=== PATIENT | male | born 1950 | race Caucasian/White ===

== ENCOUNTER → 2016-04-26 | Outpatient (CLI) | payer MEDICARE ==
--- NOTE | 2016-04-26 16:44 | US ---
EXAMINATION TYPE: US kidneys/renal and bladder DATE OF EXAM: 04/26/2016 4:22 PM COMPARISON: CT in pacs June 05, 2011 CLINICAL HISTORY: Microscopic hematuria. EXAM MEASUREMENTS: Right Kidney: 12.6 x 5.7 x 6.6cm Left Kidney: 9.2 x 3.3 x 4.3cm TECHNOLOGIST IMPRESSION: Right Kidney: 1. Technologist marked 1 cm anechoic lesion lower pole level right kidney too small to further characterize favor simple cyst. Left Kidney: Cortical thinning in left kidney is noted. There is mild left renal prominence without c alyceal dilatation, favor extrarenal pelvis. Bladder: wnl Bilateral Jets seen: yes No suspicious solid or cystic masses are identified. The urinary bladder is anechoic. Bilateral ur eteral jets are seen. IMPRESSION: No significant findings seen to account for patient's symptoms. Asymmetric atrophy of left kidney is redemonstrated.
== END | disposition home or self-care (01) ==
LOC: RADUSWWP 16:02
PROVIDERS: ATTEND Family Medicine
DX: N26.1 Atrophy of kidney (terminal) (principal); R31.21 Asymptomatic microscopic hematuria
CPT/HCPCS: 76770

== ENCOUNTER → 2016-05-14 | Outpatient (CLI) | payer MEDICARE ==
[2016-05-14 13:19] LABS: Blood Urea Nitrogen 15 mg/dL (9-20); Non-African American GFR(MDRD) 51 (>60 ml/min/1.73 sqM)
== END | disposition home or self-care (01) ==
LOC: LABWHC1 08:32
PROVIDERS: ATTEND Urology
DX: R31.0 Gross hematuria (principal)
CPT/HCPCS: 82565; 84520

== ENCOUNTER → 2016-05-22 | Outpatient (CLI) | payer MEDICARE ==
--- NOTE | 2016-05-22 13:45 | CT ---
EXAMINATION TYPE: CT urogram wo/w con DATE OF EXAM: 05/22/2016 1:24 PM COMPARISON: CT abdomen pelvis June 05, 2011 HISTORY: Patient complains of episode of gross hematuria. CT DLP: 3512 mGycm, Automated Exposure Control for Dose Reduction was Utilized. CONTRAST: CT scan of the abdomen and pelvis is performed without oral and without and with IV Contrast, patient injected with 80 mL of Visipaque 320. Urogram protocol with Three-D reconstructed images created on a independent workstation and reviewed. FINDINGS: KUB: Noncontrast images show no renal calculi bilaterally. Note is made of new moderate to severe cor tical thinning or atrophy of majority of left kidney excluding lower pole where the cortex is fairly well-maintained. Note is made of retroaortic left renal vein. 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 There is probable thrombus or significant narrowing of left re nal artery near origin. There is symmetric cortical medullary uptake and excretion from both kidneys without evidence of hydr onephrosis bilaterally. There are few subcentimeter low dense lesions scattered throughout right kidn ey particularly in lower pole that are too small to further characterize but presumed benign. Visualized portion of both ureters shows no suspicious filling defect or hydroureter. Urinary bladder is satisfactorily distended midline of pelvis without abnormal intraluminal mass or wall thickening. LUNG BASES: No significant abnormality is appreciated. LIVER/GB: No significant abnormality is appreciated. PANCREAS: No significant abnormality is seen. SPLEEN: There is stable splenomegaly measuring 14.3 cm on long axis on coronal image 94 series 11. ADRENALS: No significant abnormality is seen. KIDNEYS: No significant abnormality is seen. BOWEL: Some diverticula in the left and sigmoid colon are redemonstrated. PROSTATE/SEMINAL VESICLES: Prostate gland is heterogeneous appearance and slightly prominent in size bulging on bladder base, clinical correlation for BPH is advised. LYMPH NODES: No greater than 1cm abdominal or pelvic lymph nodes are appreciated. OSSEOUS STRUCTURES: Mild to moderate spurring in the joint space loss in both hips is present. Osseou s structures are somewhat demineralized. OTHER: No significant additional abnormality is seen. IMPRESSION: 1. No significant finding is seen to account for patient's clinical symptoms of hematuria. Note is ma de of new moderate to severe cortical atrophy of majority of left kidney sparing lower pole likely du e to accessory left renal artery, etiology felt on basis of atherosclerotic disease near portion of l eft renal artery. Atrophy correlates with recent ultrasound.
== END | disposition home or self-care (01) ==
LOC: RADCTMAIN 05-14 12:28
PROVIDERS: ATTEND Urology
DX: N26.1 Atrophy of kidney (terminal) (principal)
CPT/HCPCS: 82565; 84520; 74178; 74400; Q9967

== ENCOUNTER → 2016-11-20 | Outpatient (CLI) | payer MEDICARE ==
--- NOTE | 2016-11-20 08:01 | US ---
EXAMINATION TYPE: US duplex aorta DATE OF EXAM: 11/20/2016 COMPARISON: 06/04 CLINICAL HISTORY: Z78.9 Screening for Abd Aortic Aneurysm. EXAM MEASUREMENTS: Abdominal Aorta: Proximal: 2.1 x 1.8cm Mid: 2.0 x 2.3cm Distal: 2.1 x 1.8cm Bifurcation: wnl Some exam limitations due to larger habitus and increased overlying bowel gas. Some changes, no A AA seen. IMPRESSION: Minimal calcific atheromatous changes of the visualized abdominal aorta. No evidence of a bdominal aortic aneurysm.
== END | disposition home or self-care (01) ==
LOC: RADUSWWP 07:35
PROVIDERS: ATTEND Family Medicine
DX: Z78.9 Other specified health status (principal); I70.0 Atherosclerosis of aorta
CPT/HCPCS: 93979

== ENCOUNTER → 2017-01-24 | Outpatient (CLI) | payer MEDICARE | END | disposition home or self-care (01) | LOC: LABWHC1 12:20 | PROVIDERS: ATTEND Podiatrist Foot & Ankle Surgery | DX: Z01.812 Encounter for preprocedural laboratory examination (principal); N28.9 Disorder of kidney and ureter, unspecified | CPT/HCPCS: 36415; 82565; 84520 ==

== ENCOUNTER → 2017-01-28 | Outpatient (CLI) | payer MEDICARE ==
--- NOTE | 2017-01-28 11:19 | MR ---
MR right foot with and without contrast HISTORY: Soft tissue mass, M 79.9 Multiplanar multisequence and postcontrast images through the foot following 10 cc Gadavist IV. There are no plain films for correlation. At the site of patient's symptomatology volar aspect of the fourth digit, there is overlying skin mar ker. Underlying focus of multilocular intermediate signal on T1, increased signal T2-weighted sequenc es is noted within the tissues just deep to the skin which measures approximately 1 cm x 4.8 cm x 2.1 cm in greatest dimension. Lobulated contour is present of varying adnexa dimensions. No definite com munication with the joint is noted. Following contrast administration there is no significant enhance ment. Some local mass effect is noted. Degenerative changes are present at the first metatarsophalangeal joint. Some deformity of the distal fifth metatarsal may be due to remote trauma. Bone marrow signal is otherwise essentially maintained . Flexor and extensor tendons are intact. IMPRESSION: Findings may represent ganglion cysts, synovial cyst. Additional findings above.
== END | disposition home or self-care (01) ==
LOC: RADMRIMAIN 08:00
PROVIDERS: ATTEND Podiatrist Foot & Ankle Surgery
DX: M79.9 Soft tissue disorder, unspecified (principal)
CPT/HCPCS: 73720; A9581

== ENCOUNTER → 2017-03-06 | Outpatient (CLI) | payer MEDICARE ==
[2017-03-06 10:37] LABS: CH 27.3; CHCM 33.3; HCT 36.3 % (39.0-53.0); HDW 3.19; HGB 12.1 gm/dL (13.0-17.5); MCH 27.4 pg (25.0-35.0); MCHC 33.3 g/dL (31.0-37.0); MCV 82.2 fL (80.0-100.0); Mean Platelet Volume 8.7; RBC 4.42 m/uL (4.30-5.90); RDW 15.7 % (11.5-15.5); WBC 5.2 k/uL (3.8-10.6)
[2017-03-06 10:42] LABS: Potassium 4.5 mmol/L (3.5-5.1); Total Bilirubin 0.9 mg/dL (0.2-1.3); Total Protein 6.7 g/dL (6.3-8.2)
== END | disposition home or self-care (01) ==
LOC: LABPAT 10:12
PROVIDERS: ATTEND Podiatrist Foot & Ankle Surgery
DX: Z01.812 Encounter for preprocedural laboratory examination (principal)
CPT/HCPCS: 36415; 80053; 85027

== ENCOUNTER 2017-03-19 11:26 | Day surgery (SDC) | payer MEDICARE ==
[2017-03-17 11:11] VITALS: BMI 34.0
[~2017-03-19 11:26] MED LIST: DEXAMETHASONE SOD PHOSPHATE 10 MG/ML 1 ML VIAL IV ONE; HYDROmorphone 0.5 MG/0.5 ML SYRINGE IVP PRN; LACTATED RINGERS 1,000 ML IV SCH; MIDAZOLAM 2 MG/2 ML VIAL IV PRN; ONDANSETRON 4 MG/2 ML VIAL IVP ONE; Pre Op ABX Message 1 EACH MISC MISCELLANE ONE; SCOPOLAMINE 1.5MG/72HR PATCH TRANSDERM ONE
[2017-03-19] MEDS ORDERED: LIDOCAINE 1% 20 ML VIAL (10MG/ML) FOR IV START INTRADERMA ONE (12:08)
[2017-03-19] MEDS ORDERED: PROPOFOL 10 MG/ML 20 ML VIAL IV ONE (13:07)
[2017-03-19] MEDS ORDERED: fentaNYL (PF) 50 MCG/ML 2 ML AMP ONE (13:07)
[2017-03-19] MEDS ORDERED: LIDOCAINE 1% INJ 10MG/ML (20 ML MDV) ONE (13:07)
[2017-03-19] MEDS ORDERED: MIDAZOLAM 2 MG/2 ML VIAL ONE (13:07)
[2017-03-19] MEDS ORDERED: BUPIVACAINE (PF) 0.25% 30 ML VIAL SQ ONE (13:18)
[2017-03-19 14:11] VITALS: TEMP 97.8
--- NOTE | 2017-03-19 14:18 | P.OP ---
Date of Procedure: 03/19/17 Preoperative Diagnosis: Soft tissue mass plantar aspect right foot pending path report Postoperative Diagnosis: Same Procedure(s) Performed: Excision of soft tissue mass plantar aspect right forefoot Mortgage Loan Originator #1: Jean Pierre Osuna Indications for Procedure: Pain with ambulation and weightbearing Description of Procedure: On the date of surgery the patient was taken to the operating room in good condition placed on the operating table in a supine position where an IV was started and adequate IV anesthetic agents were utilized. Anesthesia was then further supplemented with approximately 17 mL of 0.25% plain Marcaine given in an infiltrative block about the periphery of the soft tissue mass located on the plantar aspect of the patient's right forefoot. The patient's right foot was then prepped and draped in the usual aseptic manner over heavy web roll padding an ankle tourniquet was placed above the malleoli of the patient's right ankle patient's right foot and ankle were then elevated and exsanguinated of blood and after approximately 1 minutes. A time the ankle tourniquet to the patient's right ankle was inflated to approximately 275 mmHg At this time attention was directed the plantar aspect of the patient's right foot where an approximately 6 cm plantar oblique incision was made the incision was started from just proximal to the sulcus space proximal to the fourth webspace did in a proximal and medial direction to the midshaft area of the third metatarsal. The incision was deepened via sharp dissection down through the level of subcutaneous tissue layers all neurovascular structures encountered were identified isolated and were retracted and any bleeding vessels were clamped electrocauterized. Dissection was then carried deep via combination of sharp and blunt technique down to the soft tissue mass was identified lying directly beneath the original incision soft tissue mass was isolated proximally distally medially and laterally it was clamped and excised in total from the surgical site. Throughout the surgical procedure copious amounts sterile saline solution was used to irrigate the surgical site. The incision was then inspected for any remaining portions and when none was seen subcutaneous tissues were coaptated and maintained utilizing 3-0 Vicryl simple interrupted suture the skin was then closed utilizing 4-0 nylon simple interrupted suture the continuous lock suture and vertical mattress sutures. Adaptic Kerlix fluffs four-inch conformer 4 inch Coban was used to form a compression dressing and the ankle tourniquet to the patient's right ankle was deflated adequate hemostatic return was seen in all digits the patient's right foot patient tolerated the surgery and anesthesia well was taken recovery room in good postoperative condition sign Jean Pierre Osuna DPM
[2017-03-19 14:40] VITALS: RESP 16
[2017-03-19 15:01] VITALS: BP 157/82; PULSE 52
--- NOTE | 2017-03-27 07:10 | CDI ---
Dr. Osuna Mr. Chakraborty was seen on 03/19/17 for an excision of a soft tissue mass of his right foot. Further description of the size of the mass is needed for proper reporting purposes. Please specify if the size is: *Less than 1.5 CM *1.5 CM or greater Please respond to this query in an addendum to the procedure note. Thank you for your time. TANIA Perdomo For further questions please contact Milagros Luque programming manager, at [phone] [facility]
--- NOTE | 2017-05-05 07:27 | CDI ---
Outpatient Documentation Clarification Form Date: 05/05/17 Special Needs Teacher Name: TANIA Perdomo Phone: If you have question, contact Anita Luque, Restorative Care Technician at [phone] M-F 8:30 am to 6pm. Patient Name: Aaron Chakraborty Admit Date: 03/19/17 Discharge Date: 03/19/17 ATTENTION: The Clinical Documentation Specialists (CDI) and [facility] Coding Staff appreciate your assistance in clarifying documentation. Please respond to the clarification below the line at the bottom and electronically sign. The CDI & [facility] Coding staff will review the response and follow-up if needed. Please note: Queries are made part of the Legal Health Record. If you have any questions, please contact the author of this message via ITS or call the Restorative Care Technician. Dr. Osuna Mr. Chakraborty was seen on 03/19/17 for an excision of a soft tissue mass of this right foot. Further description of the size of the mass is needed for proper reporting purposes. Please specify if the size is: *Less than 1.5 cm *1.5 cm or greater MTDD
== END 2017-03-19 15:17 | disposition home or self-care (01) ==
LOC: OR 11:26
PROVIDERS: ATTEND Podiatrist Foot & Ankle Surgery
DX: M79.89 Other specified soft tissue disorders (principal); I10 Essential (primary) hypertension; E78.5 Hyperlipidemia, unspecified; J45.909 Unspecified asthma, uncomplicated; Z79.82 Long term (current) use of aspirin; Z79.51 Long term (current) use of inhaled steroids; Z79.899 Other long term (current) drug therapy
CPT/HCPCS: 28039; 88304; J2250; J1100; J2405; J2001; J3010; J2704

== ENCOUNTER 2018-02-23 08:31 | Day surgery (SDC) | payer MEDICARE ==
[2018-02-18 11:39] VITALS: BMI 32.1
[~2018-02-23 08:31] MED LIST changes: -DEXAMETHASONE SOD PHOSPHATE 10 MG/ML 1 ML VIAL IV ONE; -HYDROmorphone 0.5 MG/0.5 ML SYRINGE IVP PRN; +LIDOCAINE 1% 20 ML VIAL (10MG/ML) FOR IV START INTRADERMA PRN; -MIDAZOLAM 2 MG/2 ML VIAL IV PRN; -ONDANSETRON 4 MG/2 ML VIAL IVP ONE; -Pre Op ABX Message 1 EACH MISC MISCELLANE ONE; -SCOPOLAMINE 1.5MG/72HR PATCH TRANSDERM ONE
[2018-02-23 08:50] VITALS: TEMP 97.4
[2018-02-23] MEDS ORDERED: PROPOFOL 10 MG/ML 20 ML VIAL IV ONE (09:40)
--- NOTE | 2018-02-23 10:11 | P.PCN ---
Date of Procedure: 02/23/18 Procedure(s) Performed: Procedure: Total colonoscopy and polypectomy. Preoperative diagnosis: Blood in the stools. Postoperative diagnosis: Small hepatic flexure polyp snared but no large polyps or cancer. Preparation: HalfLytely prep. Sedation: Was provided by anesthesia. Brief clinical history: The patient is a 68-year-old male who is scheduled for this evaluation because of finding of blood in his stools. He has no overt bleeding or any change in bowel habits or any upper GI complaints or anemia. He had 2 prior colonoscopies the last was around 4 or 5 years ago. He had at least 1 polyp removed in the past. Procedure: With the patient on his left lateral decubitus position and after informed consent and adequate sedation, the perianal area was inspected and it did not show any fissures or fistulas. There were no masses felt on digital rectal examination. The Olympus CFH 190L video colonoscope was then inserted in the rectum in the usual fashion and advanced to the cecum. There was a small polyp around the hepatic flexure which was snared and retrieved by suction , otherwise, exam to the cecum showed healthy mucosa. No obvious diverticular disease, other pathology or bleeding. I retroflexed the endoscope in the rectum before the endoscope was withdrawn. The patient tolerated the procedure well. Plan: The patient was reassured. In the absence of upper GI complaints or anemia, I did not recommend workup of his upper GI tract at this time and this can be kept as a contingency. For screening for colon neoplasia, I amm recommending repeat exam in 5 years. He will follow up with you as planned.
[2018-02-23 10:22] VITALS: BP 131/72; PULSE 57; RESP 16
== END 2018-02-23 10:46 | disposition home or self-care (01) ==
LOC: ORWHC2ENDO 08:31
DX: D12.3 Benign neoplasm of transverse colon (principal); J45.909 Unspecified asthma, uncomplicated; I10 Essential (primary) hypertension; E78.5 Hyperlipidemia, unspecified; M19.90 Unspecified osteoarthritis, unspecified site; G47.33 Obstructive sleep apnea (adult) (pediatric); Z79.82 Long term (current) use of aspirin; Z79.899 Other long term (current) drug therapy
CPT/HCPCS: 88305; 45385; J2704

== ENCOUNTER → 2018-04-23 | Outpatient (CLI) | payer MEDICARE ==
--- NOTE | 2018-04-23 12:24 | US ---
EXAMINATION TYPE: US kidneys/renal and bladder DATE OF EXAM: 04/23/2018 COMPARISON: NONE CLINICAL HISTORY: N28.9 Disorder of kidney and ureter, unspecified. renal failure EXAM MEASUREMENTS: Right Kidney: 11.3 x 5.1 x 5.4 cm Left Kidney: 9.1 x 3.1 x 3.7 cm Right Kidney: No hydronephrosis or masses seen Left Kidney: asymmetric appearance of left kidney as noted on previous exam with cortical thinning an d smaller size. Bladder: wnl Bilateral Jets seen: no There is no evidence for hydronephrosis at this point in time. No nephrolithiasis is seen. No zainab s are identified. The urinary bladder is anechoic. IMPRESSION: Continued evidence of left renal atrophy. The right kidney does not demonstrate evidence of medical r enal disease. Urinary bladder is incompletely distended.
== END | disposition home or self-care (01) ==
LOC: RADUSWWP 10:52
PROVIDERS: ATTEND Family Medicine
DX: N26.1 Atrophy of kidney (terminal) (principal)
CPT/HCPCS: 76770

== ENCOUNTER → 2019-11-15 | Outpatient (CLI) | payer MEDICARE ==
--- NOTE | 2019-11-16 00:07 | MR ---
EXAMINATION TYPE: MR foot RT wo con DATE OF EXAM: 11/15/2019 COMPARISON: None HISTORY: Palpable mass in rt forefoot CONTRAST: Multiplanar multiecho imaging of the right foot was performed with no contrast. The metatarsals appear intact. There is some narrowing and spurring at the first MP joint. There is s mall degenerative cyst in the first metatarsal head. There is subcutaneous edema involving the planta r aspect of the forefoot at the MP joints. There is low signal T1 defect involving the plantar soft t issues at the first MP joint. This could be an ulcer crater and should be correlated with the physica l exam. The toes appear intact. I see no fracture. The tarsal bones appear intact. Achilles tendon is intact. Medial and lateral flexor tendons of the foot appear intact. There is mild ankle joint effus ion. There is increased fluid signal involving the plantar soft tissues at the third metatarsal head. IMPRESSION: Soft tissue swelling and edema of the forefoot involving the plantar aspect of the metatarsals. Possi ble ulceration defect of the plantar aspect of the first metatarsal head. This is a change compared t o old exam. No evidence of osteomyelitis. No discrete soft tissue mass seen. Mild ankle joint effusion similar to old exam.
== END | disposition home or self-care (01) ==
LOC: RADMRIMAIN 19:03
DX: M25.474 Effusion, right foot (principal); M79.89 Other specified soft tissue disorders
CPT/HCPCS: 73719; A9585

== ENCOUNTER → 2021-11-08 | Outpatient (CLI) | payer MEDICARE ==
[2021-11-08 17:48] LABS: Basophils # (A) 0.02 X 10*3/uL (0.00-0.10); Basophils % (A) 0.3 %; Eosinophils # (A) 0.12 X 10*3/uL (0.04-0.35); HGB 13.7 g/dL (13.0-17.0); Immature Grans, Automated 0.2 %; Lymphocytes % (A) 38.3 %; MCH 24.8 pg (27.0-32.0); MCHC 31.1 g/dL (32.0-37.0); MCV 79.7 fL (80.0-97.0); Mean Platelet Volume 9.6 fL (9.5-12.2); Monocytes # (A) 0.52 X 10*3/uL (0.20-1.00); Monocytes % (A) 8.7 %; NRBC Per 100 WBC 0 /100 WBCS (0.0-0.0); Neutrophils # (A) 3.04 X 10*3/uL (1.80-7.70); Neutrophils % (A) 50.5 %; Platelet Count 175 X 10*3/uL (140-440); RBC 5.52 X 10*6/uL (4.40-5.60); RDW 15.7 % (11.5-14.5); WBC 6.01 X 10*3/uL (4.50-10.00)
[2021-11-08 18:11] LABS: African American GFR (CKD) 79.6 (60.0-200.0); Albumin 4.3 g/dL (3.8-4.9); Albumin/Globulin Ratio 1.66 (1.60-3.17); Anion Gap 10.5 mmol/L (10.00-18.00); BUN/Creat Ratio 14.17 Ratio (12.00-20.00); Blood Urea Nitrogen 15.3 mg/dL (9.0-27.0); Calcium 9.5 mg/dL (8.7-10.3); Carbon Dioxide 23.4 mmol/L (20.0-27.5); Globulin 2.6 g/dL (1.6-3.3); Non-African American GFR(CKD) 68.7 (60.0-200.0); Potassium 4.1 mmol/L (3.5-5.5); Total Bilirubin 0.6 mg/dL (0.30-1.20)
== END | disposition home or self-care (01) ==
LOC: LABWHC1 12:39
PROVIDERS: ATTEND Podiatrist Foot & Ankle Surgery
DX: Z01.812 Encounter for preprocedural laboratory examination (principal)
CPT/HCPCS: 36415; 80053; 85025

== ENCOUNTER 2021-11-14 11:42 | Day surgery (SDC) | payer MEDICARE ==
[2021-11-12 14:34] VITALS: BMI 26.9
[~2021-11-14 11:42] MED LIST changes: +DEXAMETHASONE SOD PHOSPHATE 4 MG/ML 1 ML VIAL IV ONE; +HYDROmorphone 0.5 MG/0.5 ML SYRINGE IVP PRN; +LIDOCAINE 1% (10MG/ML) FOR IV START INTRADERMA PRN; -LIDOCAINE 1% 20 ML VIAL (10MG/ML) FOR IV START INTRADERMA PRN; +ONDANSETRON 4 MG/2 ML VIAL IVP ONE; +ONDANSETRON 4 MG/2 ML VIAL IVP PRN
[2021-11-14 12:28] LABS: Glucose,Whole Blood 103 mg/dL (70-110)
[2021-11-14] MEDS ORDERED: PROPOFOL 10 MG/ML 20 ML VIAL IV ONE (13:02)
[2021-11-14] MEDS ORDERED: fentaNYL (PF) 50 MCG/ML 2 ML AMP ONE (13:02)
[2021-11-14] MEDS ORDERED: ePHEDrine 50 MG/ML 1 ML VIAL ONE (13:02)
[2021-11-14] MEDS ORDERED: MIDAZOLAM 2 MG/2 ML VIAL ONE (13:02)
[2021-11-14] MEDS ORDERED: LIDOCAINE 2% INJ 20 MG/ML (2 ML VIAL) ONE (13:02)
[2021-11-14] MEDS ORDERED: BUPIVACAINE (PF) 0.25% 30 ML VIAL MISCELLANE ONE ×2 (13:33→14:59)
[2021-11-14 15:18] VITALS: TEMP 97
--- NOTE | 2021-11-14 15:29 | P.OP ---
Date of Procedure: 11/14/21 Preoperative Diagnosis: Hallux limitus right foot and hammer digit deformity second through fifth digit right foot Postoperative Diagnosis: Same Procedure(s) Performed: Ordoñez bunionectomy right foot Arthrodesis procedure second third and fourth digits right foot Derotational arthroplasty fifth digit right foot Anesthesia: RENEEA Surgeon: Jean Pierre Osuna Estimated Blood Loss (ml): 10 Description of Procedure: On the date of surgery the patient was taken to the operating room in good preoperative condition he was placed on the operating table in supine position where general anesthetic agents were utilized. Since right foot and ankle were then prepped and draped in the usual aseptic manner. Over heavy web roll padding an ankle tourniquet had been placed above the malleoli of the patient's right ankle. The patient's right foot and ankle were then elevated and exsanguinated of blood and after approximately 2 minutes. A time the ankle tourniquet to the patient's right ankle was inflated to approximately 250 mmHg At this time attention was directed to the dorsal aspect of the first metatarsal phalangeal joint of the patient's right foot where an approximately 6 cm dorsal linear incision was made the incision was then deepened down through the level of the subcutaneous tissues. All neurovascular structures encountered were identified isolated and were retracted. Any bleeding vessels were clamped electrocauterized. Throughout the surgical procedure copious amounts of sterile saline solution was used to irrigate the surgical site. Dissection was then carried deep down to the level of the capsular periosteal structures overlying the dorsal and medial side of the first metatarsal phalangeal joint capsule and periosteal structures then incised in line with the original skin incision and underscored and retracted from the underlying bone though a flap was created on the medial side of the base of the proximal phalanx to be used as an interface between the head of the metatarsal and the base of the proximal phalanx. Periostosis present on the dorsal and medial side of the first metatarsal head was resected flush in line with the shaft of the first metatarsal. Utilizing oscillating bone saw the base of the proximal phalanx was resected at a slightly oblique angle more bone being taken on the medial side as opposed to the lateral side of the joint due to the slight valgus deviation of the digit. Upon removal of the base of the proximal phalanx the flexor hallucis tendon was inspected and seen to be intact. Flap created from the capsular structures was then sutured to the lateral side of the first metatarsal phalangeal joint utilizing 2-0 Vicryl simple interrupted suture remaining capsular structures were then coaptated and maintained utilizing 2-0 Vicryl simple interrupted sutures. Subcutaneous tissues were coaptated and maintained utilizing 3-0 Vicryl simple interrupted suture and the skin was closed utilizing 4-0 nylon simple interrupted suture At this time attention was directed to the dorsal aspect of the second digit of the patient's right foot where an approximately 2 and half centimeter linear incision was made the incision was placed overlying the proximal interphalangeal joint the incision was deepened down through the level of subcutaneous tissue layers all neurovascular structures encountered were identified isolated and were retracted and any bleeding vessels were clamped electrocauterized. Blunt technique was used to dissect the tissues on either side of the proximal interphalangeal joint. The extensor digitorum longus tendon was then severed at the level of the proximal interphalangeal joint and the ends were reflected proximally and distally respectively. Collateral ligaments on either side of the joint were then incised sharply. Lysing oscillating bone saw the head of the proximal phalanx was resected it a 90 angle to the shaft of the proximal phalanx and removed in total from the surgical site. The base of the middle phalanx was then resected and removed from the surgical site. A 0.045 K wire was then driven distally through the middle and distal phalanx it was lined up in a rectus position against the proximal phalanx and the K wire was driven proximally into the proximal phalanx the digit upon completion of this was seen to maintain a rectus position. Sensory digitorum longus tendons were then shortened approximately saw the coaptated themselves and they were sutured with 0.0 3-0 Vicryl simple interrupted sutures the skin was then closed utilizing 4-0 nylon simple interrupted sutures suture. At this point in time the exact same procedure described above for the second toe was performed on the third and the fourth digits of the patient's right mamie t. At this point in time attention was directed to the lateral aspect of the fifth digit of the patient's right foot where a semi-elliptical oblique incision was placed it was orientated so was proximal medial and extended distal lateral the encompass wedge of skin was removed in total from the surgical site. Dissection was carried deep down to the extensor tendon which was incised sharply lateral ligaments on either side of the proximal interphalangeal joint were then incised sharply in utilizing bone cutting forceps the head of the proximal phalanx of the fifth digit resected and removed from the surgical site. Extensor digitorum longus tendons were then coaptated and maintained utilizing 3-0 Vicryl simple suture and the skin was closed utilizing 4-0 nylon simple interrupted suture Surgical sites were then injected with a total of 17 mL of 0.25% plain Marcaine. Prior to applying postoperative dressings tourniquet was deflated and adequate hemostatic return was seen in all digits of the patient's right foot 1 through 5 bilaterally. The surgical sites were then covered with Adaptic's, Kerlix fluffs four-inch conformer and 4 inch Coban. The patient tolerated the surgery and anesthesia well was taken to the recovery room in good postoperative condition
[2021-11-14] MEDS ORDERED: KETOROLAC 15 MG/ML 1 ML VIAL IVP ONE (15:39)
[2021-11-14 16:21] VITALS: BP 115/76; PULSE 60; RESP 20
== END 2021-11-14 16:40 | disposition home or self-care (01) ==
LOC: OR 11:42
PROVIDERS: ATTEND Podiatrist Foot & Ankle Surgery
DX: M20.5X1 Other deformities of toe(s) (acquired), right foot (principal); M20.41 Other hammer toe(s) (acquired), right foot; E11.9 Type 2 diabetes mellitus without complications; E55.9 Vitamin D deficiency, unspecified; E78.01 Familial hypercholesterolemia; E78.5 Hyperlipidemia, unspecified; E66.01 Morbid (severe) obesity due to excess calories; Z68.27 Body mass index [BMI] 27.0-27.9, adult; D50.9 Iron deficiency anemia, unspecified; J60 Coalworker's pneumoconiosis; F41.9 Anxiety disorder, unspecified; F32.A Depression, unspecified; F45.8 Other somatoform disorders; G47.33 Obstructive sleep apnea (adult) (pediatric); Z87.891 Personal history of nicotine dependence; I10 Essential (primary) hypertension; I25.10 Atherosclerotic heart disease of native coronary artery without angina pectoris; J45.909 Unspecified asthma, uncomplicated; I65.29 Occlusion and stenosis of unspecified carotid artery; H90.5 Unspecified sensorineural hearing loss; N52.8 Other male erectile dysfunction; M19.90 Unspecified osteoarthritis, unspecified site; Z82.49 Family history of ischemic heart disease and other diseases of the circulatory system; Z98.890 Other specified postprocedural states; Z97.2 Presence of dental prosthetic device (complete) (partial); Z79.84 Long term (current) use of oral hypoglycemic drugs; Z79.82 Long term (current) use of aspirin; Z79.899 Other long term (current) drug therapy; Z79.51 Long term (current) use of inhaled steroids; Z79.891 Long term (current) use of opiate analgesic; Z79.01 Long term (current) use of anticoagulants
CPT/HCPCS: 28292; 28285 ×3; C1713; J2250; J1100; J0690; J2405; J3010; J1885; J2704; J1170; J2001; 88304; 88311

== ENCOUNTER 2022-08-04 23:37 | Inpatient (IN) | payer MEDICARE ==
[2022-08-04] MEDS ORDERED: DILTIAZEM 5 MG/ML 5 ML VIAL IVP STA (23:51)
[2022-08-05] MEDS: DILTIAZEM 125 MG in SODIUM CHLORIDE 0.9% 100 ML IV SCH ×2 (00:15→09:39)
[2022-08-05 00:16] LABS: Basophils % (A) 0 %; Eosinophils % (A) 0 %; HCT 41.6 % (39.0-53.0); HGB 14.1 gm/dL (13.0-17.5); Lymphocytes # (A) 1.1 k/uL (1.0-4.8); Lymphocytes % (A) 13 %; MCH 26.7 pg (25.0-35.0); MCHC 33.8 g/dL (31.0-37.0); MCV 79.1 fL (80.0-100.0); Mean Platelet Volume 7.5; Monocytes # (A) 0.4 k/uL (0-1.0); Monocytes % (A) 5 %; Neutrophils # (A) 7.1 k/uL (1.3-7.7); Neutrophils % (A) 80 %; Platelet Count 208 k/uL (150-450); Poikilocytosis Slight; RBC 5.26 m/uL (4.30-5.90); RDW 15.9 % (11.5-15.5); WBC 8.8 k/uL (3.8-10.6)
[2022-08-05 00:34] LABS: Albumin 4.1 g/dL (3.5-5.0); Calcium 8.8 mg/dL (8.4-10.2); Magnesium 1.9 mg/dL (1.6-2.3); Potassium 4.3 mmol/L (3.5-5.1); Total Bilirubin 1.6 mg/dL (0.2-1.3); Total Protein 7.1 g/dL (6.3-8.2)
[2022-08-05 00:38] LABS: INR 1.4 (<1.2); Partial Thromboplastin Time 30.7 sec (22.0-30.0); Prothrombin Time 14.3 sec (9.0-12.0)
--- NOTE | 2022-08-05 00:59 | ED ---
General Adult HPI - General Chief complaint: Chest Pain Stated complaint: Chest Pain, Difficulty Breathing Time Seen by Provider: 08/04/22 23:44 Source: patient Mode of arrival: ambulatory Limitations: no limitations - History of Present Illness Initial comments: This is a 72-year-old male with a past medical history including recent diagnosis of atrial fibrillation, hypertension on Xarelto presents emergency department for palpitations and shortness of breath. The patient stated that he was doing well throughout the day when he went bowling and stated that as the came home he became short of breath and had exertional dyspnea. The patient s tated that he had a continued cough as well. On arrival, the patient stated that he had continued shortness of breath and palpitations but stated that he was not lightheaded. The patient stated that he has not felt like this before. The patient denied any nausea, vomiting as well as any fevers and chills. - Related Data Home Medications Medication Instructions Recorded Confirmed Aspirin [Adult Low Dose Aspirin EC] 81 mg PO DAILY 03/17/17 11/12/21 Atorvastatin [Lipitor] 40 mg PO DAILY 03/17/17 11/12/21 Fluticasone Propion/Salmeterol 2 puff INHALATION BID PRN 03/17/17 11/14/21 [Advair Hfa 115-21 Mcg Inhaler] Montelukast Sodium [Singulair] 10 mg PO HS 03/17/17 11/14/21 Multivitamins, Thera [Multivitamin 1 tab PO DAILY 03/17/17 11/14/21 (formulary)] Vitamin B Complex 1 each PO DAILY 03/17/17 11/14/21 amLODIPine [Norvasc] 10 mg PO DAILY 03/17/17 11/14/21 carvediloL 25 mg PO BID 03/17/17 11/14/21 tiZANidine [Zanaflex] 2 mg PO BID PRN 03/17/17 11/14/21 Canagliflozin [Invokana] 100 mg PO DAILY 11/12/21 11/12/21 Cholecalciferol [Vitamin D3 (25 25 mcg PO DAILY 11/12/21 11/14/21 Mcg = 1000 Iu)] Allergies Allergy/AdvReac Type Severity Reaction Status Date / Time No Known Allergies Allergy Verified 11/14/21 12:10 Review of Systems ROS Statement: Those systems with pertinent positive or pertinent negative responses have been documented in the HPI. ROS Other: All systems not noted in ROS Statement are negative. Past Medical History Past Medical History: Atrial Fibrillation, Asthma, Hyperlipidemia, Hypertension, Osteoarthritis (OA), Sleep Apnea/CPAP/BIPAP Additional Past Medical History / Comment(s): "borderline diabetic" History of Any Multi-Drug Resistant Organisms: None Reported Past Surgical History: Orthopedic Surgery, Tonsillectomy Additional Past Surgical History / Comment(s): polyp removed from throat, nasal surgery, rt knee arthroscopy, COLONOSCOPY, foot surgery to have something removed-not sure which foot, Past Anesthesia/Blood Transfusion Reactions: No Reported Reaction Past Psychological History: No Psychological Hx Reported Smoking Status: Former smoker - Past Family History Mother Family Medical History: No Reported History General Exam Limitations: no limitations General appearance: alert, in no apparent distress Head exam: Present: atraumatic, normocephalic, normal inspection Eye exam: Present: normal appearance, PERRL Pupils: Present: normal accommodation ENT exam: Present: normal exam, normal oropharynx, mucous membranes moist Neck exam: Present: normal inspection, full ROM Respiratory exam: Present: normal lung sounds bilaterally Cardiovascular Exam: Present: tachycardia, irregular rhythm GI/Abdominal exam: Present: soft, normal bowel sounds Extremities exam: Present: normal inspection, full ROM Back exam: Present: normal inspection, full ROM Neurological exam: Present: alert, oriented X3, CN II-XII intact Psychiatric exam: Present: normal affect, normal mood Skin exam: Present: warm, dry Course Vital Signs 08/04/22 08/04/22 08/05/22 23:38 23:58 00:17 Temperature 98 F Pulse Rate 134 H 111 H 122 H Respiratory 18 20 20 Rate Blood Pressure 193/95 175/125 158/89 O2 Sat by Pulse 99 95 95 Oximetry EKG Findings - EKG Comments: EKG Findings:: An EKG was obtained and was interpreted by myself showing a rate of 140, QRS duration of 94, QTC of 376. This EKG showed an atrial fibrillation with RVR consistent with his previous diagnosis of A. fib. There was however no ST segment elevation or depression noted. Medical Decision Making - Medical Decision Making Was pt. sent in by a medical professional or institution (, PA, MEDIA MONITOR, urgent care, hospital, or penitentiary...) When possible be specific @ -No Did you speak to anyone other than the patient for history (EMS, parent, family, police, friend...)? What history was obtained from this source @ -No Did you review nursing and triage notes (agree or disagree)? Why? @ -I reviewed and agree with nursing and triage notes Were old charts reviewed (outside hosp., previous admission, EMS record, old EKG, old radiological studies, urgent care reports/EKG's, penitentiary records)? Report findings @ -No old charts were reviewed Differential Diagnosis (chest pain, altered mental status, abdominal pain women, abdominal pain men, vaginal bleeding, weakness, fever, dyspnea, syncope, headac he, dizziness, GI bleed, back pain, seizure, CVA, palpatations, mental health)? @ -Atrial fibrillation with RVR, new onset CHF, ACS, pneumonia EKG interpreted by me (3pts min.). @ -As above X-rays interpreted by me (1pt min.). @ -As x-ray was obtained and was interpreted by myself and read as possible multifocal pneumonia with multiple airspace opacities. CT interpreted by me (1pt min.). @ -None done U/S interpreted by me (1pt. min.). @ -None done What testing was considered but not performed or refused? (CT, X-rays, U/S, labs)? Why? @ -None What meds were considered but not given or refused? Why? @ -None Did you discuss the management of the patient with other professionals (professionals i.e. , PA, MEDIA MONITOR, lab, RT, psych nurse, social and human services assistant, office communication professor, teacher, financial officer, case finishing machine adjuster)? Give summary @ -Yes, admitting physician was contacted regarding admission for the patient. Was smoking cessation discussed for >3mins.? @ -No Was critical care preformed (if so, how long)? @ -Yes, see above Were there social determinants of health that impacted care today? How? (Homelessness, low income, unemployed, alcoholism, drug addiction, transportation, low edu. Level, literacy, decrease access to med. care, longterm, rehab)? @ -No Was there de-escalation of care discussed even if they declined (Discuss DNR or withdrawal of care, Hospice)? DNR status @ -No What co-morbidities impacted this encounter? (DM, HTN, Smoking, COPD, CAD, Cancer, CVA, ARF, Chemo, Hep., AIDS, mental health diagnosis, sleep apnea, morbid obesity)? @ -Atrial fibrillation, hypertension Was patient admitted / discharged? Hospital course, mention meds given and route, prescriptions, significant lab abnormalities, going to OR and other pertinent info. @ -The patient was seen and evaluated emergency department. Physical exam, the patient was resting in bed with shortness of breath however was not any acute distress. Vital signs admission showed atrial fibrillation with RVR. Laboratory workup was obtained that showed elevation of the patient's proBNP and in the setting of chest x-ray findings, the patient likely had new onset CHF and not multifocal pneumonia as the patient did not have an elevated white blood cell count nor did he have any fevers or chills. The patient was given a list of Cardizem without any change in his heart rate and was started on a Cardizem drip at this time. Due to the patient's atrial fibrillation with RVR in the setting of likely new onset CHF, the patient will be admitted for further workup and evaluation. The patient did also receive 40 mg of Lasix IV. The patient was told of this plan and was agreeable. The patient was admitted in stable condition. Undiagnosed new problem with uncertain prognosis? @ -No Drug Therapy requiring intensive monitoring for toxicity (Heparin, Nitro, Insulin, Cardizem)? @ -Cardizem Were any procedures done? @ -No Diagnosis/symptom? @ -Atrial fibrillation with RVR Acute, or Chronic, or Acute on Chronic? @ -Acute Uncomplicated (without systemic symptoms) or Complicated (systemic symptoms)? @ -Complicated Side effects of treatment? @ -No Exacerbation, Progression, or Severe Exacerbation? @ -No Poses a threat to life or bodily function? How? (Chest pain, USA, MD, pneumonia, PE, COPD, DKA, ARF, appy, cholecystitis, CVA, Diverticulitis, Homicidal, Suicidal, threat to staff... and all critical care pts) @ -Yes, continued dysrhythmia can lead to permanent organ damage and . Diagnosis/symptom? @ -New onset CHF Acute, or Chronic, or Acute on Chronic? @ -Acute Uncomplicated (without systemic symptoms) or Complicated (systemic symptoms)? @ -Complicated Side effects of treatment? @ -none Exacerbation, Progression, or Severe Exacerbation] @ -no Poses a threat to life or bodily function? @ -no - Lab Data Result diagrams: 08/04/22 23:57 08/04/22 23:57 Lab Results 08/04/22 08/04/22 08/04/22 Range/Units 23:57 23:57 23:57 WBC 8.8 (3.8-10.6) k/uL RBC 5.26 (4.30-5.90) m/uL Hgb 14.1 (13.0-17.5) gm/dL Hct 41.6 (39.0-53.0) % MCV 79.1 L (80.0-100.0) fL MCH 26.7 (25.0-35.0) pg MCHC 33.8 (31.0-37.0) g/dL RDW 15.9 H (11.5-15.5) % Plt Count 208 (150-450) k/uL MPV 7.5 Neutrophils % 80 % Lymphocytes % 13 % Monocytes % 5 % Eosinophils % 0 % Basophils % 0 % Neutrophils # 7.1 (1.3-7.7) k/uL Lymphocytes # 1.1 (1.0-4.8) k/uL Monocytes # 0.4 (0-1.0) k/uL Eosinophils # 0.0 (0-0.7) k/uL Basophils # 0.0 (0-0.2) k/uL Poikilocytosis Slight PT 14.3 H (9.0-12.0) sec INR 1.4 H (<1.2) APTT 30.7 H (22.0-30.0) sec Sodium 135 L (137-145) mmol/L Potassium 4.3 (3.5-5.1) mmol/L Chloride 104 (98-107) mmol/L Carbon Dioxide 23 (22-30) mmol/L Anion Gap 8 mmol/L BUN 20 (9-20) mg/dL Creatinine 1.31 H (0.66-1.25) mg/dL Est GFR (CKD-EPI)AfAm 63 (>60 ml/min/1.73 sqM) Est GFR (CKD-EPI)NonAf 54 (>60 ml/min/1.73 sqM) Glucose 167 H (74-99) mg/dL Calcium 8.8 (8.4-10.2) mg/dL Magnesium 1.9 (1.6-2.3) mg/dL Total Bilirubin 1.6 H (0.2-1.3) mg/dL AST 18 (17-59) U/L ALT 19 (4-49) U/L Alkaline Phosphatase 106 (38-126) U/L Troponin I (0.000-0.034) ng/mL NT-Pro-B Natriuret Pep pg/mL Total Protein 7.1 (6.3-8.2) g/dL Albumin 4.1 (3.5-5.0) g/dL Lipase 65 (23-300) U/L Influenza Type A (PCR) (Not Detectd) Influenza Type B (PCR) (Not Detectd) RSV (PCR) (Not Detectd) SARS-CoV-2 (PCR) (Not Detectd) 08/04/22 08/04/22 08/04/22 Range/Units 23:57 23:57 23:57 WBC (3.8-10.6) k/uL RBC (4.30-5.90) m/uL Hgb (13.0-17.5) gm/dL Hct (39.0-53.0) % MCV (80.0-100.0) fL MCH (25.0-35.0) pg MCHC (31.0-37.0) g/dL RDW (11.5-15.5) % Plt Count (150-450) k/uL MPV Neutrophils % % Lymphocytes % % Monocytes % % Eosinophils % % Basophils % % Neutrophils # (1.3-7.7) k/uL Lymphocytes # (1.0-4.8) k/uL Monocytes # (0-1.0) k/uL Eosinophils # (0-0.7) k/uL Basophils # (0-0.2) k/uL Poikilocytosis PT (9.0-12.0) sec INR (<1.2) APTT (22.0-30.0) sec Sodium (137-145) mmol/L Potassium (3.5-5.1) mmol/L Chloride (98-107) mmol/L Carbon Dioxide (22-30) mmol/L Anion Gap mmol/L BUN (9-20) mg/dL Creatinine (0.66-1.25) mg/dL Est GFR (CKD-EPI)AfAm (>60 ml/min/1.73 sqM) Est GFR (CKD-EPI)NonAf (>60 ml/min/1.73 sqM) Glucose (74-99) mg/dL Calcium (8.4-10.2) mg/dL Magnesium (1.6-2.3) mg/dL Total Bilirubin (0.2-1.3) mg/dL AST (17-59) U/L ALT (4-49) U/L Alkaline Phosphatase (38-126) U/L Troponin I 0.012 (0.000-0.034) ng/mL NT-Pro-B Natriuret Pep 3470 pg/mL Total Protein (6.3-8.2) g/dL Albumin (3.5-5.0) g/dL Lipase (23-300) U/L Influenza Type A (PCR) Not Detected (Not Detectd) Influenza Type B (PCR) Not Detected (Not Detectd) RSV (PCR) Not Detected (Not Detectd) SARS-CoV-2 (PCR) Not Detected (Not Detectd) Critical Care Time Critical Care Time: Yes Total Critical Care Time: 36 Disposition Clinical Impression: Atrial fibrillation with rapid ventricular response, New onset of congestive heart failure Disposition: ADMITTED IP TO THIS [facility] Condition: Stable Is patient prescribed a controlled substance at d/c from ED?: No Referrals: Jesu Nguyen MD [Primary Care Provider] - 1-2 days Time of Disposition: 00:30 Decision to Admit Reason: Admit from EC Decision Date: 08/05/22 Decision Time: 00:30
[2022-08-05] MEDS ORDERED: FUROSEMIDE 10 MG/ML 4 ML VIAL IV STA (01:11)
--- NOTE | 2022-08-05 01:26 | XR ---
EXAM: XR Chest, 2 Views CLINICAL HISTORY: ITS.REASON XR Reason: CP TECHNIQUE: Frontal and lateral views of the chest. COMPARISON: No relevant prior studies available. FINDINGS/IMPRESSION: Patchy right midlung field and left retrocardiac opacities, concerning for multifocal pneumonia. No pleural effusion or pneumothorax. Cardiomegaly.
[2022-08-05] MEDS ORDERED: NALOXONE 0.4 MG/ML 1 ML VIAL IV PRN (01:38)
--- NOTE | 2022-08-05 03:09 | P.HPIM ---
History of Present Illness H&P Date: 08/05/22 The patient is a 72-year-old male with a PMH of recently diagnosed A. fib on Xarelto, hypertension, hyperlipidemia, COPD who presents to the emergency room with complaints of shortness of breath, chest pain, and lower extremity swelling. The patient states that over the past 1 week, he has been experiencing gradually worsening dyspnea on exertion. States that he also began experiencing left upper chest sharp discomfort over the past 24 hours occurring intermittently, 7 out of 10 at maximal intensity, nonradiating, nonpleuritic. The patient reports that earlier tonight he went bowling with friends and felt that his shortness of breath worsened and he developed lower extremity edema which prompted him to come to the emergency room. He reports that his pain had resolved at the time of interview and that his shortness of breath and also somewhat improved. He denied any prior history of heart disease or congestive heart failure. He denies experiencing fevers. Reports a chronic nonproductive cough which is unchanged. The patient reports compliance with his Xarelto at home. The patient underwent an extensive evaluation in the emergency room with a chest x-ray showing patchy opacities likely secondary to pulmonary edema as reviewed by me. EKG revealed Afib with RVR at 140 bpm. Laboratory evaluation was remarkable for sodium 135, creatinine 1.31, total bilirubin 1.6, troponin 0.012, and proBNP 3470. Vital signs upon presentation to the emergency room were BP 193/95, SpO2 99% on room air, pulse 134, and temp 98F. ED documentation reviewed and case discussed with ED provider. Review of systems: Pertinent positives and negatives as discussed in HPI, a complete review of systems was performed and all other systems are negative. Physical examination: Vital signs reviewed General: non toxic, no distress, appears at stated age, normal weight Derm: no unusual rashes/lesions, warm Head: atraumatic, normocephalic, symmetric Eyes: EOMI, no lid lag, anicteric sclera, pupils equal round reactive to light ENT: Nose and ears atraumatic Neck: No cervical lymphadenopathy, trachea midline, supple Mouth: no lip lesion, mucus membranes moist Cardiovascular: S1S2 reg, no murmur, positive dorsalis pedis pulse bilateral, trace bilateral lower extremity pitting edema Lungs: Mild bibasilar rales, no rhonchi or wheezing, no accessory muscle use Abdominal: soft, nontender to palpation, no guarding Ext: muscle strength 5 out of 5 in all 4 extremities grossly, no gross muscle atrophy, no contractures, Neuro: CN II-XI grossly intact, no gross focal neuro deficits Psych: Alert, oriented, appropriate affect Assessment: Jyotsna grimm with RVR Acute CHF exacerbation, newly diagnosed Acute kidney injury Chronic conditions: Hypertension, hyperlipidemia, COPD Imaging: The patient underwent an extensive evaluation in the emergency room with a chest x-ray showing patchy opacities likely secondary to pulmonary edema as reviewed by me. EKG revealed Afib with RVR at 140 bpm. Data Review: Laboratory evaluation was remarkable for sodium 135, creatinine 1.31, total bilirubin 1.6, troponin 0.012, and proBNP 3470. Vital signs upon presentation to the emergency room were BP 193/95, SpO2 99% on room air, pulse 134, and temp 98F. ED documentation reviewed and case discussed with ED provider. Plan: Continue with Lasix 40 mg IV every 12 hourly. Monitor electrolytes daily Daily weights, intake and output Continue Cardizem infusion with cardiac monitoring Cardiology consulted Continue home medications once reconciled DVT prophylaxis: Xarelto The patient is admitted with an anticipated greater than 2 midnight stay for evaluation of Afib CODE STATUS: Full Code Discussed with: Patient, Anticipated discharge place: Home Past Medical History Past Medical History: Atrial Fibrillation, Asthma, Hyperlipidemia, Hypertension, Osteoarthritis (OA), Sleep Apnea/CPAP/BIPAP Additional Past Medical History / Comment(s): "borderline diabetic" History of Any Multi-Drug Resistant Organisms: None Reported Past Surgical History: Orthopedic Surgery, Tonsillectomy Additional Past Surgical History / Comment(s): polyp removed from throat, nasal surgery, rt knee arthroscopy, COLONOSCOPY, foot surgery to have something removed-not sure which foot, Past Anesthesia/Blood Transfusion Reactions: No Reported Reaction Past Psychological History: No Psychological Hx Reported Smoking Status: Former smoker - Past Family History Mother Family Medical History: Hypertension Medications and Allergies Home Medications Medication Instructions Recorded Confirmed Type Aspirin [Adult Low Dose Aspirin EC] 81 mg PO DAILY 03/17/17 11/12/21 History Atorvastatin [Lipitor] 40 mg PO DAILY 03/17/17 11/12/21 History Fluticasone Propion/Salmeterol 2 puff INHALATION BID PRN 03/17/17 11/14/21 Hi story [Advair Hfa 115-21 Mcg Inhaler] Montelukast Sodium [Singulair] 10 mg PO HS 03/17/17 11/14/21 History Multivitamins, Thera [Multivitamin 1 tab PO DAILY 03/17/17 11/14/21 History (formulary)] Vitamin B Complex 1 each PO DAILY 03/17/17 11/14/21 History amLODIPine [Norvasc] 10 mg PO DAILY 03/17/17 11/14/21 History carvediloL 25 mg PO BID 03/17/17 11/14/21 History tiZANidine [Zanaflex] 2 mg PO BID PRN 03/17/17 11/14/21 History Canagliflozin [Invokana] 100 mg PO DAILY 11/12/21 11/12/21 History Cholecalciferol [Vitamin D3 (25 25 mcg PO DAILY 11/12/21 11/14/21 History Mcg = 1000 Iu)] Allergies Allergy/AdvReac Type Severity Reaction Status Date / Time No Known Allergies Allergy Verified 11/14/21 12:10 Physical Exam Vitals: Vital Signs Temp Pulse Resp BP Pulse Ox 08/05/22 02:32 115 H 20 159/97 96 08/05/22 02:31 109 H 18 159/97 98 08/05/22 00:17 122 H 20 158/89 95 08/04/22 23:58 111 H 20 175/125 95 08/04/22 23:38 98 F 134 H 18 193/95 99 Intake and Output 08/04/22 08/04/22 08/05/22 14:59 22:59 06:59 Intake Total 4.833 Balance 4.833 Intake: Intake, IV Titration 4.833 Amount Diltiazem 125 mg In 4.833 Sodium Chloride 0.9% 100 ml @ 5 MG/HR 5 mls/hr IV .Q24H [facility] Rx#:[id number] Other: Weight 91.172 kg Results CBC & Chem 7: 08/04/22 23:57 08/04/22 23:57 Labs: Abnormal Lab Results - Last 24 Hours (Table) 08/04/22 08/04/22 08/04/22 Range/Units 23:57 23:57 23:57 MCV 79.1 L (80.0-100.0) fL RDW 15.9 H (11.5-15.5) % PT 14.3 H (9.0-12.0) sec INR 1.4 H (<1.2) APTT 30.7 H (22.0-30.0) sec Sodium 135 L (137-145) mmol/L Creatinine 1.31 H (0.66-1.25) mg/dL Glucose 167 H (74-99) mg/dL Total Bilirubin 1.6 H (0.2-1.3) mg/dL
[2022-08-05] MEDS: FUROSEMIDE 10 MG/ML 4 ML VIAL IV SCH ×2 (08:27→20:01)
[2022-08-05] MEDS ORDERED: HEPARIN SODIUM 1,000 UN/ML (10ML VL) IV PRN (09:40)
[2022-08-05] MEDS ORDERED: HEPARIN SODIUM 1,000 UN/ML (10ML VL) IV ONE (09:40)
[2022-08-05] MEDS ORDERED: ALPRAZolam 0.5 MG TAB PO PRN (09:41)
[2022-08-05] MEDS ORDERED: NITROGLYCERIN SL TABS 0.4 MG TAB SUBLINGUAL PRN (09:41)
[2022-08-05] MEDS ORDERED: ALPRAZolam 0.25 MG TAB PO PRN (09:41)
[2022-08-05] MEDS ORDERED: RIVAROXABAN 2.5 MG TABLET PO SCH (09:45)
[2022-08-05] MEDS: HEPARIN SOD,PORK IN 0.45% NACL 25,000 UNIT in 0.45% NACL 1 250ML.BAG IV SCH (10:27)
[2022-08-05] MEDS: carvediloL 12.5 MG TAB PO SCH ×2 (10:27→16:50)
[2022-08-05] MEDS: ACETAMINOPHEN TAB 325 MG TAB PO PRN (10:30)
[2022-08-05 11:32] LABS: Anisocytosis Slight; Basophils % (A) 0 %; Eosinophils % (A) 0 %; HCT 38.1 % (39.0-53.0); HGB 12.9 gm/dL (13.0-17.5); Lymphocytes # (A) 1.6 k/uL (1.0-4.8); Lymphocytes % (A) 17 %; MCH 26.7 pg (25.0-35.0); MCHC 33.8 g/dL (31.0-37.0); Mean Platelet Volume 7.9; Microcytosis Slight; Monocytes # (A) 0.5 k/uL (0-1.0); Monocytes % (A) 6 %; Neutrophils # (A) 6.7 k/uL (1.3-7.7); Neutrophils % (A) 75 %; Platelet Count 191 k/uL (150-450); Poikilocytosis Slight; RBC 4.82 m/uL (4.30-5.90); RDW 16.1 % (11.5-15.5)
[2022-08-05 11:42] LABS: INR 1.4 (<1.2); Partial Thromboplastin Time 28.8 sec (22.0-30.0); Prothrombin Time 13.9 sec (9.0-12.0)
--- NOTE | 2022-08-05 12:06 | P.CRDCN ---
History of Present Illness Consult date: 08/05/22 History of present illness: History of Present Illness: The patient is a 72-year-old male with known history of hypertension, hyperlipidemia, atrial fibrillation diagnosed in June who presents with symptoms of progressive dyspnea and episodes of chest discomfort for the last few days, with exertion. He denies any dizziness or palpitations. He has no PND, orthopnea or peripheral edema. He does not feel the palpitations and when he was seen in the office on July 11 he had no idea how long he's been in atrial fibrillation. Anticoagulation was initiated at that time. He recently underwent an echo that showed a preserved systolic function with moderate to severe mitral regurgitation and moderate tricuspid regurgitation his ejection fraction was 50-55%. He had an MPI that showed no evidence of stress induced ischemia. On his MPI ejection fraction was calculated at 44% patient has no prior history of obstructive coronary disease or CHF. His mitral regurgitation was mild on his echo 2019. In the emergency room his troponin was normal and his NT proBNP was elevated. Medications: Crestor 10 mg daily, carvedilol 25 mg twice a day, Norvasc 10 mg daily, Singulair, aspirin once a day,Xarelto 20 mg daily,Invokana 100 mg daily. Review of Systems: Respiratory: He has dyspnea on exertion no recent wheezing, cough GI: No nausea or vomiting . No history of peptic ulcer disease. No recent GI bleed. : No hematuria or dysuria. Nervous System: No stroke or seizure. Physical Examination: 72-year-old male, alert and oriented no apparent distress ,Blood pressure 160/70, Heart rate 90 Head: Normocephalic. Eyes: Sclerae nonicteric. Neck: Good carotid upstroke, no bruit, no jugular venous distention. Lungs: Clear to auscultation. Heart: Irregular rate and rhythm, S1-S2, no S3, no rub. Systolic ejection murmur. Abdomen: Soft nontender, positive bowel sounds no organomegaly. Extremities: No edema, intact distal pulses. Labs: Hemoglobin 14.1, potassium 4.3, BUN 20, creatinine 1.31. Troponin 0.012, NT proBNP 3470. Chest x-ray with questionable pneumonia no pleural effusion EKG: Atrial fibrillation, rate to [address]-T wave changes Impression: 1. Symptoms of chest discomfort suggestive of angina pectoris with no evidence of myocardial infarction 2. Atrial fibrillation, rapid ventricle response, anticoagulated 3. History of hypertension 4. History of hyperlipidemia 5. Congestive heart failure with preserved systolic function Plan: 1. Resume beta liborio and statin 2. Hold anticoagulation and start IV heparin 3. IV diuresis 4. I have recommended to proceed with core angiography to assess his status and got his treatment, the rationale behind the procedure as well as the risks and the complications were discussed with the patient who is in agreement 5. Depending on the results of the testing further recommendations will be made, thank you for this consult we will follow with you. Past Medical History Past Medical History: Atrial Fibrillation, Asthma, Hyperlipidemia, Hypertension, Osteoarthritis (OA), Sleep Apnea/CPAP/BIPAP Additional Past Medical History / Comment(s): "borderline diabetic" History of Any Multi-Drug Resistant Organisms: None Reported Past Surgical History: Orthopedic Surgery, Tonsillectomy Additional Past Surgical History / Comment(s): polyp removed from throat, nasal surgery, rt knee arthroscopy, COLONOSCOPY, foot surgery to have something removed-not sure which foot, Past Anesthesia/Blood Transfusion Reactions: No Reported Reaction Past Psychological History: No Psychological Hx Reported Smoking Status: Former smoker - Past Family History Mother Family Medical History: Hypertension Medications and Allergies Home Medications Medication Instructions Recorded Confirmed Type Aspirin [Adult Low Dose Aspirin EC] 81 mg PO DAILY 03/17/17 08/05/22 History Fluticasone Propion/Salmeterol 2 puff INHALATION RT-BID PRN 03/17/17 08/05/22 History [Advair Hfa 115-21 Mcg Inhaler] Montelukast Sodium [Singulair] 10 mg PO HS 03/17/17 08/05/22 History Vitamin B Complex 1 cap PO DAILY 03/17/17 08/05/22 History amLODIPine [Norvasc] 10 mg PO DAILY 03/17/17 08/05/22 History carvediloL 25 mg PO BID 03/17/17 08/05/22 History tiZANidine [Zanaflex] 2 mg PO Q8H PRN 03/17/17 08/05/22 History Canagliflozin [Invokana] 100 mg PO DAILY 11/12/21 08/05/22 History Cholecalciferol [Vitamin D3 (125 125 mcg PO DAILY 08/05/22 08/05/22 History Mcg = 5000 Iu)] Rivaroxaban [Xarelto] 2.5 mg PO BID 08/05/22 08/05/22 History Rosuvastatin Calcium 10 mg PO HS 08/05/22 08/05/22 History Allergies Allergy/AdvReac Type Severity Reaction Status Date / Time No Known Allergies Allergy Verified 08/05/22 07:25 Physical Exam Vitals: Vital Signs Temp Pulse Pulse Resp BP BP Pulse Ox 08/05/22 08:13 100 16 161/71 98 08/05/22 07:59 98.1 F 08/05/22 07:01 98 18 150/90 96 08/05/22 05:29 96 20 158/92 97 08/05/22 04:34 108 H 20 150/94 99 08/05/22 03:10 98 F 94 19 143/82 97 08/05/22 02:32 115 H 20 159/97 96 08/05/22 02:31 109 H 18 159/97 98 08/05/22 00:17 122 H 20 158/89 95 08/04/22 23:58 111 H 20 175/125 95 08/04/22 23:38 98 F 134 H 18 193/95 99 Intake and Output 08/04/22 08/05/22 08/05/22 22:59 06:59 14:59 Intake Total 4.833 213.333 Balance 4.833 213.333 Intake: Intake, IV Titration 4.833 95.333 Amount Diltiazem 125 mg In 4.833 95.333 Sodium Chloride 0.9% 100 ml @ 5 MG/HR 5 mls/hr IV .Q24H [facility] Rx#:[id number] Oral 118 Other: Weight 91.127 kg Results 08/05/22 10:16 08/04/22 23:57 Cardiac Enzymes 08/04/22 08/04/22 Range/Units 23:57 23:57 AST 18 (17-59) U/L Troponin I 0.012 (0.000-0.034) ng/mL Coagulation 08/04/22 08/05/22 Range/Units 23:57 10:16 PT 14.3 H 13.9 H (9.0-12.0) sec APTT 30.7 H 28.8 (22.0-30.0) sec CBC 08/04/22 08/05/22 Range/Units 23:57 10:16 WBC 8.8 9.0 (3.8-10.6) k/uL RBC 5.26 4.82 (4.30-5.90) m/uL Hgb 14.1 12.9 L (13.0-17.5) gm/dL Hct 41.6 38.1 L (39.0-53.0) % Plt Count 208 191 (150-450) k/uL Comprehensive Metabolic Panel 08/04/22 Range/Units 23:57 Sodium 135 L (137-145) mmol/L Potassium 4.3 (3.5-5.1) mmol/L Chloride 104 (98-107) mmol/L Carbon Dioxide 23 (22-30) mmol/L BUN 20 (9-20) mg/dL Creatinine 1.31 H (0.66-1.25) mg/dL Glucose 167 H (74-99) mg/dL Calcium 8.8 (8.4-10.2) mg/dL AST 18 (17-59) U/L ALT 19 (4-49) U/L Alkaline Phosphatase 106 (38-126) U/L Total Protein 7.1 (6.3-8.2) g/dL Albumin 4.1 (3.5-5.0) g/dL Current Medications Generic Name Dose Route Start Last Admin Trade Name Freq PRN Reason Stop Dose Admin Acetaminophen 650 mg 08/05/22 10:17 08/05/22 10:30 Acetaminophen Tab 325 Mg Tab PO 650 mg Q6HR PRN Administration Fever and/ or Pain Alprazolam 0.25 mg 08/05/22 09:41 Alprazolam 0.25 Mg Tab PO Q6HR PRN Mild Anxiety Alprazolam 0.5 mg 08/05/22 09:41 Alprazolam 0.5 Mg Tab PO Q6HR PRN Moderate Anxiety Aspirin 325 mg 08/06/22 05:00 Aspirin 325 Mg Tab PO 08/06/22 05:01 ONCE ONE Atorvastatin Calcium 20 mg 08/05/22 21:00 Atorvastatin 20 Mg Tab PO HS [facility] Atorvastatin Calcium 80 mg 08/06/22 05:00 Atorvastatin 80 Mg Tab PO 08/06/22 05:01 ONCE ONE Carvedilol 25 mg 08/05/22 09:45 08/05/22 10:27 Carvedilol 12.5 Mg Tab PO 25 mg AC-BID [facility] Administration Furosemide 40 mg 08/05/22 09:00 08/05/22 08:27 Furosemide 10 Mg/Ml 4 Ml Vial IV 40 mg Q12HR [facility] Administration Heparin Sodium (Porcine) 0 unit 08/05/22 09:40 Heparin Sodium 1,000 Un/Ml (10ml Vl) IV PER PROTOCOL PRN Low PTT Protocol Diltiazem HCl 125 mg/ Sodium 125 mls @ 5 mls/hr 08/05/22 00:15 08/05/22 10:45 Chloride IV 5 mg/hr .Q24H [facility] 5 mls/hr Titration Protocol 5 MG/HR Heparin Sodium/Sodium Chloride 250 mls @ 10 mls/hr 08/05/22 09:45 08/05/22 10:27 25,000 unit/ Sodium Chloride IV 10.974 units/kg/hr .Q24H [facility] 10 mls/hr Administration Protocol 10.974 UNITS/KG/HR Heparin Sodium (Porcine) 10, 1,001 mls @ 999 mls/hr 08/06/22 07:00 000 unit/ Sodium Chloride IRRIGATION 08/06/22 23:00 ONCE PRN INTRA-OP Heparin Sodium (Porcine) 2,500 250.5 mls @ 250 mls/hr 08/06/22 07:00 unit/ Sodium Chloride IRRIGATION 08/06/22 23:00 ONCE PRN INTRA-OP Sodium Chloride 1,000 ml/ IV 1,000 mls @ 91.127 mls/hr 08/05/22 23:00 Solution IV .[id number] [facility] 1 ML/KG/HR Naloxone HCl 0.2 mg 08/05/22 01:38 Naloxone 0.4 Mg/Ml 1 Ml Vial IV Q2M PRN Opioid Reversal Nitroglycerin 0.4 mg 08/05/22 09:41 Nitroglycerin Sl Tabs 0.4 Mg Tab SUBLINGUAL Q5M PRN Chest Pain Intake and Output 08/04/22 08/05/22 08/05/22 22:59 06:59 14:59 Intake Total 4.833 213.333 Balance 4.833 213.333 Intake: Intake, IV Titration 4.833 95.333 Amount Diltiazem 125 mg In 4.833 95.333 Sodium Chloride 0.9% 100 ml @ 5 MG/HR 5 mls/hr IV .Q24H [facility] Rx#:[id number] Oral 118 Other: Weight 91.127 kg 08/05/22 10:16 08/04/22 23:57
--- NOTE | 2022-08-05 13:42 | P.PN ---
Subjective Progress Note Date: 08/05/22 Hospital course: The patient is a 72-year-old male with a PMH of recently diagnosed A. fib on Xarelto, hypertension, hyperlipidemia, and COPD. He presented to the emergency room overnight with complaints of shortness of breath, chest pain, and lower extremity swelling. The patient states that over the past 1 week, he has been experiencing gradually worsening dyspnea on exertion. The patient underwent an extensive evaluation in the emergency room. He was found to be in atrial fibrillation with RVR with ventricular rate 130s to 140s in hypertensive urgency with blood pressure 193/95. Chest x-ray completed showing patchy opacities likely secondary to pulmonary edema. EKG revealed Afib with RVR at 140 bpm upon personal review and interpretation. Laboratory evaluation was remarkable for sodium 135, creatinine 1.31, total bilirubin 1.6, troponin 0.012, and proBNP 3470. Patient was started on Cardizem and heparin infusion and admitted under our services to cardiac stepdown unit with consultation to cardiology. Physical examination: General: non toxic, no distress, appears at stated age Derm: warm, dry Head: atraumatic, normocephalic, symmetric Eyes: EOMI, no lid lag, anicteric sclera Mouth: no lip lesion, mucus membranes moist Cardiovascular: irregularly irregular, systolic murmur, positive posterior t ibial pulses bilaterally, Lungs: CTA bilateral, no rhonchi, no rales , no accessory muscle use Abdominal: soft, nontender to palpation, no guarding, no appreciable organomegaly Ext: no gross muscle atrophy, no edema, no contractures Neuro: CN II-XI grossly intact, no focal neuro deficits Psych: Alert, oriented, appropriate affect Assessment and plan of care: Atrial fibrillation with RVR Acute sytolic CHF exacerbation Acute kidney injury Hypertensive urgency History of hyperlipidemia History of COPD, not in acute exacerbation -upon arrival to the emergency department, patient was found to be in atrial fibrillation with RVR with ventricular rate 130s to 140s in hypertensive urgency with blood pressure 193/95. -Chest x-ray completed showing patchy opacities likely secondary to pulmonary edema. -EKG revealed Afib with RVR at 140 bpm upon personal review and interpretation. -Laboratory evaluation personally reviewed and was remarkable for sodium 135, creatinine 1.31, total bilirubin 1.6, troponin 0.012, and proBNP 3470. -Patient was started on Cardizem and heparin infusion. -Pt admitted under our services to cardiac stepdown unit with consultation to cardiology. -Continue with Lasix 40 mg IV every 12 hourly. Monitor electrolytes and renal function closely with repeat a.m. labs. -Daily weights, intake and output. -Continue daily medication regimen with amlodipine, aspirin, atorvastatin, and carvedilol. -discussed with cardiology, plan is for patient to go for cardiac cath tomorrow. CODE STATUS: full code DVT prophylaxis: Heparin infusion Discussed with: Pt, cardiology RADIATOR FITTER, and RN Anticipated discharge date: clinical course to determine Anticipated discharge place: home Patient was seen independently by Nurse Pracitioner. This document was prepared using [employer] dictation software. Please allow for errors in novelty printing machine operator, while rare they do occur. Objective - Vital Signs Vital signs: Vital Signs Temp 98.1 F 08/05/22 07:59 Pulse 100 08/05/22 08:13 Resp 16 08/05/22 08:13 BP 161/71 08/05/22 08:13 Pulse Ox 98 08/05/22 08:13 FiO2 Intake & Output 08/04/22 08/05/22 08/05/22 18:59 06:59 18:59 Intake Total 4.833 Balance 4.833 Weight 91.172 kg Intake: Intake, IV Titration 4.833 Amount Diltiazem 125 mg In 4.833 Sodium Chloride 0.9% 100 ml @ 5 MG/HR 5 mls/hr IV .Q24H [facility] Rx#:[id number] - Labs CBC & Chem 7: 08/05/22 10:16 08/04/22 23:57 Labs: Abnormal Lab Results - Last 24 Hours (Table) 08/04/22 08/04/22 08/04/22 Range/Units 23:57 23:57 23:57 MCV 79.1 L (80.0-100.0) fL RDW 15.9 H (11.5-15.5) % PT 14.3 H (9.0-12.0) sec INR 1.4 H (<1.2) APTT 30.7 H (22.0-30.0) sec Sodium 135 L (137-145) mmol/L Creatinine 1.31 H (0.66-1.25) mg/dL Glucose 167 H (74-99) mg/dL Total Bilirubin 1.6 H (0.2-1.3) mg/dL
--- NOTE | 2022-08-05 14:42 | XR ---
EXAMINATION TYPE: XR ankle complete RT DATE OF EXAM: 08/05/2022 COMPARISON: NONE HISTORY: Pain TECHNIQUE: Frontal, lateral and oblique images of the right ankle are obtained. COMPARISON: None. FINDINGS: There is no acute fracture/dislocation evident. The joint spaces appear within normal padgett its. The overlying soft tissue appears unremarkable. IMPRESSION: There is no acute fracture or dislocation seen.
[2022-08-05] MEDS: amLODIPine 10 MG TAB PO SCH (16:50)
[2022-08-05] MEDS: MONTELUKAST 10 MG TAB PO SCH (20:01)
[2022-08-05] MEDS ORDERED: ATORVASTATIN 20 MG TAB PO SCH (21:00)
[2022-08-06] MEDS: SODIUM CHLORIDE 0.9% 1,000 ML in EMPTY BAG 1 BAG IV SCH ×3 (00:02→16:47)
[2022-08-06] MEDS ORDERED: ASPIRIN 325 MG TAB PO ONE (05:00)
[2022-08-06] MEDS ORDERED: ATORVASTATIN 80 MG TAB PO ONE (05:00)
[2022-08-06] MEDS: amLODIPine 10 MG TAB PO SCH (05:30)
[2022-08-06] MEDS: carvediloL 12.5 MG TAB PO SCH ×2 (05:30→16:48)
[2022-08-06] MEDS: HEPARIN SOD,PORK IN 0.45% NACL 25,000 UNIT in 0.45% NACL 1 250ML.BAG IV SCH (05:34)
[2022-08-06] MEDS: ASPIRIN 81 MG PO SCH (05:37)
[2022-08-06] MEDS: FUROSEMIDE 10 MG/ML 4 ML VIAL IV SCH (05:37)
[2022-08-06 06:05] LABS: Glucose,Whole Blood 127 mg/dL (70-110)
[2022-08-06] MEDS ORDERED: HEPARIN SODIUM,PORCINE 2,500 UNIT in SODIUM CHLORIDE 0.9% 250 ML IRRIGATION PRN (07:00)
[2022-08-06] MEDS ORDERED: HEPARIN SODIUM,PORCINE 10,000 UNIT in SODIUM CHLORIDE 0.9% 1,000 ML IRRIGATION PRN (07:00)
[2022-08-06 08:19] LABS: Anisocytosis Slight; Basophils % (A) 0 %; Eosinophils # (A) 0.1 k/uL (0-0.7); Eosinophils % (A) 2 %; HCT 34.2 % (39.0-53.0); HGB 11.2 gm/dL (13.0-17.5); Lymphocytes # (A) 1.3 k/uL (1.0-4.8); Lymphocytes % (A) 20 %; MCH 26.3 pg (25.0-35.0); MCHC 32.8 g/dL (31.0-37.0); MCV 80.1 fL (80.0-100.0); Mean Platelet Volume 7.7; Monocytes # (A) 0.4 k/uL (0-1.0); Monocytes % (A) 6 %; Neutrophils # (A) 4.5 k/uL (1.3-7.7); Neutrophils % (A) 70 %; Platelet Count 170 k/uL (150-450); Poikilocytosis Slight; RBC 4.26 m/uL (4.30-5.90); WBC 6.4 k/uL (3.8-10.6)
[2022-08-06 08:50] LABS: Calcium 7.8 mg/dL (8.4-10.2); Potassium 3.6 mmol/L (3.5-5.1)
[2022-08-06 08:51] LABS: INR 1.2 (<1.2); Partial Thromboplastin Time 37.7 sec (22.0-30.0); Prothrombin Time 12.5 sec (9.0-12.0)
[2022-08-06 09:03] LABS: Albumin 3.1 g/dL (3.5-5.0); Calcium 7.8 mg/dL (8.4-10.2); Potassium 3.6 mmol/L (3.5-5.1); Total Bilirubin 1.6 mg/dL (0.2-1.3); Total Protein 5.8 g/dL (6.3-8.2)
[2022-08-06] MEDS ORDERED: fentaNYL (PF) 50 MCG/ML 2 ML AMP ONE (09:05)
[2022-08-06] MEDS ORDERED: fentaNYL (PF) 50 MCG/ML 2 ML AMP IVP ONE (09:25)
[2022-08-06] MEDS ORDERED: LIDOCAINE 1% INJ 10MG/ML (5 ML VIAL-PF) SQ ONE (09:29)
[2022-08-06] MEDS ORDERED: SODIUM CHLORIDE 0.9% 1,000 ML IV ONE (09:30)
[2022-08-06] MEDS ORDERED: VERAPAMIL SYRINGE (5 MG/10 ML) INTRAARTER ONE (09:30)
[2022-08-06] MEDS: HEPARIN SODIUM 1,000 UN/ML (10ML VL) IVP ONE ×3 (09:36→10:14)
[2022-08-06] MEDS ORDERED: HEPARIN SODIUM 1,000 UN/ML (10ML VL) ONE (09:39)
[2022-08-06] MEDS ORDERED: CLOPIDOGREL 75 MG TAB PO ONE (09:42)
[2022-08-06] MEDS ORDERED: CLOPIDOGREL 75 MG TAB ONE (09:44)
[2022-08-06] MEDS ORDERED: IOPAMIDOL-370 125ML BTL INJ ONE (09:57)
[2022-08-06] MEDS ORDERED: NITROGLYCERIN 1000MCG/10ML SYRINGE INTRACORON ONE (10:05)
[2022-08-06] MEDS ORDERED: IOPAMIDOL-370 100ML BTL INJ ONE (10:09)
[2022-08-06] MEDS ORDERED: NITROGLYCERIN SL TABS 0.4 MG TAB SUBLINGUAL PRN (10:17)
[2022-08-06] MEDS ORDERED: ATROPINE SULFATE 0.1 MG/ML 10ML SYRINGE IV PRN (10:17)
[2022-08-06] MEDS ORDERED: MAG HYDROX/AL HYDROX/SIMETH 30 ML CUP PO PRN (10:17)
[2022-08-06] MEDS ORDERED: ZOLPIDEM 5 MG TAB PO PRN (10:17)
[2022-08-06] MEDS ORDERED: RX INFO: IV CONTRAST WAS GIVEN 1 EACH MISC MISCELLANE PRN (10:17)
--- NOTE | 2022-08-06 10:29 | P.CARDCATH ---
Date of Procedure: 08/06/22 Description of Procedure: Cardiac Catheterization: The patient is a 72-year-old male with a known history of atrial fibrillation, hypertension and hyperlipidemia who presented with new onset angina pectoris. Recommendations were made regarding cardiac catheterization, the risks and the complications were discussed with the patient who is in full understanding and agreement. Procedure Description: Patient was brought to director of labor and delivery in fasting semi-sedated state after receiving Fentanyl and Benadryl achieiving moderate conscious sedated state. Using Xylocaine Anesthesia and Seldinger technique, a 6-Grenadian sheath was introduced in the right radial artery . Subsequently, selective coronary angiography was performed using a 5-Grenadian 3.5 bend Phuc catheter. Multiple views of the coronary artery including hemiaxial views were obtained. The right Phuc catheter was used to cross the aortic valve and LVEDP was calculated. PCI: After removing the catheter a 6-Grenadian 0.75 AL guiding catheter was introduced and after cannulating the right coronary ostium a 0.014 BMW J-wire was positioned in the distal RCA subsequently a 2.5 x 12 mm Treck was advanced and 2 inflations at 8 maylin were done, after removing the balloon attempt to advance a 3.5 x 33 mm Xience alondra point stent were unsuccessful, the stent was removed and a 6-Grenadian guide liner was introduced and the stent was advanced and positioned, it was deployed at 16 maylin. After the last inflation the balloon was withdrawn and images were obtained and revealed stable successful stenting. Following that, catheter and sheath were removed. Hemostasis was obtained with deployment of TR band . There was no immediate complication. Patient was returned to room in stable condition. Of note, the patient received a total of 7500 units of intravenous heparin as well as intra-arterial verapamil. He received an oral loading dose of clopidogrel, his ACT was monitored. He had chest discomfort and bradycardia with the inflations that resolved at the end of the procedure. Findings: Left main: This is a short sized vessel, trifurcating into left circumflex, ramus intermedius and LAD, the left main has no high-grade stenosis LAD: This is a large size vessel, reaching to the apex with a wraparound apex segment, the LAD has no evidence of high-grade stenosis Left circumflex: This is a small nondominant vessel giving rise to a small OM, the left circumflex has no evidence of high-grade stenosis RCA: This is a large dominant vessel, bifurcating into PDA and PLV. The mid RCA has an eccentric tortuous 95% stenosis, the rest of the vessel has no high-grade stenosis Ramus intermedius: This is a large size vessel, in the midsegment has a branching point that has a 50-60% plaque involving the 2 branches, the rest of the vessel has no high-grade stenosis Left Ventriculogram: Not performed Hemodynamics: There was no gradient across the aortic valve , LVEDP was 15-18 mmHg Conclusion: 1. 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 Moderate disease in the mid ramus intermedius 3. No obstructive disease in the LAD 4. Successful stenting of the mid RCA with reduction of stenosis from 95% to less than 5% Recommendations: The patient will continue on aspirin and Plavix, the aspirin will be stopped in one week and he will continue on Plavix and anticoagulation for 6 months with the addition of aggressive coronary risks modifications. If he has further symptoms physiological evaluation of the ramus intermedius will be done. The f indings and the recommendations were discussed with the patient and the family and they were in full understanding and agreement. Duration of sedation is 40 minutes.
[2022-08-06] MEDS ORDERED: SODIUM CHLORIDE 0.9% 1,000 ML in EMPTY BAG 1 BAG IV SCH (10:30)
[2022-08-06 11:56] VITALS: BMI 28.2
--- NOTE | 2022-08-06 16:15 | P.PN ---
Subjective Progress Note Date: 08/06/22 Hospital course: The patient is a 72-year-old male with a PMH of recently diagnosed A. fib on Xarelto, hypertension, hyperlipidemia, and COPD. He presented to the emergency room overnight with complaints of shortness of breath, chest pain, and lower extremity swelling. The patient states that over the past 1 week, he has been experiencing gradually worsening dyspnea on exertion. The patient underwent an extensive evaluation in the emergency room. He was found to be in atrial fibrillation with RVR with ventricular rate 130s to 140s in hypertensive urgency with blood pressure 193/95. Chest x-ray completed showing patchy opacities likely secondary to pulmonary edema. EKG revealed Afib with RVR at 140 bpm upon personal review and interpretation. Laboratory evaluation was remarkable for sodium 135, creatinine 1.31, total bilirubin 1.6, troponin 0.012, and proBNP 3470. Patient was started on Cardizem and heparin infusion and admitted under our services to cardiac stepdown unit with consultation to cardiology. Physical examination: Patient seen and fully evaluated at bedside this morning. Patient preparing to undergo cardiac catheterization later this morning. General: non toxic, no distress, appears at stated age Derm: warm, dry Head: atraumatic, normocephalic, symmetric Eyes: EOMI, no lid lag, anicteric sclera Mouth: no lip lesion, mucus membranes moist Cardiovascular: irregularly irregular, systolic murmur, positive posterior tibial pulses bilaterally, Lungs: CTA bilateral, no rhonchi, no rales , no accessory muscle use Abdominal: soft, nontender to palpation, no guarding, no appreciable organomegaly Ext: no gross muscle atrophy, no edema, no contractures Neuro: CN II-XI grossly intact, no focal neuro deficits Psych: Alert, oriented, appropriate affect Assessment and plan of care: Chronic Atrial fibrillation with RVR Acute sytolic CHF exacerbation Acute kidney injury Hyperbilirubinemia Hypertensive urgency History of hyperlipidemia History of COPD, not in acute exacerbation -Patient was successfully weaned off of Cardizem infusion yesterday evening, and maintaining atrial fibrillation with a controlled ventricular rate at this time. -Laboratory evaluation personally reviewed showing stable but slightly elevated renal function with BUN of 24, creatinine 1.37, and GFR 51. Liver profile sh owing slightly elevated total bili of 1.6. -Order placed for repeat CMP with a.m. labs for monitoring of renal function and to evaluate a repeat bilirubin. -Cardiology following, taking patient to carpenter labor supervisor later this morning. -Continue with Lasix 40 mg IV every 12 hourly. Monitor electrolytes and renal function closely with repeat a.m. labs. Patient had a documented output of 2200 mL over the past 24 hours. -Daily weights, intake and output. -Continue daily medication regimen with amlodipine, aspirin, atorvastatin, and carvedilol. CODE STATUS: full code DVT prophylaxis: Heparin infusion Discussed with: Pt and RN Anticipated discharge date: clinical course to determine Anticipated discharge place: home Patient was seen independently by Nurse Pracitioner. This document was prepared using [employer] dictation software. Please allow for errors in brand marketing manager, while rare they do occur. Mandeep Landry NP rendered care for this patient independently, reviewed the findings and plan as documented in the note above. I did not physically speak with or examine the patient on this date. Objective - Vital Signs Vital signs: Vital Signs Temp 97.8 F 08/06/22 04:00 Pulse 88 08/06/22 04:00 Resp 17 08/06/22 04:00 BP 122/78 08/06/22 04:00 Pulse Ox 96 08/06/22 04:00 FiO2 Intake & Output 08/05/22 08/06/22 08/06/22 18:59 06:59 18:59 Intake Total 1219.666 705.104 Output Total 1600 600 600 Balance -380.334 105.104 -600 Weight 91.8 kg Intake: IV 10 20 Invasive Line 1 10 20 Intake, IV Titration 193.666 145.104 Amount Diltiazem 125 mg In 125.833 Sodium Chloride 0.9% 100 ml @ 5 MG/HR 5 mls/hr IV .Q24H [facility] Rx#:[id number] Heparin Sod,Pork in 0.45% 67.833 145.104 NaCl 25,000 unit In 0.45 % NaCl 1 250ml.bag @ 10. 974 UNITS/KG/HR 10 mls/hr IV .Q24H [facility] Rx#: [id number] Oral 1016 540 Output: Urine 1600 600 600 Other: Voiding Method Toilet Toilet Urinal # Bowel Movements 1 - Labs CBC & Chem 7: 08/06/22 06:53 08/06/22 06:53 Labs: Abnormal Lab Results - Last 24 Hours (Table) 08/05/22 08/05/22 08/05/22 Range/Units 10:16 10:16 12:10 Hgb 12.9 L (13.0-17.5) gm/dL Hct 38.1 L (39.0-53.0) % MCV 79.0 L (80.0-100.0) fL RDW 16.1 H (11.5-15.5) % PT 13.9 H (9.0-12.0) sec INR 1.4 H (<1.2) APTT (22.0-30.0) sec POC Glucose (mg/dL) (70-110) mg/dL Procalcitonin 0.51 H (0.02-0.09) ng/mL 08/05/22 08/05/22 08/06/22 Range/Units 16:18 23:14 06:03 Hgb (13.0-17.5) gm/dL Hct (39.0-53.0) % MCV (80.0-100.0) fL RDW (11.5-15.5) % PT (9.0-12.0) sec INR (<1.2) APTT 41.7 H 40.2 H (22.0-30.0) sec POC Glucose (mg/dL) 127 H (70-110) mg/dL Procalcitonin (0.02-0.09) ng/mL
[2022-08-06] MEDS: FUROSEMIDE 20 MG TAB PO SCH (16:48)
[2022-08-06] MEDS ORDERED: ATORVASTATIN 40 MG TAB PO SCH (21:00)
[2022-08-06] MEDS: MONTELUKAST 10 MG TAB PO SCH (21:19)
[2022-08-06] MEDS: DILTIAZEM 125 MG in SODIUM CHLORIDE 0.9% 100 ML IV SCH (23:39)
[2022-08-07] MEDS: ACETAMINOPHEN TAB 325 MG TAB PO PRN (02:52)
[2022-08-07] MEDS: SODIUM CHLORIDE 0.9% 1,000 ML in EMPTY BAG 1 BAG IV SCH (06:15)
[2022-08-07] MEDS: carvediloL 12.5 MG TAB PO SCH (06:16)
[2022-08-07 07:39] LABS: HCT 34.5 % (39.0-53.0); HGB 11.1 gm/dL (13.0-17.5); Hypochromasia Slight; MCH 25.9 pg (25.0-35.0); MCHC 32.2 g/dL (31.0-37.0); MCV 80.5 fL (80.0-100.0); Mean Platelet Volume 8.8; Platelet Count 181 k/uL (150-450); Poikilocytosis Slight; RBC 4.29 m/uL (4.30-5.90); RDW 15.8 % (11.5-15.5); WBC 5.3 k/uL (3.8-10.6)
[2022-08-07 07:54] LABS: Albumin 3.2 g/dL (3.5-5.0); Calcium 8.3 mg/dL (8.4-10.2); Magnesium 2.2 mg/dL (1.6-2.3); Potassium 3.9 mmol/L (3.5-5.1); Total Bilirubin 0.8 mg/dL (0.2-1.3); Total Protein 5.9 g/dL (6.3-8.2)
[2022-08-07 08:52] VITALS: TEMP 97.8
[2022-08-07] MEDS ORDERED: amLODIPine 5 MG TAB PO SCH (09:00)
[2022-08-07] MEDS ORDERED: CLOPIDOGREL 75 MG TAB PO SCH (09:00)
[2022-08-07] MEDS: FUROSEMIDE 20 MG TAB PO SCH (09:34)
[2022-08-07] MEDS: ASPIRIN 81 MG PO SCH (09:34)
[2022-08-07] MEDS ORDERED: DILTIAZEM ORAL 30 MG TAB PO SCH (11:15)
--- NOTE | 2022-08-07 12:37 | P.PN ---
Subjective Progress Note Date: 08/07/22 HISTORY OF PRESENT ILLNESS: 08/05/2022 The patient is a 72-year-old male with known history of hypertension, hyperlipidemia, atrial fibrillation diagnosed in June who presents with symptoms of progressive dyspnea and episodes of chest discomfort for the last few days, with exertion. He denies any dizziness or palpitations. He has no PND, orthopnea or peripheral edema. He does not feel the palpitations and when he was seen in the office on July 11 he had no idea how long he's been in atrial fibrillation. Anticoagulation was initiated at that time. He recently underwent an echo that showed a preserved systolic function with moderate to severe mitral regurgitation and moderate tricuspid regurgitation his ejection fraction was 50-55%. He had an MPI that showed no evidence of stress induced ischemia. On his MPI ejection fraction was calculated at 44% patient has no prior history of obstructive coronary disease or CHF. His mitral regurgitation was mild on his echo 2018. In the emergency room his troponin was normal and his NT proBNP was elevated. Medications: Crestor 10 mg daily, carvedilol 25 mg twice a day, Norvasc 10 mg daily, Singulair, aspirin once a day,Xarelto 20 mg daily,Invokana 100 mg daily. 08/07/2022 Patient is status post cardiac catheterization revealing significant stenosis in the mid RCA, moderate disease in the mid ramus intermedius, no obstructive disease in the LAD. Patient underwent successful stenting of the mid RCA. Patient examined this morning at the bedside. Patient denies chest pain or pressure. He denies shortness of breath. Telemetry reveals atrial fibrillation with heart rate between 101 130. PHYSICAL EXAM: VITAL SIGNS: Reviewed. GENERAL: Well-developed in no acute distress. NECK: Supple. No JVD or thyromegaly LUNGS: Respirations even and unlabored. Lungs essentially clear to auscultation bilaterally. HEART: Regular rate and rhythm. S1 and S2 heard. EXTREMITIES: Normal range of motion. No clubbing or cyanosis. Peripheral pulses intact. No lower extremity edema ASSESSMENT: Chest pain, status post cardiac catheterization with stenting of the mid RCA Persistent atrial fibrillation with RVR Hypertension Hyperlipidemia Chronic congestive heart failure with preserved systolic function PLAN: Patient to continue on aspirin and Plavix, and Xarelto for one week. Aspirin to be discontinued after one week and continue just on Plavix and Xarelto Discontinue Norvasc. Add oral Cardizem 30 mg 3 times a day for optimal heart rate control Continue additional cardiac medications Patient stable for discharge home today from a cardiac standpoint Nurse practitioner note has been reviewed by physician. Signing provider agrees with the documented findings, assessment, and plan of care. Objective - Vital Signs Vital signs: Vital Signs Temp 97.8 F 08/07/22 08:00 Pulse 111 H 08/07/22 08:00 Resp 17 08/07/22 08:00 BP 143/95 08/07/22 08:00 Pulse Ox 96 08/07/22 09:47 FiO2 Intake & Output 08/06/22 08/07/22 08/07/22 18:59 06:59 18:59 Intake Total 680 20 190 Output Total 600 Balance 80 20 190 Weight 91.8 kg Intake: IV 320 20 10 Invasive Line 1 20 20 10 Oral 360 180 Output: Urine 600 Other: Voiding Method Toilet Toilet Toilet Urinal Urinal Urinal # Voids 1 1 # Bowel Movements 1 - Labs CBC & Chem 7: 08/07/22 07:17 08/07/22 07:17 Labs: Abnormal Lab Results - Last 24 Hours (Table) 08/07/22 08/07/22 Range/Units 07:17 07:17 RBC 4.29 L (4.30-5.90) m/uL Hgb 11.1 L (13.0-17.5) gm/dL Hct 34.5 L (39.0-53.0) % RDW 15.8 H (11.5-15.5) % BUN 21 H (9-20) mg/dL Glucose 143 H (74-99) mg/dL Calcium 8.3 L (8.4-10.2) mg/dL AST 16 L (17-59) U/L Total Protein 5.9 L (6.3-8.2) g/dL Albumin 3.2 L (3.5-5.0) g/dL
[2022-08-07 14:13] VITALS: BP 149/91; PULSE 98; RESP 18
--- NOTE | 2022-08-07 16:50 | P.DS ---
Providers Date of admission: 08/05/22 01:39 Expected date of discharge: 08/07/22 Attending physician: Gabby Marie MD Consults: 08/05/22 01:38 Consult Physician Routine Consulting Provider: Carolyn Pillai Consult Reason/Comments: A fib with RVR, new onset CHF Do you want consulting provider notified?: Yes, Notify in am 08/06/22 10:17 Consult Physician Routine Consulting Provider: Carolyn Pillai Consult Reason/Comments: Post Interventional Patient Do you want consulting provider notified?: Already Contacted Primary care physician: Jesu Boggscandy [facility] Course: Discharge Diagnosis: Chronic Atrial fibrillation with RVR Acute sytolic CHF exacerbation Acute kidney injury Hyperbilirubinemia Hypertensive urgency History of hyperlipidemia History of COPD, not in acute exacerbation Hospital Course: The patient is a 72-year-old male with a past medical history of recently diagnosed persistent A. fib on Xarelto, hypertension, hyperlipidemia, and COPD. He presented to the emergency room on 08/05/22 with complaints of shortness of breath, chest pain, and lower extremity swelling. The patient states that over the past 1 week, he has been experiencing gradually worsening dyspnea on exertion. The patient underwent an extensive evaluation in the emergency room. He was found to be in atrial fibrillation with RVR with ventricular rate 130s to 140s in hypertensive urgency with blood pressure 193/95. Chest x-ray completed showing patchy opacities likely secondary to pulmonary edema. EKG revealed Afib with RVR at 140 bpm upon personal review and interpretation. Laboratory evaluation was remarkable for sodium 135, creatinine 1.31, total bilirubin 1.6, troponin 0.012, and proBNP 3470. Patient was started on Cardizem and heparin infusion and admitted under our services to cardiac stepdown unit with consultation to cardiology. Patient was successfully weaned off of Cardizem and remained in atrial fibrillation with a controlled ventricular rate. Patient was evaluated by cardiology and taken for cardiac cath on 08/06/22. cardiac cath revealed significant stenosis in the mid RCA, moderate disease in the mid ramus intermedius and no obstructive disease in the LAD. Successful stent was placed to mid RCA with reports of reduction of stenosis from 95% to less than 5%. Amlodipine discontinued and patient started on oral Cardizem 30 mg 3 times daily. Patient was started on dual antiplatelet therapy with aspirin and Plavix and main entree cook and cashier increased Xarelto dosing. medically, patient is stable for discharge at this time. He denies having any complaints or concerns. Cardiac cath access site to right wrist showing no bruising, bleeding, hematoma, eryt joel or edema. Patient provided with prescriptions for Plavix, Xarelto, Lasix, and Cardizem. Patient medically stable for discharge and to follow up outpatient with PCP in 1-2 days and cardiology in 1 week. Physical examination: General: non toxic, no distress, appears at stated age Derm: warm, dry Head: atraumatic, normocephalic, symmetric Eyes: EOMI, no lid lag, anicteric sclera Mouth: no lip lesion, mucus membranes moist Cardiovascular: irregularly irregular, systolic murmur, positive posterior tibial pulses bilaterally, Lungs: CTA bilateral, no rhonchi, no rales , no accessory muscle use Abdominal: soft, nontender to palpation, no guarding, no appreciable organomegaly Ext: no gross muscle atrophy, no edema, no contractures Neuro: CN II-XI grossly intact, no focal neuro deficits Psych: Alert, oriented, appropriate affect A total of 31 minutes of time were spent preparing this complex discharge summary. Pt was discharged on 08/07/22 at 9:47 AM. Patient was seen independently by Nurse Practitioner. This document was prepared using [employer] dictation software. Please allow for errors in supervisor water softener service while rare they do occur. Mandeep Landry NP rendered care for this patient independently, reviewed the findings and plan as documented in the note above. I did not physically speak with or examine the patient on this date. Patient Condition at Discharge: Stable Plan - Discharge Summary Discharge Rx Participant: No New Discharge Prescriptions: New Clopidogrel [Plavix] 75 mg PO DAILY 30 Days #30 tab Rivaroxaban [Xarelto] 20 mg PO W/SUPPER 30 Days #30 tab Furosemide [Lasix] 20 mg PO BID@0900,1600 30 Days #60 tab Diltiazem Oral [Cardizem Oral] 30 mg PO TID #90 tab Continue Aspirin [Adult Low Dose Aspirin EC] 81 mg PO DAILY Montelukast Sodium [Singulair] 10 mg PO HS tiZANidine [Zanaflex] 2 mg PO Q8H PRN PRN Reason: Pain carvediloL 25 mg PO BID Vitamin B Complex 1 cap PO DAILY Fluticasone Propion/Salmeterol [Advair Hfa 115-21 Mcg Inhaler] 2 puff INHALATION RT-BID PRN PRN Reason: Shortness Of Breath Cholecalciferol [Vitamin D3 (125 Mcg = 5000 Iu)] 125 mcg PO DAILY Canagliflozin [Invokana] 100 mg PO DAILY Rosuvastatin Calcium 10 mg PO HS Discontinued amLODIPine [Norvasc] 10 mg PO DAILY Rivaroxaban [Xarelto] 2.5 mg PO BID Discharge Medication List Aspirin [Adult Low Dose Aspirin EC] 81 mg PO DAILY 03/17/17 [History] Fluticasone Propion/Salmeterol [Advair Hfa 115-21 Mcg Inhaler] 2 puff INHALATION RT-BID PRN 03/17/17 [History] Montelukast Sodium [Singulair] 10 mg PO HS 03/17/17 [History] Vitamin B Complex 1 cap PO DAILY 03/17/17 [History] carvediloL 25 mg PO BID 03/17/17 [History] tiZANidine [Zanaflex] 2 mg PO Q8H PRN 03/17/17 [History] Canagliflozin [Invokana] 100 mg PO DAILY 11/12/21 [History] Cholecalciferol [Vitamin D3 (125 Mcg = 5000 Iu)] 125 mcg PO DAILY 08/05/22 [History] Rosuvastatin Calcium 10 mg PO HS 08/05/22 [History] Clopidogrel [Plavix] 75 mg PO DAILY 30 Days #30 tab 08/07/22 [Rx] Diltiazem Oral [Cardizem Oral] 30 mg PO TID #90 tab 08/07/22 [Rx] Furosemide [Lasix] 20 mg PO BID@0900,1600 30 Days #60 tab 08/07/22 [Rx] Rivaroxaban [Xarelto] 20 mg PO W/SUPPER 30 Days #30 tab 08/07/22 [Rx] Follow up Appointment(s)/Referral(s): Kathy Bay MD [Family Provider] - 1 Week (Appt August 12 11:00am) Jesu Nguyen MD [Primary Care Provider] - 1-2 days (No answer, please call to schedule) Activity/Diet/Wound Care/Special Instructions: STOP TAKING ASPIRIN AFTER ONE WEEK Discharge Instructions After Cardiac Catheterization with Stent Placement: Aspirin as anti-platelet therapy - Aspirin lessens the chance of heart attack and stroke. It helps prevent blood clots from forming, allowing the blood to flow more easily. Each day, you will take one 81 mg (non-enteric coated) tablet daily x 1 week. Anti-platelet Therapy. -In addition to aspirin, you will take one additional anti-platelet medication daily. This will help prevent a clot from forming in your stent: Plavix (clopidogrel) -You will need to take your anti-platelet medicine every day for 12 months -Please consult your heart doctor before you stop this medicine. -They may want you to continue for a longer period of time. Statins -A statin medication lowers cholesterol levels in the blood. This helps slow the progression of heart disease. - Please take your statin medication as prescribed by your doctor. -You may be taking one of the following statins: Rosuvastatin Beta blockers Your Medication: Carvedilol Is a medication that protects your heart from stress and can prevent future heart attacks. It can slow your heart rate. It can take weeks for your body to get used to a beta liborio. The dose may need to be changed a few times as your body adjusts You are also being discharged home on a blood thinner, Xarelto for your atrial fibrillation. This is very important to take daily as directed until otherwise advised by your main entree cook and cashier-Dr. Bay. Being that you are being placed on a blood thinner it is very important to watch for any signs of bleeding and notify your doctor, Dr. Bay, immediately if you notice any bleeding. It is also important to remove any trip hazards such as rugs or loose extension cords from your home to prevent unnecessary falls and if you do experience a fall or head injury, it is extremely important to be evaluated by a medical provider immediately to ensure no internal bleeding. Do not stop taking these medicines without talking to your doctor. -Take all other medicines as directed by your doctor. Do not take any extra aspirin or ibuprofen. They can increase your risk of bleeding. Many [id number] drugs contain aspirin. If you are unsure about what the drug contains, check with your pharmacist before taking it. -For mild discomfort, you may take plain Tylenol (acetaminophen). Follow dose directions, but do not take more than 4,000 mg of acetaminophen in 24 hours. Contact your doctor right away or go to the nearest hospital Emergency Room if you have: -Severe angina or chest pain. (This may be a sign of a problem with your stent.) -Excessive bruising, blood in urine/stool or black tarry stools. Healthy LifeStyle It is important to keep a heart healthy lifestyle. This can improve your long- term health and decrease your risk for heart attacks. -Managing your blood cholesterol, blood pressure, weight, and stress. -The importance of regular exercise. -Heart Healthy Diet: Include more plants in your diet. Eat lots of fresh veget leona and fresh fruits. Eat good fats: plant based oils, avocado, nuts, beans, legumes. Eat more seafood. Limit Meat. Switch to whole grains. -Avoid fried foods and animal fats and processed meats Follow up with your PCP, Dr. Nguyen as well as [facility] with Dr. Bay. Thank you for allowing us to participate in your care, it was truly a pleasure having you for our patient!!! Discharge Disposition: HOME SELF-CARE
[2022-08-07] MEDS ORDERED: RIVAROXABAN 20 MG TAB PO SCH (17:30)
== END 2022-08-07 13:18 | disposition home or self-care (01) | DRG 246 ==
LOC: EC 23:37 → 3SCARD 08-05 01:39
PROVIDERS: ADMIT Internal Medicine; ATTEND Internal Medicine
PROC: 027034Z Dilation of Coronary Artery, One Artery with Drug-eluting Intraluminal Device, Percutaneous Approach (ICD-10-PCS; principal; 2022-08-06 10:30)
PROC: 4A023N7 Measurement of Cardiac Sampling and Pressure, Left Heart, Percutaneous Approach (ICD-10-PCS; principal; 2022-08-06 10:30)
PROC: B2111ZZ Fluoroscopy of Multiple Coronary Arteries using Low Osmolar Contrast (ICD-10-PCS; principal; 2022-08-06 10:30)
DX: I25.10 Atherosclerotic heart disease of native coronary artery without angina pectoris (principal); I50.43 Acute on chronic combined systolic (congestive) and diastolic (congestive) heart failure; I48.19 Other persistent atrial fibrillation; N17.9 Acute kidney failure, unspecified; Z79.01 Long term (current) use of anticoagulants; E80.6 Other disorders of bilirubin metabolism; R73.03 Prediabetes; I11.0 Hypertensive heart disease with heart failure; M19.90 Unspecified osteoarthritis, unspecified site; I16.0 Hypertensive urgency; Z79.82 Long term (current) use of aspirin; Z79.84 Long term (current) use of oral hypoglycemic drugs; Z79.899 Other long term (current) drug therapy; Z82.49 Family history of ischemic heart disease and other diseases of the circulatory system; Z20.822 Contact with and (suspected) exposure to COVID-19; Z79.02 Long term (current) use of antithrombotics/antiplatelets
CPT/HCPCS: 36415; 71046; 80048; 80053; 83690; 83735; 83880; 84145; 84484; 85025; 85027; 85610; 85730; 87636; 93005; 93458; 94760; 96374; 96375; 99291

== ENCOUNTER → 2022-08-16 | Outpatient (CLI) | payer MEDICARE ==
[2022-08-16 15:51] LABS: Basophils # (A) 0.04 X 10*3/uL (0.00-0.10); Basophils % (A) 0.6 %; Eosinophils % (A) 3.2 %; HCT 43.6 % (39.6-50.0); HGB 13.4 g/dL (13.0-17.0); Immature Grans, Automated 0.3 %; Lymphocytes # (A) 1.87 X 10*3/uL (0.90-5.00); Lymphocytes % (A) 30.2 %; MCHC 30.7 g/dL (32.0-37.0); MCV 81.5 fL (80.0-97.0); Mean Platelet Volume 8.9 fL (9.5-12.2); Monocytes # (A) 0.44 X 10*3/uL (0.20-1.00); Monocytes % (A) 7.1 %; NRBC Per 100 WBC 0 /100 WBCS (0.0-0.0); Neutrophils # (A) 3.62 X 10*3/uL (1.80-7.70); Neutrophils % (A) 58.6 %; Platelet Count 245 X 10*3/uL (140-440); RBC 5.35 X 10*6/uL (4.40-5.60); RDW 15.5 % (11.5-14.5); WBC 6.19 X 10*3/uL (4.50-10.00)
[2022-08-16 16:38] LABS: ALT 24 U/L (10-49); AST 17 U/L (14-35); African American GFR (CKD) 63.8 (60.0-200.0); Albumin 4.2 g/dL (3.8-4.9); Albumin/Globulin Ratio 1.58 (1.60-3.17); Alkaline Phosphatase 109 U/L (41-126); BUN/Creat Ratio 11.94 Ratio (12.00-20.00); Blood Urea Nitrogen 15.4 mg/dL (9.0-27.0); Calcium 9.3 mg/dL (8.7-10.3); Carbon Dioxide 24.7 mmol/L (20.0-27.5); Chloride 106 mmol/L (96-109); Chol/HDL Ratio 5.07 Ratio; Globulin 2.6 g/dL (1.6-3.3); Glucose 122 mg/dL (70-110); LDL Cholesterol,Calculated 86.8 mg/dL (0.0-131.0); Potassium 5.2 mmol/L (3.5-5.5); Sodium 141 mmol/L (135-145); Total Protein 6.8 g/dL (6.2-8.2)
== END | disposition home or self-care (01) ==
LOC: LABWHC1 10:24
PROVIDERS: ATTEND Nurse Practitioner Adult Health
DX: I11.0 Hypertensive heart disease with heart failure (principal); I50.9 Heart failure, unspecified; E78.2 Mixed hyperlipidemia
CPT/HCPCS: 36415; 80053; 80061; 83880; 85025

== ENCOUNTER → 2022-08-31 | Outpatient (CLI) | payer MEDICARE ==
[2022-09-01 07:34] LABS: ALT 18 U/L (10-49); AST 17 U/L (14-35); LDL Cholesterol,Calculated 68.8 mg/dL (0.0-131.0)
== END | disposition home or self-care (01) ==
LOC: LABWHC1 10:30
PROVIDERS: ATTEND Nurse Practitioner Adult Health
DX: E78.2 Mixed hyperlipidemia (principal)
CPT/HCPCS: 36415; 80061; 84450; 84460

== ENCOUNTER 2022-09-15 07:36 | Inpatient (IN) | payer MEDICARE ==
[2022-09-15] MEDS ORDERED: SODIUM CHLORIDE 0.9% 500 ML 500 ML IV STA (08:03)
--- NOTE | 2022-09-15 08:06 | ED ---
General Adult HPI - General Chief complaint: Chest Pain Stated complaint: AFIB Time Seen by Provider: 09/15/22 07:47 Source: patient Mode of arrival: ambulatory Limitations: no limitations - History of Present Illness Initial comments: Dictation was produced using [employer] dictation software. please excuse any grammatical, word or spelling errors. Chief Complaint: 72-year-old male presents emergency Department with shortness of breath and palpitations History of Present Illness: Patient is 72-year-old male presents emergency Department with shortness of breath and palpitations. Patient has history of A. fib. He underwent certain as cardioversion earlier this month. States that over the last week he has been having palpitations. Over the last several days she's been having cough, runny nose. Denies any sick contacts. No fever or constitutional symptoms. He does have some mild left lateral chest pain. No associated diaphoresis. Pain is nonradiating. The ROS documented in this emergency department record has been reviewed and confirmed by me. Those systems with pertinent positive or negative responses have been documented in the HPI. All other systems are other negative and/or noncontributory. - Related Data Home Medications Medication Instructions Recorded Confirmed Fluticasone Propion/Salmeterol 2 puff INHALATION RT-BID PRN 03/17/17 08/26/22 [Advair Hfa 115-21 Mcg Inhaler] Montelukast Sodium [Singulair] 10 mg PO HS 03/17/17 08/26/22 Vitamin B Complex 1 cap PO DAILY 03/17/17 08/26/22 carvediloL 25 mg PO BID 03/17/17 08/26/22 tiZANidine [Zanaflex] 2 mg PO Q8H PRN 03/17/17 08/26/22 Canagliflozin [Invokana] 100 mg PO DAILY 11/12/21 08/26/22 Cholecalciferol [Vitamin D3 (125 125 mcg PO DAILY 08/05/22 08/26/22 Mcg = 5000 Iu)] Rosuvastatin Calcium 10 mg PO HS 08/05/22 08/26/22 Furosemide [Lasix] 20 mg PO DAILY 08/21/22 08/26/22 Previous Rx's Medication Instructions Recorded Clopidogrel [Plavix] 75 mg PO DAILY 30 Days #30 tab 08/07/22 Rivaroxaban [Xarelto] 20 mg PO W/SUPPER 30 Days #30 tab 08/07/22 Allergies Allergy/AdvReac Type Severity Reaction Status Date / Time No Known Allergies Allergy Verified 08/26/22 06:27 Review of Systems ROS Statement: Those systems with pertinent positive or pertinent negative responses have been documented in the HPI. ROS Other: All systems not noted in ROS Statement are negative. Past Medical History Past Medical History: Atrial Fibrillation, Asthma, Hyperlipidemia, Hypertension, Osteoarthritis (OA), Sleep Apnea/CPAP/BIPAP Additional Past Medical History / Comment(s): "borderline diabetic" History of Any Multi-Drug Resistant Organisms: None Reported Past Surgical History: Orthopedic Surgery, Tonsillectomy Additional Past Surgical History / Comment(s): polyp removed from throat, nasal surgery, rt knee arthroscopy, COLONOSCOPY, foot surgery to have something removed-not sure which foot, Past Anesthesia/Blood Transfusion Reactions: No Reported Reaction Date of Last Stent Placement:: 07/2022 Past Psychological History: No Psychological Hx Reported Smoking Status: Former smoker Past Alcohol Use History: None Reported Past Drug Use History: None Reported - Past Family History Mother Family Medical History: Hypertension General Exam - General Exam Comments Initial Comments: PHYSICAL EXAM: General Impression: Alert and oriented x3, not in acute distress HEENT: Normocephalic atraumatic, extra-ocular movements intact, pupils equal and reactive to light bilaterally, mucous membranes moist. Cardiovascular: Irregularly irregular Chest: Mildly dyspneic, crackles heard at the right posterior lung base Abdomen: abdomen soft, non-tender, non-distended, no organomegaly Musculoskeletal: Pulses present and equal in all extremities, no peripheral edema Motor: no focal deficits noted Neurological: CN II-XII grossly intact, no focal motor or sensory deficits noted Skin: Intact with no visualized rashes Psych: Normal affect and mood Limitations: no limitations Course Vital Signs 09/15/22 09/15/22 09/15/22 07:37 07:42 08:27 Temperature 97.6 F Pulse Rate 125 H 133 H Respiratory 18 22 Rate Blood Pressure 209/120 207/150 O2 Sat by Pulse 92 L 98 93 L Oximetry 09/15/22 09/15/22 08:29 09:10 Temperature Pulse Rate 134 H 92 Respiratory 22 20 Rate Blood Pressure 155/119 118/78 O2 Sat by Pulse 94 L 95 Oximetry - Reevaluation(s) Reevaluation #1: 09/15/22 08:05 Patient seen and evaluated in ER room #1. Vital signs reviewed. Patient was hypertensive in triage with a blood pressure 200/120. Heart is 125 with a oxygen saturation 92% on room air. Is 98% on 2 L nasal cannula. Patient does not appear to be in significant distress. On the applications tester he does appear to be in A. fib with rapid ventricular rate. Repeat blood pressures 165/137. Patient has cardiac history. He does have features of pulmonary infection. Patient's dyspnea is likely multifactorial. Chart review was performed. Recent cardiac notes were reviewed from earlier this month suggesting patient has normal ejection fraction. He did undergo cigarettes cardioversion Reevaluation #2: 09/15/22 08:17 [id number] bedside ultrasound was performed showing that patient had Rancho B line artifacts in the upper lung rowley worse on the right. This suggests that patient is experiencing some degree of heart failure. With elevated blood pressure patient given sublingual nitroglycerin Reevaluation #3: 09/15/22 08:28 Patient became significant nauseated after one sublingual nitroglycerin. safety and security manager did show some short runs of ventricular tachycardia. Reevaluation #4: 09/15/22 09:[address] Solis Muro of pulmonology for possible ICU admission. He states that he reviewed his chart states that he is stable for 3 S. EKG Findings - EKG Comments: EKG Findings:: My EKG interpretation: Ventricular rate 125, A. fib with RVR, QRS 97, QTc 388. No no QTC prolongation, no ST or T-wave changes noted. Overall this EKG suggests A. fib with RVR. There are no associated ischemic changes Medical Decision Making - Medical Decision Making Was pt. sent in by a medical professional or institution (, PA, [facility], urgent care, hospital, or long-term...) When possible be specific @ -No Did you speak to anyone other than the patient for history (EMS, parent, family, police, friend...)? What history was obtained from this source @ - at the bedside reports that patient complaining of palpitations Did you review nursing and triage notes (agree or disagree)? Why? @ -I reviewed and agree with nursing and triage notes Were old charts reviewed (outside hosp., previous admission, EMS record, old EKG, old radiological studies, urgent care reports/EKG's, long-term records)? Report findings @ -Prior cardiac notes reviewed shows that patient had cardioversion earlier this month Differential Diagnosis (chest pain, altered mental status, abdominal pain women, abdominal pain men, vaginal bleeding, musculoskeletal, weakness, fever, dyspnea, syncope, headache, dizziness, GI bleed, back pain, seizure, CVA, palpatations, mental health)? @ -. Differential palpitations EKG interpreted by me (3pts min.). @ -See above X-rays interpreted by me (1pt min.). @ -Sexual shows right upper opacity. Does appear to be evidence of pneumonia versus vascular congestion CT interpreted by me (1pt min.). @ -CT angiography of the chest shows no mass. Sports diagnosis of heart failure U/S interpreted by me (1pt. min.). @ -None done What testing was considered but not performed or refused? (CT, X-rays, U/S, labs)? Why? @ -None What meds were considered but not given or refused? Why? @ -None Did you discuss the management of the patient with other professionals (professionals i.e. , PA, [facility], lab, RT, psych nurse, social service manager, apartment maintenance, teacher, chief strategy officer, case fitter)? Give summary @ -Case discussed with plate glass polisher for possible ICU admission. Labs and imagin g EKG clinical presentation and ER course discussed with sound physician, Dr. Corona for admission Was smoking cessation discussed for >3mins.? @ -No Was critical care preformed (if so, how long)? @ -Yes, 73 minutes Were there social determinants of health that impacted care today? How? (Homelessness, low income, unemployed, alcoholism, drug addiction, transportation, low edu. Level, literacy, decrease access to med. care, fci, rehab)? @ -No Was there de-escalation of care discussed even if they declined (Discuss DNR or withdrawal of care, Hospice)? DNR status @ -No What co-morbidities impacted this encounter? (DM, HTN, Smoking, COPD, CAD, Cancer, CVA, ARF, Chemo, Hep., AIDS, mental health diagnosis, sleep apnea, morbi d obesity)? @ -None Was patient admitted / discharged? Hospital course, mention meds given and route, prescriptions, significant lab abnormalities, going to OR and other pertinent info. @ -72-year-old male presents emergency Department with shortness of breath, chest pain and palpitations. Patient initial arrival presented with A. fib with RVR, hypertensive emergency. Patient was treated with amiodarone for short runs of ventricular tachycardia. Patient also given one sublingual nitroglycerin. Patient's overall clinical presentation improved after observation in the ER. Patient was admitted to 3 S. for further care Undiagnosed new problem with uncertain prognosis? @ -No Drug Therapy requiring intensive monitoring for toxicity (Heparin, Nitro, Insulin, Cardizem)? @ -No Were any procedures done? @ -No Diagnosis/symptom? Acute, or Chronic, or Acute on Chronic? Uncomplicated (without systemic symptoms) or Complicated (systemic symptoms)? @ -1. Hypertensive emergency, 2. Respiratory failure, 3. A. fib RVR, 4. Nonsustained ventricular tachycardia Side effects of treatment? @ -No Exacerbation, Progression, or Severe Exacerbation? @ -No Poses a threat to life or bodily function? How? (Chest pain, [place], [place], pneumonia, PE, COPD, DKA, ARF, appy, cholecystitis, CVA, Diverticulitis, Homicidal, Suicidal, threat to staff... and all critical care pts) @ -yes - Lab Data Result diagrams: 09/15/22 08:04 09/15/22 08:04 Lab Results 09/15/22 09/15/22 09/15/22 Range/Units 08:04 08:04 08:04 WBC 8.0 (3.8-10.6) k/uL RBC 5.29 (4.30-5.90) m/uL Hgb 13.5 (13.0-17.5) gm/dL Hct 42.7 (39.0-53.0) % MCV 80.8 (80.0-100.0) fL MCH 25.5 (25.0-35.0) pg MCHC 31.5 (31.0-37.0) g/dL RDW 17.5 H (11.5-15.5) % Plt Count 218 (150-450) k/uL MPV 7.8 Neutrophils % 66 % Lymphocytes % 26 % Monocytes % 5 % Eosinophils % 2 % Basophils % 0 % Neutrophils # 5.3 (1.3-7.7) k/uL Lymphocytes # 2.1 (1.0-4.8) k/uL Monocytes # 0.4 (0-1.0) k/uL Eosinophils # 0.2 (0-0.7) k/uL Basophils # 0.0 (0-0.2) k/uL Hypochromasia Moderate Poikilocytosis Slight Anisocytosis Slight Microcytosis Slight PT 12.9 H (9.0-12.0) sec INR 1.3 H (<1.2) APTT 26.1 (22.0-30.0) sec Sodium 139 (137-145) mmol/L Potassium 4.1 (3.5-5.1) mmol/L Chloride 106 (98-107) mmol/L Carbon Dioxide 21 L (22-30) mmol/L Anion Gap 12 mmol/L BUN 25 H (9-20) mg/dL Creatinine 1.35 H (0.66-1.25) mg/dL Est GFR (CKD-EPI)AfAm 60 (>60 ml/min/1.73 sqM) Est GFR (CKD-EPI)NonAf 52 (>60 ml/min/1.73 sqM) Glucose 199 H (74-99) mg/dL Calcium 9.1 (8.4-10.2) mg/dL Magnesium 2.2 (1.6-2.3) mg/dL Total Bilirubin 1.2 (0.2-1.3) mg/dL AST 18 (17-59) U/L ALT 19 (4-49) U/L Alkaline Phosphatase 112 (38-126) U/L Troponin I (0.000-0.034) ng/mL NT-Pro-B Natriuret Pep pg/mL Total Protein 7.1 (6.3-8.2) g/dL Albumin 4.1 (3.5-5.0) g/dL Influenza Type A (PCR) (Not Detectd) Influenza Type B (PCR) (Not Detectd) RSV (PCR) (Not Detectd) SARS-CoV-2 (PCR) (Not Detectd) 09/15/22 09/15/22 09/15/22 Range/Units 08:04 08:04 08:13 WBC (3.8-10.6) k/uL RBC (4.30-5.90) m/uL Hgb (13.0-17.5) gm/dL Hct (39.0-53.0) % MCV (80.0-100.0) fL MCH (25.0-35.0) pg MCHC (31.0-37.0) g/dL RDW (11.5-15.5) % Plt Count (150-450) k/uL MPV Neutrophils % % Lymphocytes % % Monocytes % % Eosinophils % % Basophils % % Neutrophils # (1.3-7.7) k/uL Lymphocytes # (1.0-4.8) k/uL Monocytes # (0-1.0) k/uL Eosinophils # (0-0.7) k/uL Basophils # (0-0.2) k/uL Hypochromasia Poikilocytosis Anisocytosis Microcytosis PT (9.0-12.0) sec INR (<1.2) APTT (22.0-30.0) sec Sodium (137-145) mmol/L Potassium (3.5-5.1) mmol/L Chloride (98-107) mmol/L Carbon Dioxide (22-30) mmol/L Anion Gap mmol/L BUN (9-20) mg/dL Creatinine (0.66-1.25) mg/dL Est GFR (CKD-EPI)AfAm (>60 ml/min/1.73 sqM) Est GFR (CKD-EPI)NonAf (>60 ml/min/1.73 sqM) Glucose (74-99) mg/dL Calcium (8.4-10.2) mg/dL Magnesium (1.6-2.3) mg/dL Total Bilirubin (0.2-1.3) mg/dL AST (17-59) U/L ALT (4-49) U/L Alkaline Phosphatase (38-126) U/L Troponin I <0.012 (0.000-0.034) ng/mL NT-Pro-B Natriuret Pep 3730 pg/mL Total Protein (6.3-8.2) g/dL Albumin (3.5-5.0) g/dL Influenza Type A (PCR) Not Detected (Not Detectd) Influenza Type B (PCR) Not Detected (Not Detectd) RSV (PCR) Not Detected (Not Detectd) SARS-CoV-2 (PCR) Not Detected (Not Detectd) Disposition Clinical Impression: Palpitations Disposition: ADMITTED IP TO THIS HOSP Condition: Critical Referrals: Jesu Nguyen MD [Primary Care Provider] - 1-2 days Decision Time: 09:45
[2022-09-15] MEDS ORDERED: SODIUM CHLORIDE 0.9% 1,000 ML IV STA (08:11)
[2022-09-15] MEDS ORDERED: FUROSEMIDE 10 MG/ML 4 ML VIAL IV STA (08:16)
[2022-09-15] MEDS ORDERED: NITROGLYCERIN SL TABS 0.4 MG TAB SUBLINGUAL STA (08:16)
[2022-09-15 08:18] LABS: Anisocytosis Slight; Basophils % (A) 0 %; Eosinophils # (A) 0.2 k/uL (0-0.7); Eosinophils % (A) 2 %; HCT 42.7 % (39.0-53.0); HGB 13.5 gm/dL (13.0-17.5); Hypochromasia Moderate; Lymphocytes # (A) 2.1 k/uL (1.0-4.8); Lymphocytes % (A) 26 %; MCH 25.5 pg (25.0-35.0); MCHC 31.5 g/dL (31.0-37.0); MCV 80.8 fL (80.0-100.0); Mean Platelet Volume 7.8; Microcytosis Slight; Monocytes # (A) 0.4 k/uL (0-1.0); Monocytes % (A) 5 %; Neutrophils # (A) 5.3 k/uL (1.3-7.7); Neutrophils % (A) 66 %; Platelet Count 218 k/uL (150-450); Poikilocytosis Slight; RBC 5.29 m/uL (4.30-5.90); RDW 17.5 % (11.5-15.5)
[2022-09-15] MEDS ORDERED: ONDANSETRON 4 MG/2 ML VIAL IVP STA (08:22)
[2022-09-15 08:29] LABS: Albumin 4.1 g/dL (3.5-5.0); Calcium 9.1 mg/dL (8.4-10.2); Magnesium 2.2 mg/dL (1.6-2.3); Potassium 4.1 mmol/L (3.5-5.1); Total Bilirubin 1.2 mg/dL (0.2-1.3); Total Protein 7.1 g/dL (6.3-8.2)
[2022-09-15] MEDS ORDERED: DEXTROSE 5% IN WATER 100 ML with AMIODARONE 150 MG IV ONE (08:31)
[2022-09-15] MEDS ORDERED: AMIODARONE 360 MG in DEXTROSE 5% IN WATER 200 ML IV ONE ×2 (08:31)
--- NOTE | 2022-09-15 08:32 | XR ---
EXAMINATION TYPE: XR chest 1V portable DATE OF EXAM: 09/15/2022 8:07 AM COMPARISON: Chest radiographs from 08/05/2022 TECHNIQUE: XR chest 1V portable Frontal view of the chest. CLINICAL INDICATION:Male, 72 years old with history of dyspnea, chest pain; FINDINGS: Lungs/Pleura: Upper lung airspace opacity measuring 4.1 cm with blunting of the costophrenic angles a nd bibasilar airspace opacities. Pulmonary vascularity: Unremarkable. Heart/mediastinum: Cardiomediastinal silhouette is enlarged and stable. Musculoskeletal: No acute osseous pathology. IMPRESSION: 1. Right upper lung airspace opacity measuring up to 4.1 cm further evaluation with CT chest may be warranted to rule out malignancy. 2. Airspace opacities predominantly in lung bases correlate for pneumonia versus pulmonary vascular congestion. 3. Right small pleural effusion.
[2022-09-15 08:42] LABS: INR 1.3 (<1.2); Partial Thromboplastin Time 26.1 sec (22.0-30.0); Prothrombin Time 12.9 sec (9.0-12.0)
--- NOTE | 2022-09-15 09:14 | CT ---
EXAMINATION TYPE: CT angio chest CT DLP: 514.2 mGycm, Automated exposure control for dose reduction was used. DATE OF EXAM: 09/15/2022 9:04 AM COMPARISON: Chest radiograph from same day. CLINICAL INDICATION:Male, 72 years old with history of suspected mass on CXR; a-fib TECHNIQUE/CONTRAST: CTA scan of the thorax is performed with IV Contrast, patient injected with 75 mL of Isovue 300, pulm onary embolism protocol. MIP images are created and reviewed these are created on a separate worksta tion.. FINDINGS: Pulmonary Artery: There is no evidence for a filling defect within the pulmonary vasculature to sugge st acute pulmonary embolism. The pulmonary artery is of normal size. Lungs/Pleura: Masslike opacity correlates with suspected loculated fluid along the right major fissur e. There is a right small pleural effusion. There is trace left pleural effusion with loculated fluid in the fissure. Scattered ground glass opacities are present. There is thickening of interlobular se plane captain. Airway: Large airways are patent. Heart: The heart is enlarged for size. There is moderate to severe coronary artery atherosclerosis. A ortic valve leaflet calcifications. Vasculature: No evidence of aortic aneurysm. Mediastinum: No gross evidence of adenopathy. Musculoskeletal: No acute osseous abnormalities Soft Tissues: Unremarkable. Lower neck: No significant findings. Upper Abdomen: Atrophic left kidney partially visualized. IMPRESSION: 1. No evidence for mass. 2. Cardiomegaly with bilateral pleural effusions and fluid layering within the fissures correlate wi th masslike structure on radiograph. 3. No evidence of pulmonary embolism. 4. Groundglass opacities bilaterally correlate for atypical pneumonia.
[2022-09-15] MEDS ORDERED: PIPERACILLIN-TAZOBACTAM 3.375 GM in SODIUM CHLORIDE 0.9% 100 ML IVPB STA (09:18)
[2022-09-15] MEDS ORDERED: NALOXONE 0.4 MG/ML 1 ML VIAL IV PRN (09:57)
--- NOTE | 2022-09-15 11:10 | P.HPIM ---
History of Present Illness H&P Date: 09/15/22 History of Presenting Illness: The patient is a very pleasant 72-year-old male with a past medical history of CAD status post recent stenting of RCA on 08/06/22 on dual antiplatelet therapy with aspirin and Plavix, persistent A. fib on Xarelto/Amiodarone/ca rvedilol/Cardizem, chronic congestive heart failure with a previously preserved EF of 50-55%, hypertension, hyperlipidemia, and COPD. He presented to the emergency department with a chief complaint of shortness of breath and palpitations. Patient reports that he follows with pest controller assistant, Dr. Bay and recently underwent a JUNAID with synchronized cardioversion on 08/26/22 which initially resulted in successful conversion to normal sinus rhythm but states he later again converted back into persistent atrial fibrillation. Patient states over the past week he has been experiencing exertional shortness of breath and palpitations. Today he reports persistent palpitations, diaphoresis, and severe shortness of breath told his he had to get to the emergency department immediately. Patient and his at bedside deny any recent illnesses or exposure to known ill contacts. Patient denies having any headache, lightheadedness, dizziness, chest pain, nausea, vomiting, or experiencing any nu mbness/tingling/weakness/swelling in his extremities. He underwent full evaluation in the emergency department. Upon arrival patient was found to be tachycardiac with heart rate 120s to 130s, hypertensive urgency with blood pressure 209/120, tachypneic with respiratory rate 22, and 92% on room air. EKG revealing atrial fibrillation with a rapid ventricular rate of 125 bpm with no noted T-wave or ST abnormalities showing no signs of acute ischemia upon personal review and interpretation. Chest x-ray was completed in radiology report reviewed stating right upper lung airspace opacity measuring up to 4.1 cm, airspace opacities predominantly in lung bases, and right small pleural effusion. CTA chest completed ruling out pulmonary mass revealing cardiomegaly with bilateral pleural effusions and fluid layering within the fissures concerning for possible loculated effusion. Labs completed and reviewed. CBC unremarkable, coagulation profile revealing elevated PT of 12.9 and INR of 1.3. BMP showing hypocarbia with carbon dioxide of 21 and slightly elevated renal function with BUN of 25, creatinine 1.35, and GFR 52 with baseline creatinine of 1.3. Troponin normal finding of less than 0.012 and proBNP 3730. Influenza A, influenza B, RSV, and Covid PCR were all negative. In the ER pt was given a single dose of IV antibiotics with Zosyn 3.375 g, 500 mL bolus of 0.9% normal saline, Lasix 40 mg IVP 1 dose, sublingual nitro, amiodarone bolus 150 mg followed by initiation of amiodarone infusion at 2 mg/min. Discussed presenting symptoms, patient history, laboratory analysis, and imaging results in detail with the ED physician. Patient being admitted to cardiac stepdown unit with telemetry. Consult placed to cardiology. Review of systems: Pertinent positives and negatives as discussed in HPI, a complete review of systems was performed and all other systems are negative. Physical exam: Vital signs reviewed and stable. General: Nontoxic, no distress and appears stated age. Derm: Skin warm and dry, normal coloration for ethnicity. Head: Atraumatic, normocephalic and symmetric. Eyes: EOMs intact, no lid lag, and anicteric sclera Mouth: no lip lesions, mucus membranes moist Cardiovascular: Irregularly irregular with normal S1S2, systolic murmur, positive posterior tibial pulses bilaterally, and cap refill < 2 seconds. Lungs: Respirations even, regular, and unlabored on room air. Lungs diminished with bibasilar crackles worse on right. Abdominal: soft, nontender to palpation, no guarding, no appreciable organomegaly Ext: ROM intact. No gross muscle atrophy, no edema, no contractures Neuro: Speech clear, face symmetrical and CN II-XII grossly intact with no noted focal neuro deficits Psych: Alert and oriented to person, place, time, and situation. Appropriate and pleasant affect. Assessment and Plan of Care: Atrial fibrillation with RVR Pulmonary edema Acute exacerbation of chronic diastolic heart failure with previously known EF of 50-55%. Hypertensive urgency Acute on chronic respiratory failure with hypoxia secondary to above History of CAD status post recent stenting of RCA on 08/06/22 -Upon arrival patient was found to be tachycardiac with heart rate 120s to 130s, hypertensive urgency with blood pressure 209/120, tachypneic with respiratory rate 22, and 92% on room air. -EKG revealing atrial fibrillation with a rapid ventricular rate of 125 bpm with no noted T-wave or ST abnormalities showing no signs of acute ischemia upon personal review and interpretation. -Chest x-ray was completed in radiology report reviewed stating right upper lung airspace opacity measuring up to 4.1 cm, airspace opacities predominantly in lung bases, and right small pleural effusion. -CTA chest completed ruling out pulmonary mass revealing cardiomegaly with bilateral pleural effusions and fluid layering within the fissures concerning for possible loculated effusion. -Labs completed and reviewed. CBC unremarkable, coagulation profile revealing elevated PT of 12.9 and INR of 1.3. BMP showing hypocarbia with carbon dioxide of 21 and slightly elevated renal function with BUN of 25, creatinine 1.35, and GFR 52 with baseline creatinine of 1.3. Troponin normal finding of less than 0.012 and proBNP 3730. -Influenza A, influenza B, RSV, and Covid PCR were all negative. -In the ER pt was given a single dose of IV antibiotics with Zosyn 3.375 g, 500 mL bolus of 0.9% normal saline, Lasix 40 mg IVP 1 dose, sublingual nitro, amiodarone bolus 150 mg followed by initiation of amiodarone infusion at 2 mg/min. -Discussed presenting symptoms, patient history, laboratory analysis, and imaging results in detail with the ED physician. -Patient being admitted to cardiac stepdown unit with telemetry. -Consult placed to cardiology. -We will hold off on any additional antibiotics at this time as patient showing no signs of infection and opacities likely secondary to pulmonary edema resulting from congestive heart failure exacerbation due to uncontrolled RVR. -Continue cardiac medication regimen consisting of aspirin, Plavix, Xarelto, carvedilol, and Cardizem. Pt to resume oral amiodarone once infusion is completed. -Daily weights -Close monitoring of I's and O's -Cardiac diet -Lasix 40 mg IVP every 12 hours -Continued close monitoring of renal function and electrolytes while diuresing. The patient is admitted with an anticipated greater than 2 midnight stay for evaluation of A. fib RVR and acute exacerbation of chronic diastolic heart failure. CODE STATUS: Full code DVT prophylaxis: Xarelto Discussed with: Pt and RN Anticipated discharge date: Clinical Course to determine Anticipated discharge place: Home Patient was seen independently by Nurse Practitioner. This document was prepared using [employer] dictation software. Please allow for errors in transmitter supervisor while rare they do occur. Mandeep Landry NP rendered care for this patient independently, reviewed the findings and plan as documented in the note above. I did not physically speak with or examine the patient on this date. Past Medical History Past Medical History: Atrial Fibrillation, Asthma, Hyperlipidemia, Hypertension, Osteoarthritis (OA), Sleep Apnea/CPAP/BIPAP Additional Past Medical History / Comment(s): "borderline diabetic" History of Any Multi-Drug Resistant Organisms: None Reported Past Surgical History: Orthopedic Surgery, Tonsillectomy Additional Past Surgical History / Comment(s): polyp removed from throat, nasal surgery, rt knee arthroscopy, COLONOSCOPY, foot surgery to have something removed-not sure which foot, Past Anesthesia/Blood Transfusion Reactions: No Reported Reaction Date of Last Stent Placement:: 07/2022 Past Psychological History: No Psychological Hx Reported Smoking Status: Former smoker Past Alcohol Use History: None Reported Past Drug Use History: None Reported - Past Family History Mother Family Medical History: Hypertension Additional Family Medical History / Comment(s): Passed when pt was 13 with a "heart problem or a stroke" Father Family Medical History: Myocardial Infarction ([place]) Additional Family Medical History / Comment(s): from a heart attack. Sister(s) Additional Family Medical History / Comment(s): "Heart problems", one sister with a heart transplant Brother(s) Additional Family Medical History / Comment(s): "Heart problems" Medications and Allergies Home Medications Medication Instructions Recorded Confirmed Type Fluticasone Propion/Salmeterol 2 puff INHALATION RT-BID PRN 03/17/17 09/15/22 History [Advair Hfa 115-21 Mcg Inhaler] Montelukast Sodium [Singulair] 10 mg PO HS 03/17/17 09/15/22 History Vitamin B Complex 1 cap PO DAILY 03/17/17 09/15/22 History carvediloL 25 mg PO BID 03/17/17 09/15/22 History tiZANidine [Zanaflex] 2 mg PO Q8H PRN 03/17/17 09/15/22 History Canagliflozin [Invokana] 100 mg PO DAILY 11/12/21 09/15/22 History Cholecalciferol [Vitamin D3 (125 125 mcg PO DAILY 08/05/22 09/15/22 History Mcg = 5000 Iu)] Rosuvastatin Calcium 10 mg PO HS 08/05/22 09/15/22 History Clopidogrel [Plavix] 75 mg PO DAILY 30 Days #30 tab 08/07/22 09/15/22 Rx Rivaroxaban [Xarelto] 20 mg PO W/SUPPER 30 Days #30 tab 08/07/22 09/15/22 Rx Furosemide [Lasix] 20 mg PO DAILY 08/21/22 09/15/22 History Amiodarone [Cordarone] 200 mg PO BID 09/15/22 09/15/22 History Aspirin EC [Ecotrin Low Dose] 81 mg PO DAILY 09/15/22 09/15/22 History Diltiazem Oral [Cardizem Oral] 30 mg PO TID 09/15/22 09/15/22 History Allergies Allergy/AdvReac Type Severity Reaction Status Date / Time No Known Allergies Allergy Verified 09/15/22 10:34 Physical Exam Vitals: Vital Signs Temp Pulse Resp BP Pulse Ox 09/15/22 09:10 92 20 118/78 95 09/15/22 08:29 134 H 22 155/119 94 L 09/15/22 08:27 133 H 22 207/150 93 L 09/15/22 07:42 98 09/15/22 07:37 97.6 F 125 H 18 209/120 92 L Intake and Output 09/14/22 09/15/22 09/15/22 22:59 06:59 14:59 Other: Weight 90.718 kg Results CBC & Chem 7: 09/15/22 08:04 09/15/22 08:04 Labs: Abnormal Lab Results - Last 24 Hours (Table) 09/15/22 09/15/22 09/15/22 Range/Units 08:04 08:04 08:04 RDW 17.5 H (11.5-15.5) % PT 12.9 H (9.0-12.0) sec INR 1.3 H (<1.2) Carbon Dioxide 21 L (22-30) mmol/L BUN 25 H (9-20) mg/dL Creatinine 1.35 H (0.66-1.25) mg/dL Glucose 199 H (74-99) mg/dL
[2022-09-15] MEDS ORDERED: tiZANidine 4 MG TAB PO PRN (11:15)
[2022-09-15] MEDS: ASPIRIN 81 MG PO SCH (11:35)
[2022-09-15] MEDS: CLOPIDOGREL 75 MG TAB PO SCH (11:35)
[2022-09-15] MEDS: AMIODARONE 450 MG in DEXTROSE 5% IN WATER 250 ML IV SCH ×2 (15:26)
[2022-09-15] MEDS: DILTIAZEM ORAL 30 MG TAB PO SCH ×2 (16:01→21:08)
[2022-09-15 16:31] LABS: Glucose,Whole Blood 132 mg/dL (70-110)
[2022-09-15] MEDS: carvediloL 12.5 MG TAB PO SCH (17:44)
[2022-09-15] MEDS: RIVAROXABAN 20 MG TAB PO SCH (17:44)
[2022-09-15 19:47] LABS: Glucose,Whole Blood 187 mg/dL (70-110)
[2022-09-15] MEDS: FUROSEMIDE 10 MG/ML 4 ML VIAL IV SCH (21:08)
[2022-09-15] MEDS: ATORVASTATIN 20 MG TAB PO SCH (21:08)
[2022-09-15] MEDS: MONTELUKAST 10 MG TAB PO SCH (21:09)
[2022-09-15] MEDS: SYMBICORT 160-4.5 MCG INHALER INHALATION PRN (21:26)
[2022-09-16 05:47] LABS: Glucose,Whole Blood 134 mg/dL (70-110)
[2022-09-16] MEDS: carvediloL 12.5 MG TAB PO SCH (06:22)
[2022-09-16] MEDS: CLOPIDOGREL 75 MG TAB PO SCH (07:42)
[2022-09-16] MEDS: ASPIRIN 81 MG PO SCH (07:42)
[2022-09-16] MEDS: FUROSEMIDE 10 MG/ML 4 ML VIAL IV SCH ×2 (07:42→21:38)
[2022-09-16] MEDS: DILTIAZEM ORAL 30 MG TAB PO SCH (07:42)
[2022-09-16] MEDS: FOLIC ACID-VIT B COMPLEX-VIT C 1 CAP PO SCH (07:42)
[2022-09-16] MEDS: AMIODARONE 450 MG in DEXTROSE 5% IN WATER 250 ML IV SCH ×2 (07:42)
[2022-09-16] MEDS ORDERED: AMIODARONE 200 MG TAB PO SCH ×2 (09:00→11:15)
[2022-09-16] MEDS: SYMBICORT 160-4.5 MCG INHALER INHALATION PRN ×2 (09:03→21:23)
--- NOTE | 2022-09-16 11:10 | P.PN ---
Subjective Progress Note Date: 09/16/22 Hospital course: The patient is a very pleasant 72-year-old male with a past medical history of CAD status post recent stenting of RCA on 08/06/22 on dual antiplatelet therapy with aspirin and Plavix, persistent A. fib on Xarelto/Amiodarone/carvedilol/Cardizem, chronic congestive heart failure with a previously preserved EF of 50-55%, hypertension, hyperlipidemia, and COPD. He presented to the emergency department with a chief complaint of shortness of breath and palpitations. Patient reports that he follows with plan nurse, Dr. Bay and recently underwent a JUNAID with synchronized cardioversion on 08/26/22 which initially resulted in successful conversion to normal sinus rhythm but states he later again converted back into persistent atrial fibrillation. Patient states over the past week he has been experiencing exertional shortness of breath and palpitations. Today he reports persistent palpitations, diaphoresis, and severe shortness of breath told his he had to get to the emergency department immediately. Patient and his at bedside deny any recent illnesses or exposure to known ill contacts. Patient denies having any headache, lightheadedness, dizziness, chest pain, nausea, vomiting, or experiencing any numbness/tingling/weakness/swelling in his extremities. He underwent full evaluation in the emergency department. Upon arrival patient was found to be tachycardiac with heart rate 120s to 130s, hypertensive urgency with blood pressure 209/120, tachypneic with respiratory rate 22, and 92% on room air. EKG revealing atrial fibrillation with a rapid ventricular rate of 125 bpm with no noted T-wave or ST abnormalities showing no signs of acute ischemia upon personal review and interpretation. Chest x-ray was completed in radiology report reviewed stating right upper lung airspace opacity measuring up to 4.1 cm, airspace opacities predominantly in lung bases, and right small pleural effusion. CTA chest completed ruling out pulmonary mass revealing cardiomegaly with bilateral pleural effusions and fluid layering within the fissures concerning for possible loculated effusion. Labs completed and reviewed. CBC u nremarkable, coagulation profile revealing elevated PT of 12.9 and INR of 1.3. BMP showing hypocarbia with carbon dioxide of 21 and slightly elevated renal function with BUN of 25, creatinine 1.35, and GFR 52 with baseline creatinine of 1.3. Troponin normal finding of less than 0.012 and proBNP 3730. Influenza A, influenza B, RSV, and Covid PCR were all negative. In the ER pt was given a single dose of IV antibiotics with Zosyn 3.375 g, 500 mL bolus of 0.9% normal saline, Lasix 40 mg IVP 1 dose, sublingual nitro, amiodarone bolus 150 mg followed by initiation of amiodarone infusion at 2 mg/min. Discussed presenting symptoms, patient history, laboratory analysis, and imaging results in detail with the ED physician. Patient was admitted to cardiac stepdown unit with telemetry with consult to cardiology. Physical exam: Vital signs reviewed and stable. General: Nontoxic, no distress and appears stated age. Derm: Skin warm and dry, normal coloration for ethnicity. Head: Atraumatic, normocephalic and symmetric. Eyes: EOMs intact, no lid lag, and anicteric sclera Mouth: no lip lesions, mucus membranes moist Cardiovascular: Irregularly irregular with normal S1S2, systolic murmur, positive posterior tibial pulses bilaterally, and cap refill < 2 seconds. Lungs: Respirations even, regular, and unlabored on room air. Lungs diminished with bibasilar crackles worse on right. Abdominal: soft, nontender to palpation, no guarding, no appreciable organomegaly Ext: ROM intact. No gross muscle atrophy, no edema, no contractures Neuro: Speech clear, face symmetrical and CN II-XII grossly intact with no noted focal neuro deficits Psych: Alert and oriented to person, place, time, and situation. Appropriate and pleasant affect. Assessment and Plan of Care: Atrial fibrillation with RVR Pulmonary edema Acute exacerbation of chronic diastolic heart failure with previously known EF of 50-55%. Hypertensive urgency Acute on chronic respiratory failure with hypoxia secondary to above History of CAD status post recent stenting of RCA on 08/06/22 -Patient seen and fully evaluated at bedside this morning. Patient much improved this morning. He remains in atrial fibrillation but maintaining a controlled ventricular rate. He remains on amiodarone infusion at 0.5 mg/m. Infusion scheduled for completion at 10 PM per RN. Discussed this with plan nurse and patient to resume oral amiodarone 200 mg twice a day starting today at 9 PM. -Continue telemetry monitoring -Cardiology following and discontinued carvedilol and Cardizem and started patient on valsartan 80 mg and metoprolol 50 mg daily, -We will hold off on any additional antibiotics at this time as patient showing no signs of infection and opacities likely secondary to pulmonary edema resulting from congestive heart failure exacerbation due to uncontrolled RVR. -Pro-calcitonin only minimally elevated at 0.2 and patient showing no other signs of infection. -Continue cardiac medication regimen consisting of aspirin, Plavix, and Xarelto. -Daily weights -Close monitoring of I's and O's. Patient had a documented output of 800 mL overnight. -Cardiac diet -Continue Lasix 40 mg IVP every 12 hours. -Continued close monitoring of renal function and electrolytes while diuresing. The patient is admitted with an anticipated greater than 2 midnight stay for evaluation of A. fib RVR and acute exacerbation of chronic diastolic heart isa lure. CODE STATUS: Full code DVT prophylaxis: Xarelto Discussed with: Pt and RN Anticipated discharge date: Clinical Course to determine Anticipated discharge place: Home Patient was seen independently by Nurse Practitioner. This document was prepared using [employer] dictation software. Please allow for errors in community relations manager while rare they do occur. Mandeep Landry NP rendered care for this patient independently, reviewed the findings and plan as documented in the note above. I did not physically speak with or examine the patient on this date. Objective - Vital Signs Vital signs: Vital Signs Temp 97.8 F 09/16/22 07:39 Pulse 93 09/16/22 07:39 Resp 20 09/16/22 07:39 BP 150/77 09/16/22 07:39 Pulse Ox 98 09/16/22 07:39 FiO2 Intake & Output 09/15/22 09/16/22 09/16/22 18:59 06:59 18:59 Intake Total 480 250 118 Output Total 800 1200 Balance -320 250 -1082 Weight 90.718 kg 91.2 kg Intake: Intake, IV Titration 250 Amount Amiodarone 450 mg In 250 Dextrose 5% in Water 250 ml @ 0.5 MG/MIN 16.667 mls/hr IV .Q15H [facility] Rx#: [id number] Oral 480 118 Output: Urine 800 1200 Other: Voiding Method Toilet Toilet Urinal Urinal - Labs CBC & Chem 7: 09/15/22 08:04 09/15/22 08:04 Labs: Abnormal Lab Results - Last 24 Hours (Table) 09/15/22 09/15/22 09/15/22 Range/Units 08:04 08:04 08:04 RDW 17.5 H (11.5-15.5) % PT 12.9 H (9.0-12.0) sec INR 1.3 H (<1.2) Carbon Dioxide 21 L (22-30) mmol/L BUN 25 H (9-20) mg/dL Creatinine 1.35 H (0.66-1.25) mg/dL Glucose 199 H (74-99) mg/dL POC Glucose (mg/dL) (70-110) mg/dL Procalcitonin (0.02-0.09) ng/mL 09/15/22 09/15/22 09/15/22 Range/Units 14:01 16:29 19:44 RDW (11.5-15.5) % PT (9.0-12.0) sec INR (<1.2) Carbon Dioxide (22-30) mmol/L BUN (9-20) mg/dL Creatinine (0.66-1.25) mg/dL Glucose (74-99) mg/dL POC Glucose (mg/dL) 132 H 187 H (70-110) mg/dL Procalcitonin 0.20 H (0.02-0.09) ng/mL 09/16/22 Range/Units 05:44 RDW (11.5-15.5) % PT (9.0-12.0) sec INR (<1.2) Carbon Dioxide (22-30) mmol/L BUN (9-20) mg/dL Creatinine (0.66-1.25) mg/dL Glucose (74-99) mg/dL POC Glucose (mg/dL) 134 H (70-110) mg/dL Procalcitonin (0.02-0.09) ng/mL
--- NOTE | 2022-09-16 11:20 | P.EPCON ---
Electrophysiology Consult - EP Consult Electrophysiology Consult: Patient presents with heart failure symptoms He is back in atrial fibrillation after A cardioversion is failed amiodarone I'm stopping carvedilol and diltiazem since he presented with A. fib with RVR and was quite symptomatic We are switching to oral long-acting metoprolol and will maximize this We will continue amiodarone 200mg twice daily for now I had a detailed discussion the patient and would recommend in A. 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 He recurred within one to 2 weeks and is back in A. fib Now his back with A. fib with RVR despite Cardizem, carvedilol and amiodarone Recommend A. fib ablation with pulmonary vein isolation and will linear ablation in the left atrial roof At this time his pro calcitonin 0.[address] is negative CT of the chest reveals increased markings, possible atypical pneumonia, early Creatinine 1.35 BUN 25
--- NOTE | 2022-09-16 11:25 | P.CRDCN ---
History of Present Illness Consult date: 09/16/22 Consult reason: atrial fibrillation History of present illness: The patient is a 72-year-old male who follows in the office with Dr. Bay. The patient recently underwent coronary stenting in July. He also developed persistent atrial fibrillation and underwent JUNAID and cardioversion. EF was reduced at 35-40% with biatrial enlargement. Successful cardioversion, however when the patient followed up in office last week he was found to be back in atrial fibrillation. At that time the patient was started on oral amiodarone. He presented to the emergency room yesterday with new onset of shortness of breath. The patient's states he had been feeling run down and fatigued over the course of the week. He states he did not have any chest pain or chest pressure. DIAGNOSTICS: EKG shows atrial fibrillation Chest x-ray shows bibasilar infiltrates CTA of the chest negative for pulmonary embolism. Groundglass opacities indicate atypical pneumonia Lab data: WBC 8.0, hemoglobin 13.5, hematocrit 42.7, platelet 218, sodium 139, potassium 4.1, BUN 25, creatinine 1.35, BNP 3730, troponins negative 3, AST 18, ALT 19 PAST MEDICAL HISTORY: CAD status post stenting, atrial fibrillation, cardiomyopathy, diabetes, dyslipidemia REVIEW OF SYSTEMS: No fever or chills. No cough or expectoration. No diaphoresis. Patient denies headache, dizziness, blurred vision, double vision. Patient denies any stomach discomfort. No nausea, vomiting. No hematochezia. No hematemesis. Denies any black stools or blood in his stools. Denies dysuria or hematuria. No muscle weakness or numbness. Positive for shortness of breath. Positive for fatigue PHYSICAL EXAMINATION: This is a 72 -year-old male in no apparent distress at the time of my examination. HEENT: Head is atraumatic, normocephalic. Pupils are equal, round. There is no jugular venous distention. No carotid bruit is heard. CHEST EXAMINATION: Lungs are diminished to auscultation. No chest wall tenderness is noted on palpation or with deep breathing. Crackles noted in the left lower lobe. HEART EXAMINATION: Irrregular rate and rhythm. S1, S2 heard. No murmurs, gallops or rub. ABDOMEN: Soft, nontender. Bowel sounds are heard. No organomegaly noted. EXTREMITIES: 2+ peripheral pulses with no evidence of peripheral edema and no calf tenderness noted. NEUROLOGIC EXAMINATION: Patient is awake, alert and oriented x3. FINAL ASSESSMENT AND PLAN: Pneumonia Persistent atrial fibrillation with aberrant conduction Coronary artery disease with recent stenting Hypertension Dyslipidemia Cardiomyopathy, EF 35-40% PLAN: Discontinue diltiazem and carvedilol Start Toprol-XL Start valsartan for hypertension Discontinue amiodarone drip when current bag runs out then resume oral Aggressive pulmonary hygiene Once the infection clears, referral for A. fib ablation Further recommendations based on clinical course I am dictating on behalf of Dr Johnathan Sarmiento's history/physical and assessment/plan. Past Medical History Past Medical History: Atrial Fibrillation, Asthma, Hyperlipidemia, Hypertension, Osteoarthritis (OA), Sleep Apnea/CPAP/BIPAP Additional Past Medical History / Comment(s): "Borderline diabetic" History of Any Multi-Drug Resistant Organisms: None Reported Past Surgical History: Heart Catheterization With Stent, Orthopedic Surgery, Tonsillectomy Additional Past Surgical History / Comment(s): Polyp removed from throat, nasal surgery for deviated septum, colonoscopy, "right foot hammer toe surgery," cardioversion August 26, heart cath with stent to RCA August 06. Past Anesthesia/Blood Transfusion Reactions: No Reported Reaction Date of Last Stent Placement:: 08/06/22 Past Psychological History: No Psychological Hx Reported Smoking Status: Former smoker Past Alcohol Use History: None Reported Additional Past Alcohol Use History / Comment(s): Smoked age 18 to age 20. Past Drug Use History: None Reported - Past Family History Mother Family Medical History: Hypertension Additional Family Medical History / Comment(s): Passed when pt was 13 with a "heart problem or a stroke" Father Family Medical History: Myocardial Infarction (DC) Additional Family Medical History / Comment(s): from a heart attack. Sister(s) Additional Family Medical History / Comment(s): "Heart problems", one sister with a heart transplant Brother(s) Additional Family Medical History / Comment(s): "Heart problems" Medications and Allergies Home Medications Medication Instructions Recorded Confirmed Type Fluticasone Propion/Salmeterol 2 puff INHALATION RT-BID PRN 03/17/17 09/15/22 History [Advair Hfa 115-21 Mcg Inhaler] Montelukast Sodium [Singulair] 10 mg PO HS 11/27/17 05/28/23 History Vitamin B Complex 1 cap PO DAILY 03/17/17 09/15/22 History carvediloL 25 mg PO BID 03/17/17 09/15/22 History tiZANidine [Zanaflex] 2 mg PO Q8H PRN 03/17/17 09/15/22 History Canagliflozin [Invokana] 100 mg PO DAILY 11/12/21 09/15/22 History Cholecalciferol [Vitamin D3 (125 125 mcg PO DAILY 08/05/22 09/15/22 History Mcg = 5000 Iu)] Rosuvastatin Calcium 10 mg PO HS 08/05/22 09/15/22 History Clopidogrel [Plavix] 75 mg PO DAILY 30 Days #30 tab 08/07/22 09/15/22 Rx Rivaroxaban [Xarelto] 20 mg PO W/SUPPER 30 Days #30 tab 08/07/22 09/15/22 Rx Furosemide [Lasix] 20 mg PO DAILY 08/21/22 09/15/22 History Amiodarone [Cordarone] 200 mg PO BID 09/15/22 09/15/22 History Aspirin EC [Ecotrin Low Dose] 81 mg PO DAILY 09/15/22 09/15/22 History Diltiazem Oral [Cardizem Oral] 30 mg PO TID 09/15/22 09/15/22 History Allergies Allergy/AdvReac Type Severity Reaction Status Date / Time No Known Allergies Allergy Verified 09/15/22 10:34 Physical Exam Vitals: Vital Signs Temp Pulse Pulse Resp BP BP Pulse Ox 09/16/22 09:06 99 09/16/22 07:39 97.8 F 93 20 150/77 98 09/16/22 04:00 79 20 142/100 98 09/16/22 00:00 90 20 148/92 98 09/15/22 20:00 98.0 F 84 22 160/103 98 09/15/22 17:44 87 149/91 09/15/22 16:02 97.7 F 106 H 20 151/103 97 09/15/22 15:54 106 H 09/15/22 15:00 87 16 134/87 98 09/15/22 14:00 79 18 136/91 97 09/15/22 13:30 81 18 130/82 97 09/15/22 13:00 87 18 121/98 99 09/15/22 12:56 97.8 F 85 18 130/82 97 09/15/22 11:30 79 18 114/79 98 Intake and Output 09/15/22 09/16/22 09/16/22 22:59 06:59 14:59 Intake Total 480 250 118 Output Total 1200 Balance 480 250 -1082 Intake: Intake, IV Titration 250 Amount Amiodarone 450 mg In 250 Dextrose 5% in Water 250 ml @ 0.5 MG/MIN 16.667 mls/hr IV .Q15H [facility] Rx#: [id number] Oral 480 118 Output: Urine 1200 Other: Voiding Method Toilet Toilet Toilet Urinal Urinal Urinal Weight 90.718 kg 91.2 kg Results 09/15/22 08:04 09/15/22 08:04 Current Medications Generic Name Dose Route Start Last Admin Trade Name Freq PRN Reason Stop Dose Admin Aspirin 81 mg 09/15/22 11:30 09/16/22 07:42 Aspirin 81 Mg PO 81 mg DAILY ADELE Administration Atorvastatin Calcium 20 mg 09/15/22 21:00 09/15/22 21:08 Atorvastatin 20 Mg Tab PO 20 mg HS ADELE Administration Budesonide/Formoterol Fumarate 2 puff 09/15/22 11:15 09/16/22 09:03 Symbicort 160-4.5 Mcg Inhaler INHALATION 2 puff RT-BID PRN Administration Shortness Of Breath Carvedilol 25 mg 09/15/22 17:30 09/16/22 06:22 Carvedilol 12.5 Mg Tab PO 25 mg BID-W/MEALS ADELE Administration Clopidogrel Bisulfate 75 mg 09/15/22 11:30 09/16/22 07:42 Clopidogrel 75 Mg Tab PO 75 mg DAILY ADELE Administration Diltiazem HCl 30 mg 09/15/22 16:00 09/16/22 07:42 Diltiazem Oral 30 Mg Tab PO 30 mg TID ADELE Administration Furosemide 40 mg 09/15/22 21:00 09/16/22 07:42 Furosemide 10 Mg/Ml 4 Ml Vial IV 40 mg Q12HR ADELE Administration Montelukast Sodium 10 mg 09/15/22 21:00 09/15/22 21:09 Montelukast 10 Mg Tab PO 10 mg HS ADELE Administration Multivit/Ca Carb/B Cmplx/FA/Prenat 1 each 09/16/22 09:00 09/16/22 07:42 Folic Acid-Vit B Complex-Vit C 1 Cap PO 1 each DAILY ADELE Administration Naloxone HCl 0.2 mg 09/15/22 09:57 Naloxone 0.4 Mg/Ml 1 Ml Vial IV Q2M PRN Opioid Reversal Rivaroxaban 20 mg 09/15/22 17:30 09/15/22 17:44 Rivaroxaban 20 Mg Tab PO 20 mg W/SUPPER ADELE Administration Protocol Tizanidine HCl 2 mg 09/15/22 11:15 Tizanidine 4 Mg Tab PO Q8H PRN Pain Intake and Output 09/15/22 09/16/22 09/16/22 22:59 06:59 14:59 Intake Total 480 250 118 Output Total 1200 Balance 480 250 -1082 Intake: Intake, IV Titration 250 Amount Amiodarone 450 mg In 250 Dextrose 5% in Water 250 ml @ 0.5 MG/MIN 16.667 mls/hr IV .Q15H [facility] Rx#: [id number] Oral 480 118 Output: Urine 1200 Other: Voiding Method Toilet Toilet Toilet Urinal Urinal Urinal Weight 90.718 kg 91.2 kg 09/15/22 08:04 09/15/22 08:04
[2022-09-16 11:31] LABS: Glucose,Whole Blood 209 mg/dL (70-110)
[2022-09-16] MEDS: METOPROLOL SUCCINATE (ER) 50 MG TAB.ER.24H PO SCH (11:40)
[2022-09-16 12:18] LABS: T4, Free (Free Thyroxine) 1.24 ng/dL (0.78-2.19)
[2022-09-16 16:30] LABS: Glucose,Whole Blood 148 mg/dL (70-110)
[2022-09-16] MEDS: RIVAROXABAN 20 MG TAB PO SCH (16:57)
[2022-09-16 20:06] LABS: Glucose,Whole Blood 154 mg/dL (70-110)
[2022-09-16] MEDS ORDERED: VALSARTAN 80 MG TAB PO SCH (21:00)
[2022-09-16] MEDS: ATORVASTATIN 20 MG TAB PO SCH (21:38)
[2022-09-16] MEDS: AMIODARONE 200 MG TAB PO SCH (21:38)
[2022-09-16] MEDS: MONTELUKAST 10 MG TAB PO SCH (21:38)
[2022-09-17 06:20] LABS: Glucose,Whole Blood 123 mg/dL (70-110)
[2022-09-17] MEDS: ASPIRIN 81 MG PO SCH (09:20)
[2022-09-17] MEDS: FUROSEMIDE 10 MG/ML 4 ML VIAL IV SCH (09:21)
[2022-09-17] MEDS: METOPROLOL SUCCINATE (ER) 50 MG TAB.ER.24H PO SCH ×2 (09:21→11:00)
[2022-09-17] MEDS: CLOPIDOGREL 75 MG TAB PO SCH (09:21)
[2022-09-17] MEDS: AMIODARONE 200 MG TAB PO SCH ×2 (09:26→21:51)
[2022-09-17 09:43] LABS: Anisocytosis Slight; HCT 36.4 % (39.0-53.0); HGB 11.7 gm/dL (13.0-17.5); Hypochromasia Moderate; MCH 25.6 pg (25.0-35.0); Mean Platelet Volume 8.2; Microcytosis Slight; Platelet Count 186 k/uL (150-450); Poikilocytosis Slight; RBC 4.55 m/uL (4.30-5.90); RDW 17.7 % (11.5-15.5); WBC 5.3 k/uL (3.8-10.6)
[2022-09-17 09:45] LABS: Calcium 8.5 mg/dL (8.4-10.2); Potassium 3.5 mmol/L (3.5-5.1)
[2022-09-17] MEDS ORDERED: METOPROLOL SUCCINATE (ER) 50 MG TAB.ER.24H PO STA (10:59)
[2022-09-17] MEDS ORDERED: POTASSIUM CHLORIDE ER 20 MEQ TAB.ER PO STA (11:05)
[2022-09-17] MEDS: FOLIC ACID-VIT B COMPLEX-VIT C 1 CAP PO SCH (11:19)
[2022-09-17 11:31] LABS: Glucose,Whole Blood 124 mg/dL (70-110)
--- NOTE | 2022-09-17 13:19 | P.PN ---
Subjective Progress Note Date: 09/17/22 HISTORY OF PRESENT ILLNESS: This is a 72-year-old male who follows in the office with Dr. Bay. Patient is admitted to the hospital secondary to A. fib with RVR. Telemetry this mo rning reveals atrophic relation with a heart rate between 107 and 120. Patient denies any chest pain or pressure. He denies shortness of breath. He remains on IV Lasix as well. Vital signs are stable. PHYSICAL EXAM: VITAL SIGNS: Reviewed. GENERAL: Well-developed in no acute distress. NECK: Supple. No JVD or thyromegaly LUNGS: Respirations even and unlabored. Lungs essentially clear to auscultation bilaterally. HEART: Tachycardic. Irregular rate and rhythm. S1 and S2 heard. EXTREMITIES: Normal range of motion. No clubbing or cyanosis. Peripheral pulses intact. No lower extremity edema ASSESSMENT: Possible pneumonia Persistent atrial fibrillation with RVR Recent cardioversion, 08/26/2022 Coronary artery disease with recent stenting of the mid RCA, July 2022 Hypertension Hyperlipidemia Ischemic cardiomyopathy, ejection fraction 35-40% Acute on chronic heart failure with reduced EF, currently euvolemic PLAN: Discontinue IV Lasix Begin oral Lasix 20 mg daily Increase metoprolol to 100 mg daily Continue telemetry monitoring Patient to undergo ablation in the near future with Dr. Sarmiento Further recommendations pending patient course Nurse practitioner note has been reviewed by physician. Signing provider agrees with the documented findings, assessment, and plan of care. Objective - Vital Signs Vital signs: Vital Signs Temp 97.7 F 09/17/22 11:44 Pulse 108 H 09/17/22 11:44 Resp 17 09/17/22 11:44 BP 155/111 09/17/22 11:44 Pulse Ox 96 09/17/22 11:44 FiO2 Intake & Output 09/16/22 09/17/22 09/17/22 18:59 06:59 18:59 Intake Total 354 180 Output Total 1974 750 Balance -1621 -750 180 Weight 90.3 kg Intake: Oral 354 180 Output: Urine 1974 750 Other: Voiding Method Toilet Toilet Toilet Urinal Urinal Urinal - Labs CBC & Chem 7: 09/17/22 08:42 09/17/22 08:42 Labs: Abnormal Lab Results - Last 24 Hours (Table) 09/16/22 09/16/22 09/17/22 Range/Units 16:29 20:01 06:19 Hgb (13.0-17.5) gm/dL Hct (39.0-53.0) % RDW (11.5-15.5) % BUN (9-20) mg/dL Creatinine (0.66-1.25) mg/dL Glucose (74-99) mg/dL POC Glucose (mg/dL) 148 H 154 H 123 H (70-110) mg/dL 09/17/22 09/17/22 09/17/22 Range/Units 08:42 08:42 11:30 Hgb 11.7 L (13.0-17.5) gm/dL Hct 36.4 L (39.0-53.0) % RDW 17.7 H (11.5-15.5) % BUN 25 H (9-20) mg/dL Creatinine 1.31 H (0.66-1.25) mg/dL Glucose 161 H (74-99) mg/dL POC Glucose (mg/dL) 124 H (70-110) mg/dL Microbiology - Last 24 Hours (Table) 09/15/22 10:34 Blood Culture - Preliminary Blood 09/15/22 10:16 Blood Culture - Preliminary Blood
--- NOTE | 2022-09-17 14:47 | P.PN ---
Subjective Progress Note Date: 09/17/22 Hospital course: The patient is a very pleasant 72-year-old male with a past medical history of CAD status post recent stenting of RCA on 08/06/22 on dual antiplatelet therapy with aspirin and Plavix, persistent A. fib on Xarelto/Amiodarone/carvedilol/Cardizem, chronic congestive heart failure with a previously preserved EF of 50-55%, hypertension, hyperlipidemia, and COPD. He presented to the emergency department with a chief complaint of shortness of breath and palpitations. Patient reports that he follows with head of quality, Dr. Bay and recently underwent a JUNAID with synchronized cardioversion on 08/26/22 which initially resulted in successful conversion to normal sinus rhythm but states he later again converted back into persistent atrial fibrillation. He underwent full evaluation in the emergency department. Upon arrival patient was found to be tachycardiac with heart rate 120s to 130s, hypertensive urgency with blood pressure 209/120, tachypneic with respiratory rate 22, and 92% on room air. EKG revealing atrial fibrillation with a rapid ventricular rate of 125 bpm with no noted T-wave or ST abnormalities showing no signs of acute ischemia upon personal review and interpretation. Chest x-ray was completed in radiology report reviewed stating right upper lung airspace opacity measuring up to 4.1 cm, airspace opacities predominantly in lung bases, and right small pleural effusion. CTA chest completed ruling out pulmonary mass revealing cardiomegaly with bilateral pleural effusions and fluid layering within the fissures concerning for possible loculated effusion. Labs completed and reviewed. CBC unremarkable, coagulation profile revealing elevated PT of 12.9 and INR of 1.3. BMP showing hypocarbia with carbon dioxide of 21 and slightly elevated renal function with BUN of 25, creatinine 1.35, and GFR 52 with baseline creatinine of 1.3. Troponin normal finding of less than 0.012 and proBNP 3730. Influenza A, influenza B, RSV, and Covid PCR were all negative. In the ER pt was given a single dose of IV antibiotics with Zosyn 3.375 g, 500 mL bolus of 0.9% normal saline, Lasix 40 mg IVP 1 dose, sublingual nitro, amiodarone bolus 150 mg followed by initiation of amiodarone infusion at 2 mg/min. Discussed presenting symptoms, patient history, laboratory analysis, and imaging results in detail with the ED physician. Patient was admitted to cardiac stepdown unit with telemetry with consult to cardiology. Physical exam: Patient seen and fully evaluated at bedside this morning. Patient continues to report palpitations but currently denies having any shortness of breath or chest pain at this time. Vital signs reviewed and stable. General: Nontoxic, no distress and appears stated age. Derm: Skin warm and dry, normal coloration for ethnicity. Head: Atraumatic, normocephalic and symmetric. Eyes: EOMs intact, no lid lag, and anicteric sclera Mouth: no lip lesions, mucus membranes moist Cardiovascular: Irregularly irregular with normal S1S2, systolic murmur, po sitive posterior tibial pulses bilaterally, and cap refill < 2 seconds. Lungs: Respirations even, regular, and unlabored on room air. Lungs diminished with bibasilar crackles worse on right. Abdominal: soft, nontender to palpation, no guarding, no appreciable organomegaly Ext: ROM intact. No gross muscle atrophy, no edema, no contractures Neuro: Speech clear, face symmetrical and CN II-XII grossly intact with no noted focal neuro deficits Psych: Alert and oriented to person, place, time, and situation. Appropriate and pleasant affect. Assessment and Plan of Care: Atrial fibrillation with RVR Pulmonary edema Acute exacerbation of chronic diastolic heart failure with previously known EF of 50-55%. Hypertensive urgency Acute on chronic respiratory failure with hypoxia secondary to above History of CAD status post recent stenting of RCA on 08/06/22 -Patient seen and fully evaluated at bedside this morning. Carvedilol was discontinued and patient was started on metoprolol 50 mg daily in addition to resuming oral amiodarone 200 mg twice daily yesterday evening at 9 PM. Amiodarone infusion was completed yesterday evening around 10 PM. Ventricular rate was controlled until approximately midnight when patient went back into RVR. -Continue telemetry monitoring -Cardiology following and discussed plan of care with cardiology [employer] whom stated they're increasing metoprolol 200 mg daily. -Continue cardiac medication regimen consisting of aspirin, Plavix, and Xarelto. -Daily weights -Close monitoring of I's and O's. Patient had a documented output of 2725 mL overnight. -Cardiac diet -IV Lasix discontinued and patient started on oral Lasix 20 mg daily. -Continued close monitoring of renal function and electrolytes while diuresing. CODE STATUS: Full code DVT prophylaxis: Xarelto Discussed with: Pt, cardiology [employer] and RN Anticipated discharge date: Clinical Course to determine Anticipated discharge place: Home Patient was seen independently by Nurse Practitioner. This document was prepared using [employer]ub[employer] dictation software. Please allow for errors in liner replacer while rare they do occur. I reviewed the documentation as provided by the FARSHAD above, who is the original author of this note. I agree with the documented assessment and plan, with the following changes: none Objective - Vital Signs Vital signs: Vital Signs Temp 98.0 F 09/17/22 04:00 Pulse 111 H 09/17/22 04:00 Resp 18 09/17/22 04:00 BP 151/87 09/17/22 04:00 Pulse Ox 94 L 09/17/22 04:00 FiO2 Intake & Output 09/16/22 09/17/22 09/17/22 18:59 06:59 18:59 Intake Total 354 Output Total 1975 750 Balance -1621 -750 Weight 90.3 kg Intake: Oral 354 Output: Urine 1975 750 Other: Voiding Method Toilet Toilet Urinal Urinal - Labs CBC & Chem 7: 09/18/22 08:44 09/18/22 08:44 Labs: Abnormal Lab Results - Last 24 Hours (Table) 09/16/22 09/16/22 09/16/22 Range/Units 10:33 11:29 16:29 POC Glucose (mg/dL) 209 H 148 H (70-110) mg/dL TSH 7.230 H (0.465-4.680) mIU/L 09/16/22 09/17/22 Range/Units 20:01 06:19 POC Glucose (mg/dL) 154 H 123 H (70-110) mg/dL TSH (0.465-4.680) mIU/L
[2022-09-17 16:21] LABS: Glucose,Whole Blood 167 mg/dL (70-110)
[2022-09-17] MEDS: RIVAROXABAN 20 MG TAB PO SCH (16:49)
[2022-09-17] MEDS: VALSARTAN 80 MG TAB PO SCH ×2 (16:50→21:51)
[2022-09-17 20:16] LABS: Glucose,Whole Blood 161 mg/dL (70-110)
[2022-09-17] MEDS: MONTELUKAST 10 MG TAB PO SCH (21:51)
[2022-09-17] MEDS: ATORVASTATIN 20 MG TAB PO SCH (21:52)
[2022-09-17] MEDS ORDERED: ONDANSETRON 4 MG/2 ML VIAL IVP PRN (22:04)
[2022-09-18 06:07] LABS: Glucose,Whole Blood 144 mg/dL (70-110)
[2022-09-18] MEDS ORDERED: FUROSEMIDE 20 MG TAB PO SCH (09:00)
[2022-09-18] MEDS ORDERED: DAPAGLIFLOZIN PROPANEDIOL 10 MG TABLET PO SCH (09:00)
[2022-09-18 09:03] LABS: Anisocytosis Slight; HCT 37.6 % (39.0-53.0); Hypochromasia Moderate; MCH 25.5 pg (25.0-35.0); MCHC 31.7 g/dL (31.0-37.0); MCV 80.4 fL (80.0-100.0); Mean Platelet Volume 9.2; Microcytosis Slight; Platelet Count 168 k/uL (150-450); Poikilocytosis Slight; RBC 4.68 m/uL (4.30-5.90); RDW 17.7 % (11.5-15.5); WBC 4.8 k/uL (3.8-10.6)
[2022-09-18] MEDS: SYMBICORT 160-4.5 MCG INHALER INHALATION PRN (09:05)
[2022-09-18] MEDS: CLOPIDOGREL 75 MG TAB PO SCH (09:11)
[2022-09-18] MEDS: FOLIC ACID-VIT B COMPLEX-VIT C 1 CAP PO SCH (09:12)
[2022-09-18] MEDS: AMIODARONE 200 MG TAB PO SCH (09:12)
[2022-09-18] MEDS: VALSARTAN 80 MG TAB PO SCH (09:12)
[2022-09-18] MEDS: METOPROLOL SUCCINATE (ER) 50 MG TAB.ER.24H PO SCH (09:14)
[2022-09-18 09:33] LABS: Albumin 3.6 g/dL (3.5-5.0); Calcium 8.5 mg/dL (8.4-10.2); Potassium 3.7 mmol/L (3.5-5.1); Total Bilirubin 1.4 mg/dL (0.2-1.3); Total Protein 6.4 g/dL (6.3-8.2)
[2022-09-18 11:33] LABS: Glucose,Whole Blood 153 mg/dL (70-110)
--- NOTE | 2022-09-18 12:28 | P.PN ---
Subjective Progress Note Date: 09/18/22 HISTORY OF PRESENT ILLNESS: This is a 72-year-old male who follows in the office with Dr. Bay. Patient is admitted to the hospital secondary to A. fib with RVR. Telemetry this mo rning reveals atrial fibrillation with a heart rate between 107 and 120. Patient denies any chest pain or pressure. He denies shortness of breath. He remains on IV Lasix as well. Vital signs are stable. 09/18/2022 Patient examined this morning at the bedside. He denies chest pain or pressure. Denies SOB. Telemetry reveals atrial fibrillation with heart rates ranging between [id number]. Patient is having small nonsustained runs of ventricular tachycardia as well. Blood pressure remains elevated with a recent reading of 156/110 and 147/93. PHYSICAL EXAM: VITAL SIGNS: Reviewed. GENERAL: Well-developed in no acute distress. NECK: Supple. No JVD or thyromegaly LUNGS: Respirations even and unlabored. Lungs essentially clear to auscultation bilaterally. HEART: Tachycardic. Irregular rate and rhythm. S1 and S2 heard. EXTREMITIES: Normal range of motion. No clubbing or cyanosis. Peripheral pulses intact. No lower extremity edema ASSESSMENT: Possible pneumonia Persistent atrial fibrillation with RVR Recent cardioversion, 08/26/2022 Coronary artery disease with recent stenting of the mid RCA, July 2022 Hypertension Hyperlipidemia Ischemic cardiomyopathy, ejection fraction 35-40% Acute on chronic heart failure with reduced EF, currently euvolemic PLAN: Continue current cardiac medications Continue telemetry monitoring Continue to monitor blood pressure Patient to undergo ablation in the near future with Dr. Sarmiento Patient may be discharged home today and follow up in the office with Dr. Bay Nurse practitioner note has been reviewed by physician. Signing provider agrees with the documented findings, assessment, and plan of care. Objective - Vital Signs Vital signs: Vital Signs Temp 97.8 F 09/18/22 08:00 Pulse 116 H 09/18/22 08:00 Resp 17 09/18/22 08:00 BP 147/93 09/18/22 08:00 Pulse Ox 95 09/18/22 09:06 FiO2 Intake & Output 09/17/22 09/18/22 09/18/22 18:59 06:59 18:59 Intake Total 540 180 Output Total 1500 1000 Balance -960 -820 Weight 87 kg Intake: Oral 540 180 Output: Urine 1500 1000 Other: Voiding Method Toilet Toilet Urinal - Labs CBC & Chem 7: 09/18/22 08:44 09/18/22 08:44 Labs: Abnormal Lab Results - Last 24 Hours (Table) 09/17/22 09/17/22 09/18/22 Range/Units 16:20 20:14 06:04 Hgb (13.0-17.5) gm/dL Hct (39.0-53.0) % RDW (11.5-15.5) % Sodium (137-145) mmol/L BUN (9-20) mg/dL Creatinine (0.66-1.25) mg/dL Glucose (74-99) mg/dL POC Glucose (mg/dL) 167 H 161 H 144 H (70-110) mg/dL Total Bilirubin (0.2-1.3) mg/dL 09/18/22 09/18/22 09/18/22 Range/Units 08:44 08:44 11:31 Hgb 12.0 L (13.0-17.5) gm/dL Hct 37.6 L (39.0-53.0) % RDW 17.7 H (11.5-15.5) % Sodium 136 L (137-145) mmol/L BUN 27 H (9-20) mg/dL Creatinine 1.33 H (0.66-1.25) mg/dL Glucose 265 H (74-99) mg/dL POC Glucose (mg/dL) 153 H (70-110) mg/dL Total Bilirubin 1.4 H (0.2-1.3) mg/dL Microbiology - Last 24 Hours (Table) 09/15/22 10:34 Blood Culture - Preliminary Blood 09/15/22 10:16 Blood Culture - Preliminary Blood
[2022-09-18 12:34] VITALS: BP 144/107; PULSE 121; RESP 18; TEMP 98.1
--- NOTE | 2022-09-18 13:49 | P.DS ---
Providers Date of admission: 09/15/22 09:57 Expected date of discharge: 09/18/22 Attending physician: Tonia Gutierrez DO Consults: 09/15/22 09:57 Consult Physician Routine Consulting Provider: Ajay Penaloza Consult Reason/Comments: afib rvr Do you want consulting provider notified?: Yes Primary care physician: Jesu Nguyen Hospital Course: Admitting diagnoses: Atrial fibrillation with RVR Pulmonary edema Acute exacerbation of chronic diastolic heart failure with previously known EF of 50-55%. Hypertensive urgency Acute on chronic respiratory failure with hypoxia secondary to above History of CAD status post recent stenting of RCA on 08/06/22 Discharge diagnoses: Atrial fibrillation with RVR resolved Pulmonary edema resolved Acute exacerbation of chronic diastolic heart failure with recent EF of 35-40% improved Hypertensive urgency resolved Acute on chronic respiratory failure with hypoxia secondary to above resolved History of CAD status post recent stenting of RCA on 08/06/22 Hospital course: The patient is a very pleasant 72-year-old male with a past medical history of CAD status post recent stenting of RCA on 08/06/22 on dual antiplatelet therapy with aspirin and Plavix, persistent A. fib on Xarelto/Amiodarone/carvedilol/Cardizem, chronic congestive heart failure with a previously preserved EF of 50-55%, hypertension, hyperlipidemia, and COPD. He presented to the emergency department with a chief complaint of shortness of breath and palpitations. Patient reports that he follows with pharmacy account director, Dr. Bay and recently underwent a JUNAID with synchronized cardioversion on 08/26/22 which initially resulted in successful conversion to normal sinus rhythm but states he later again converted back into persistent atrial fibrillation. P atient states over the past week he has been experiencing exertional shortness of breath and palpitations. Today he reports persistent palpitations, diaphoresis, and severe shortness of breath told his he had to get to the emergency department immediately. Patient and his at bedside deny any recent illnesses or exposure to known ill contacts. Patient denies having any headache, lightheadedness, dizziness, chest pain, nausea, vomiting, or experiencing any numbness/tingling/weakness/swelling in his extremities. He underwent full evaluation in the emergency department. Upon arrival patient was found to be tachycardiac with heart rate 120s to 130s, hypertensive urgency with blood pressure 209/120, tachypneic with respiratory rate 22, and 92% on room air. EKG revealing atrial fibrillation with a rapid ventricular rate of 125 bpm with no noted T-wave or ST abnormalities showing no signs of acute ischemia upon personal review and interpretation. Chest x-ray was completed in radiology report reviewed stating right upper lung airspace opacity measuring up to 4.1 cm, airspace opacities predominantly in lung bases, and right small pleural effusion. CTA chest completed ruling out pulmonary mass revealing cardiomegaly with bilateral pleural effusions and fluid layering within the fissures concerning for possible loculated effusion. Labs completed and reviewed. CBC unremarkable, coagulation profile revealing elevated PT of 12.9 and INR of 1.3. BMP showing hypocarbia with carbon dioxide of 21 and slightly elevated renal function with BUN of 25, creatinine 1.35, and GFR 52 with baseline creatinine of 1.3. Troponin normal finding of less than 0.012 and proBNP 3730. Influenza A, influenza B, RSV, and Covid PCR were all negative. In the ER pt was given a single dose of IV antibiotics with Zosyn 3.375 g, 500 mL bolus of 0.9% normal saline, Lasix 40 mg IVP 1 dose, sublingual nitro, amiodarone bolus 150 mg followed by initiation of amiodarone infusion at 2 mg/min. Discussed presenting symptoms, patient history, laboratory analysis, and imaging results in detail with the ED physician. Patient being admitted to cardiac stepdown unit with telemetry. Consult placed to cardiology. Physical exam: General: [non toxic], [no distress], [appears at stated age] Derm: [warm], [dry] Head: [atraumatic], [normocephalic], [symmetric] Eyes: [EOMI], [no lid lag], [anicteric sclera] Mouth: [no lip lesion], [mucus membranes moist] Cardiovascular: Irregular Lungs: [CTA bilateral], [no rhonchi, no rales] , [no accessory muscle use] Abdominal: [soft], [ nontender to palpation], [no guarding], [no appreciable organomegaly] Ext: [no gross muscle atrophy], [no edema], [no contractures] Neuro: [ CN II-XI grossly intact], [no focal neuro deficits] Psych: [Alert], [oriented], [appropriate affect] -Patient seen and fully evaluated at bedside this morning. Carvedilol was discontinued and patient was started on metoprolol in addition to resuming oral amiodarone 200 mg twice daily. Amiodarone infusion was completed on September 16, 2022. Valsartan added for blood pressure control. -telemetry monitoring -Cardiology followed and discussed plan of care -Continue cardiac medication regimen consisting of aspirin, Plavix, and Xarelto. -Daily weights -Close monitoring of I's and O's. -Cardiac diet -IV Lasix discontinued and patient started on oral Lasix 20 mg daily. -Recent JUNAID and electrical cardioversion revealed a dilated left atrium no left atrial appendage thrombus mild to moderate mitral and tricuspid regurgitation with global hypokinesis and an ejection fraction of 35-40% CODE STATUS: Full code DVT prophylaxis: Xarelto Anticipated discharge date: September 18, [address]: Home Activity: As tolerated Diet: Diabetic Follow-up with PCP in 3-7 days Follow-up with cardiology within 1 week Patient to undergo ablation in the near future with Dr. Sarmiento Patient may be discharged home today and follow up in the office with Dr. Bay This document was prepared using [employer] dictation software. Please allow for errors in design agent while rare they do occur. Patient Condition at Discharge: Fair Plan - Discharge Summary Discharge Rx Participant: Yes New Discharge Prescriptions: New Amiodarone [Cordarone] 200 mg PO BID tab Furosemide [Lasix] 20 mg PO DAILY tab Valsartan [Diovan] 80 mg PO BID #60 tab Metoprolol Succinate (ER) [Toprol XL] 100 mg PO DAILY #60 tab Continue Montelukast Sodium [Singulair] 10 mg PO HS tiZANidine [Zanaflex] 2 mg PO Q8H PRN PRN Reason: Pain Vitamin B Complex 1 cap PO DAILY Fluticasone Propion/Salmeterol [Advair Hfa 115-21 Mcg Inhaler] 2 puff INHALATION RT-BID PRN PRN Reason: Shortness Of Breath Cholecalciferol [Vitamin D3 (125 Mcg = 5000 Iu)] 125 mcg PO DAILY Clopidogrel [Plavix] 75 mg PO DAILY 30 Days #30 tab Rivaroxaban [Xarelto] 20 mg PO W/SUPPER 30 Days #30 tab Canagliflozin [Invokana] 100 mg PO DAILY Rosuvastatin Calcium 10 mg PO HS Furosemide [Lasix] 20 mg PO DAILY Amiodarone [Cordarone] 200 mg PO BID Discontinued carvediloL 25 mg PO BID Aspirin EC [Ecotrin Low Dose] 81 mg PO DAILY Diltiazem Oral [Cardizem Oral] 30 mg PO TID Discharge Medication List Fluticasone Propion/Salmeterol [Advair Hfa 115-21 Mcg Inhaler] 2 puff INHALATION RT-BID PRN 03/17/17 [History] Montelukast Sodium [Singulair] 10 mg PO HS 03/17/17 [History] Vitamin B Complex 1 cap PO DAILY 03/17/17 [History] tiZANidine [Zanaflex] 2 mg PO Q8H PRN 03/17/17 [History] Canagliflozin [Invokana] 100 mg PO DAILY 11/12/21 [History] Cholecalciferol [Vitamin D3 (125 Mcg = 5000 Iu)] 125 mcg PO DAILY 08/05/22 [History] Rosuvastatin Calcium 10 mg PO HS 08/05/22 [History] Clopidogrel [Plavix] 75 mg PO DAILY 30 Days #30 tab 08/07/22 [Rx] Rivaroxaban [Xarelto] 20 mg PO W/SUPPER 30 Days #30 tab 08/07/22 [Rx] Furosemide [Lasix] 20 mg PO DAILY 08/21/22 [History] Amiodarone [Cordarone] 200 mg PO BID 09/15/22 [History] Amiodarone [Cordarone] 200 mg PO BID tab 09/18/22 [Rx] Furosemide [Lasix] 20 mg PO DAILY tab 09/18/22 [Rx] Metoprolol Succinate (ER) [Toprol XL] 100 mg PO DAILY #60 tab 09/18/22 [Rx] Valsartan [Diovan] 80 mg PO BID #60 tab 09/18/22 [Rx] Follow up Appointment(s)/Referral(s): Jesu Nguyen MD [Primary Care Provider] - 1-2 days Kathy Bay MD [STAFF PHYSICIAN] - 1 Week Johnathan Sarmiento MD [STAFF PHYSICIAN] - 1 Week Discharge Disposition: HOME SELF-CARE
--- NOTE | 2022-09-18 16:47 | CDI ---
Documentation Clarification Form Date: 09/18/2022 03:50:24 PM From: Alis Moreland RN, CCDS Admit Date: 09/15/2022 09:57:00 AM Patient Name: Aaron Chakraborty Visit Number: [id number] Discharge Date: 09/18/2022 03:48:00 PM ATTENTION: The Clinical Documentation Specialists (CDI) and [facility] Coding Staff appreciate your assistance in clarifying documentation. Please respond to the clarification below the line at the bottom and electronically sign. The CDI & [facility] Coding staff will review the response and follow-up if needed. Please note: Queries are made part of the Legal Health Record. If you have any questions, please contact the author of this message via ITS. Dr. Kobe Weeks Conflicting documentation has been found in the medical record. As attending physician, please provide clarification. 09/16 Cardiology consult: EF was reduced at 35-40 % with biatrial enlargement. Cardiomyopathy, EF 35 -40% 09/18 Cardiology progress note: Acute on chronic heart failure with reduced EF, currently euvolemic. 09/15 H/P and subsequent progress notes: chronic congestive heart failure with a previously preserved EF 50-55 %. Acute exacerbation of chronic diastolic heart failure with previously known EF of 50-55%. History/Risk Factors: Coronary artery disease, congestive heart failure, hypertension, hyperlipidemia, COPD Clinical Indicators: 72-year-old male present complaint of shortness of breath and palpitations. He has persistent atrial fibrillations. He's chest x-ray showing right upper lung airspace opacity, and right small pleural effusion. CTA chest ruled out pulmonary mass revealing cardiomegaly with bilateral pleural effusion and fluid layering within the fissures concerning for possible loculated effusion. 09/15 Labs: Troponin < 0.012, BNP 3730 Treatment: Cardiac/Telemetry monitoring Lasix 40 mg IVP Once 09/15 then 40 mg IV Q 12 HRS 09/15-09/17 then 20 mg po daily 09/18 Toprol XL 100 MG PO Daily Coreg 25 MG PO BID 09/15-09/16 Daily weights, monitoring I/O, Renal function and electrolytes while diuresing. Please clarify which diagnosis is most appropriate: [ ] Acute on chronic heart failure with reduced EF [ ] Acute exacerbation of chronic diastolic heart failure with previously known EF of 50-55 [ ] Other (please specify) [ ] Unable to determine (Template Last Revised: June 2020) MTDD
== END 2022-09-18 15:48 | disposition home or self-care (01) | DRG 291 ==
LOC: EC 07:36 → 3SCARD 09:57
PROVIDERS: ADMIT Internal Medicine; ATTEND Internal Medicine
DX: I11.0 Hypertensive heart disease with heart failure (principal); I50.33 Acute on chronic diastolic (congestive) heart failure; J96.21 Acute and chronic respiratory failure with hypoxia; J44.0 Chronic obstructive pulmonary disease with (acute) lower respiratory infection; I48.19 Other persistent atrial fibrillation; I47.20 Ventricular tachycardia, unspecified; R79.1 Abnormal coagulation profile; G47.30 Sleep apnea, unspecified; I25.5 Ischemic cardiomyopathy; M19.90 Unspecified osteoarthritis, unspecified site; I25.10 Atherosclerotic heart disease of native coronary artery without angina pectoris; I08.1 Rheumatic disorders of both mitral and tricuspid valves; I16.0 Hypertensive urgency; E78.5 Hyperlipidemia, unspecified; R73.03 Prediabetes; Z20.822 Contact with and (suspected) exposure to COVID-19; Z79.01 Long term (current) use of anticoagulants; Z87.891 Personal history of nicotine dependence; Z95.5 Presence of coronary angioplasty implant and graft; Z79.899 Other long term (current) drug therapy; Z79.84 Long term (current) use of oral hypoglycemic drugs; Z79.82 Long term (current) use of aspirin; Z79.02 Long term (current) use of antithrombotics/antiplatelets
CPT/HCPCS: 36415; 71045; 71275; 80048; 80053; 83735; 83880; 84145; 84439; 84443; 84484; 85025; 85027; 85610; 85730; 87040; 87636; 93005; 94640; 94760; 96361; 96365; 96366; 96367; 96368; 96375; 99291

== ENCOUNTER 2022-09-20 04:16 | Observation (INO) | payer MEDICARE ==
--- NOTE | 2022-09-20 04:29 | ED ---
Arrhythmia/Palpitations HPI - General Chief Complaint: Arrhythmia/Palpitations Stated Complaint: AFib RVR Time Seen by Provider: 09/20/22 04:21 Source: patient, EMS Mode of arrival: EMS Limitations: no limitations - History of Present Illness Initial Comments: This patient is a 72-year-old man who presents here with complaint that it feels like his atrial fibrillation has kicked back in. The patient states she had been in the hospital being discharged 2 days ago now. She states that he was trying to rest and when he lies down he is not able to breathe. He states that it felt like his heart started racing again. He has shortness of breath if he tries to walk around the house. He states there is a little bit of chest pain that he describes as a sharp sensation. MD Complaint: rapid heart beat -: hour(s) Context: occurred during rest Arrhythmia History: atrial fibrillation Associated Symptoms: shortness of breath - Related Data Home Medications Medication Instructions Recorded Confirmed Fluticasone Propion/Salmeterol 2 puff INHALATION RT-BID PRN 03/17/17 09/15/22 [Advair Hfa 115-21 Mcg Inhaler] Montelukast Sodium [Singulair] 10 mg PO HS 03/17/17 09/15/22 Vitamin B Complex 1 cap PO DAILY 03/17/17 09/15/22 tiZANidine [Zanaflex] 2 mg PO Q8H PRN 03/17/17 09/15/22 Canagliflozin [Invokana] 100 mg PO DAILY 11/12/21 09/15/22 Cholecalciferol [Vitamin D3 (125 125 mcg PO DAILY 08/05/22 09/15/22 Mcg = 5000 Iu)] Rosuvastatin Calcium 10 mg PO HS 08/05/22 09/15/22 Furosemide [Lasix] 20 mg PO DAILY 08/21/22 09/15/22 Amiodarone [Cordarone] 200 mg PO BID 09/15/22 09/15/22 Previous Rx's Medication Instructions Recorded Clopidogrel [Plavix] 75 mg PO DAILY 30 Days #30 tab 08/07/22 Rivaroxaban [Xarelto] 20 mg PO W/SUPPER 30 Days #30 tab 08/07/22 Amiodarone [Cordarone] 200 mg PO BID tab 09/18/22 Furosemide [Lasix] 20 mg PO DAILY tab 09/18/22 Metoprolol Succinate (ER) [Toprol 100 mg PO DAILY #60 tab 09/18/22 XL] Valsartan [Diovan] 80 mg PO BID #60 tab 09/18/22 Allergies Allergy/AdvReac Type Severity Reaction Status Date / Time No Known Allergies Allergy Verified 09/20/22 04:24 Review of Systems ROS Statement: Those systems with pertinent positive or pertinent negative responses have been documented in the HPI. ROS Other: All systems not noted in ROS Statement are negative. Constitutional: Reports: weakness. Denies: fever, chills Respiratory: Reports: dyspnea. Denies: cough, wheezes, hemoptysis Cardiovascular: Reports: palpitations, orthopnea. Denies: edema, syncope Gastrointestinal: Denies: abdominal pain, nausea, vomiting, diarrhea Genitourinary: Denies: dysuria, hematuria Musculoskeletal: Denies: back pain Skin: Denies: rash Neurological: Denies: headache, weakness Past Medical History Past Medical History: Atrial Fibrillation, Asthma, Hyperlipidemia, Hypertension, Osteoarthritis (OA), Sleep Apnea/CPAP/BIPAP Additional Past Medical History / Comment(s): "borderline diabetic" History of Any Multi-Drug Resistant Organisms: None Reported Past Surgical History: Orthopedic Surgery, Tonsillectomy Additional Past Surgical History / Comment(s): polyp removed from throat, nasal surgery, rt knee arthroscopy, COLONOSCOPY, foot surgery to have something removed-not sure which foot, Past Anesthesia/Blood Transfusion Reactions: No Reported Reaction Date of Last Stent Placement:: 07/2022 Past Psychological History: No Psychological Hx Reported Smoking Status: Former smoker Past Alcohol Use History: None Reported Past Drug Use History: None Reported - Past Family History Mother Family Medical History: Hypertension Additional Family Medical History / Comment(s): Passed when pt was 13 with a "heart problem or a stroke" Father Family Medical History: Myocardial Infarction ([place]) Additional Family Medical History / Comment(s): from a heart attack. Sister(s) Additional Family Medical History / Comment(s): "Heart problems", one sister with a heart transplant Brother(s) Additional Family Medical History / Comment(s): "Heart problems" General Exam Limitations: no limitations General appearance: alert, in no apparent distress Head exam: Present: atraumatic, normocephalic Eye exam: Present: normal appearance. Absent: scleral icterus, conjunctival injection ENT exam: Present: normal oropharynx Neck exam: Present: normal inspection Respiratory exam: Present: rales (Bilateral bases). Absent: respiratory distress, wheezes, rhonchi, stridor Cardiovascular Exam: Present: tachycardia, irregular rhythm, normal heart sounds. Absent: systolic murmur, diastolic murmur, rubs, gallop GI/Abdominal exam: Present: soft. Absent: distended, tenderness, guarding, rebound, rigid, mass Extremities exam: Present: normal inspection, normal capillary refill. Absent: pedal edema, calf tenderness Back exam: Present: normal inspection. Absent: CVA tenderness (R), CVA tenderness (L) Neurological exam: Present: alert Skin exam: Present: warm, dry, intact, normal color. Absent: rash Course Vital Signs 09/20/22 09/20/22 09/20/22 04:17 04:20 04:26 Temperature 97.6 F Pulse Rate 129 H 135 H Respiratory 18 Rate Blood Pressure 186/132 O2 Sat by Pulse 95 Oximetry 09/20/22 09/20/22 09/20/22 04:30 04:40 04:50 Temperature Pulse Rate 131 H 137 H 130 H Respiratory 18 Rate Blood Pressure 164/132 153/126 O2 Sat by Pulse 94 L 94 L 94 L Oximetry 09/20/22 09/20/22 09/20/22 05:00 05:10 05:30 Temperature Pulse Rate 109 H 120 H 112 H Respiratory Rate Blood Pressure 153/126 155/128 160/108 O2 Sat by Pulse 94 L 92 L 95 Oximetry 09/20/22 09/20/22 09/20/22 05:40 06:00 06:10 Temperature Pulse Rate 125 H 112 H 105 H Respiratory 22 17 19 Rate Blood Pressure 147/112 152/120 144/127 O2 Sat by Pulse 94 L 94 L 96 Oximetry 09/20/22 09/20/22 09/20/22 06:20 06:30 06:40 Temperature Pulse Rate 111 H 112 H 110 H Respiratory 22 Rate Blood Pressure 148/117 148/117 144/126 O2 Sat by Pulse 95 94 L 93 L Oximetry 09/20/22 07:00 Temperature Pulse Rate 96 Respiratory 18 Rate Blood Pressure 149/93 O2 Sat by Pulse 94 L Oximetry EKG Findings - EKG Results: EKG: interpreted by ERMD, normal axis, normal QRS, normal ST/T EKG shows: tachycardia, atrial fibrillation (Rate 130 bpm) Medical Decision Making - Medical Decision Making Patient 72-year-old man with history of atrial fibrillation who appears to had recurrence and is in rapid ventricular rate. There is also congestive heart failure changes present on the chest x-ray and the patient's BNP is elevated Patient started on Cardizem drip, given dose of Lasix, will be admitted and have cardiology consultation. Case discussed with admitting physician. - Lab Data Result diagrams: 09/20/22 04:36 09/20/22 04:36 Lab Results 09/20/22 09/20/22 09/20/22 Range/Units 04:36 04:36 04:36 WBC 6.8 (3.8-10.6) k/uL RBC 4.78 (4.30-5.90) m/uL Hgb 12.2 L (13.0-17.5) gm/dL Hct 38.1 L (39.0-53.0) % MCV 79.8 L (80.0-100.0) fL MCH 25.5 (25.0-35.0) pg MCHC 32.0 (31.0-37.0) g/dL RDW 17.6 H (11.5-15.5) % Plt Count 212 (150-450) k/uL MPV 7.5 Neutrophils % 61 % Lymphocytes % 29 % Monocytes % 5 % Eosinophils % 3 % Basophils % 1 % Neutrophils # 4.1 (1.3-7.7) k/uL Lymphocytes # 2.0 (1.0-4.8) k/uL Monocytes # 0.4 (0-1.0) k/uL Eosinophils # 0.2 (0-0.7) k/uL Basophils # 0.0 (0-0.2) k/uL Hypochromasia Moderate Poikilocytosis Slight Anisocytosis Slight Microcytosis Slight PT 12.1 H (9.0-12.0) sec INR 1.2 H (<1.2) APTT 23.9 (22.0-30.0) sec Sodium 138 (137-145) mmol/L Potassium 3.8 (3.5-5.1) mmol/L Chloride 103 (98-107) mmol/L Carbon Dioxide 23 (22-30) mmol/L Anion Gap 12 mmol/L BUN 30 H (9-20) mg/dL Creatinine 1.51 H (0.66-1.25) mg/dL Est GFR (CKD-EPI)AfAm 53 (>60 ml/min/1.73 sqM) Est GFR (CKD-EPI)NonAf 46 (>60 ml/min/1.73 sqM) Glucose 176 H (74-99) mg/dL Calcium 9.0 (8.4-10.2) mg/dL Magnesium 2.1 (1.6-2.3) mg/dL Total Bilirubin 1.1 (0.2-1.3) mg/dL AST 28 (17-59) U/L ALT 24 (4-49) U/L Alkaline Phosphatase 104 (38-126) U/L Troponin I (0.000-0.034) ng/mL NT-Pro-B Natriuret Pep pg/mL Total Protein 6.9 (6.3-8.2) g/dL Albumin 3.9 (3.5-5.0) g/dL Influenza Type A (PCR) (Not Detectd) Influenza Type B (PCR) (Not Detectd) RSV (PCR) (Not Detectd) SARS-CoV-2 (PCR) (Not Detectd) 09/20/22 09/20/22 09/20/22 Range/Units 04:36 04:55 06:28 WBC (3.8-10.6) k/uL RBC (4.30-5.90) m/uL Hgb (13.0-17.5) gm/dL Hct (39.0-53.0) % MCV (80.0-100.0) fL MCH (25.0-35.0) pg MCHC (31.0-37.0) g/dL RDW (11.5-15.5) % Plt Count (150-450) k/uL MPV Neutrophils % % Lymphocytes % % Monocytes % % Eosinophils % % Basophils % % Neutrophils # (1.3-7.7) k/uL Lymphocytes # (1.0-4.8) k/uL Monocytes # (0-1.0) k/uL Eosinophils # (0-0.7) k/uL Basophils # (0-0.2) k/uL Hypochromasia Poikilocytosis Anisocytosis Microcytosis PT (9.0-12.0) sec INR (<1.2) APTT (22.0-30.0) sec Sodium (137-145) mmol/L Potassium (3.5-5.1) mmol/L Chloride (98-107) mmol/L Carbon Dioxide (22-30) mmol/L Anion Gap mmol/L BUN (9-20) mg/dL Creatinine (0.66-1.25) mg/dL Est GFR (CKD-EPI)AfAm (>60 ml/min/1.73 sqM) Est GFR (CKD-EPI)NonAf (>60 ml/min/1.73 sqM) Glucose (74-99) mg/dL Calcium (8.4-10.2) mg/dL Magnesium (1.6-2.3) mg/dL Total Bilirubin (0.2-1.3) mg/dL AST (17-59) U/L ALT (4-49) U/L Alkaline Phosphatase (38-126) U/L Troponin I 0.033 (0.000-0.034) ng/mL NT-Pro-B Natriuret Pep 5440 pg/mL Total Protein (6.3-8.2) g/dL Albumin (3.5-5.0) g/dL Influenza Type A (PCR) Not Detected (Not Detectd) Influenza Type B (PCR) Not Detected (Not Detectd) RSV (PCR) Not Detected (Not Detectd) SARS-CoV-2 (PCR) Not Detected (Not Detectd) Disposition Clinical Impression: Atrial fibrillation with rapid ventricular response, Acute exacerbation of congestive heart failure Disposition: ADMITTED IP TO THIS HOSP Condition: Fair
[2022-09-20] MEDS ORDERED: DILTIAZEM DRIP BOLUS FROM BAG 1 MG SOLN IV ONE ×2 (04:34→06:44)
[2022-09-20] MEDS ORDERED: DILTIAZEM 125 MG in SODIUM CHLORIDE 0.9% 100 ML IV SCH (04:45)
[2022-09-20 04:52] LABS: Anisocytosis Slight; Basophils % (A) 1 %; Eosinophils # (A) 0.2 k/uL (0-0.7); Eosinophils % (A) 3 %; HCT 38.1 % (39.0-53.0); HGB 12.2 gm/dL (13.0-17.5); Hypochromasia Moderate; Lymphocytes % (A) 29 %; MCH 25.5 pg (25.0-35.0); MCV 79.8 fL (80.0-100.0); Mean Platelet Volume 7.5; Microcytosis Slight; Monocytes # (A) 0.4 k/uL (0-1.0); Monocytes % (A) 5 %; Neutrophils # (A) 4.1 k/uL (1.3-7.7); Neutrophils % (A) 61 %; Platelet Count 212 k/uL (150-450); Poikilocytosis Slight; RBC 4.78 m/uL (4.30-5.90); RDW 17.6 % (11.5-15.5); WBC 6.8 k/uL (3.8-10.6)
[2022-09-20] MEDS ORDERED: MORPHINE SULFATE 4 MG/ML SYRINGE IV STA (04:56)
[2022-09-20 05:07] LABS: Albumin 3.9 g/dL (3.5-5.0); Magnesium 2.1 mg/dL (1.6-2.3); Potassium 3.8 mmol/L (3.5-5.1); Total Bilirubin 1.1 mg/dL (0.2-1.3); Total Protein 6.9 g/dL (6.3-8.2)
--- NOTE | 2022-09-20 05:15 | XR ---
EXAMINATION TYPE: XR chest 1V portable DATE OF EXAM: 09/20/2022 COMPARISON: Chest x-ray and CT chest September 15, 2022 HISTORY: Dysrhythmia. TECHNIQUE: Single AP portable frontal upright view of the chest is obtained. FINDINGS: Cardiomegaly redemonstrated. Persistent bilateral multifocal increased opacities with smal l bilateral pleural effusions. The osseous structures are intact. IMPRESSION: Findings consistent with CHF exacerbation remain present. No significant change from mos t recent studies.
[2022-09-20 05:34] LABS: INR 1.2 (<1.2); Partial Thromboplastin Time 23.9 sec (22.0-30.0); Prothrombin Time 12.1 sec (9.0-12.0)
[2022-09-20] MEDS ORDERED: FUROSEMIDE 10 MG/ML 2 ML VIAL IV STA (06:43)
[2022-09-20] MEDS ORDERED: NALOXONE 0.4 MG/ML 1 ML VIAL IVP PRN (07:34)
[2022-09-20] MEDS ORDERED: FUROSEMIDE 20 MG TAB PO SCH (09:00)
[2022-09-20] MEDS ORDERED: METOPROLOL TARTRATE 25 MG TAB PO SCH (09:00)
[2022-09-20] MEDS ORDERED: METOPROLOL TARTRATE 50 MG TAB PO SCH (09:00)
[2022-09-20] MEDS: SODIUM CHLORIDE 0.9% 1,000 ML IV SCH (09:05)
[2022-09-20] MEDS: AMIODARONE 200 MG TAB PO SCH ×2 (09:05→20:22)
--- NOTE | 2022-09-20 11:07 | CA ---
Transthoracic Echo Report Name: Aaron Chakraborty Age: 72 Gender: M : 1950 Exam Date: 09/20/2022 08:35 Exam Location: [facility] Ht (in): 71 Wt (lb): 200 Ordering Physician: John Delgado MD Attending/Referring Phys: Body Finisher Belinda Santos RDCS Procedure CPT: Indications: a fib Cardiac Hx: Technical Quality: Fair Contrast 1: Total Dose (mL): Contrast 2: Total Dose (mL): MEASUREMENTS (Male / Female) Normal Values 2D ECHO LV Diastolic Diameter PLAX 6.1 cm 4.2 - 5.9 / 3.9 - 5.3 cm LV Systolic Diameter PLAX 5.2 cm IVS Diastolic Thickness 1.3 cm 0.6 - 1.0 / 0.6 - 0.9 cm LVPW Diastolic Thickness 1.5 cm 0.6 - 1.0 / 0.6 - 0.9 cm LV Relative Wall Thickness 0.5 RV Internal Dim ED PLAX 3.2 cm LV Diastolic Volume MOD BP 130.5 cm??? 67 - 155 / 56 - 104 cm??? LV Systolic Volume MOD BP 79.0 cm??? 22 - 58 / 19 - 49 cm??? LV Ejection Fraction MOD BP 39.5 % >= 55 % LV Cardiac Index MOD BP 2660.3 cm???/min???m??? LV Diastolic Volume MOD 4C 123.5 cm??? LV Systolic Volume MOD 4C 75.1 cm??? LV Ejection Fraction MOD 4C 39.2 % LV Cardiac Index MOD 4C 2500.3 cm???/min???m??? LV Diastolic Length 4C 9.3 cm LV Systolic Length 4C 8.3 cm LV Diastolic Volume MOD 2C 130.1 cm??? LV Systolic Volume MOD 2C 81.3 cm??? LV Ejection Fraction MOD 2C 37.6 % LV Cardiac Index MOD 2C 2524.8 cm???/min???m??? LV Diastolic Length 2C 8.7 cm LV Systolic Length 2C 8.1 cm LA Volume 141.2 cm??? 18 - 58 / 22 - 52 cm??? M-MODE Aortic Root Diameter MM 3.8 cm AV Cusp Separation MM 1.3 cm DOPPLER AV Peak Velocity 151.0 cm/s AV Peak Gradient 9.1 mmHg AV Mean Velocity 116.3 cm/s AV Mean Gradient 5.8 mmHg AV Velocity Time Integral 27.9 cm LVOT Peak Velocity 69.6 cm/s LVOT Peak Gradient 1.9 mmHg MV Area PHT 3.8 cm??? Mitral E Point Velocity 121.7 cm/s Mitral A Point Velocity 0.0 cm/s Mitral E to A Ratio 26043.0 MV Deceleration Time 197.9 ms MV E' Velocity 6.2 cm/s Mitral E to MV E' Ratio 19.6 TR Peak Velocity 310.9 cm/s TR Peak Gradient 38.7 mmHg Right Ventricular Systolic Press 43.7 mmHg FINDINGS Left Ventricle Mildly increased left ventricular wall thickness. Mildly increased left ventricular diastolic diameter. Moderately increased left ventricular systolic volume. Moderately decreased left ventricular ejection fraction. Left ventricular ejection fraction is estimated at 35-40 %. Right Ventricle Normal right ventricular size and function. Mild pulmonary hypertension. Right Atrium Normal right atrial size. Left Atrium Severely increased left atrial volume. Moderately increased left atrial area. Mitral Valve Structurally normal mitral valve. Mitral annular calcification. Moderate-to- severe mitral regurgitation. Aortic Valve Trileaflet aortic valve. No aortic stenosis. No aortic regurgitation. Thickened aortic valve without stenosis. Tricuspid Valve Structurally normal tricuspid valve. [id number] tricuspid regurgitation. Pulmonic Valve Trace pulmonic regurgitation. Pericardium No pericardial effusion. Aorta Normal size aortic root and proximal ascending aorta. CONCLUSIONS Moderate LV systolic dysfunction with an ejection fraction of 35-40% Hypokinetic septum Moderate to severe mitral regurgitation Mild to moderate tricuspid regurgitation Previewed by: Dr. Geoffrey Briggs MD (Electronically Signed) Final Date: 20 September 2022 11:06
--- NOTE | 2022-09-20 14:11 | P.HPIM ---
History of Present Illness H&P Date: 09/20/22 Chief Complaint: palpitations, chest pain 72-year-old man with medical history approximately from fibrillation, CAD status post recent stenting of the RCA, hypertension, hyperlipidemia, COPD presented for evaluation palpitations. He was recently discharged from this hospital 2 days ago after being hospitalized for congestive heart failure exacerbation as well as atrial fibrillation with RVR. Patient says that he was back to his normal baseline upon discharge, however, this morning he started to experience palpitations at approximately 3 in the morning, then started to experience chest pressure throughout the day. He also started to experience increasing dyspnea, prompting his return to the emergency room for further evaluation. He denies fevers, chills, nausea, vomiting, sick to be, presyncope, cough, abdominal pain, constipation, diarrhea, dysuria, dyschezia, numbness/weakness of extremities In the emergency room, patient was afebrile, 153/126, heart rate 130, 94% on room air. CBC demonstrates anemia down to 12.2, otherwise unremarkable. Basic metabolic panel shows a BUN of 30, creatinine 1.51. Initial troponin is 0.033. Liver function tests are unremarkable. BNP was 5440. Repeat troponins 0.03. Insulins A, B, RSV, Covid were negative. Coags show an elevated INR 1.2. Chest x-ray demonstrated cardiomegaly with bilateral opacities consistent with heart failure exacerbation. EKG demonstrates atrial fibrillation with rapid ventricular response at a rate of 130, left axis deviation. Case was discussed with the emergency room N decision was made to with the patient to the hospital for further evaluation of heart failure exacerbation as well as atrial fibrillation with RVR. All Systems reviewed and pertinent positives and negatives noted in HPI, all other symptoms are negative Gen: in no apparent distress, resting comfortably in bed Eyes: PERRL, no scleral injection or icterus HENT: normocephalic, atraumatic, good hearing acuity, moist mucous membranes Neck: no tracheal deviation, full range of motion Resp: good air exchange, breathing comfortably with no accessory muscle use, no tactile fremitus CVS: good distal perfusion x 4, bilateral pitting edema GI: soft, NTTP, ND, no hepatosplenomegaly : no suprapubic tenderness, no CVAT, kendall catheter not present MSK: no clubbing, no cyanosis, no noted contractures of extremities Skin: no noted rashes, petechiae; temperature of skin is appropriate Neuro: moving all extremities without signs of weakness, CN II-XII intact Psych: cooperative, euthymic mood, insight and judgment intact Assessment: Paroxysmal atrial fibrillation with RVR Acute on chronic systolic heart failure exacerbation, ejection fraction is 35% CAD Hypertension Hyperlipidemia COPD without exacerbation Plan: Vital signs reviewed and noted in the HPI Lab work reviewed and noted in the HPI EKG and CXR are personally interpreted and noted in the HPI Case was discussed with the Emergency Room provider and decision was made to admit the patient for heart failure exacerbation, paroxysmal atrial fibrillation with RVR Echocardiogram was ordered and reviewed, ejection fraction is 3035% Lasix 40 mg IV every 12 hours Stop Cardizem drip that was started by the emergency room Start metoprolol 50 mrem by mouth twice a day Restart amiodarone 200 mg by mouth twice a day Cardiology was consulted Consults CHF navigation program Started Xarelto 20 mg daily Patient is full code Past Medical History Past Medical History: Atrial Fibrillation, Asthma, Hyperlipidemia, Hypertension, Osteoarthritis (OA), Sleep Apnea/CPAP/BIPAP Additional Past Medical History / Comment(s): "borderline diabetic" History of Any Multi-Drug Resistant Organisms: None Reported Past Surgical History: Orthopedic Surgery, Tonsillectomy Additional Past Surgical History / Comment(s): polyp removed from throat, nasal surgery, rt knee arthroscopy, COLONOSCOPY, foot surgery to have something removed-not sure which foot, Past Anesthesia/Blood Transfusion Reactions: No Reported Reaction Date of Last Stent Placement:: 07/2022 Smoking Status: Former smoker - Past Family History Mother Family Medical History: Hypertension Additional Family Medical History / Comment(s): Passed when pt was 13 with a "heart problem or a stroke" Father Family Medical History: Myocardial Infarction ([place]) Additional Family Medical History / Comment(s): from a heart attack. Sister(s) Additional Family Medical History / Comment(s): "Heart problems", one sister wit h a heart transplant Brother(s) Additional Family Medical History / Comment(s): "Heart problems" Medications and Allergies Home Medications Medication Instructions Recorded Confirmed Type Fluticasone Propion/Salmeterol 2 puff INHALATION RT-BID PRN 03/17/17 09/20/22 History [Advair Hfa 115-21 Mcg Inhaler] Montelukast Sodium [Singulair] 10 mg PO HS 03/17/17 09/20/22 History Vitamin B Complex 1 cap PO DAILY 03/17/17 09/20/22 History tiZANidine [Zanaflex] 2 mg PO Q8H PRN 03/17/17 09/20/22 History Canagliflozin [Invokana] 100 mg PO DAILY 11/12/21 09/20/22 History Cholecalciferol [Vitamin D3 (125 125 mcg PO DAILY 08/05/22 09/20/22 History Mcg = 5000 Iu)] Rosuvastatin Calcium 10 mg PO HS 08/05/22 09/20/22 History Clopidogrel [Plavix] 75 mg PO DAILY 30 Days #30 tab 08/07/22 09/20/22 Rx Rivaroxaban [Xarelto] 20 mg PO W/SUPPER 30 Days #30 tab 08/07/22 09/20/22 Rx Furosemide [Lasix] 20 mg PO DAILY 08/21/22 09/20/22 History Amiodarone [Cordarone] 200 mg PO BID 09/15/22 09/20/22 History Furosemide [Lasix] 20 mg PO DAILY tab 09/18/22 09/20/22 Rx Metoprolol Succinate (ER) [Toprol 100 mg PO DAILY #60 tab 09/18/22 09/20/22 Rx XL] Valsartan [Diovan] 80 mg PO BID #60 tab 09/18/22 09/20/22 Rx Allergies Allergy/AdvReac Type Severity Reaction Status Date / Time No Known Allergies Allergy Verified 09/20/22 08:22 Physical Exam Osteopathic Statement: *. No significant issues noted on an osteopathic structural exam other than those noted in the History and Physical/Consult. Vitals: Vital Signs Temp Pulse Pulse Resp BP BP Pulse Ox 09/20/22 13:01 98.1 F 95 22 144/86 96 09/20/22 13:00 98.3 F 97 139/95 99 09/20/22 11:00 76 25 H 134/97 94 L 09/20/22 09:00 98.1 F 102 H 18 138/96 95 09/20/22 07:00 96 18 149/93 94 L 09/20/22 06:40 110 H 22 144/126 93 L 09/20/22 06:30 112 H 148/117 94 L 09/20/22 06:20 111 H 148/117 95 09/20/22 06:10 105 H 19 144/127 96 09/20/22 06:00 112 H 17 152/120 94 L 09/20/22 05:40 125 H 22 147/112 94 L 09/20/22 05:30 112 H 160/108 95 09/20/22 05:10 120 H 155/128 92 L 09/20/22 05:00 109 H 153/126 94 L 09/20/22 04:50 130 H 18 153/126 94 L 09/20/22 04:40 137 H 94 L 09/20/22 04:30 131 H 164/132 94 L 09/20/22 04:26 97.6 F 09/20/22 04:20 135 H 09/20/22 04:17 129 H 18 186/132 95 Intake and Output 09/19/22 09/20/22 09/20/22 22:59 06:59 14:59 Output Total 650 Balance -650 Output: Urine 650 Other: # Voids 0 Weight 90.718 kg 90.718 kg Results CBC & Chem 7: 09/20/22 04:36 09/20/22 04:36 Labs: Abnormal Lab Results - Last 24 Hours (Table) 09/20/22 09/20/22 09/20/22 Range/Units 04:36 04:36 04:36 Hgb 12.2 L (13.0-17.5) gm/dL Hct 38.1 L (39.0-53.0) % MCV 79.8 L (80.0-100.0) fL RDW 17.6 H (11.5-15.5) % PT 12.1 H (9.0-12.0) sec INR 1.2 H (<1.2) BUN 30 H (9-20) mg/dL Creatinine 1.51 H (0.66-1.25) mg/dL Glucose 176 H (74-99) mg/dL Troponin I (0.000-0.034) ng/mL 09/20/22 Range/Units 11:58 Hgb (13.0-17.5) gm/dL Hct (39.0-53.0) % MCV (80.0-100.0) fL RDW (11.5-15.5) % PT (9.0-12.0) sec INR (<1.2) BUN (9-20) mg/dL Creatinine (0.66-1.25) mg/dL Glucose (74-99) mg/dL Troponin I 0.038 H* (0.000-0.034) ng/mL Thrombosis Risk Factor Assmnt - Choose All That Apply Any of the Below Risk Factors Present?: No Other Risk Factors: Yes Each Risk Factor Represents 2 Points: Age 61-74 years Thrombosis Risk Factor Assessment Total Risk Factor Score: 2 Thrombosis Risk Factor Assessment Level: Low Risk
[2022-09-20 14:43] VITALS: BMI 27.8
[2022-09-20] MEDS: HEPARIN SOD,PORK IN 0.45% NACL 25,000 UNIT in 0.45% NACL 1 250ML.BAG IV SCH (15:11)
[2022-09-20] MEDS ORDERED: tiZANidine 4 MG TAB PO PRN (15:30)
[2022-09-20] MEDS ORDERED: RIVAROXABAN 20 MG TAB PO SCH (17:30)
[2022-09-20] MEDS ORDERED: METOPROLOL TARTRATE 5 MG/5 ML VIAL IVP ONE (18:38)
[2022-09-20] MEDS ORDERED: METOPROLOL TARTRATE 25 MG TAB PO STA (18:38)
[2022-09-20] MEDS: ATORVASTATIN 20 MG TAB PO SCH (20:22)
[2022-09-20] MEDS: VALSARTAN 80 MG TAB PO SCH (20:22)
[2022-09-20] MEDS: FUROSEMIDE 10 MG/ML 4 ML VIAL IV SCH (20:22)
[2022-09-20] MEDS: MONTELUKAST 10 MG TAB PO SCH (20:22)
[2022-09-20] MEDS: SYMBICORT 160-4.5 MCG INHALER INHALATION SCH (20:49)
[2022-09-20] MEDS ORDERED: FUROSEMIDE 10 MG/ML 2 ML VIAL IV SCH (21:00)
[2022-09-20] MEDS: METOPROLOL TARTRATE 50 MG TAB PO SCH (21:04)
[2022-09-20] MEDS: HEPARIN SODIUM 1,000 UN/ML (10ML VL) IV PRN (22:34)
--- NOTE | 2022-09-20 23:16 | CONS ---
CONSULTATION CHIEF COMPLAINT: Shortness of breath and palpitations. HISTORY OF PRESENT ILLNESS: Mr. Chakraborty is a 72-year-old gentleman, who in fact was discharged home from the hospital on 09/18, comes back in complaining of shortness of breath, chest tightness, and palpitations. He was found to be in atrial fibrillation with poorly-controlled ventricular rate and is currently being treated with rate control measures. At the time of my evaluation, he was chest pain-free and hemodynamically stable. He has known coronary artery disease and also persistent atrial fibrillation, for which he underwent recent cardioversion. His ejection fraction is around 35% to 40%. The patient had a JUNAID cardioversion at the beginning of last month and a cardiac catheterization in July of 2022, that revealed significant disease involving right coronary artery, for which he underwent successful stenting. There is moderate disease involving the ramus and nonobstructive disease involving LAD. PAST MEDICAL HISTORY: Significant for ischemic cardiomyopathy, chronic systolic heart failure, persistent atrial fibrillation, hypertension, and dyslipidemia. MEDICATIONS AT HOME: Included: 1. Xarelto. 2. Diovan. 3. Singulair. 4. Toprol. 5. Lasix. 6. Plavix. 7. Amiodarone. ALLERGIES: There are no known drug allergies. FAMILY HISTORY: Negative for premature coronary artery disease. SOCIAL HISTORY: Negative for current smoking, EtOH abuse, or drug abuse. REVIEW OF SYSTEMS: 14 out of 14 review of systems has been performed. Pertinents are as documented. PHYSICAL EXAMINATION: VITAL SIGNS: The patient is afebrile. Heart rate is 90 beats per minute, blood pressure is 142/82, respiratory rate is 18, O2 saturation is 96%. NECK: There is no jugular venous distention. Carotid upstroke is normal. There is no bruit. CHEST: Reveals diminished air entry at the bases. HEART: Reveals first and second heart sounds, irregular rhythm, and a systolic murmur at the apex. ABDOMEN: Soft. EXTREMITIES: Exam of extremities reveals bilateral 1+ pitting edema. LABORATORY DATA: Show a hemoglobin of 12.2, platelet count is 212. Potassium is 3.8, creatinine is 1.5. BNP is elevated at 5440. First set of troponin is within normal limits. Coronavirus test is negative. ASSESSMENT: 1. Atrial fibrillation with poorly-controlled ventricular rate. 2. Acute exacerbation of chronic systolic heart failure. 3. Chest pain, rule out myocardial infarction. PLAN: I will treat the patient with intravenous diuretics and control his heart rate and maybe consider another cardioversion on him. The patient is on p.o. Lasix. I asked the nurse in the ER to start him on IV Lasix 40 b.i.d. I will resume the amiodarone. After my initial consultation, the patient's second set of troponin came back elevated. I will start him on IV heparin, and we may have to do another heart catheterization after reviewing his angiograms. If not, he will continue the anticoagulant and may undergo cardioversion. MMODL / IJN: [id number] /
[2022-09-21 06:15] LABS: Anisocytosis Slight; Basophils % (A) 1 %; Eosinophils # (A) 0.2 k/uL (0-0.7); Eosinophils % (A) 4 %; HCT 36.5 % (39.0-53.0); HGB 11.5 gm/dL (13.0-17.5); Hypochromasia Moderate; Lymphocytes # (A) 1.6 k/uL (1.0-4.8); Lymphocytes % (A) 30 %; MCH 25.2 pg (25.0-35.0); MCHC 31.6 g/dL (31.0-37.0); MCV 79.8 fL (80.0-100.0); Microcytosis Slight; Monocytes # (A) 0.3 k/uL (0-1.0); Monocytes % (A) 6 %; Neutrophils # (A) 3.1 k/uL (1.3-7.7); Neutrophils % (A) 57 %; Platelet Count 194 k/uL (150-450); Poikilocytosis Slight; RBC 4.57 m/uL (4.30-5.90); RDW 17.5 % (11.5-15.5); WBC 5.5 k/uL (3.8-10.6)
[2022-09-21] MEDS: HEPARIN SODIUM 1,000 UN/ML (10ML VL) IV PRN (06:33)
[2022-09-21 06:40] LABS: African American GFR (CKD) 63 (>60 ml/min/1.73 sqM); Anion Gap 9 mmol/L; Blood Urea Nitrogen 26 mg/dL (9-20); Calcium 8.4 mg/dL (8.4-10.2); Carbon Dioxide 27 mmol/L (22-30); Chloride 102 mmol/L (98-107); Glucose 129 mg/dL (74-99); Non-African American GFR(CKD) 54 (>60 ml/min/1.73 sqM); Potassium 3.8 mmol/L (3.5-5.1); Sodium 138 mmol/L (137-145)
[2022-09-21] MEDS: HEPARIN SOD,PORK IN 0.45% NACL 25,000 UNIT in 0.45% NACL 1 250ML.BAG IV SCH (07:16)
[2022-09-21] MEDS: VALSARTAN 80 MG TAB PO SCH ×2 (08:04→20:38)
[2022-09-21] MEDS: SODIUM CHLORIDE 0.9% 1,000 ML IV SCH ×3 (08:04→13:16)
[2022-09-21] MEDS: CLOPIDOGREL 75 MG TAB PO SCH (08:04)
[2022-09-21] MEDS: AMIODARONE 200 MG TAB PO SCH ×2 (08:04→20:38)
[2022-09-21] MEDS: CHOLECALCIFEROL 125 MCG (5000 IU) TABLET PO SCH (08:04)
[2022-09-21] MEDS: FUROSEMIDE 10 MG/ML 4 ML VIAL IV SCH (08:04)
[2022-09-21] MEDS: METOPROLOL TARTRATE 50 MG TAB PO SCH ×3 (08:04→20:38)
[2022-09-21] MEDS: SYMBICORT 160-4.5 MCG INHALER INHALATION SCH ×2 (08:20→20:19)
[2022-09-21 08:26] LABS: T4, Free (Free Thyroxine) 1.83 ng/dL (0.78-2.19)
[2022-09-21] MEDS ORDERED: NON FORMULARY DRUG (Vitamin B Complex [Vitamin B Complex] 1 EACH Capsule) PO SCH (09:00)
--- NOTE | 2022-09-21 10:30 | P.PN ---
Subjective Progress Note Date: 09/21/22 Pt still c/o palpitations, chest pain. HRs still in 120s. Gen: in no apparent distress, resting comfortably in bed Eyes: PERRL, no scleral injection or icterus HENT: normocephalic, atraumatic, good hearing acuity, moist mucous membranes Neck: no tracheal deviation, full range of motion Resp: good air exchange, breathing comfortably with no accessory muscle use, no tactile fremitus CVS: good distal perfusion x 4, bilateral pitting edema GI: soft, NTTP, ND, no hepatosplenomegaly : no suprapubic tenderness, no CVAT, kendall catheter not present MSK: no clubbing, no cyanosis, no noted contractures of extremities Skin: no noted rashes, petechiae; temperature of skin is appropriate Neuro: moving all extremities without signs of weakness, CN II-XII intact Psych: cooperative, euthymic mood, insight and judgment intact Hospital Course: 72-year-old man with medical history approximately from fibrillation, CAD status post recent stenting of the RCA, hypertension, hyperlipidemia, COPD presented for evaluation palpitations. In the emergency room, patient was afebrile, 153/126, heart rate 130, 94% on room air. CBC demonstrates anemia down to 12.2, otherwise unremarkable. Basic metabolic panel shows a BUN of 30, creatinine 1.51. Initial troponin is 0.033. Liver function tests are unremarkable. BNP was 5440. Repeat troponins 0.03. Insulins A, B, RSV, Covid were negative. Coags show an elevated INR 1.2. Chest x-ray demonstrated cardiomegaly with bilateral opacities consistent with heart failure exacerbation. EKG demonstrates atrial fibrillation with rapid ventricular response at a rate of 130, left axis deviation. Case was discussed with the emergency room N decision was made to with the patient to the hospital for further evaluation of heart failure exacerbation as well as atrial fibrillation with RVR. Assessment: Paroxysmal atrial fibrillation with RVR Acute on chronic systolic heart failure exacerbation, ejection fraction is 35% CAD Hypertension Hyperlipidemia COPD without exacerbation Plan: Today patient is afebrile, 160/88, 120, 95% on 2L NC Hgb 11.5, PTT 36 BUN 26, Cr 1.31 TSH 5.8, FT4 1.8 Lasix 40 mg IV every 12 hours Stop Cardizem drip that was started by the emergency room Increased metoprolol to 50 mG by mouth thrice a day Restart amiodarone 200 mg by mouth twice a day Cardiology was consulted Consults CHF navigation program On heparin gtt, monitor PTT for toxicity Patient is full code Objective - Vital Signs Vital signs: Vital Signs Temp 98.1 F 09/21/22 07:02 Pulse 119 H 09/21/22 07:02 Resp 16 09/21/22 07:02 BP 160/88 09/21/22 07:02 Pulse Ox 95 09/21/22 08:20 FiO2 Intake & Output 09/20/22 09/21/22 09/21/22 18:59 06:59 18:59 Intake Total 240 174.752 11.871 Output Total 650 150 Balance -410 174.752 -138.129 Weight 90.718 kg Intake: Intake, IV Titration 174.752 11.871 Amount Heparin Sod,Pork in 0.45% 174.752 11.871 NaCl 25,000 unit In 0.45 % NaCl 1 250ml.bag @ 11. 023 UNITS/KG/HR 10 mls/hr IV .Q24H [facility] Rx#: [id number] Oral 240 Output: Urine 650 150 Other: Voiding Method Urinal # Voids 2 2 1 # Bowel Movements 0 - Labs CBC & Chem 7: 09/21/22 05:43 09/21/22 05:43 Labs: Abnormal Lab Results - Last 24 Hours (Table) 09/20/22 09/20/22 09/21/22 Range/Units 11:58 14:53 05:43 Hgb (13.0-17.5) gm/dL Hct (39.0-53.0) % MCV (80.0-100.0) fL RDW (11.5-15.5) % APTT (22.0-30.0) sec BUN 26 H (9-20) mg/dL Creatinine 1.31 H (0.66-1.25) mg/dL Glucose 129 H (74-99) mg/dL Troponin I 0.038 H* 0.037 H* (0.000-0.034) ng/mL TSH 5.840 H (0.465-4.680) mIU/L 09/21/22 09/21/22 Range/Units 05:43 05:43 Hgb 11.5 L (13.0-17.5) gm/dL Hct 36.5 L (39.0-53.0) % MCV 79.8 L (80.0-100.0) fL RDW 17.5 H (11.5-15.5) % APTT 36.0 H (22.0-30.0) sec BUN (9-20) mg/dL Creatinine (0.66-1.25) mg/dL Glucose (74-99) mg/dL Troponin I (0.000-0.034) ng/mL TSH (0.465-4.680) mIU/L
[2022-09-21] MEDS ORDERED: SODIUM CHLORIDE 0.9% 1,000 ML IV ONE ×4 (11:30→12:13)
[2022-09-21] MEDS ORDERED: PROPOFOL 10 MG/ML 20 ML VIAL IV ONE (11:46)
--- NOTE | 2022-09-21 11:55 | P.PN ---
Subjective Progress Note Date: 09/21/22 This is A pleasant 72-year-old gentleman who follows in the office with Dr. Bay. Presented again after recently being discharged on September 18 with complaints of shortness of breath, chest tightness and palpitations. He has a history of stenting of the RCA in July of this year and subsequent JUNAID guided c ardioversion on 08/26/2022 after which time he went back into atrial fibrillation. Last admission and again now he remains in atrial fibrillation with poorly controlled ventricular response. His ejection fraction on echocardiogram was 35-40%. He continues to feel poorly. Heart rate remains around 110. He had previously been on oral anticoagulation which was stopped yesterday and he was placed on IV heparin due to troponin elevations which came back at 0.033, 0.038 and 0.037. On admission was 1.51 which is down to 1.31 this morning. Echocardiogram with Doppler study this admission showed moderately decreased LV systolic function with an ejection fraction of 35-40%, mild pulmonary hypertension, mild to moderate tricuspid regurgitation and moderate to severe mitral regurgitation. Upon examination the patient is sitting up in bed. He continues to complain of shortness of breath, pal pitations and tightness in the chest with activity. There is plan for A. fib ablation in the future with Dr. Sarmiento. This has not been scheduled yet. Objective - Vital Signs Vital signs: Vital Signs Temp 98.1 F 09/21/22 07:02 Pulse 106 H 09/21/22 11:40 Resp 16 09/21/22 11:40 BP 175/93 09/21/22 11:40 Pulse Ox 99 09/21/22 11:40 FiO2 Intake & Output 09/20/22 09/21/22 09/21/22 18:59 06:59 18:59 Intake Total 240 174.752 11.871 Output Total 650 150 Balance -410 174.752 -138.129 Weight 90.718 kg 90.718 kg Intake: IV 0 Intake, IV Titration 174.752 11.871 Amount Heparin Sod,Pork in 0.45% 174.752 11.871 NaCl 25,000 unit In 0.45 % NaCl 1 250ml.bag @ 11. 023 UNITS/KG/HR 10 mls/hr IV .Q24H [facility] Rx#: [id number] Oral 240 Output: Urine 650 150 Other: Voiding Method Urinal # Voids 2 2 1 # Bowel Movements 0 - Exam PHYSICAL EXAMINATION: HEENT: Head is atraumatic, normocephalic. Pupils equal, round. Neck is supple. There is no elevated jugular venous pressure. HEART EXAMINATION: Heart sounds regular rate and rhythm, S1 and S2 normal. Systolic murmur at the apex. CHEST EXAMINATION: Lungs reveal faint bibasilar crackles. No chest wall tend erness is noted on palpation or with deep breathing. ABDOMEN: Soft, nontender. Bowel sounds are heard. No organomegaly noted. EXTREMITIES: 2+ peripheral pulses with evidence of trace peripheral edema and no calf tenderness noted. NEUROLOGIC patient is awake, alert and oriented x3. . - Labs CBC & Chem 7: 09/21/22 05:43 09/21/22 05:43 Labs: Abnormal Lab Results - Last 24 Hours (Table) 09/20/22 09/20/22 09/21/22 Range/Units 11:58 14:53 05:43 Hgb (13.0-17.5) gm/dL Hct (39.0-53.0) % MCV (80.0-100.0) fL RDW (11.5-15.5) % APTT (22.0-30.0) sec BUN 26 H (9-20) mg/dL Creatinine 1.31 H (0.66-1.25) mg/dL Glucose 129 H (74-99) mg/dL Troponin I 0.038 H* 0.037 H* (0.000-0.034) ng/mL TSH 5.840 H (0.465-4.680) mIU/L 09/21/22 09/21/22 Range/Units 05:43 05:43 Hgb 11.5 L (13.0-17.5) gm/dL Hct 36.5 L (39.0-53.0) % MCV 79.8 L (80.0-100.0) fL RDW 17.5 H (11.5-15.5) % APTT 36.0 H (22.0-30.0) sec BUN (9-20) mg/dL Creatinine (0.66-1.25) mg/dL Glucose (74-99) mg/dL Troponin I (0.000-0.034) ng/mL TSH (0.465-4.680) mIU/L Assessment and Plan Assessment: #1 persistent atrial fibrillation, poorly controlled ventricular response #2 acute on chronic heart failure with reduced ejection fraction #3 CAD status post PCI of RCA in July 2022 Plan: From cardiology perspective we will stop IV heparin and put the patient back on oral anticoagulation. We will schedule him for repeat cardioversion today. The procedure including the rationale, risk and benefits were discussed with the patient and his and they're agreeable. Plan for ablation in the future with Dr. Sarmiento. We'll continue to follow the patient and provide further recommendations accordingly. MAINSTREAMING FACILITATOR note has been reviewed, I agree with a documented findings and plan of care. Patient was seen and examined.
--- NOTE | 2022-09-21 11:57 | P.PCN ---
Date of Procedure: 09/21/22 Description of Procedure: Cardioversion Indication: Atrial fibrillation After explaining the procedure to the patient as well as the risks and the complications, his blood pressure heart rate and O2 saturations were monitored. He received sedation per anesthesia department. A synchronized biphasic cardiov ersion using 150 J was performed with hindu of sinus mechanism, there was no immediate complications.
[2022-09-21] MEDS: RIVAROXABAN 20 MG TAB PO SCH (13:12)
[2022-09-21] MEDS: DAPAGLIFLOZIN PROPANEDIOL 10 MG TABLET PO SCH (13:12)
[2022-09-21] MEDS: FUROSEMIDE 40 MG TAB PO SCH (16:24)
[2022-09-21] MEDS: MONTELUKAST 10 MG TAB PO SCH (20:38)
[2022-09-21] MEDS: ATORVASTATIN 20 MG TAB PO SCH (20:38)
[2022-09-22 06:07] LABS: African American GFR (CKD) 53 (>60 ml/min/1.73 sqM); Anion Gap 7 mmol/L; Blood Urea Nitrogen 29 mg/dL (9-20); Calcium 8.3 mg/dL (8.4-10.2); Carbon Dioxide 30 mmol/L (22-30); Chloride 100 mmol/L (98-107); Glucose 110 mg/dL (74-99); Non-African American GFR(CKD) 46 (>60 ml/min/1.73 sqM); Potassium 3.9 mmol/L (3.5-5.1); Sodium 137 mmol/L (137-145)
[2022-09-22] MEDS: SODIUM CHLORIDE 0.9% 1,000 ML IV SCH ×3 (08:04→10:57)
[2022-09-22] MEDS: CHOLECALCIFEROL 125 MCG (5000 IU) TABLET PO SCH (08:15)
[2022-09-22] MEDS: DAPAGLIFLOZIN PROPANEDIOL 10 MG TABLET PO SCH (08:15)
[2022-09-22] MEDS: AMIODARONE 200 MG TAB PO SCH ×2 (08:15→20:09)
[2022-09-22] MEDS: FUROSEMIDE 40 MG TAB PO SCH ×2 (08:15→16:52)
[2022-09-22] MEDS: CLOPIDOGREL 75 MG TAB PO SCH (08:15)
[2022-09-22] MEDS: VALSARTAN 80 MG TAB PO SCH ×2 (08:15→20:09)
[2022-09-22] MEDS: METOPROLOL TARTRATE 50 MG TAB PO SCH ×3 (08:15→20:09)
[2022-09-22] MEDS: SYMBICORT 160-4.5 MCG INHALER INHALATION SCH ×2 (08:21→19:29)
--- NOTE | 2022-09-22 11:10 | P.PN ---
Subjective Progress Note Date: 09/22/22 Pt still c/o palpitations, chest pain. HRs still in 120s. Gen: in no apparent distress, resting comfortably in bed Eyes: PERRL, no scleral injection or icterus HENT: normocephalic, atraumatic, good hearing acuity, moist mucous membranes Neck: no tracheal deviation, full range of motion Resp: good air exchange, breathing comfortably with no accessory muscle use, no tactile fremitus CVS: good distal perfusion x 4, bilateral pitting edema GI: soft, NTTP, ND, no hepatosplenomegaly : no suprapubic tenderness, no CVAT, kendall catheter not present MSK: no clubbing, no cyanosis, no noted contractures of extremities Skin: no noted rashes, petechiae; temperature of skin is appropriate Neuro: moving all extremities without signs of weakness, CN II-XII intact Psych: cooperative, euthymic mood, insight and judgment intact Hospital Course: 72-year-old man with medical history approximately from fibrillation, CAD status post recent stenting of the RCA, hypertension, hyperlipidemia, COPD presented for evaluation palpitations. In the emergency room, patient was afebrile, 153/126, heart rate 130, 94% on room air. CBC demonstrates anemia down to 12.2, otherwise unremarkable. Basic metabolic panel shows a BUN of 30, creatinine 1.51. Initial troponin is 0.033. Liver function tests are unremarkable. BNP was 5440. Repeat troponins 0.03. Insulins A, B, RSV, Covid were negative. Coags show an elevated INR 1.2. Chest x-ray demonstrated cardiomegaly with bilateral opacities consistent with heart failure exacerbation. EKG demonstrates atrial fibrillation with rapid ventricular response at a rate of 130, left axis deviation. Case was discussed with the emergency room N decision was made to with the patient to the hospital for further evaluation of heart failure exacerbation as well as atrial fibrillation with RVR. Assessment: Paroxysmal atrial fibrillation with RVR Acute on chronic systolic heart failure exacerbation, ejection fraction is 35% CAD Hypertension Hyperlipidemia COPD without exacerbation Plan: Today patient is afebrile, 168/91, heart rate 72, 98% on 2 L nasal cannula BUN 29, creatinine 1.5 Lasix 40 mg po every 12 hours Stop Cardizem drip that was started by the emergency room Increased metoprolol to 50 mG by mouth thrice a day Restart amiodarone 200 mg by mouth twice a day Cardiology was consulted Consults CHF navigation program Discontinue heparin drip, transitioned to Xarelto Patient is full code Objective - Vital Signs Vital signs: Vital Signs Temp 97.7 F 09/22/22 07:05 Pulse 72 09/22/22 07:05 Resp 17 09/22/22 07:05 BP 168/91 09/22/22 07:05 Pulse Ox 98 09/22/22 08:22 FiO2 Intake & Output 09/21/22 09/22/22 09/22/22 18:59 06:59 18:59 Intake Total 361.871 118 Output Total 650 Balance -288.129 118 Weight 90.718 kg 89 kg Intake: IV 150 Intake, IV Titration 11.871 Amount Heparin Sod,Pork in 0.45% 11.871 NaCl 25,000 unit In 0.45 % NaCl 1 250ml.bag @ 11. 023 UNITS/KG/HR 10 mls/hr IV .Q24H [facility] Rx#: [id number] Oral 200 118 Output: Urine 650 Other: Voiding Method Urinal Toilet Toilet Urinal Urinal # Voids 1 2 - Labs CBC & Chem 7: 09/21/22 05:43 09/22/22 05:23 Labs: Abnormal Lab Results - Last 24 Hours (Table) 09/22/22 Range/Units 05:23 BUN 29 H (9-20) mg/dL Creatinine 1.51 H (0.66-1.25) mg/dL Glucose 110 H (74-99) mg/dL Calcium 8.3 L (8.4-10.2) mg/dL
[2022-09-22] MEDS: hydrALAZINE HCL 25 MG TAB PO SCH ×2 (12:34→20:09)
--- NOTE | 2022-09-22 12:59 | P.PN ---
Subjective Progress Note Date: 09/22/22 This is A pleasant 72-year-old gentleman who follows in the office with Dr. Bay. Presented again after recently being discharged on September 18 with complaints of shortness of breath, chest tightness and palpitations. He has a history of stenting of the RCA in July of this year and subsequent JUNAID guided c ardioversion on 08/26/2022 after which time he went back into atrial fibrillation. Last admission and again now he remains in atrial fibrillation with poorly controlled ventricular response. His ejection fraction on echocardiogram was 35-40%. He continues to feel poorly. Heart rate remains around 110. He had previously been on oral anticoagulation which was stopped yesterday and he was placed on IV heparin due to troponin elevations which came back at 0.033, 0.038 and 0.037. On admission was 1.51 which is down to 1.31 this morning. Echocardiogram with Doppler study this admission showed moderately decreased LV systolic function with an ejection fraction of 35-40%, mild pulmonary hypertension, mild to moderate tricuspid regurgitation and moderate to severe mitral regurgitation. Upon examination the patient is sitting up in bed. He continues to complain of shortness of breath, pal pitations and tightness in the chest with activity. There is plan for A. fib ablation in the future with Dr. Sarmiento. This has not been scheduled yet. 09/22/2022 The patient was seen and examined resting comfortable in bed. He underwent cardioversion yesterday and is maintaining sinus mechanism. Overall he is feeling a bit better. Labs show worsening renal function with a creatinine of 1.51. He's been switched to oral Lasix. Edema has improved. Blood pressure is elevated. Objective - Vital Signs Vital signs: Vital Signs Temp 97.7 F 09/22/22 07:05 Pulse 69 09/22/22 12:27 Resp 17 09/22/22 07:05 BP 158/82 09/22/22 12:27 Pulse Ox 98 09/22/22 08:22 FiO2 Intake & Output 09/21/22 09/22/22 09/22/22 18:59 06:59 18:59 Intake Total 361.871 118 Output Total 650 Balance -288.129 118 Weight 90.718 kg 89 kg Intake: IV 150 Intake, IV Titration 11.871 Amount Heparin Sod,Pork in 0.45% 11.871 NaCl 25,000 unit In 0.45 % NaCl 1 250ml.bag @ 11. 023 UNITS/KG/HR 10 mls/hr IV .Q24H [facility] Rx#: [id number] Oral 200 118 Output: Urine 650 Other: Voiding Method Urinal Toilet Toilet Urinal Urinal # Voids 1 2 - Exam PHYSICAL EXAMINATION: HEENT: Head is atraumatic, normocephalic. Pupils equal, round. Neck is supple. There is no elevated jugular venous pressure. HEART EXAMINATION: Heart sounds regular rate and rhythm, S1 and S2 normal. Systolic murmur at the apex. CHEST EXAMINATION: Lungs reveal faint bibasilar crackles. No chest wall tender ness is noted on palpation or with deep breathing. ABDOMEN: Soft, nontender. Bowel sounds are heard. No organomegaly noted. EXTREMITIES: 2+ peripheral pulses with evidence of trace peripheral edema and no calf tenderness noted. NEUROLOGIC patient is awake, alert and oriented x3. . - Labs CBC & Chem 7: 09/21/22 05:43 09/22/22 05:23 Labs: Abnormal Lab Results - Last 24 Hours (Table) 09/22/22 Range/Units 05:23 BUN 29 H (9-20) mg/dL Creatinine 1.51 H (0.66-1.25) mg/dL Glucose 110 H (74-99) mg/dL Calcium 8.3 L (8.4-10.2) mg/dL Assessment and Plan Assessment: #1 persistent atrial fibrillation, poorly controlled ventricular response, status post cardioversion, maintaining sinus mechanism #2 acute on chronic heart failure with reduced ejection fraction #3 CAD status post PCI of RCA in July 2022 Plan: From cardiology perspective we will add hydralazine for better blood pressure control. Recheck renal function in the morning. We'll continue to follow the patient and provide further recommendations accordingly. [employer] note has been reviewed, I agree with a documented findings and plan of care. Patient was seen and examined.
[2022-09-22] MEDS: RIVAROXABAN 20 MG TAB PO SCH (16:52)
[2022-09-22] MEDS: MONTELUKAST 10 MG TAB PO SCH (20:09)
[2022-09-22] MEDS: ATORVASTATIN 20 MG TAB PO SCH (20:09)
[2022-09-23 06:42] LABS: African American GFR (CKD) 53 (>60 ml/min/1.73 sqM); Anion Gap 7 mmol/L; Blood Urea Nitrogen 28 mg/dL (9-20); Calcium 8.2 mg/dL (8.4-10.2); Carbon Dioxide 30 mmol/L (22-30); Chloride 101 mmol/L (98-107); Glucose 106 mg/dL (74-99); Non-African American GFR(CKD) 46 (>60 ml/min/1.73 sqM); Sodium 138 mmol/L (137-145)
[2022-09-23] MEDS: SYMBICORT 160-4.5 MCG INHALER INHALATION SCH (07:53)
[2022-09-23 08:17] VITALS: BP 163/77; PULSE 67; RESP 18; TEMP 97.8
[2022-09-23] MEDS: hydrALAZINE HCL 25 MG TAB PO SCH (08:54)
[2022-09-23] MEDS: VALSARTAN 80 MG TAB PO SCH (08:54)
[2022-09-23] MEDS: DAPAGLIFLOZIN PROPANEDIOL 10 MG TABLET PO SCH (08:55)
[2022-09-23] MEDS: AMIODARONE 200 MG TAB PO SCH (08:55)
[2022-09-23] MEDS: CHOLECALCIFEROL 125 MCG (5000 IU) TABLET PO SCH (08:55)
[2022-09-23] MEDS: SODIUM CHLORIDE 0.9% 1,000 ML IV SCH (08:55)
[2022-09-23] MEDS: FUROSEMIDE 40 MG TAB PO SCH (08:55)
[2022-09-23] MEDS: CLOPIDOGREL 75 MG TAB PO SCH (08:55)
[2022-09-23] MEDS: METOPROLOL TARTRATE 50 MG TAB PO SCH (09:01)
--- NOTE | 2022-09-23 09:46 | P.DS ---
Providers Date of admission: 09/20/22 07:34 Expected date of discharge: 09/23/22 Attending physician: John Delgado MD Consults: 09/20/22 07:33 Consult Physician Routine Consulting Provider: Geoffrey Briggs Consult Reason/Comments: CHF exacerbation. A fib with RVR Do you want consulting provider notified?: Yes 09/20/22 07:34 Consult Physician Routine Consulting Provider: [facility] Consult Reason/Comments: Afib with RVR Do you want consulting provider notified?: Yes Primary care physician: [facility] Course: Assessment: Paroxysmal atrial fibrillation with RVR Acute on chronic systolic heart failure exacerbation, ejection fraction is 35% CAD Hypertension Hyperlipidemia COPD without exacerbation Hospital Course: 72-year-old man with medical history approximately from fibrillation, CAD status post recent stenting of the RCA, hypertension, hyperlipidemia, COPD presented for evaluation palpitations. In the emergency room, patient was afebrile, 153/126, heart rate 130, 94% on room air. CBC demonstrates anemia down to 12.2, otherwise unremarkable. Basic metabolic panel shows a BUN of 30, creatinine 1.51. Initial troponin is 0.033. Liver function tests are unremarkable. BNP was 5440. Repeat troponins 0.03. Insulins A, B, RSV, Covid were negative. Coags show an elevated INR 1.2. Chest x-ray demonstrated cardiomegaly with bilateral opacities consistent with heart failure exacerbation. EKG demonstrates atrial fibrillation with rapid ventricular response at a rate of 130, left axis deviation. Case was discussed with the emergency room N decision was made to with the patient to the hospital for further evaluation of heart failure exacerbation as well as atrial fibrillation with RVR. Patient's amiodarone was restarted 200 mg twice a day, metoprolol was reinitiated and uptitrated to 50 mg 3 times a day. He was seen by cardiology and decision was made to cardiovert the patient which was completed on 09/21, which was successful. Patient remained in sinus rhythm for additional 48 hours after cardioversion. Patient was subsequently discharged home with changes to his blood pressure medications as noted in the discharge med rec. He should follow-up with cardiology with plans to do a pulmonary vein ablation in the outpatient setting. I spent 38 minutes coordinating this discharge on 09/23 Gen: in no apparent distress, resting comfortably in bed Eyes: PERRL, no scleral injection or icterus HENT: normocephalic, atraumatic, good hearing acuity, moist mucous membranes Neck: no tracheal deviation, full range of motion Resp: good air exchange, breathing comfortably with no accessory muscle use, no tactile fremitus CVS: good distal perfusion x 4, bilateral pitting edema GI: soft, NTTP, ND, no hepatosplenomegaly : no suprapubic tenderness, no CVAT, kendall catheter not present MSK: no clubbing, no cyanosis, no noted contractures of extremities Skin: no noted rashes, petechiae; temperature of skin is appropriate Neuro: moving all extremities without signs of weakness, CN II-XII intact Psych: cooperative, euthymic mood, insight and judgment intact Patient Condition at Discharge: Good Plan - Discharge Summary Discharge Rx Participant: Yes New Discharge Prescriptions: New hydrALAZINE HCL [Apresoline] 25 mg PO BID #60 tab Furosemide [Lasix] 40 mg PO BID@0900,1600 #60 tab Dapagliflozin Propanediol [Farxiga] 10 mg PO DAILY #30 tab Continue Montelukast Sodium [Singulair] 10 mg PO HS tiZANidine [Zanaflex] 2 mg PO Q8H PRN PRN Reason: Pain Vitamin B Complex 1 cap PO DAILY Fluticasone Propion/Salmeterol [Advair Hfa 115-21 Mcg Inhaler] 2 puff INHALATION RT-BID PRN PRN Reason: Shortness Of Breath Cholecalciferol [Vitamin D3 (125 Mcg = 5000 Iu)] 125 mcg PO DAILY Clopidogrel [Plavix] 75 mg PO DAILY 30 Days #30 tab Rivaroxaban [Xarelto] 20 mg PO W/SUPPER 30 Days #30 tab Rosuvastatin Calcium 10 mg PO HS Amiodarone [Cordarone] 200 mg PO BID Valsartan [Diovan] 80 mg PO BID #60 tab Changed Metoprolol Succinate (ER) [Toprol XL] 150 mg PO DAILY #60 tab Discontinued Furosemide [Lasix] 20 mg PO DAILY tab Canagliflozin [Invokana] 100 mg PO DAILY Furosemide [Lasix] 20 mg PO DAILY Discharge Medication List Fluticasone Propion/Salmeterol [Advair Hfa 115-21 Mcg Inhaler] 2 puff INHALATION RT-BID PRN 03/17/17 [History] Montelukast Sodium [Singulair] 10 mg PO HS 03/17/17 [History] Vitamin B Complex 1 cap PO DAILY 03/17/17 [History] tiZANidine [Zanaflex] 2 mg PO Q8H PRN 03/17/17 [History] Cholecalciferol [Vitamin D3 (125 Mcg = 5000 Iu)] 125 mcg PO DAILY 08/05/22 [History] Rosuvastatin Calcium 10 mg PO HS 08/05/22 [History] Clopidogrel [Plavix] 75 mg PO DAILY 30 Days #30 tab 08/07/22 [Rx] Rivaroxaban [Xarelto] 20 mg PO W/SUPPER 30 Days #30 tab 08/07/22 [Rx] Amiodarone [Cordarone] 200 mg PO BID 09/15/22 [History] Valsartan [Diovan] 80 mg PO BID #60 tab 09/18/22 [Rx] Dapagliflozin Propanediol [Farxiga] 10 mg PO DAILY #30 tab 09/23/22 [Rx] Furosemide [Lasix] 40 mg PO BID@0900,1600 #60 tab 09/23/22 [Rx] Metoprolol Succinate (ER) [Toprol XL] 150 mg PO DAILY #60 tab 09/23/22 [Rx] hydrALAZINE HCL [Apresoline] 25 mg PO BID #60 tab 09/23/22 [Rx] Follow up Appointment(s)/Referral(s): Jesu Nguyen MD [Primary Care Provider] - 1-2 days Discharge Disposition: HOME SELF-CARE
[2022-09-23] MEDS ORDERED: METOPROLOL TARTRATE 50 MG TAB PO STA (10:06)
--- NOTE | 2022-09-23 10:13 | P.PN ---
Subjective Progress Note Date: 09/23/22 HISTORY OF PRESENT ILLNESS: This is A pleasant 72-year-old gentleman who follows in the office with Dr. Bay. Presented again after recently being discharged on September 18 with compl aints of shortness of breath, chest tightness and palpitations. He has a history of stenting of the RCA in July of this year and subsequent JUNAID guided cardioversion on 08/26/2022 after which time he went back into atrial fibrillation. Last admission and again now he remains in atrial fibrillation with poorly controlled ventricular response. His ejection fraction on echocardiogram was 35-40%. He continues to feel poorly. Heart rate remains around 110. He had previously been on oral anticoagulation which was stopped yesterday and he was placed on IV heparin due to troponin elevations which came back at 0.033, 0.038 and 0.037. On admission was 1.51 which is down to 1.31 this morning. Echocardiogram with Doppler study this admission showed moderately decreased LV systolic function with an ejection fraction of 35-40%, mild pulmonary hypertension, mild to moderate tricuspid regurgitation and moderate to severe mitral regurgitation. Upon examination the patient is sitting up in bed. He continues to complain of shortness of breath, palpitations and tightness in the chest with activity. There is plan for A. fib ablation in the future with Dr. Sarmiento. This has not been scheduled yet. 09/22/2022 The patient was seen and examined resting comfortable in bed. He underwent cardioversion yesterday and is maintaining sinus mechanism. Overall he is feeling a bit better. Labs show worsening renal function with a creatinine of 1.51. He's been switched to oral Lasix. Edema has improved. Blood pressure is elevated. 09/23/2022 Patient examined this morning. He is sitting up in the chair. He denies chest pain or pressure. He denies shortness of breath. Telemetry reveals sinus mechanism with a heart rate in the 70s to 80s. Echocardiogram completed rev ealing EF 35-40%. PHYSICAL EXAM: VITAL SIGNS: Reviewed. GENERAL: Well-developed in no acute distress. NECK: Supple. No JVD or thyromegaly LUNGS: Respirations even and unlabored. Lungs essentially clear to auscultation bilaterally. HEART: Regular rate and rhythm. S1 and S2 heard. EXTREMITIES: Normal range of motion. No clubbing or cyanosis. Peripheral pulses intact. No lower extremity edema ASSESSMENT: #1 persistent atrial fibrillation, poorly controlled ventricular response, status post cardioversion, maintaining sinus mechanism #2 acute on chronic heart failure with reduced ejection fraction #3 CAD status post PCI of RCA in July 2022 PLAN: Increase metoprolol to 100 mg twice a day Continue additional cardiac medications Continue to monitor blood pressure Patient is stable for discharge home today from a cardiac standpoint with close outpatient follow-up Nurse practitioner note has been reviewed by physician. Signing provider agrees with the documented findings, assessment, and plan of care. Objective - Vital Signs Vital signs: Vital Signs Temp 97.8 F 09/23/22 07:00 Pulse 67 09/23/22 08:00 Resp 18 09/23/22 08:00 BP 163/77 09/23/22 07:00 Pulse Ox 95 09/23/22 07:53 FiO2 21 09/23/22 07:53 Intake & Output 09/22/22 09/23/22 09/23/22 18:59 06:59 18:59 Intake Total 354 118 Output Total 200 200 Balance 354 -200 -82 Weight 88.3 kg Intake: Oral 354 118 Output: Urine 200 200 Other: Voiding Method Toilet Toilet Toilet Urinal Urinal Urinal # Voids 1 0 0 # Bowel Movements 0 - Labs CBC & Chem 7: 09/21/22 05:43 09/23/22 05:43 Labs: Abnormal Lab Results - Last 24 Hours (Table) 09/23/22 Range/Units 05:43 BUN 28 H (9-20) mg/dL Creatinine 1.50 H (0.66-1.25) mg/dL Glucose 106 H (74-99) mg/dL Calcium 8.2 L (8.4-10.2) mg/dL
[2022-09-23] MEDS ORDERED: METOPROLOL TARTRATE 50 MG TAB PO SCH (21:00)
== END 2022-09-23 10:23 | disposition home or self-care (01) ==
LOC: EC 04:16 → 6NMEDSUR 07:34
PROVIDERS: ADMIT Internal Medicine; ATTEND Internal Medicine
DX: I48.19 Other persistent atrial fibrillation (principal); I08.1 Rheumatic disorders of both mitral and tricuspid valves; I25.10 Atherosclerotic heart disease of native coronary artery without angina pectoris; I50.23 Acute on chronic systolic (congestive) heart failure; I11.0 Hypertensive heart disease with heart failure; E78.5 Hyperlipidemia, unspecified; J44.9 Chronic obstructive pulmonary disease, unspecified; D64.9 Anemia, unspecified; Z20.822 Contact with and (suspected) exposure to COVID-19; I25.5 Ischemic cardiomyopathy; R79.1 Abnormal coagulation profile; Z79.899 Other long term (current) drug therapy; Z79.01 Long term (current) use of anticoagulants; Z87.891 Personal history of nicotine dependence; Z79.84 Long term (current) use of oral hypoglycemic drugs; Z79.02 Long term (current) use of antithrombotics/antiplatelets; Z98.61 Coronary angioplasty status; Z82.49 Family history of ischemic heart disease and other diseases of the circulatory system; Z82.3 Family history of stroke
CPT/HCPCS: 96376 ×3; 96365; 96366 ×2; 96375 ×2; 99285; 36415; 94640 ×6; 94760 ×3; 93005; 93306; 92960; 84439; 83880; 80053; 80048 ×3; 84443; 83735 ×2; 84484; 85025 ×2; 85610; 85730 ×2; 87636; 71045; G0378 ×4; J2270; J1940 ×3; J1644 ×4; J2704

== ENCOUNTER → 2022-10-08 | Outpatient (CLI) | payer MEDICARE ==
[2022-10-09 05:22] LABS: ALT 30 U/L (10-49); AST 19 U/L (14-35); Albumin 4.3 d/dL (3.8-4.9); Albumin/Globulin Ratio 1.48 Ratio (1.60-3.17); BUN/Creat Ratio 15.31 Ratio (12.00-20.00); Blood Urea Nitrogen 39.8 mg/dL (9.0-27.0); Calcium 9.5 mg/dL (8.7-10.3); Carbon Dioxide 25.9 mmol/L (21.6-31.8); Chloride 102 mmol/L (96-109); Chol/HDL Ratio 4.53 Ratio; Globulin 2.9 d/dL (1.6-3.3); Glucose 111 mg/dL (70-110); Potassium 4.8 mmol/L (3.5-5.5); Sodium 140 mmol/L (135-145); Total Bilirubin 0.4 mg/dL (0.3-1.2); Total Protein 7.2 d/dL (6.2-8.2)
[2022-10-09 05:23] LABS: Alkaline Phosphatase 99 U/L (41-126)
== END | disposition home or self-care (01) ==
LOC: LABWHC1 09:35
PROVIDERS: ATTEND Internal Medicine Interventional Cardiology
DX: E78.2 Mixed hyperlipidemia (principal)
CPT/HCPCS: 36415; 80053; 80061

== ENCOUNTER → 2022-10-17 | Outpatient (CLI) | payer MEDICARE ==
[2022-10-17 17:06] LABS: HCT 43.6 % (39.6-50.0); MCH 24.4 pg (27.0-32.0); MCHC 29.8 d/dL (32.0-37.0); MCV 81.8 FL (80.0-97.0); Mean Platelet Volume 9.7 FL (9.5-12.2); NRBC Per 100 WBC 0 X 10*3/uL (0.00-0.01); Platelet Count 162 X 10*3/uL (140-440); RBC 5.33 X 10*6/uL (4.40-5.60); RDW 18.4 % (11.5-14.5)
[2022-10-17 17:08] LABS: Carbon Dioxide 27.8 mmol/L (21.6-31.8); Chloride 100 mmol/L (96-109); Potassium 4.1 mmol/L (3.5-5.5); Sodium 141 mmol/L (135-145)
== END | disposition home or self-care (01) ==
LOC: LABPAT 08:50
PROVIDERS: ATTEND Internal Medicine Clinical Cardiac Electrophysiology
DX: Z01.812 Encounter for preprocedural laboratory examination (principal); I48.19 Other persistent atrial fibrillation
CPT/HCPCS: 80051; 82565; 84520; 85027

== ENCOUNTER → 2022-10-24 | Outpatient (CLI) | payer MEDICARE ==
[2022-10-24 16:33] LABS: Blood Urea Nitrogen 26.6 mg/dL (9.0-27.0); Calcium 9.8 mg/dL (8.7-10.3); Carbon Dioxide 20.8 mmol/L (21.6-31.8); Chloride 109 mmol/L (96-109); Glucose 114 mg/dL (70-110); Potassium 4.8 mmol/L (3.5-5.5); Sodium 141 mmol/L (135-145)
== END | disposition home or self-care (01) ==
LOC: LABWHC1 10:50
PROVIDERS: ATTEND Nurse Practitioner Adult Health
DX: I10 Essential (primary) hypertension (principal)
CPT/HCPCS: 36415; 80048

== ENCOUNTER 2022-10-25 15:24 | Inpatient (IN) | payer MEDICARE ==
[2022-10-25 16:28] LABS: Anisocytosis Slight; Basophils % (A) 0 %; Eosinophils # (A) 0.1 k/uL (0-0.7); Eosinophils % (A) 1 %; HCT 39.4 % (39.0-53.0); HGB 12.6 gm/dL (13.0-17.5); Hypochromasia Slight; Lymphocytes # (A) 1.9 k/uL (1.0-4.8); Lymphocytes % (A) 24 %; MCH 25.7 pg (25.0-35.0); MCHC 31.9 g/dL (31.0-37.0); MCV 80.6 fL (80.0-100.0); Mean Platelet Volume 7.6; Microcytosis Slight; Monocytes # (A) 0.5 k/uL (0-1.0); Monocytes % (A) 6 %; Neutrophils # (A) 5.4 k/uL (1.3-7.7); Neutrophils % (A) 67 %; Platelet Count 139 k/uL (150-450); RBC 4.88 m/uL (4.30-5.90); RDW 18.4 % (11.5-15.5)
[2022-10-25] MEDS ORDERED: DILTIAZEM 5 MG/ML 5 ML VIAL IVP STA (16:29)
--- NOTE | 2022-10-25 16:30 | ED ---
Arrhythmia/Palpitations HPI - General Chief Complaint: Chest Pain Stated Complaint: DOUG Time Seen by Provider: 10/25/22 15:41 Source: patient, RN notes reviewed, old records reviewed Mode of arrival: ambulatory Limitations: no limitations - History of Present Illness Initial Comments: This is a 72-year-old male ER today. Presents today for evaluation regards to dizziness and lightheadedness with chest pain severe shortness of breath especially with exertion. Patient states he was not feeling well when he woke up but symptoms persisted, he went to cut the lawn and symptoms began to become significantly worse. Patient is recent travel history sick contacts no fever cough or congestion. Patient does have atrial fibrillation and is consistently in atrial fibrillation. He does have current increase in palpitations and heart rate MD Complaint: rapid heart beat, "heart racing", palpitations, irregular heart beat, atrial fibrillation -: hour(s) Context: occurred during rest, occurred during exertion Arrhythmia History: atrial fibrillation Associated Symptoms: chest pain, shortness of breath, anxiety Treatments Prior to Arrival: other (0) - Related Data Home Medications Medication Instructions Recorded Confirmed Fluticasone Propion/Salmeterol 2 puff INHALATION RT-BID PRN 03/17/17 11/03/22 [Advair Hfa 115-21 Mcg Inhaler] Montelukast Sodium [Singulair] 10 mg PO HS 03/17/17 11/03/22 Vitamin B Complex 1 cap PO DAILY 03/17/17 11/03/22 Rosuvastatin Calcium 10 mg PO DAILY 08/05/22 11/03/22 Cholecalciferol [Vitamin D3 (25 25 mcg PO DAILY 10/23/22 11/03/22 Mcg = 1000 Iu)] Furosemide [Lasix] 40 mg PO DAILY 10/23/22 11/03/22 Multivit-Min/FA/Lycopen/Lutein 1 tab PO DAILY 10/23/22 11/03/22 [Centrum Silver Tablet] Previous Rx's Medication Instructions Recorded Clopidogrel [Plavix] 75 mg PO DAILY 30 Days #30 tab 08/07/22 Rivaroxaban [Xarelto] 20 mg PO W/SUPPER 30 Days #30 tab 08/07/22 Dapagliflozin Propanediol [Farxiga] 10 mg PO DAILY #30 tab 09/23/22 Amiodarone [Cordarone] 200 mg PO DAILY #0 10/30/22 Metoprolol Succinate (ER) [Toprol 50 mg PO BID #0 10/30/22 XL] Ascorbic Acid [Vitamin C] 500 mg PO DAILY #30 tab 11/05/22 Cefdinir 300 mg PO Q12HR #4 cap 11/05/22 Colchicine [Colcrys] 0.6 mg PO DAILY #30 each 11/05/22 Doxycycline [Vibramycin] 100 mg PO BID #4 cap 11/05/22 Ferrous Sulfate [Iron (65 MG 325 mg PO W/LUNCH #30 tab 11/05/22 Elemental)] Isosorbide Mononitrate ER [Imdur] 30 mg PO DAILY #30 tab 11/05/22 Valsartan [Diovan] 80 mg PO DAILY #30 tab 11/05/22 hydrALAZINE HCL [Apresoline] 50 mg PO BID #60 tab 11/05/22 Allergies Allergy/AdvReac Type Severity Reaction Status Date / Time No Known Allergies Allergy Verified 11/03/22 12:08 Review of Systems ROS Statement: Those systems with pertinent positive or pertinent negative responses have been documented in the HPI. ROS Other: All systems not noted in ROS Statement are negative. Past Medical History Past Medical History: Atrial Fibrillation, Asthma, Hyperlipidemia, Hypertension, Osteoarthritis (OA), Sleep Apnea/CPAP/BIPAP Additional Past Medical History / Comment(s): "borderline diabetic" History of Any Multi-Drug Resistant Organisms: None Reported Past Surgical History: Orthopedic Surgery, Tonsillectomy Additional Past Surgical History / Comment(s): polyp removed from throat, nasal surgery, rt knee arthroscopy, COLONOSCOPY, foot surgery to have something removed-not sure which foot, Stent Past Anesthesia/Blood Transfusion Reactions: No Reported Reaction Date of Last Stent Placement:: 07/2022 Past Psychological History: No Psychological Hx Reported Smoking Status: Former smoker Past Alcohol Use History: None Reported Past Drug Use History: None Reported - Past Family History Mother Family Medical History: Hypertension Additional Family Medical History / Comment(s): Passed when pt was 13 with a "heart problem or a stroke" Father Family Medical History: Myocardial Infarction (MD) Additional Family Medical History / Comment(s): from a heart attack. Sister(s) Additional Family Medical History / Comment(s): "Heart problems", one sister with a heart transplant Brother(s) Additional Family Medical History / Comment(s): "Heart problems" General Exam Limitations: no limitations General appearance: alert, in no apparent distress, anxious, in distress Head exam: Present: atraumatic, normocephalic, normal inspection Eye exam: Present: normal appearance, PERRL, EOMI. Absent: scleral icterus, conjunctival injection, periorbital swelling ENT exam: Present: normal exam, mucous membranes moist Neck exam: Present: normal inspection. Absent: tenderness, meningismus, lymphadenopathy Respiratory exam: Present: respiratory distress, rales, rhonchi, accessory muscle use, decreased breath sounds, prolonged expiratory. Absent: wheezes, stridor Cardiovascular Exam: Present: tachycardia, irregular rhythm, normal heart sounds. Absent: systolic murmur, diastolic murmur, rubs, gallop, clicks GI/Abdominal exam: Present: soft, normal bowel sounds. Absent: distended, tenderness, guarding, rebound, rigid Extremities exam: Present: normal inspection, full ROM, normal capillary refill. Absent: tenderness, pedal edema, joint swelling, calf tenderness Back exam: Present: normal inspection Neurological exam: Present: alert, oriented X3, CN II-XII intact Psychiatric exam: Present: normal affect, normal mood Skin exam: Present: warm, dry, intact, normal color. Absent: rash Course Vital Signs 10/25/22 10/25/22 10/25/22 15:25 15:40 17:15 Temperature 98.6 F Pulse Rate 92 110 H 84 Respiratory 20 24 19 Rate Blood Pressure 162/105 144/105 O2 Sat by Pulse 96 97 95 Oximetry 10/25/22 10/25/22 10/25/22 18:13 19:19 19:30 Temperature Pulse Rate 85 97 96 Respiratory 28 H Rate Blood Pressure 144/100 O2 Sat by Pulse 93 L Oximetry 10/25/22 10/25/22 20:29 20:43 Temperature 98.1 F Pulse Rate 96 Respiratory 18 Rate Blood Pressure 134/99 O2 Sat by Pulse 98 Oximetry - Reevaluation(s) Reevaluation #1: 10/25/22 16:57 Medical records reviewed Reevaluation #2: 10/25/22 16:57 Patient symptoms and heart rate are improving, still with chest pain Reevaluation #3: 10/25/22 16:57 Patient informed results questions answered Reevaluation #4: 10/25/22 16:57 Was pt. sent in by a medical professional or institution? @ -no Did you speak to anyone other than the patient for history? @ -no Did you review nursing and triage notes? @ -agree Were old charts reviewed? @ -yes Differential Diagnosis? @ -prior EKG interpreted by me (3pts min.)? @ -yes X-rays interpreted by me (1pt min.)? @ -yes CT interpreted by me (1pt min.)? @ -no U/S interpreted by me (1pt. min.)? @ -no What testing was considered but not performed? (CT, X-rays, U/S, labs)? Why? @ -no What meds were considered but not given? Why? @ -no Did you discuss the management of the patient with other professionals? @ -no Did you reconcile home meds? @ -no Was smoking cessation discussed for >3mins.? @ -no Was critical care preformed (if so, how long)? @ -no Were there social determinants of health that impacted care today? How? (Homelessness, low income, unemployed, alcoholism, drug addiction, transportation, low edu. Level, literacy, decrease access to med. care, care home, rehab)? @ -no Was there de-escalation of care discussed even if they declined? (Discuss DNR or withdrawal of care, Hospice)? @ -no What co-morbidities impacted this encounter? (DM, HTN, Smoking, COPD, CAD, Cance r, CVA, Hep., AIDS, mental health diagnosis, sleep apnea, morbid obesity)? @ -none Was patient admitted / discharged? @ -72 male to the emergency department for significant shortness of breath, weakness, A. fib with RVR here in the ER chest pain. Patient also showing pulmonary edema on x-ray. Patient will be admitted for rate control nature fibrillation supportive care treatment of CHF. Admitted Undiagnosed new problem with uncertain prognosis? @ -no Drug Therapy requiring intensive monitoring for toxicity (Heparin, Nitro, Insulin, Cardizem)? @ -no Were any procedures done? @ -no Diagnosis/symptom? @ -A. fib with RVR, CHF Acute, or Chronic, or Acute on Chronic? @ -acute Uncomplicated (without systemic symptoms) or Complicated (systemic symptoms)? @ -complicated Side effects of treatment? @ -no Exacerbation, Progression, or Severe Exacerbation] @ -no Poses a threat to life or bodily function? @ -yes with hypoxia and arrhythmia Reevaluation #5: 10/25/22 16:57 Differential Chest Pain: Stable Angina, Unstable Angina, STEMI, NSTEMI Aortic Dissection, Pneumothorax, Musculoskeletal, Esophageal Spasm GERD, Cholecystitis, Pancreatitis, Zoster, this is not meant to be an all-inclusive list. Differential Dyspnea: Coronary syndrome, arrhythmia, tamponade, asthma, COPD, pulmonary embolism, pneumonia, pneumothorax, pulmonary effusion, anaphylaxis, diabetic ketoacidosis, flailed chest, pulmonary contusion, diaphragmatic rupture, anemia, neuromuscular, this is not meant to be an all-inclusive list. Differential Palpitations Ventricular arrhythmias, atrial arrhythmias, myocardial infarction, anemia, thyrotoxicosis, electrolyte imbalance, hypokalemia, pulmonary embolism, pulmonary disease, drugs, alcohol, anxiety, stress.... This is not meant to be an all-inclusive list. - Consultations Consultation #1: Spoken many physicians reviewed admit this patient EKG Findings - EKG Comments: EKG Findings:: EKG is A. fib with RVR 114 QRS 171 QTC 436 - EKG Results: EKG: interpreted by [facility] Medical Decision Making - Medical Decision Making 72 male to the emergency department for significant shortness of breath, weakness, A. fib with RVR here in the ER chest pain. Patient also showing pulmonary edema on x-ray. Patient will be admitted for rate control nature fibrillation supportive care treatment of CHF. - Lab Data Result diagrams: 10/28/22 05:41 10/28/22 05:41 Lab Results 10/25/22 10/25/22 10/25/22 Range/Units 16:09 16:09 16:09 WBC 8.0 (3.8-10.6) k/uL RBC 4.88 (4.30-5.90) m/uL Hgb 12.6 L (13.0-17.5) gm/dL Hct 39.4 (39.0-53.0) % MCV 80.6 (80.0-100.0) fL MCH 25.7 (25.0-35.0) pg MCHC 31.9 (31.0-37.0) g/dL RDW 18.4 H (11.5-15.5) % Plt Count 139 L (150-450) k/uL MPV 7.6 Immature Gran % (Auto) % Absolute Nucleated RBC % Neutrophils % 67 % Lymphocytes % 24 % Monocytes % 6 % Eosinophils % 1 % Basophils % 0 % Immature Gran # X 10*3/uL Neutrophils # 5.4 (1.3-7.7) k/uL Lymphocytes # 1.9 (1.0-4.8) k/uL Monocytes # 0.5 (0-1.0) k/uL Eosinophils # 0.1 (0-0.7) k/uL Basophils # 0.0 (0-0.2) k/uL NRBC/100 WBC Diff (0.00-0.01) X 10*3/uL Hypochromasia Slight Anisocytosis Slight Microcytosis Slight PT 11.7 (9.0-12.0) sec INR 1.1 (<1.2) APTT 26.4 (22.0-30.0) sec D-Dimer (<0.60) mg/L FEU Sodium 137 (137-145) mmol/L Potassium 4.5 (3.5-5.1) mmol/L Chloride 106 (98-107) mmol/L Carbon Dioxide 20 L (22-30) mmol/L Anion Gap 11 mmol/L BUN 28 H (9-20) mg/dL Creatinine 1.86 H (0.66-1.25) mg/dL Est GFR (CKD-EPI) (>=60) Est GFR (CKD-EPI)AfAm 41 (>60 ml/min/1.73 sqM) Est GFR (CKD-EPI)NonAf 35 (>60 ml/min/1.73 sqM) BUN/Creatinine Ratio (12.00-20.00) Ratio Glucose 134 H (74-99) mg/dL Calcium 9.1 (8.4-10.2) mg/dL Phosphorus (2.4-5.1) mg/dL Magnesium 2.3 (1.6-2.3) mg/dL Total Bilirubin 1.1 (0.2-1.3) mg/dL AST 39 (17-59) U/L ALT 48 (4-49) U/L Alkaline Phosphatase 107 (38-126) U/L Troponin I (0.000-0.034) ng/mL NT-Pro-B Natriuret Pep pg/mL Total Protein 7.2 (6.3-8.2) g/dL Albumin 4.3 (3.5-5.0) g/dL Globulin (1.6-3.3) d/dL Albumin/Globulin Ratio (1.60-3.17) Ratio Lipase 112 (23-300) U/L Blood Type Confirm 10/25/22 10/25/22 10/25/22 Range/Units 16:09 16:09 19:31 WBC (3.8-10.6) k/uL RBC (4.30-5.90) m/uL Hgb (13.0-17.5) gm/dL Hct (39.0-53.0) % MCV (80.0-100.0) fL MCH (25.0-35.0) pg MCHC (31.0-37.0) g/dL RDW (11.5-15.5) % Plt Count (150-450) k/uL MPV Immature Gran % (Auto) % Absolute Nucleated RBC % Neutrophils % % Lymphocytes % % Monocytes % % Eosinophils % % Basophils % % Immature Gran # X 10*3/uL Neutrophils # (1.3-7.7) k/uL Lymphocytes # (1.0-4.8) k/uL Monocytes # (0-1.0) k/uL Eosinophils # (0-0.7) k/uL Basophils # (0-0.2) k/uL NRBC/100 WBC Diff (0.00-0.01) X 10*3/uL Hypochromasia Anisocytosis Microcytosis PT (9.0-12.0) sec INR (<1.2) APTT (22.0-30.0) sec D-Dimer (<0.60) mg/L FEU Sodium (137-145) mmol/L Potassium (3.5-5.1) mmol/L Chloride (98-107) mmol/L Carbon Dioxide (22-30) mmol/L Anion Gap mmol/L BUN (9-20) mg/dL Creatinine (0.66-1.25) mg/dL Est GFR (CKD-EPI) (>=60) Est GFR (CKD-EPI)AfAm (>60 ml/min/1.73 sqM) Est GFR (CKD-EPI)NonAf (>60 ml/min/1.73 sqM) BUN/Creatinine Ratio (12.00-20.00) Ratio Glucose (74-99) mg/dL Calcium (8.4-10.2) mg/dL Phosphorus (2.4-5.1) mg/dL Magnesium (1.6-2.3) mg/dL Total Bilirubin (0.2-1.3) mg/dL AST (17-59) U/L ALT (4-49) U/L Alkaline Phosphatase (38-126) U/L Troponin I <0.012 <0.012 (0.000-0.034) ng/mL NT-Pro-B Natriuret Pep 99260 pg/mL Total Protein (6.3-8.2) g/dL Albumin (3.5-5.0) g/dL Globulin (1.6-3.3) d/dL Albumin/Globulin Ratio (1.60-3.17) Ratio Lipase (23-300) U/L Blood Type Confirm 10/25/22 10/25/22 10/26/22 Range/Units 22:02 22:51 06:09 WBC 5.03 (3.8-10.6) k/uL RBC 4.22 L (4.30-5.90) m/uL Hgb 10.7 L (13.0-17.5) gm/dL Hct 33.6 L (39.0-53.0) % MCV 79.6 L (80.0-100.0) fL MCH 25.4 L (25.0-35.0) pg MCHC 31.8 L (31.0-37.0) g/dL RDW 18.5 H (11.5-15.5) % Plt Count 119 L (150-450) k/uL MPV 9.7 Immature Gran % (Auto) 0.20 % Absolute Nucleated RBC 0 % Neutrophils % 45.9 % Lymphocytes % 41.6 % Monocytes % 8.9 % Eosinophils % 2.6 % Basophils % 0.8 % Immature Gran # 0.01 X 10*3/uL Neutrophils # 2.31 (1.3-7.7) k/uL Lymphocytes # 2.09 (1.0-4.8) k/uL Monocytes # 0.45 (0-1.0) k/uL Eosinophils # 0.13 (0-0.7) k/uL Basophils # 0.04 (0-0.2) k/uL NRBC/100 WBC Diff 0 (0.00-0.01) X 10*3/uL Hypochromasia Anisocytosis Microcytosis PT (9.0-12.0) sec INR (<1.2) APTT (22.0-30.0) sec D-Dimer 0.51 (<0.60) mg/L FEU Sodium (137-145) mmol/L Potassium (3.5-5.1) mmol/L Chloride (98-107) mmol/L Carbon Dioxide (22-30) mmol/L Anion Gap mmol/L BUN (9-20) mg/dL Creatinine (0.66-1.25) mg/dL Est GFR (CKD-EPI) (>=60) Est GFR (CKD-EPI)AfAm (>60 ml/min/1.73 sqM) Est GFR (CKD-EPI)NonAf (>60 ml/min/1.73 sqM) BUN/Creatinine Ratio (12.00-20.00) Ratio Glucose (74-99) mg/dL Calcium (8.4-10.2) mg/dL Phosphorus (2.4-5.1) mg/dL Magnesium (1.6-2.3) mg/dL Total Bilirubin (0.2-1.3) mg/dL AST (17-59) U/L ALT (4-49) U/L Alkaline Phosphatase (38-126) U/L Troponin I <0.012 (0.000-0.034) ng/mL NT-Pro-B Natriuret Pep pg/mL Total Protein (6.3-8.2) g/dL Albumin (3.5-5.0) g/dL Globulin (1.6-3.3) d/dL Albumin/Globulin Ratio (1.60-3.17) Ratio Lipase (23-300) U/L Blood Type Confirm 10/26/22 10/27/22 10/28/22 Range/Units 06:09 09:11 05:41 WBC (3.8-10.6) k/uL RBC (4.30-5.90) m/uL Hgb (13.0-17.5) gm/dL Hct (39.0-53.0) % MCV (80.0-100.0) fL MCH (25.0-35.0) pg MCHC (31.0-37.0) g/dL RDW (11.5-15.5) % Plt Count (150-450) k/uL MPV Immature Gran % (Auto) % Absolute Nucleated RBC % Neutrophils % % Lymphocytes % % Monocytes % % Eosinophils % % Basophils % % Immature Gran # X 10*3/uL Neutrophils # (1.3-7.7) k/uL Lymphocytes # (1.0-4.8) k/uL Monocytes # (0-1.0) k/uL Eosinophils # (0-0.7) k/uL Basophils # (0-0.2) k/uL NRBC/100 WBC Diff (0.00-0.01) X 10*3/uL Hypochromasia Anisocytosis Microcytosis PT (9.0-12.0) sec INR (<1.2) APTT (22.0-30.0) sec D-Dimer (<0.60) mg/L FEU Sodium 138 137 138 (137-145) mmol/L Potassium 4.0 4.2 3.7 (3.5-5.1) mmol/L Chloride 103 101 101 (98-107) mmol/L Carbon Dioxide 23.7 23 26 (22-30) mmol/L Anion Gap 11.30 13 11 mmol/L BUN 26.2 33 H 33 H (9-20) mg/dL Creatinine 1.9 H 1.89 H 1.91 H (0.66-1.25) mg/dL Est GFR (CKD-EPI) 37 L (>=60) Est GFR (CKD-EPI)AfAm 40 40 (>60 ml/min/1.73 sqM) Est GFR (CKD-EPI)NonAf 35 34 (>60 ml/min/1.73 sqM) BUN/Creatinine Ratio 13.79 (12.00-20.00) Ratio Glucose 82 169 H 92 (74-99) mg/dL Calcium 8.9 8.7 8.4 (8.4-10.2) mg/dL Phosphorus 4.0 (2.4-5.1) mg/dL Magnesium 2.2 2.0 (1.6-2.3) mg/dL Total Bilirubin 0.9 (0.2-1.3) mg/dL AST 20 (17-59) U/L ALT 39 (4-49) U/L Alkaline Phosphatase 95 (38-126) U/L Troponin I (0.000-0.034) ng/mL NT-Pro-B Natriuret Pep pg/mL Total Protein 6.1 L (6.3-8.2) g/dL Albumin 3.8 (3.5-5.0) g/dL Globulin 2.3 (1.6-3.3) d/dL Albumin/Globulin Ratio 1.65 (1.60-3.17) Ratio Lipase (23-300) U/L Blood Type Confirm 10/28/22 10/28/22 Range/Units 05:41 05:41 WBC 5.8 (3.8-10.6) k/uL RBC 4.77 (4.30-5.90) m/uL Hgb 12.4 L (13.0-17.5) gm/dL Hct 38.5 L (39.0-53.0) % MCV 80.7 (80.0-100.0) fL MCH 26.0 (25.0-35.0) pg MCHC 32.2 (31.0-37.0) g/dL RDW 18.4 H (11.5-15.5) % Plt Count 164 (150-450) k/uL MPV 8.6 Immature Gran % (Auto) % Absolute Nucleated RBC % Neutrophils % % Lymphocytes % % Monocytes % % Eosinophils % % Basophils % % Immature Gran # X 10*3/uL Neutrophils # (1.3-7.7) k/uL Lymphocytes # (1.0-4.8) k/uL Monocytes # (0-1.0) k/uL Eosinophils # (0-0.7) k/uL Basophils # (0-0.2) k/uL NRBC/100 WBC Diff (0.00-0.01) X 10*3/uL Hypochromasia Slight Anisocytosis Slight Microcytosis Slight PT (9.0-12.0) sec INR (<1.2) APTT (22.0-30.0) sec D-Dimer (<0.60) mg/L FEU Sodium (137-145) mmol/L Potassium (3.5-5.1) mmol/L Chloride (98-107) mmol/L Carbon Dioxide (22-30) mmol/L Anion Gap mmol/L BUN (9-20) mg/dL Creatinine (0.66-1.25) mg/dL Est GFR (CKD-EPI) (>=60) Est GFR (CKD-EPI)AfAm (>60 ml/min/1.73 sqM) Est GFR (CKD-EPI)NonAf (>60 ml/min/1.73 sqM) BUN/Creatinine Ratio (12.00-20.00) Ratio Glucose (74-99) mg/dL Calcium (8.4-10.2) mg/dL Phosphorus (2.4-5.1) mg/dL Magnesium (1.6-2.3) mg/dL Total Bilirubin (0.2-1.3) mg/dL AST (17-59) U/L ALT (4-49) U/L Alkaline Phosphatase (38-126) U/L Troponin I (0.000-0.034) ng/mL NT-Pro-B Natriuret Pep pg/mL Total Protein (6.3-8.2) g/dL Albumin (3.5-5.0) g/dL Globulin (1.6-3.3) d/dL Albumin/Globulin Ratio (1.60-3.17) Ratio Lipase (23-300) U/L Blood Type Confirm AB Positive - EKG Data -: EKG Interpreted by [place] - Radiology Data Radiology results: report reviewed (Chest x-rays positive for CHF), image reviewed Critical Care Time Critical Care Time: Yes Total Critical Care Time: 31 Disposition Clinical Impression: Atypical chest pain, Chest pain, CHF (congestive heart failure), Atrial fibrillation with rapid ventricular response, New onset of congestive heart failure, Elevated troponin, Acute exacerbation of congestive heart failure Disposition: ADMITTED IP TO THIS [facility] Condition: Good Is patient prescribed a controlled substance at d/c from ED?: No Time of Disposition: 18:30
--- NOTE | 2022-10-25 16:33 | XR ---
EXAMINATION TYPE: XR chest 2V DATE OF EXAM: 10/25/2022 4:17 PM COMPARISON: Chest radiographs from 09/20/2022 TECHNIQUE: XR chest 2V Frontal and lateral views of the chest. CLINICAL INDICATION:Male, 72 years old with history of Chest Pain; FINDINGS: Lungs/Pleura: No evidence of focal consolidation or pneumothorax. Blunting of the costophrenic angles is present. Pulmonary vascularity: Pulmonary vascular congestion. Heart/mediastinum: Cardiomediastinal silhouette is enlarged and stable. Musculoskeletal: No acute osseous pathology. IMPRESSION: Cardiomegaly, pulmonary vascular congestion and bilateral pleural effusions. Correlate with BNP for c ongestive heart failure.
[2022-10-25 16:44] LABS: ALT 48 U/L (4-49); AST 39 U/L (17-59); African American GFR (CKD) 41 (>60 ml/min/1.73 sqM); Albumin 4.3 g/dL (3.5-5.0); Alkaline Phosphatase 107 U/L (38-126); Anion Gap 11 mmol/L; Blood Urea Nitrogen 28 mg/dL (9-20); Calcium 9.1 mg/dL (8.4-10.2); Carbon Dioxide 20 mmol/L (22-30); Chloride 106 mmol/L (98-107); Glucose 134 mg/dL (74-99); Lipase 112 U/L (23-300); Magnesium 2.3 mg/dL (1.6-2.3); Non-African American GFR(CKD) 35 (>60 ml/min/1.73 sqM); Potassium 4.5 mmol/L (3.5-5.1); Sodium 137 mmol/L (137-145); Total Bilirubin 1.1 mg/dL (0.2-1.3); Total Protein 7.2 g/dL (6.3-8.2)
[2022-10-25 16:47] LABS: INR 1.1 (<1.2); Partial Thromboplastin Time 26.4 sec (22.0-30.0); Prothrombin Time 11.7 sec (9.0-12.0)
[2022-10-25] MEDS ORDERED: FUROSEMIDE 10 MG/ML 4 ML VIAL IV STA (17:15)
[2022-10-25] MEDS ORDERED: MORPHINE SULFATE 4 MG/ML SYRINGE IV PRN (18:34)
[2022-10-25] MEDS ORDERED: IPRATROPIUM-ALBUTEROL 3 ML NEB INHALATION PRN (18:34)
[2022-10-25] MEDS ORDERED: NALOXONE 0.4 MG/ML 1 ML VIAL IV PRN (18:34)
[2022-10-25] MEDS ORDERED: ONDANSETRON 4 MG/2 ML VIAL IVP PRN (18:34)
[2022-10-25] MEDS ORDERED: IPRATROPIUM-ALBUTEROL 3 ML NEB INHALATION STA (18:34)
[2022-10-25] MEDS ORDERED: ACETAMINOPHEN TAB 325 MG TAB PO PRN (18:34)
[2022-10-25] MEDS ORDERED: ACETAMINOPHEN TAB 500 MG TAB PO STA (19:51)
[2022-10-25] MEDS ORDERED: ASPIRIN 81 MG PO STA (22:56)
[2022-10-25] MEDS ORDERED: ATORVASTATIN 80 MG TAB PO STA (22:56)
--- NOTE | 2022-10-25 22:59 | P.HPIM ---
History of Present Illness H&P Date: 10/25/22 The patient is a 72-year-old male Jyotsna grimm on Xarelto, CAD status post stenting, hypertension, hyperlipidemia, and COPD who presented to the emergency room with complaints of chest discomfort and shortness of breath. The patient reports that earlier today while he was in his yard, he developed severe left-sided chest discomfort, sharp and achy in nature, nonradiating, with associated shortness of breath and palpitations, 5 out of 10 on maximal intensity, worsened with exertion, and alleviated with rest. He reports ongoing chest discomfort at the time of interview, improved to a 3 out of 10. He denied experiencing lower extremity swelling or pain. Denied cough, nausea, vomiting, diaphoresis, or dizziness. EKG in emergency room revealed Jyotsna grimm with RVR at 114 bpm with a right bundle br anch block. Chest x-ray revealed pulmonary vascular congestion with bilateral pleural effusions with cardiomegaly. Vital signs in the emergency room revealed her SpO2 of 93% on room air, BP 162/105 on arrival, pulse 92, and respiratory rate 20. A evaluation was remarkable for platelet count 139, BUN 28, creatinine 1.86, troponin less than 0.012, and proBNP 12,000. ED documentation reviewed and case discussed with ED provider. Review of systems: Pertinent positives and negatives as discussed in HPI, a complete review of systems was performed and all other systems are negative. Physical examination: Vital signs reviewed General: non toxic, no distress, appears at stated age, overweight Derm: no unusual rashes/lesions, warm Head: atraumatic, normocephalic, symmetric Eyes: EOMI, no lid lag, anicteric sclera, pupils equal round reactive to light ENT: Nose and ears atraumatic Neck: No cervical lymphadenopathy, trachea midline, supple Mouth: no lip lesion, mucus membranes moist Cardiovascular: S1S2 reg, no murmur, positive dorsalis pedis pulse bilateral, no edema, L lateral chest wall tenderness with reproducible pain Lungs: Mild bibasilar rales without coarse breath sounds or wheezing, no accessory muscle use Abdominal: soft, nontender to palpation, no guarding Ext: muscle strength 5 out of 5 in all 4 extremities grossly, no gross muscle atrophy, no contractures, Neuro: CN II-XI grossly intact, no gross focal neuro deficits Psych: Alert, oriented, appropriate affect Assessment: Atypical chest pain Afib with RVR Fluid overload ROMELIA Thrombocytopenia Imaging: EKG in emergency room revealed A. fib with RVR at 114 bpm with a right bundle branch block. Chest x-ray revealed pulmonary vascular congestion with bilateral pleural effusions with cardiomegaly. Data Review: Vital signs in the emergency room revealed her SpO2 of 93% on room air, BP 162/105 on arrival, pulse 92, and respiratory rate 20. A evaluation was remarkable for platelet count 139, BUN 28, creatinine 1.86, troponin less than 0.012, and proBNP 12,000. Plan: Cardiology consulted Cardiac monitoring C/w ASA and Statin C/w Lasix 40 mg IVP q12h Intake and output, daily weights Obtain D-dimer levels Monitor BMP levels DVT prophylaxis: Xarelto The patient is admitted with an anticipated less than 2 midnight stay for evaluation of chest pain CODE STATUS: Full Code Discussed with: Patient Anticipated discharge place: Home Past Medical History Past Medical History: Atrial Fibrillation, Asthma, Hyperlipidemia, Hypertension, Osteoarthritis (OA), Sleep Apnea/CPAP/BIPAP Additional Past Medical History / Comment(s): "borderline diabetic" History of Any Multi-Drug Resistant Organisms: None Reported Past Surgical History: Orthopedic Surgery, Tonsillectomy Additional Past Surgical History / Comment(s): polyp removed from throat, nasal surgery, rt knee arthroscopy, COLONOSCOPY, foot surgery to have something removed-not sure which foot, Stent Past Anesthesia/Blood Transfusion Reactions: No Reported Reaction Date of Last Stent Placement:: 07/2022 Past Psychological History: No Psychological Hx Reported Smoking Status: Former smoker Past Alcohol Use History: None Reported Additional Past Alcohol Use History / Comment(s): Smoked age 18 to age 20. Past Drug Use History: None Reported - Past Family History Mother Family Medical History: Hypertension Additional Family Medical History / Comment(s): Passed when pt was 13 with a "heart problem or a stroke" Father Family Medical History: Myocardial Infarction ([place]) Additional Family Medical History / Comment(s): from a heart attack. Sister(s) Additional Family Medical History / Comment(s): "Heart problems", one sister with a heart transplant Brother(s) Additional Family Medical History / Comment(s): "Heart problems" Medications and Allergies Home Medications Medication Instructions Recorded Confirmed Type Fluticasone Propion/Salmeterol 2 puff INHALATION RT-BID PRN 03/17/17 10/25/22 History [Advair Hfa 115-21 Mcg Inhaler] Montelukast Sodium [Singulair] 10 mg PO HS 03/17/17 10/25/22 History Vitamin B Complex 1 cap PO DAILY 03/17/17 10/25/22 History tiZANidine [Zanaflex] 2 mg PO Q12HR PRN 03/17/17 10/25/22 History Rosuvastatin Calcium 10 mg PO DAILY 08/05/22 10/25/22 History Clopidogrel [Plavix] 75 mg PO DAILY 30 Days #30 tab 08/07/22 10/25/22 Rx Rivaroxaban [Xarelto] 20 mg PO W/SUPPER 30 Days #30 tab 08/07/22 10/25/22 Rx Amiodarone [Cordarone] 200 mg PO BID 09/15/22 10/25/22 History Dapagliflozin Propanediol [Farxiga] 10 mg PO DAILY #30 tab 09/23/22 10/25/22 Rx hydrALAZINE HCL [Apresoline] 25 mg PO BID #60 tab 09/23/22 10/25/22 Rx Cholecalciferol [Vitamin D3 (25 25 mcg PO DAILY 10/23/22 10/25/22 History Mcg = 1000 Iu)] Furosemide [Lasix] 40 mg PO DAILY 10/23/22 10/25/22 History Metoprolol Succinate (ER) [Toprol 50 mg PO TID 10/23/22 10/25/22 History XL] Multivit-Min/FA/Lycopen/Lutein 1 tab PO DAILY 10/23/22 10/25/22 History [Centrum Silver Tablet] Valsartan 80 mg PO BID 10/25/22 10/25/22 History Allergies Allergy/AdvReac Type Severity Reaction Status Date / Time No Known Allergies Allergy Verified 10/25/22 17:29 Physical Exam Vitals: Vital Signs Temp Pulse Pulse Resp BP BP Pulse Ox 10/25/22 21:30 97.9 F 89 18 150/91 98 10/25/22 20:43 98.1 F 10/25/22 20:29 96 18 134/99 98 10/25/22 19:30 96 10/25/22 19:19 97 10/25/22 18:13 85 28 H 144/100 93 L 10/25/22 17:15 84 19 144/105 95 10/25/22 15:40 110 H 24 97 10/25/22 15:25 98.6 F 92 20 162/105 96 Intake and Output 10/25/22 10/25/22 10/25/22 06:59 14:59 22:59 Other: Weight 90.718 kg Results CBC & Chem 7: 10/25/22 16:09 10/25/22 16:09 Labs: Abnormal Lab Results - Last 24 Hours (Table) 10/25/22 10/25/22 Range/Units 16:09 16:09 Hgb 12.6 L (13.0-17.5) gm/dL RDW 18.4 H (11.5-15.5) % Plt Count 139 L (150-450) k/uL Carbon Dioxide 20 L (22-30) mmol/L BUN 28 H (9-20) mg/dL Creatinine 1.86 H (0.66-1.25) mg/dL Glucose 134 H (74-99) mg/dL Thrombosis Risk Factor Assmnt - Choose All That Apply Each Factor Represents 1 point: Obesity (BMI >25) Each Risk Factor Represents 2 Points: Age 61-74 years Thrombosis Risk Factor Assessment Total Risk Factor Score: 3 Thrombosis Risk Factor Assessment Level: Moderate Risk
[2022-10-25] MEDS: RIVAROXABAN 20 MG TAB PO SCH (23:26)
[2022-10-26] MEDS ORDERED: HEPARIN SODIUM,PORCINE/PF 5,000 UNIT/0.5 ML SYRINGE SQ SCH
[2022-10-26] MEDS: VALSARTAN 80 MG TAB PO SCH ×2 (08:35→20:57)
[2022-10-26] MEDS: AMIODARONE 200 MG TAB PO SCH ×2 (08:35→20:57)
[2022-10-26] MEDS: CLOPIDOGREL 75 MG TAB PO SCH (08:35)
[2022-10-26] MEDS: FUROSEMIDE 10 MG/ML 4 ML VIAL IV SCH ×2 (08:36→20:57)
[2022-10-26] MEDS: METOPROLOL SUCCINATE (ER) 50 MG TAB.ER.24H PO SCH ×3 (08:36→20:57)
[2022-10-26] MEDS: VIT A,C & E-LUTEIN-MINERALS 1 EACH TAB PO SCH (08:36)
[2022-10-26] MEDS: hydrALAZINE HCL 25 MG TAB PO SCH ×2 (08:36→20:57)
[2022-10-26 09:15] LABS: Basophils # (A) 0.04 X 10*3/uL (0.00-0.10); Basophils % (A) 0.8 %; Eosinophils # (A) 0.13 X 10*3/uL (0.04-0.35); Eosinophils % (A) 2.6 %; HCT 33.6 % (39.6-50.0); HGB 10.7 d/dL (12.0-15.0); Lymphocytes # (A) 2.09 X 10*3/uL (0.90-5.00); Lymphocytes % (A) 41.6 %; MCH 25.4 pg (27.0-32.0); MCHC 31.8 d/dL (32.0-37.0); MCV 79.6 FL (80.0-97.0); Mean Platelet Volume 9.7 FL (9.5-12.2); Monocytes # (A) 0.45 X 10*3/uL (0.20-1.00); Monocytes % (A) 8.9 %; NRBC Per 100 WBC 0 X 10*3/uL (0.00-0.01); Neutrophils # (A) 2.31 X 10*3/uL (1.80-7.70); Neutrophils % (A) 45.9 %; Platelet Count 119 X 10*3/uL (140-440); RBC 4.22 X 10*6/uL (4.40-5.60); RDW 18.5 % (11.5-14.5); WBC 5.03 X 10*3/uL (4.50-10.00)
[2022-10-26 09:24] LABS: ALT 39 U/L (10-49); AST 20 U/L (14-35); Albumin 3.8 d/dL (3.8-4.9); Albumin/Globulin Ratio 1.65 Ratio (1.60-3.17); Alkaline Phosphatase 95 U/L (41-126); BUN/Creat Ratio 13.79 Ratio (12.00-20.00); Blood Urea Nitrogen 26.2 mg/dL (9.0-27.0); Calcium 8.9 mg/dL (8.7-10.3); Carbon Dioxide 23.7 mmol/L (21.6-31.8); Chloride 103 mmol/L (96-109); Globulin 2.3 d/dL (1.6-3.3); Glucose 82 mg/dL (70-110); Magnesium 2.2 mg/dL (1.5-2.4); Sodium 138 mmol/L (135-145); Total Bilirubin 0.9 mg/dL (0.3-1.2); Total Protein 6.1 d/dL (6.2-8.2)
--- NOTE | 2022-10-26 10:11 | P.CRDCN ---
History of Present Illness Consult date: 10/26/22 Chief complaint: Palpitation History of present illness: The patient is a pleasant 72-year-old gentleman with CAD and prior stenting of the RCA was performed in September 2022 as well as cardiomyopathy was EF between 35- 40% as well as paroxysmal atrial fibrillation and hypertension and dyslipidemia. He presented to the emergency department complaining of palpitations/heart racing. He is also known to have paroxysmal atrial fibrillation and he u nderwent cardioversion twice. He scheduled to undergo atrial fibrillation ablation this coming Friday. He presented to the emergency department not feeling well and experiencing symptoms of palpitations/heart racing associated with increasing shortness of breath but no dizziness or lightheadedness and no presyncope or syncope and no anginal chest pain or chest discomfort. An EKG was performed and showed atrial fibrillation with controlled heart rate. The blood work showed normal troponin. The patient stated that she has been compliant with all of his medications. Currently he is on amiodarone by mouth 200 mg twice a day. Beside that he is on antiplatelet after recent stenting and also he is on oral anticoagulation for the atrial fibrillation using Xarelto. The patient currently is asymptomatic. Further workup also was performed chest x- ray showing pulmonary vascular congestions and finding consistent was congestive heart failure and NT proBNP came in to be elevated 10,000 and hemoglobin of 10.9 and hematocrit 1.7. Examination is remarkable for irregular rhythm with clear breathing sounds bilaterally and no lower extremities edema noted. Assessment Atrial fibrillation with controlled heart rate in the patient was noted to have paroxysmal atrial fibrillation status post cardioversion Heart failure exacerbation secondary to heart failure with reduced ejection fraction Coronary artery disease and status post PCI of the RCA Chronic anemia Renal failure Multiple comorbid conditions including hypertension and dyslipidemia Plan Continue the current medical regimen including antiplatelet and anticoagulation Continue the current dose of Lasix IV Monitor the kidney function and electrolytes and monitor the hemoglobin Follow-up with the patient Past Medical History Past Medical History: Atrial Fibrillation, Asthma, Hyperlipidemia, Hypertension, Osteoarthritis (OA), Sleep Apnea/CPAP/BIPAP Additional Past Medical History / Comment(s): "borderline diabetic" History of Any Multi-Drug Resistant Organisms: None Reported Past Surgical History: Orthopedic Surgery, Tonsillectomy Additional Past Surgical History / Comment(s): polyp removed from throat, nasal surgery, rt knee arthroscopy, COLONOSCOPY, foot surgery to have something removed-not sure which foot, Stent Past Anesthesia/Blood Transfusion Reactions: No Reported Reaction Date of Last Stent Placement:: 07/2022 Past Psychological History: No Psychological Hx Reported Smoking Status: Former smoker Past Alcohol Use History: None Reported Additional Past Alcohol Use History / Comment(s): Smoked age 18 to age 20. Past Drug Use History: None Reported - Past Family History Mother Family Medical History: Hypertension Additional Family Medical History / Comment(s): Passed when pt was 13 with a "heart problem or a stroke" Father Family Medical History: Myocardial Infarction ([place]) Additional Family Medical History / Comment(s): from a heart attack. Sister(s) Additional Family Medical History / Comment(s): "Heart problems", one sister with a heart transplant Brother(s) Additional Family Medical History / Comment(s): "Heart problems" Medications and Allergies Home Medications Medication Instructions Recorded Confirmed Type Fluticasone Propion/Salmeterol 2 puff INHALATION RT-BID PRN 03/17/17 10/25/22 History [Advair Hfa 115-21 Mcg Inhaler] Montelukast Sodium [Singulair] 10 mg PO HS 03/17/17 10/25/22 History Vitamin B Complex 1 cap PO DAILY 03/17/17 10/25/22 History tiZANidine [Zanaflex] 2 mg PO Q12HR PRN 03/17/17 10/25/22 History Rosuvastatin Calcium 10 mg PO DAILY 08/05/22 10/25/22 History Clopidogrel [Plavix] 75 mg PO DAILY 30 Days #30 tab 08/07/22 10/25/22 Rx Rivaroxaban [Xarelto] 20 mg PO W/SUPPER 30 Days #30 tab 08/07/22 10/25/22 Rx Amiodarone [Cordarone] 200 mg PO BID 09/15/22 10/25/22 History Dapagliflozin Propanediol [Farxiga] 10 mg PO DAILY #30 tab 09/23/22 10/25/22 Rx hydrALAZINE HCL [Apresoline] 25 mg PO BID #60 tab 09/23/22 10/25/22 Rx Cholecalciferol [Vitamin D3 (25 25 mcg PO DAILY 10/23/22 10/25/22 History Mcg = 1000 Iu)] Furosemide [Lasix] 40 mg PO DAILY 10/23/22 10/25/22 History Metoprolol Succinate (ER) [Toprol 50 mg PO TID 10/23/22 10/25/22 History XL] Multivit-Min/FA/Lycopen/Lutein 1 tab PO DAILY 10/23/22 10/25/22 History [Centrum Silver Tablet] Valsartan 80 mg PO BID 10/25/22 10/25/22 History Allergies Allergy/AdvReac Type Severity Reaction Status Date / Time No Known Allergies Allergy Verified 10/25/22 17:29 Physical Exam Vitals: Vital Signs Temp Pulse Pulse Resp BP BP Pulse Ox 10/26/22 07:00 97.6 F 69 18 159/75 100 10/26/22 02:00 97.6 F 69 18 149/78 96 10/25/22 21:30 97.9 F 89 18 150/91 98 10/25/22 20:43 98.1 F 10/25/22 20:29 96 18 134/99 98 10/25/22 19:30 96 10/25/22 19:19 97 10/25/22 18:13 85 28 H 144/100 93 L 10/25/22 17:15 84 19 144/105 95 10/25/22 15:40 110 H 24 97 10/25/22 15:25 98.6 F 92 20 162/105 96 Intake and Output 10/25/22 10/26/22 10/26/22 22:59 06:59 14:59 Output Total 850 Balance -850 Output: Urine 850 Other: Weight 90.718 kg 90 kg Results 10/26/22 06:09 10/26/22 06:09 Cardiac Enzymes 10/25/22 10/25/22 10/25/22 Range/Units 16:09 16:09 19:31 AST 39 (17-59) U/L Troponin I <0.012 <0.012 (0.000-0.034) ng/mL 10/25/22 10/26/22 Range/Units 22:02 06:09 AST 20 (17-59) U/L Troponin I <0.012 (0.000-0.034) ng/mL Coagulation 10/25/22 Range/Units 16:09 PT 11.7 (9.0-12.0) sec APTT 26.4 (22.0-30.0) sec CBC 10/25/22 10/26/22 Range/Units 16:09 06:09 WBC 8.0 5.03 (3.8-10.6) k/uL RBC 4.88 4.22 L (4.30-5.90) m/uL Hgb 12.6 L 10.7 L (13.0-17.5) gm/dL Hct 39.4 33.6 L (39.0-53.0) % Plt Count 139 L 119 L (150-450) k/uL Comprehensive Metabolic Panel 10/25/22 10/26/22 Range/Units 16:09 06:09 Sodium 137 138 (137-145) mmol/L Potassium 4.5 4.0 (3.5-5.1) mmol/L Chloride 106 103 (98-107) mmol/L Carbon Dioxide 20 L 23.7 (22-30) mmol/L BUN 28 H 26.2 (9-20) mg/dL Creatinine 1.86 H 1.9 H (0.66-1.25) mg/dL Glucose 134 H 82 (74-99) mg/dL Calcium 9.1 8.9 (8.4-10.2) mg/dL AST 39 20 (17-59) U/L ALT 48 39 (4-49) U/L Alkaline Phosphatase 107 95 (38-126) U/L Total Protein 7.2 6.1 L (6.3-8.2) g/dL Albumin 4.3 3.8 (3.5-5.0) g/dL Current Medications Generic Name Dose Route Start Last Admin Trade Name Freq PRN Reason Stop Dose Admin Acetaminophen 650 mg 10/25/22 18:34 Acetaminophen Tab 325 Mg Tab PO Q6HR PRN Mild Pain or Fever > 100.5 Albuterol/Ipratropium 3 ml 10/25/22 18:34 Ipratropium-Albuterol 3 Ml Neb INHALATION RT-QID PRN Shortness Of Breath Or Wheezing Amiodarone HCl 200 mg 10/26/22 09:00 10/26/22 08:35 Amiodarone 200 Mg Tab PO 200 mg BID ADELE Administration Budesonide/Formoterol Fumarate 2 puff 10/25/22 22:58 Symbicort 160-4.5 Mcg Inhaler INHALATION RT-BID PRN Shortness Of Breath Clopidogrel Bisulfate 75 mg 10/26/22 09:00 10/26/22 08:35 Clopidogrel 75 Mg Tab PO 75 mg DAILY ADELE Administration Furosemide 40 mg 10/26/22 09:00 10/26/22 08:36 Furosemide 10 Mg/Ml 4 Ml Vial IV 40 mg Q12HR ADELE Administration Hydralazine HCl 25 mg 10/26/22 09:00 10/26/22 08:36 Hydralazine Hcl 25 Mg Tab PO 25 mg BID ADELE Administration Metoprolol Succinate 50 mg 10/26/22 09:00 10/26/22 08:36 Metoprolol Succinate (Er) 50 Mg Tab.Er.24h PO 50 mg TID ADELE Administration Montelukast Sodium 10 mg 10/26/22 21:00 Montelukast 10 Mg Tab PO HS ADELE Morphine Sulfate 4 mg 10/25/22 18:34 Morphine Sulfate 4 Mg/Ml Syringe IV Q4HR PRN Severe Pain (Scale 7 to 10) Multivitamins/Minerals 1 each 10/26/22 09:00 10/26/22 08:36 Vit A,C & I-Exabgr-Lwqyniey 1 Each Tab PO 1 each DAILY ADELE Administration Naloxone HCl 0.2 mg 10/25/22 18:34 Naloxone 0.4 Mg/Ml 1 Ml Vial IV Q2M PRN Opioid Reversal Ondansetron HCl 4 mg 10/25/22 18:34 Ondansetron 4 Mg/2 Ml Vial IVP Q8HR PRN Nausea And Vomiting Rivaroxaban 20 mg 10/25/22 23:00 10/25/22 23:26 Rivaroxaban 20 Mg Tab PO 20 mg W/SUPPER ADELE Administration Protocol Valsartan 80 mg 10/26/22 09:00 10/26/22 08:35 Valsartan 80 Mg Tab PO 80 mg BID ADELE Administration Intake and Output 10/25/22 10/26/22 10/26/22 22:59 06:59 14:59 Output Total 850 Balance -850 Output: Urine 850 Other: Weight 90.718 kg 90 kg 10/26/22 06:09 10/26/22 06:09
--- NOTE | 2022-10-26 11:35 | P.PN ---
Subjective Progress Note Date: 10/26/22 The patient is a 72-year-old male A. fib on Xarelto, CAD status post stenting, hypertension, hyperlipidemia, chronic kidney disease, and COPD who presented to the emergency room with complaints of chest discomfort and shortness of breath. EKG in emergency room revealed A. fib with RVR at 114 bpm with a right bundle branch block. Chest x-ray revealed pulmonary vascular congestion with bilateral pleural effusions with cardiomegaly. Vital signs in the emergency room revealed her SpO2 of 93% on room air, BP 162/105 on arrival, pulse 92, and respiratory rate 20. A evaluation was remarkable for platelet count 139, BUN 28, creatinine 1.86, troponin less than 0.012, and proBNP 12,000. 10/26 Patient was seen and examined. He continues to report shortness of breath with exertion. at bedside. States that he has an ablation with Dr. Sarmiento on Friday. He denies any chest pain. Vital signs are currently stable. HR 69 and 100% on RA. CBC shows Hg 10.7, Plt 119. D-Dimer negative. BMP shows Cr 1.9. Troponin < 0.012 x 3. General: non toxic, no distress, appears at stated age Derm: warm, dry Head: atraumatic, normocephalic, symmetric Eyes: EOMI, no lid lag, anicteric sclera Cardiovascular: Irregularly regular, no murmur Lungs: Decreased breath bilateral, no rhonchi, no rales , no accessory muscle use Ext: no gross muscle atrophy, no edema, no contractures Neuro: no focal neuro deficits Psych: Alert, oriented, appropriate affect Systolic CHF exacerbation Atypical chest pain Afib with RVR Thrombocytopenia Chronic conditions: A. fib on Xarelto, CAD status post stenting, hypertension, hyperlipidemia, chronic kidney disease, and COPD Based on my assessment of this patient, this patient meets a moderate complexity level of care. Patient has systolic CHF with severe exacerbation or progression of disease which poses a threat to life or bodily function. Troponins have been trended an d ACS has been ruled out. Continue Lasix 40 mg IV twice a day. Strict intake and output recorded along with daily weights. Lasix is nephrotoxic which requires daily monitoring of renal function given his chronic kidney disease. Cardiology has been consulted. Xarelto for DVT prophylaxis. FULL CODE. I have reviewed the following recruitment consultant notes: Cardiology note reviewed. I have reviewed the results of the following tests: CBC, d-dimer, BMP, troponin. I have ordered the following tests: I have discussed the care of this patient with the following independent historian: I have independently interpreted the following test below: I have discussed the management of this patient with the following physician: Objective - Vital Signs Vital signs: Vital Signs Temp 97.6 F 10/26/22 07:00 Pulse 69 10/26/22 07:00 Resp 18 10/26/22 07:00 BP 159/75 10/26/22 07:00 Pulse Ox 100 10/26/22 07:00 FiO2 Intake & Output 10/25/22 10/26/22 10/26/22 18:59 06:59 18:59 Output Total 850 600 Balance -850 -600 Weight 90.718 kg 90 kg Output: Urine 850 600 - Labs CBC & Chem 7: 10/26/22 06:09 10/26/22 06:09 Labs: Abnormal Lab Results - Last 24 Hours (Table) 10/25/22 10/25/22 10/26/22 Range/Units 16:09 16:09 06:09 RBC 4.22 L (4.40-5.60) X 10*6/uL Hgb 12.6 L 10.7 L (13.0-17.5) gm/dL Hct 33.6 L (39.6-50.0) % MCV 79.6 L (80.0-97.0) FL MCH 25.4 L (27.0-32.0) pg MCHC 31.8 L (32.0-37.0) d/dL RDW 18.4 H 18.5 H (11.5-15.5) % Plt Count 139 L 119 L (150-450) k/uL Carbon Dioxide 20 L (22-30) mmol/L BUN 28 H (9-20) mg/dL Creatinine 1.86 H (0.66-1.25) mg/dL Est GFR (CKD-EPI) (>=60) Glucose 134 H (74-99) mg/dL Total Protein (6.2-8.2) d/dL 10/26/22 Range/Units 06:09 RBC (4.40-5.60) X 10*6/uL Hgb (13.0-17.5) gm/dL Hct (39.6-50.0) % MCV (80.0-97.0) FL MCH (27.0-32.0) pg MCHC (32.0-37.0) d/dL RDW (11.5-15.5) % Plt Count (150-450) k/uL Carbon Dioxide (22-30) mmol/L BUN (9-20) mg/dL Creatinine 1.9 H (0.66-1.25) mg/dL Est GFR (CKD-EPI) 37 L (>=60) Glucose (74-99) mg/dL Total Protein 6.1 L (6.2-8.2) d/dL
[2022-10-26] MEDS: RIVAROXABAN 20 MG TAB PO SCH (18:10)
[2022-10-26] MEDS: MONTELUKAST 10 MG TAB PO SCH (20:57)
[2022-10-27] MEDS: VALSARTAN 80 MG TAB PO SCH ×2 (08:13→20:30)
[2022-10-27] MEDS: FUROSEMIDE 10 MG/ML 4 ML VIAL IV SCH ×2 (08:14→20:31)
[2022-10-27] MEDS: VIT A,C & E-LUTEIN-MINERALS 1 EACH TAB PO SCH (08:14)
[2022-10-27] MEDS: METOPROLOL SUCCINATE (ER) 50 MG TAB.ER.24H PO SCH ×3 (08:14→20:31)
[2022-10-27] MEDS: CLOPIDOGREL 75 MG TAB PO SCH (08:14)
[2022-10-27] MEDS: AMIODARONE 200 MG TAB PO SCH ×2 (08:14→20:30)
[2022-10-27] MEDS: hydrALAZINE HCL 25 MG TAB PO SCH ×2 (08:14→20:31)
--- NOTE | 2022-10-27 10:16 | P.CRDCN ---
History of Present Illness Consult date: 10/27/22 Chief complaint: CHF History of present illness: The patient is a pleasant 72-year-old gentleman with CAD and prior stenting of the RCA was performed in September 2022 as well as cardiomyopathy was EF between 35- 40% as well as paroxysmal atrial fibrillation and hypertension and dyslipidemia. He presented to the emergency department complaining of palpitations/heart racing. He is also known to have paroxysmal atrial fibrillation and he underwent cardioversion twice. He scheduled to undergo atrial fibrillation ablation this coming Friday. He presented to the emergency department not feeling well and experiencing symptoms of palpitations/heart racing associated with increasing shortness of breath but no dizziness or lightheadedness and no presyncope or syncope and no anginal chest pain or chest discomfort. An EKG was performed and showed atrial fibrillation with controlled heart rate. The blood work showed normal troponin. The patient stated that she has been compliant with all of his medications. Currently he is on amiodarone by mouth 200 mg twice a day. Beside that he is on antiplatelet after recent stenting and also he is on oral anticoagulation for the atrial fibrillation using Xarelto. The patient currently is asymptomatic. Further workup also was performed chest x- ray showing pulmonary vascular congestions and finding consistent was congestive heart failure and NT proBNP came in to be elevated 10,000 and hemoglobin of 10.9 and creatinine 1.7. October [id number] The patient was seen and evaluated this morning. He remains in atrial fibrillation with overall controlled heart rate. He still in mild congestive heart failure. History of short of breath. The edema has improved. No dizziness or lightheadedness. The creatinine continues to be stable as well as a hemoglobin. I would suggest continue the patient on the current dose of Lasix IV for additional 24 hours and continue monitor the kidney function and electrolytes. He is scheduled to undergo atrial fibrillation ablation this coming Friday The examination is remarkable for diminished breathing sounds and crackles over the left base with mild bilateral lower extremity edema Assessment Atrial fibrillation with controlled heart rate in the patient was noted to have paroxysmal atrial fibrillation status post cardioversion Heart failure exacerbation secondary to heart failure with reduced ejection fraction Coronary artery disease and status post PCI of the RCA Chronic anemia Renal failure Multiple comorbid conditions including hypertension and dyslipidemia Plan Continue the current medical regimen including antiplatelet and anticoagulation Continue the current dose of Lasix IV Monitor the kidney function and electrolytes and monitor the hemoglobin Follow-up with the patient Past Medical History Past Medical History: Atrial Fibrillation, Asthma, Hyperlipidemia, Hypertension, Osteoarthritis (OA), Sleep Apnea/CPAP/BIPAP Additional Past Medical History / Comment(s): "borderline diabetic" History of Any Multi-Drug Resistant Organisms: None Reported Past Surgical History: Orthopedic Surgery, Tonsillectomy Additional Past Surgical History / Comment(s): polyp removed from throat, nasal surgery, rt knee arthroscopy, COLONOSCOPY, foot surgery to have something removed-not sure which foot, Stent Past Anesthesia/Blood Transfusion Reactions: No Reported Reaction Date of Last Stent Placement:: 07/2022 Past Psychological History: No Psychological Hx Reported Smoking Status: Former smoker Past Alcohol Use History: None Reported Additional Past Alcohol Use History / Comment(s): Smoked age 18 to age 20. Past Drug Use History: None Reported - Past Family History Mother Family Medical History: Hypertension Additional Family Medical History / Comment(s): Passed when pt was 13 with a "heart problem or a stroke" Father Family Medical History: Myocardial Infarction (AR) Additional Family Medical History / Comment(s): from a heart attack. Sister(s) Additional Family Medical History / Comment(s): "Heart problems", one sister with a heart transplant Brother(s) Additional Family Medical History / Comment(s): "Heart problems" Medications and Allergies Home Medications Medication Instructions Recorded Confirmed Type Fluticasone Propion/Salmeterol 2 puff INHALATION RT-BID PRN 03/17/17 10/25/22 History [Advair Hfa 115-21 Mcg Inhaler] Montelukast Sodium [Singulair] 10 mg PO HS 03/17/17 10/25/22 History Vitamin B Complex 1 cap PO DAILY 03/17/17 10/25/22 History tiZANidine [Zanaflex] 2 mg PO Q12HR PRN 03/17/17 10/25/22 History Rosuvastatin Calcium 10 mg PO DAILY 08/05/22 10/25/22 History Clopidogrel [Plavix] 75 mg PO DAILY 30 Days #30 tab 08/07/22 10/25/22 Rx Rivaroxaban [Xarelto] 20 mg PO W/SUPPER 30 Days #30 tab 08/07/22 10/25/22 Rx Amiodarone [Cordarone] 200 mg PO BID 09/15/22 10/25/22 History Dapagliflozin Propanediol [Farxiga] 10 mg PO DAILY #30 tab 09/23/22 10/25/22 Rx hydrALAZINE HCL [Apresoline] 25 mg PO BID #60 tab 09/23/22 10/25/22 Rx Cholecalciferol [Vitamin D3 (25 25 mcg PO DAILY 10/23/22 10/25/22 History Mcg = 1000 Iu)] Furosemide [Lasix] 40 mg PO DAILY 10/23/22 10/25/22 History Metoprolol Succinate (ER) [Toprol 50 mg PO TID 10/23/22 10/25/22 History XL] Multivit-Min/FA/Lycopen/Lutein 1 tab PO DAILY 10/23/22 10/25/22 History [Centrum Silver Tablet] Valsartan 80 mg PO BID 10/25/22 10/25/22 History Allergies Allergy/AdvReac Type Severity Reaction Status Date / Time No Known Allergies Allergy Verified 10/25/22 17:29 Physical Exam Vitals: Vital Signs Temp Pulse Resp BP Pulse Ox 10/27/22 06:40 98.1 F 92 18 144/91 97 10/27/22 01:40 97.9 F 92 14 154/93 94 L 10/26/22 19:10 97.3 F L 102 H 17 162/91 98 10/26/22 15:00 97.4 F L 68 18 122/77 96 Intake and Output 10/26/22 10/27/22 10/27/22 22:59 06:59 14:59 Output Total 1400 2000 300 Balance -1400 -2000 -300 Output: Urine 1400 2000 300 Other: # Voids 0 Weight 89.7 kg Results 10/26/22 06:09 10/26/22 06:09 Current Medications Generic Name Dose Route Start Last Admin Trade Name Freq PRN Reason Stop Dose Admin Acetaminophen 650 mg 10/25/22 18:34 10/26/22 11:28 Acetaminophen Tab 325 Mg Tab PO 650 mg Q6HR PRN Administration Mild Pain or Fever > 100.5 Albuterol/Ipratropium 3 ml 10/25/22 18:34 Ipratropium-Albuterol 3 Ml Neb INHALATION RT-QID PRN Shortness Of Breath Or Wheezing Amiodarone HCl 200 mg 10/26/22 09:00 10/27/22 08:14 Amiodarone 200 Mg Tab PO 200 mg BID ADELE Administration Budesonide/Formoterol Fumarate 2 puff 10/25/22 22:58 Symbicort 160-4.5 Mcg Inhaler INHALATION RT-BID PRN Shortness Of Breath Clopidogrel Bisulfate 75 mg 10/26/22 09:00 10/27/22 08:14 Clopidogrel 75 Mg Tab PO 75 mg DAILY ADELE Administration Furosemide 40 mg 10/26/22 09:00 10/27/22 08:14 Furosemide 10 Mg/Ml 4 Ml Vial IV 40 mg Q12HR ADELE Administration Hydralazine HCl 25 mg 10/26/22 09:00 10/27/22 08:14 Hydralazine Hcl 25 Mg Tab PO 25 mg BID ADELE Administration Metoprolol Succinate 50 mg 10/26/22 09:00 10/27/22 08:14 Metoprolol Succinate (Er) 50 Mg Tab.Er.24h PO 50 mg TID ADELE Administration Montelukast Sodium 10 mg 10/26/22 21:00 10/26/22 20:57 Montelukast 10 Mg Tab PO 10 mg HS ADELE Administration Morphine Sulfate 4 mg 10/25/22 18:34 Morphine Sulfate 4 Mg/Ml Syringe IV Q4HR PRN Severe Pain (Scale 7 to 10) Multivitamins/Minerals 1 each 10/26/22 09:00 10/27/22 08:14 Vit A,C & K-Flrsto-Kqcwnfkm 1 Each Tab PO 1 each DAILY ADELE Administration Naloxone HCl 0.2 mg 10/25/22 18:34 Naloxone 0.4 Mg/Ml 1 Ml Vial IV Q2M PRN Opioid Reversal Ondansetron HCl 4 mg 10/25/22 18:34 Ondansetron 4 Mg/2 Ml Vial IVP Q8HR PRN Nausea And Vomiting Rivaroxaban 20 mg 10/25/22 23:00 10/26/22 18:10 Rivaroxaban 20 Mg Tab PO 20 mg W/SUPPER ADELE Administration Protocol Valsartan 80 mg 10/26/22 09:00 10/27/22 08:13 Valsartan 80 Mg Tab PO 80 mg BID ADELE Administration Intake and Output 10/26/22 10/27/22 10/27/22 22:59 06:59 14:59 Output Total 1399 1999 300 Balance -1399 -300 Output: Urine 1399 1999 300 Other: # Voids 0 Weight 89.7 kg 10/26/22 06:09 10/26/22 06:09
[2022-10-27 10:27] LABS: African American GFR (CKD) 40 (>60 ml/min/1.73 sqM); Anion Gap 13 mmol/L; Blood Urea Nitrogen 33 mg/dL (9-20); Calcium 8.7 mg/dL (8.4-10.2); Carbon Dioxide 23 mmol/L (22-30); Chloride 101 mmol/L (98-107); Glucose 169 mg/dL (74-99); Non-African American GFR(CKD) 35 (>60 ml/min/1.73 sqM); Potassium 4.2 mmol/L (3.5-5.1); Sodium 137 mmol/L (137-145)
[2022-10-27] MEDS ORDERED: tiZANidine 4 MG TAB PO PRN (11:46)
--- NOTE | 2022-10-27 11:48 | P.PN ---
Subjective Progress Note Date: 10/27/22 The patient is a 72-year-old male A. alfa on Xarelto, CAD status post stenting, hypertension, hyperlipidemia, chronic kidney disease, and COPD who presented to the emergency room with complaints of chest discomfort and shortness of breath. EKG in emergency room revealed A. alfa with RVR at 114 bpm with a right bundle branch block. Chest x-ray revealed pulmonary vascular congestion with bilateral pleural effusions with cardiomegaly. Vital signs in the emergency room revealed her SpO2 of 93% on room air, BP 162/105 on arrival, pulse 92, and respiratory rate 20. A evaluation was remarkable for platelet count 139, BUN 28, creatinine 1.86, troponin less than 0.012, and proBNP 12,000. 10/26 Patient was seen and examined. He continues to report shortness of breath with exertion. at bedside. States that he has an ablation with Dr. Sarmiento on Friday. He denies any chest pain. Vital signs are currently stable. HR 69 and 100% on RA. CBC shows Hg 10.7, Plt 119. D-Dimer negative. BMP shows Cr 1.9. Troponin < 0.012 x 3. 10/27 Patient was seen and examined. He reports no changes in his breathing. Re ports left sided chest pain worsened when he moves his left arm. States that he takes tizanidine. HR in the 70s when reviewing telemetry. BMP shows BUN 33, Cr 1.89, glucose 169. Cardiology recommends continuing present management. General: non toxic, no distress, appears at stated age Derm: warm, dry Head: atraumatic, normocephalic, symmetric Eyes: EOMI, no lid lag, anicteric sclera Cardiovascular: Irregularly regular, no murmur Lungs: Decreased breath bilateral, no rhonchi, no rales , no accessory muscle use Ext: no gross muscle atrophy, no edema, no contractures Neuro: no focal neuro deficits Psych: Alert, oriented, appropriate affect Systolic CHF exacerbation Atypical chest pain Afib with RVR Thrombocytopenia Chronic conditions: Minh. alfa on Xarelto, CAD status post stenting, hypertension, hyperlipidemia, chronic kidney disease, and COPD Based on my assessment of this patient, this patient meets a moderate complexity level of care. Patient has systolic CHF with severe exacerbation or progression of disease which poses a threat to life or bodily function. Troponins have been trended and ACS has been ruled out. Continue Lasix 40 mg IV twice a day. Strict intake and output recorded along with daily weights. Lasix is nephrotoxic which requires daily monitoring of renal function given his chronic kidney disease. Cardiology on board. Xarelto for DVT prophylaxis. FULL CODE. I have reviewed the following home planning consultant salesperson notes: Cardiology note reviewed. I have reviewed the results of the following tests: BMP. I have ordered the following tests: BMP. I have discussed the care of this patient with the following independent historian: I have independently interpreted the following test below: I have discussed the management of this patient with the following physician: Objective - Vital Signs Vital signs: Vital Signs Temp 98.1 F 10/27/22 06:40 Pulse 92 10/27/22 06:40 Resp 18 10/27/22 06:40 BP 144/91 10/27/22 06:40 Pulse Ox 97 10/27/22 06:40 FiO2 Intake & Output 10/26/22 10/27/22 10/27/22 18:59 06:59 18:59 Intake Total 118 118 Output Total 1300 2700 300 Balance -1182 -2700 -182 Weight 89.7 kg Intake: Oral 118 118 Output: Urine 1300 2700 300 Other: # Voids 1 0 - Labs CBC & Chem 7: 10/26/22 06:09 10/27/22 09:11 Labs: Abnormal Lab Results - Last 24 Hours (Table) 10/27/22 Range/Units 09:11 BUN 33 H (9-20) mg/dL Creatinine 1.89 H (0.66-1.25) mg/dL Glucose 169 H (74-99) mg/dL
[2022-10-27] MEDS: RIVAROXABAN 20 MG TAB PO SCH (17:20)
[2022-10-27] MEDS: MONTELUKAST 10 MG TAB PO SCH (20:30)
[2022-10-28 09:41] LABS: African American GFR (CKD) 40 (>60 ml/min/1.73 sqM); Anion Gap 11 mmol/L; Blood Urea Nitrogen 33 mg/dL (9-20); Calcium 8.4 mg/dL (8.4-10.2); Carbon Dioxide 26 mmol/L (22-30); Chloride 101 mmol/L (98-107); Glucose 92 mg/dL (74-99); Non-African American GFR(CKD) 34 (>60 ml/min/1.73 sqM); Potassium 3.7 mmol/L (3.5-5.1); Sodium 138 mmol/L (137-145)
--- NOTE | 2022-10-28 10:21 | PN ---
PROGRESS NOTE SUBJECTIVE: Aaron is a 72-year-old gentleman, who is admitted to hospital with complex and multiple medical problems including atrial fibrillation with poorly controlled ventricular rate and acute exacerbation of chronic systolic heart failure. The patient is awaiting ablation and this is to be done tomorrow. Today, he remains in atrial fibrillation with controlled ventricular rate. Does not have any shortness of breath and remains on IV Lasix. OBJECTIVE: GENERAL: Comfortable at rest. VITAL SIGNS: Stable. CHEST: Reveals good air entry bilaterally. HEART: Reveals first and second heart sounds, irregular rhythm, and a systolic murmur at the apex. ABDOMEN: Soft. EXTREMITIES: Did not reveal any edema. Peripheral pulses are felt. MEDICATIONS: The patient is currently on, 1. Amiodarone. 2. Plavix. 3. Lasix 40 IV q.12. 4. Apresoline. 5. Toprol. 6. Xarelto. 7. Zanaflex. 8. Diovan. ASSESSMENT: 1. Acute exacerbation of chronic systolic heart failure. The patient is feeling better. 2. Persistent atrial fibrillation with poorly controlled ventricular rate. PLAN: The patient will continue the beta blockers that he is on and he will undergo ablation tomorrow. MMODL / IJN: [id number] /
[2022-10-28] MEDS: FUROSEMIDE 10 MG/ML 4 ML VIAL IV SCH ×2 (10:24→20:47)
[2022-10-28] MEDS: VIT A,C & E-LUTEIN-MINERALS 1 EACH TAB PO SCH (10:24)
[2022-10-28] MEDS: VALSARTAN 80 MG TAB PO SCH ×2 (10:24→20:47)
[2022-10-28] MEDS: METOPROLOL SUCCINATE (ER) 50 MG TAB.ER.24H PO SCH ×3 (10:24→20:47)
[2022-10-28] MEDS: AMIODARONE 200 MG TAB PO SCH ×2 (10:24→20:46)
[2022-10-28] MEDS: CLOPIDOGREL 75 MG TAB PO SCH (10:24)
[2022-10-28] MEDS: hydrALAZINE HCL 25 MG TAB PO SCH ×2 (10:25→20:46)
--- NOTE | 2022-10-28 11:42 | P.PN ---
Subjective Progress Note Date: 10/28/22 The patient is a 72-year-old male Jyotsna grimm on Xarelto, CAD status post stenting, hypertension, hyperlipidemia, chronic kidney disease, and COPD who presented to the emergency room with complaints of chest discomfort and shortness of breath. EKG in emergency room revealed Minh. alfa with RVR at 114 bpm with a right bundle branch block. Chest x-ray revealed pulmonary vascular congestion with bilateral pleural effusions with cardiomegaly. Vital signs in the emergency room revealed her SpO2 of 93% on room air, BP 162/105 on arrival, pulse 92, and respiratory rate 20. A evaluation was remarkable for platelet count 139, BUN 28, creatinine 1.86, troponin less than 0.012, and proBNP 12,000. 10/26 Patient was seen and examined. He continues to report shortness of breath with exertion. at bedside. States that he has an ablation with Dr. Sarmiento on Friday. He denies any chest pain. Vital signs are currently stable. HR 69 and 100% on RA. CBC shows Hg 10.7, Plt 119. D-Dimer negative. BMP shows Cr 1.9. Troponin < 0.012 x 3. 10/27 Patient was seen and examined. He reports no changes in his breathing. Re ports left sided chest pain worsened when he moves his left arm. States that he takes tizanidine. HR in the 70s when reviewing telemetry. BMP shows BUN 33, Cr 1.89, glucose 169. Cardiology recommends continuing present management. 10/28 Patient was seen and examined. Heart rate well controlled. He reports generally feeling well. Cardiology would like to do the ablation while he is admitted, plans for tomorrow. BMP shows BUN 33, Cr 1.91. General: non toxic, no distress, appears at stated age Derm: warm, dry Head: atraumatic, normocephalic, symmetric Eyes: EOMI, no lid lag, anicteric sclera Cardiovascular: Irregularly regular, no murmur Lungs: Decreased breath bilateral, no rhonchi, no rales , no accessory muscle use Ext: no gross muscle atrophy, no edema, no contractures Neuro: no focal neuro deficits Psych: Alert, oriented, appropriate affect Systolic CHF exacerbation Atypical chest pain Afib with RVR Thrombocytopenia Chronic conditions: Jyotsna grimm on Xarelto, CAD status post stenting, hypertension, hyperlipidemia, chronic kidney disease, and COPD Based on my assessment of this patient, this patient meets a moderate complexity level of care. Patient has systolic CHF with severe exacerbation or progression of disease which poses a threat to life or bodily function. Troponins have been trended and ACS has been ruled out. Continue Lasix 40 mg IV twice a day. Strict intake and output recorded along with daily weights. Lasix is nephrotoxic which requires daily monitoring of renal function given his chronic kidney disease. Cardiology on board. Plans for ablation tomorrow when discussed with RN. Chung for DVT prophylaxis. FULL CODE. I have reviewed the following bridal consultant notes: Cardiology note reviewed. I have reviewed the results of the following tests: BMP. I have ordered the following tests: BMP. I have discussed the care of this patient with the following independent historian: I have independently interpreted the following test below: I have discussed the management of this patient with the following physician: Objective - Vital Signs Vital signs: Vital Signs Temp 97.7 F 10/28/22 07:00 Pulse 90 10/28/22 07:00 Resp 16 10/28/22 07:00 BP 140/94 10/28/22 07:00 Pulse Ox 98 10/28/22 07:00 FiO2 Intake & Output 10/27/22 10/28/22 10/28/22 18:59 06:59 18:59 Intake Total 236 250 118 Output Total 1150 1425 Balance -914 -1175 118 Weight 87 kg Intake: Oral 236 250 118 Output: Urine 1150 1425 Other: Voiding Method Toilet Urinal # Voids 1 - Labs CBC & Chem 7: 10/26/22 06:09 10/28/22 05:41 Labs: Abnormal Lab Results - Last 24 Hours (Table) 10/28/22 Range/Units 05:41 BUN 33 H (9-20) mg/dL Creatinine 1.91 H (0.66-1.25) mg/dL
[2022-10-28 12:34] LABS: Anisocytosis Slight; HCT 38.5 % (39.0-53.0); HGB 12.4 gm/dL (13.0-17.5); Hypochromasia Slight; MCHC 32.2 g/dL (31.0-37.0); MCV 80.7 fL (80.0-100.0); Mean Platelet Volume 8.6; Microcytosis Slight; Platelet Count 164 k/uL (150-450); RBC 4.77 m/uL (4.30-5.90); RDW 18.4 % (11.5-15.5); WBC 5.8 k/uL (3.8-10.6)
[2022-10-28] MEDS: SODIUM CHLORIDE 0.9% 1,000 ML IV SCH (16:46)
[2022-10-28] MEDS: RIVAROXABAN 20 MG TAB PO SCH (17:45)
[2022-10-28] MEDS: SYMBICORT 160-4.5 MCG INHALER INHALATION PRN (20:15)
[2022-10-28] MEDS: MONTELUKAST 10 MG TAB PO SCH (20:46)
[2022-10-29 06:12] LABS: Glucose,Whole Blood 99 mg/dL (70-110)
[2022-10-29] MEDS: SYMBICORT 160-4.5 MCG INHALER INHALATION PRN ×2 (08:25→19:46)
[2022-10-29] MEDS: AMIODARONE 200 MG TAB PO SCH ×2 (09:30→21:02)
[2022-10-29] MEDS: hydrALAZINE HCL 25 MG TAB PO SCH ×2 (09:30→21:01)
[2022-10-29] MEDS: METOPROLOL SUCCINATE (ER) 50 MG TAB.ER.24H PO SCH ×3 (09:30→21:01)
[2022-10-29] MEDS: VIT A,C & E-LUTEIN-MINERALS 1 EACH TAB PO SCH (09:30)
[2022-10-29] MEDS: VALSARTAN 80 MG TAB PO SCH ×2 (09:30→21:02)
[2022-10-29] MEDS: CLOPIDOGREL 75 MG TAB PO SCH (09:30)
[2022-10-29] MEDS ORDERED: LIDOCAINE 2% URO-JET JELLY 5 ML KIT ONE (10:14)
--- NOTE | 2022-10-29 10:15 | PN ---
PROGRESS NOTE SUBJECTIVE: Aaron is a 72-year-old gentleman, who came in with atrial fibrillation with poorly controlled ventricular rate. Heart rate is well controlled this morning. He is going to have an ablation done today. OBJECTIVE: GENERAL: Comfortable at rest. VITAL SIGNS: Stable. CHEST: Reveals good air entry bilaterally. HEART: Reveals first and second heart sounds, irregular rhythm. EXTREMITIES: Did not reveal any edema. LABORATORY DATA: We do not have any labs from this morning. ASSESSMENT: Persistent atrial fibrillation. PLAN: The patient will undergo ablation today. MMODL / IJN: [id number] /
[2022-10-29] MEDS: SODIUM CHLORIDE 0.9% 1,000 ML IV SCH ×2 (10:20→11:29)
[2022-10-29] MEDS ORDERED: MIDAZOLAM 1 MG/ML 5 ML VIAL IV STA (10:39)
[2022-10-29] MEDS ORDERED: HEPARIN SODIUM,PORCINE 10,000 UNIT/ML 1 ML VIAL ONE (11:29)
[2022-10-29] MEDS ORDERED: PROPOFOL 10 MG/ML 20 ML VIAL IV ONE (11:29)
[2022-10-29] MEDS ORDERED: MIDAZOLAM 2 MG/2 ML VIAL ONE (11:29)
[2022-10-29] MEDS ORDERED: ePHEDrine 50 MG/ML 1 ML VIAL ONE (11:29)
[2022-10-29] MEDS ORDERED: LIDOCAINE 2% INJ 20 MG/ML (2 ML VIAL) ONE (11:29)
[2022-10-29] MEDS ORDERED: fentaNYL (PF) 50 MCG/ML 2 ML AMP ONE (11:29)
[2022-10-29] MEDS ORDERED: SUCCINYLCHOLINE CHLORIDE 200 MG/10 ML VIAL IV ONE (11:29)
[2022-10-29] MEDS ORDERED: WATER FOR INJECTION, STERILE 10 ML VIAL IV ONE (11:29)
[2022-10-29] MEDS ORDERED: PHENYLEPHRINE 10 MG/ML VIAL ONE (11:29)
--- NOTE | 2022-10-29 11:31 | P.PN ---
Subjective Progress Note Date: 10/29/22 Pts breathing is doing well today. Heart Rate is controlled. Gen: awake, alert HEENT: normocephalic, atraumatic, good hearing acuity, moist mucous membranes Resp: good air exchange, breathing comfortably with no accessory muscle use CVS: good distal perfusion x 4, GI: soft, NTTP, ND : no SPT, no CVAT, kendall catheter not present MSK: no pitting edema, no clubbing Neuro: non-focal, moving all extremities Psych: cooperative, euthymic mood Hospital course: The patient is a 72-year-old male A. fib on Xarelto, CAD status post stenting, hypertension, hyperlipidemia, chronic kidney disease, and COPD who presented to the emergency room with complaints of chest discomfort and shortness of breath. EKG in emergency room revealed A. fib with RVR at 114 bpm with a right bundle branch block. Chest x-ray revealed pulmonary vascular congestion with bilateral pleural effusions with cardiomegaly. Vital signs in the emergency room revealed her SpO2 of 93% on room air, BP 162/105 on arrival, pulse 92, and respiratory rate 20. A evaluation was remarkable for platelet count 139, BUN 28, creatinine 1.86, troponin less than 0.012, and proBNP 12,000. 10/26 Patient was seen and examined. He continues to report shortness of breath with exertion. at bedside. States that he has an ablation with Dr. Sarmiento on Friday. He denies any chest pain. Vital signs are currently stable. HR 69 and 100% on RA. CBC shows Hg 10.7, Plt 119. D-Dimer negative. BMP shows Cr 1.9. Troponin < 0.012 x 3. 10/27 Patient was seen and examined. He reports no changes in his breathing. Reports left sided chest pain worsened when he moves his left arm. States that he takes tizanidine. HR in the 70s when reviewing telemetry. BMP shows BUN 33, Cr 1.89, glucose 169. Cardiology recommends continuing present management. 10/28 Patient was seen and examined. Heart rate well controlled. He reports generally feeling well. Cardiology would like to do the ablation while he is admitted, plans for tomorrow. BMP shows BUN 33, Cr 1.91. Assessment: Systolic CHF exacerbation Atypical chest pain Afib with RVR Thrombocytopenia Chronic conditions: A. fib on Xarelto, CAD status post stenting, hypertension, hyperlipidemia, chronic kidney disease, and COPD Plan: Today, patient is afebrile, 192/102, heart rate 85, 99% on room air Fasting sugar this morning was 99 Plan is for cardiac ablation today Continue amiodarone 200 mg twice a day Continue metoprolol XL 50 mg 3 times a day Continue Symbicort Continue Xarelto Continue valsartan 80 mg twice a day Add amlodipine 10 mg daily Patient is full code Objective - Vital Signs Vital signs: Vital Signs Temp 98.2 F 10/29/22 10:15 Pulse 85 10/29/22 10:15 Resp 16 10/29/22 10:15 BP 192/102 10/29/22 10:15 Pulse Ox 99 10/29/22 10:15 FiO2 21 10/29/22 08:25 Intake & Output 10/28/22 10/29/22 10/29/22 18:59 06:59 18:59 Intake Total 354 Output Total 775 650 220 Balance -421 -650 -220 Weight 87 kg Intake: Oral 354 Output: Urine 775 650 220 Other: Voiding Method Toilet Urinal # Voids 2 - Labs CBC & Chem 7: 10/28/22 05:41 10/28/22 05:41 Labs: Abnormal Lab Results - Last 24 Hours (Table) 10/28/22 Range/Units 05:41 Hgb 12.4 L (13.0-17.5) gm/dL Hct 38.5 L (39.0-53.0) % RDW 18.4 H (11.5-15.5) %
[2022-10-29] MEDS ORDERED: amLODIPine 10 MG TAB PO SCH (11:45)
[2022-10-29] MEDS ORDERED: LIDOCAINE 1% INJ 10MG/ML (30 ML VIAL-PF) SQ ONE (12:07)
[2022-10-29] MEDS ORDERED: HEPARIN SOD,PORK IN 0.45% NACL 25,000 UNIT in 0.45% NACL 1 250ML.BAG IV ONE (12:35)
[2022-10-29] MEDS ORDERED: IOPAMIDOL-370 100ML BTL INJ ONE (14:18)
[2022-10-29 15:31] VITALS: RESP 16
[2022-10-29] MEDS: RIVAROXABAN 20 MG TAB PO SCH (17:22)
[2022-10-29] MEDS ORDERED: FUROSEMIDE 10 MG/ML 4 ML VIAL IV SCH (21:00)
[2022-10-29] MEDS: MONTELUKAST 10 MG TAB PO SCH (21:01)
[2022-10-30] MEDS: SYMBICORT 160-4.5 MCG INHALER INHALATION PRN (08:18)
[2022-10-30] MEDS: VIT A,C & E-LUTEIN-MINERALS 1 EACH TAB PO SCH (08:35)
[2022-10-30] MEDS: VALSARTAN 80 MG TAB PO SCH (08:36)
[2022-10-30] MEDS: CLOPIDOGREL 75 MG TAB PO SCH (08:36)
[2022-10-30] MEDS: hydrALAZINE HCL 25 MG TAB PO SCH (08:36)
[2022-10-30 08:42] VITALS: BP 119/62; PULSE 60; TEMP 98.5
[2022-10-30] MEDS ORDERED: FUROSEMIDE 40 MG TAB PO SCH (09:00)
[2022-10-30] MEDS ORDERED: AMIODARONE 200 MG TAB PO SCH (09:00)
[2022-10-30] MEDS ORDERED: METOPROLOL SUCCINATE (ER) 50 MG TAB.ER.24H PO SCH (09:00)
[2022-10-30] MEDS ORDERED: amLODIPine 5 MG TAB PO SCH (09:00)
--- NOTE | 2022-10-30 10:15 | P.PN ---
Subjective Progress Note Date: 10/30/22 History of present illness: This is a 72-year-old male presented to the hospital due to atrial fibrillation with poorly controlled ventricular rate. His heart rate is controlled this morning. He has been seen by Dr. Sarmiento this morning and Lasix and amiodarone dosing were adjusted. He is status post ablation yesterday with Dr. Sarmiento. Patient denies any chest pain or shortness of breath this morning, no lightheadedness or dizziness. Physical examination: Gen: This is a 72-year-old male. He is resting but appears to be comfortable and in no acute distress. VS: reviewed HEENT: Head is atraumatic, normocephalic. Pupils equal, round. Sclerae is anicteric. NECK: Supple. No JVD. . LUNGS: Clear to auscultation. No wheezes or rhonchi. No intercostal retractions. HEART: Regular rate and rhythm. No murmur. EXTREMITIES: No pedal edema. NEUROLOGICAL: Patient is awake, alert and oriented x3. Assessment: Persistent atrial fibrillation status post ablation Plan: Continue patient on current cardiac medications Patient is cleared by cardiology for discharge may follow up with Dr. Bay in one week. Nurse practitioner note has been reviewed, I agree with documented findings and plan of care. Patient was seen and examined. Objective - Vital Signs Vital signs: Vital Signs Temp 97.8 F 10/30/22 02:00 Pulse 59 L 10/30/22 02:00 Resp 16 10/30/22 02:00 BP 138/75 10/30/22 02:00 Pulse Ox 97 10/30/22 02:00 FiO2 21 10/29/22 08:25 Intake & Output 10/29/22 10/30/22 10/30/22 18:59 06:59 18:59 Intake Total 910 Output Total 220 700 Balance 690 -700 Weight 87.2 kg Intake: IV 688 Oral 222 Output: Urine 220 700 Other: Voiding Method Indwelling Catheter - Labs CBC & Chem 7: 10/28/22 05:41 10/28/22 05:41
--- NOTE | 2022-10-30 12:19 | P.DS ---
Providers Date of admission: 10/28/22 11:40 Expected date of discharge: 10/30/22 Attending physician: Lizet Patterson MD Consults: 10/25/22 22:56 Consult Physician Urgent Consulting Provider: Ayo Peralta Consult Reason/Comments: Chest pain Do you want consulting provider notified?: Yes Primary care physician: [place] [facility] Course: Assessment: Systolic CHF exacerbation Atypical chest pain Afib with RVR Thrombocytopenia Chronic conditions: A. fib on Xarelto, CAD status post stenting, hypertension, hyperlipidemia, chronic kidney disease, and COPD Hospital course: The patient is a 72-year-old male A. fib on Xarelto, CAD status post stenting, hypertension, hyperlipidemia, chronic kidney disease, and COPD who presented to the emergency room with complaints of chest discomfort and shortness of breath. EKG in emergency room revealed A. fib with RVR at 114 bpm with a right bundle branch block. Chest x-ray revealed pulmonary vascular congestion with bilateral pleural effusions with cardiomegaly. Vital signs in the emergency room revealed her SpO2 of 93% on room air, BP 162/105 on arrival, pulse 92, and respiratory rate 20. A evaluation was remarkable for platelet count 139, BUN 28, creatinine 1.86, troponin less than 0.012, and proBNP 12,000. 10/26 Patient was seen and examined. He continues to report shortness of breath with exertion. at bedside. States that he has an ablation with Dr. Sarmiento on Friday. He denies any chest pain. Vital signs are currently stable. HR 69 and 100% on RA. CBC shows Hg 10.7, Plt 119. D-Dimer negative. BMP shows Cr 1.9. Troponin < 0.012 x 3. 10/27 Patient was seen and examined. He reports no changes in his breathing. Reports left sided chest pain worsened when he moves his left arm. States that he takes tizanidine. HR in the 70s when reviewing telemetry. BMP shows BUN 33, Cr 1.89, glucose 169. Cardiology recommends continuing present management. 10/28 Patient was seen and examined. Heart rate well controlled. He reports generally feeling well. Cardiology would like to do the ablation while he is admitted, plans for tomorrow. BMP shows BUN 33, Cr 1.91. 10/29-10/30: Pt underwent successful ablation on 10/29, monitored overnight to ensure patient remains in sinus rhythm. Discharged today with changes to anti- arrhythmics and instructions to f/u with PCP, cardiology. I spent 34 minutes coordinating this discharge. Gen: awake, alert HEENT: normocephalic, atraumatic, good hearing acuity, moist mucous membranes Resp: good air exchange, breathing comfortably with no accessory muscle use CVS: good distal perfusion x 4, GI: soft, NTTP, ND : no SPT, no CVAT, kendall catheter not present MSK: no pitting edema, no clubbing Neuro: non-focal, moving all extremities Psych: cooperative, euthymic mood Patient Condition at Discharge: Good Plan - Discharge Summary New Discharge Prescriptions: New amLODIPine [Norvasc] 5 mg PO DAILY #30 tab Continue Montelukast Sodium [Singulair] 10 mg PO HS Vitamin B Complex 1 cap PO DAILY Fluticasone Propion/Salmeterol [Advair Hfa 115-21 Mcg Inhaler] 2 puff INHAL ATION RT-BID PRN PRN Reason: Shortness Of Breath Clopidogrel [Plavix] 75 mg PO DAILY 30 Days #30 tab Rivaroxaban [Xarelto] 20 mg PO W/SUPPER 30 Days #30 tab hydrALAZINE HCL [Apresoline] 25 mg PO BID #60 tab Valsartan 80 mg PO BID Rosuvastatin Calcium 10 mg PO DAILY Dapagliflozin Propanediol [Farxiga] 10 mg PO DAILY #30 tab Cholecalciferol [Vitamin D3 (25 Mcg = 1000 Iu)] 25 mcg PO DAILY Furosemide [Lasix] 40 mg PO DAILY Multivit-Min/FA/Lycopen/Lutein [Centrum Silver Tablet] 1 tab PO DAILY Changed Metoprolol Succinate (ER) [Toprol XL] 50 mg PO BID #0 Amiodarone [Cordarone] 200 mg PO DAILY #0 Discontinued tiZANidine [Zanaflex] 2 mg PO Q12HR PRN PRN Reason: Muscle Pain Discharge Medication List Fluticasone Propion/Salmeterol [Advair Hfa 115-21 Mcg Inhaler] 2 puff INHALATION RT-BID PRN 03/17/17 [History] Montelukast Sodium [Singulair] 10 mg PO HS 03/17/17 [History] Vitamin B Complex 1 cap PO DAILY 11/27/17 [History] Rosuvastatin Calcium 10 mg PO DAILY 08/05/22 [History] Clopidogrel [Plavix] 75 mg PO DAILY 30 Days #30 tab 08/07/22 [Rx] Rivaroxaban [Xarelto] 20 mg PO W/SUPPER 30 Days #30 tab 08/07/22 [Rx] Dapagliflozin Propanediol [Farxiga] 10 mg PO DAILY #30 tab 09/23/22 [Rx] hydrALAZINE HCL [Apresoline] 25 mg PO BID #60 tab 09/23/22 [Rx] Cholecalciferol [Vitamin D3 (25 Mcg = 1000 Iu)] 25 mcg PO DAILY 10/23/22 [History] Furosemide [Lasix] 40 mg PO DAILY 10/23/22 [History] Multivit-Min/FA/Lycopen/Lutein [Centrum Silver Tablet] 1 tab PO DAILY 10/23/22 [History] Valsartan 80 mg PO BID 10/25/22 [History] Amiodarone [Cordarone] 200 mg PO DAILY #0 10/30/22 [Rx] Metoprolol Succinate (ER) [Toprol XL] 50 mg PO BID #0 10/30/22 [Rx] amLODIPine [Norvasc] 5 mg PO DAILY #30 tab 10/30/22 [Rx] Follow up Appointment(s)/Referral(s): Kathy Bay MD [STAFF PHYSICIAN] - 11/07/22 10:45 am Jesu Nguyen MD [Primary Care Provider] - 1-2 days Patient Instructions/Handouts: *[facility] - After Heart Catheterization - Remote Sensing Analyst Instructions Discharge Disposition: HOME SELF-CARE
--- NOTE | 2022-10-30 12:52 | P.EPPROC ---
- EP Procedure Note Electrophysiology Procedure Note: PROCEDURE A. fib ablation with pulmonary vein isolation, left atrial roof ablation, posterior LA wall ablation Electrical cardioversion thereafter sinus rhythm DIAGNOSIS Persistent Atrial fibrillation, symptomatic, refractory to therapy, with RVR and cardio myopathy RESULT No left atrial appendage mass seen on intracardiac echo Evidence of pericarditis with pericardial thickening and trace pericardial effusion on intracardiac echo Reduced LV systolic function on intracardiac echo Severely enlarged right and left atria Successful A. fib ablation/pulmonary vein isolation of all veins using cryo- ablation Complete entrance block in all 4 veins confirmed No evidence for phrenic nerve injury Left atrial roof ablation with sequential cryo-ablations Left atrial posterior wall ablation between the inferior pulmonary veins Left atrial septal ablation Esophageal deflection YES Electrical cardioversion with a synchronized shock across the chest YES PROCEDURE DETAILS Written informed consent prior to procedure. Patient brought to the EP lab. General anesthesia given. Heparin administered. A city maintained above 300 seconds Both groins prepped and draped per protocol and venous sheaths placed. Esophagus intubated, circa catheter for temperature monitoring an endoscope for possible esophageal deflection. Phrenic nerve monitoring performed. Esophageal temperature monitoring performed. Esophageal deflection performed if circa catheter overlapping with the balloon or circa temperature less than 27.5C Intracardiac echocardiography performed. Pericardium evaluated. Left atrial appendage evaluated. Left atrium evaluated along with pulmonary veins Transseptal catheterization performed under fluoroscopic guidance and intracardiac echo guidance Cryoablation sheath exchanged, balloon catheter along with achieve catheter placed in the left atrium. Pulmonary veins isolated in the following sequence: Left superior pulmonary vein followed by left inferior pulmonary vein, followed by right inferior pulmonary vein and lastly right superior pulmonary vein. Phrenic nerve stimulation along with capture thresholds within the SVC and right superior pulmonary vein to identify the phrenic nerve proximity to the cryo- balloon. Pulmonary veins isolated and confirmed with entrance and exit block. Phrenic nerve integrity confirmed at the end of the procedure Ablation of the left atrial roof performed with sequential cryoablation lesions from the left superior to the right superior pulmonary veins. Ablation of the electrograms confirmed Ablation of the left atrial septum performed with cannulation of the superior branch of the right inferior or the inferior branch of the right superior vein to achieve ablation of the posterior septum of the left atrium. Ablation of electrograms confirmed Left atrial posterior wall ablation with sequential cryoablation lesions between the left inferior and right inferior pulmonary veins. Electrogram ablation confirmed Electrical cardioversion performed for persistence of atrial fibrillation despite successful ablation. Diagnostic catheters for the high right atrium, His bundle, coronary sinus placed. LA and RA pressures recorded RA pressure: LA pressure: 04/09/09 Diagnostic EP study with coronary sinus pacing and recording Baseline measurements: Sinus cycle length 974 ms, FL interval 183 ms, QRS 125 ms and QT interval 495 ms AH 89 ms and HV interval 54 ms Venous sheaths were removed and hemostasis assured with a closure device. Patient extubated and transferred to recovery PROCEDURES PERFORMED Diagnostic EP study CS pacing and recording Left and right transseptal catheterization Catheter the mapping of the tachycardia Intracardiac echocardiography Pulmonary vein isolation with transseptal and comprehensive EPS, [id number] Left atrial roof line, +[id number] Ablation, left atrial septum +[id number] Linear ablation, left atrium, PW, +[id number] Electrical cardioversion with a synchronized shock across the chest [id number]
== END 2022-10-30 11:56 | disposition home or self-care (01) | DRG 273 ==
LOC: EC 15:24 → 6NMEDSUR 18:38 → OBSVTOIN 10-28 11:40
PROVIDERS: ADMIT Internal Medicine; ATTEND Internal Medicine
PROC: 4A0234Z Measurement of Cardiac Electrical Activity, Percutaneous Approach (ICD-10-PCS; principal; 2022-10-29 11:00)
PROC: 02583ZZ Destruction of Conduction Mechanism, Percutaneous Approach (ICD-10-PCS; principal; 2022-10-29 11:00)
PROC: 02K83ZZ Map Conduction Mechanism, Percutaneous Approach (ICD-10-PCS; principal; 2022-10-29 11:00)
PROC: B246ZZZ Ultrasonography of Right and Left Heart (ICD-10-PCS; principal; 2022-10-29 11:00)
PROC: 5A2204Z Restoration of Cardiac Rhythm, Single (ICD-10-PCS; principal; 2022-10-29 11:00)
DX: I13.0 Hypertensive heart and chronic kidney disease with heart failure and stage 1 through stage 4 chronic kidney disease, or unspecified chronic kidney disease (principal); I50.23 Acute on chronic systolic (congestive) heart failure; N17.9 Acute kidney failure, unspecified; I48.19 Other persistent atrial fibrillation; I31.9 Disease of pericardium, unspecified; I25.10 Atherosclerotic heart disease of native coronary artery without angina pectoris; E78.5 Hyperlipidemia, unspecified; J44.9 Chronic obstructive pulmonary disease, unspecified; N18.9 Chronic kidney disease, unspecified; I45.10 Unspecified right bundle-branch block; G47.30 Sleep apnea, unspecified; D63.1 Anemia in chronic kidney disease; I42.9 Cardiomyopathy, unspecified; F41.9 Anxiety disorder, unspecified; D69.6 Thrombocytopenia, unspecified; M19.90 Unspecified osteoarthritis, unspecified site; R73.03 Prediabetes; E66.9 Obesity, unspecified; Z68.26 Body mass index [BMI] 26.0-26.9, adult; Z95.5 Presence of coronary angioplasty implant and graft; Z87.891 Personal history of nicotine dependence; Z79.899 Other long term (current) drug therapy; Z79.84 Long term (current) use of oral hypoglycemic drugs; Z79.02 Long term (current) use of antithrombotics/antiplatelets; Z79.01 Long term (current) use of anticoagulants
CPT/HCPCS: 36415; 71046; 80048; 80053; 83690; 83735; 83880; 84100; 84484; 85025; 85027; 85379; 85610; 85730; 86850; 86900; 86901; 93005; 93656; 93657; 94640; 94760; 96374; 96375; 99285

== ENCOUNTER 2022-11-03 01:54 | Inpatient (IN) | payer MEDICARE ==
[2022-11-03] MEDS ORDERED: NITROGLYCERIN SL TABS 0.4 MG TAB SUBLINGUAL STA ×3 (02:07)
[2022-11-03] MEDS ORDERED: SODIUM CHLORIDE 0.9% 500 ML 500 ML IV STA (02:07)
[2022-11-03] MEDS ORDERED: ASPIRIN 81 MG PO STA (02:07)
--- NOTE | 2022-11-03 02:24 | ED ---
Chest Pain HPI - General Chief Complaint: Chest Pain Stated Complaint: Chest pain Time Seen by Provider: 11/03/22 02:03 Source: patient Mode of arrival: ambulatory Limitations: no limitations - History of Present Illness Initial Comments: 72-year-old male with history of atrial fibrillation, asthma, hyperlipidemia, and hypertension presenting with chief complaint of chest pain. Pain started about 30 minutes prior to arrival. He states that it feels like "someone is sitting on my chest". Located primarily on the left side of the chest. He ad mits to mild shortness of breath. He had an ablation performed 5 days ago. Denies palpitations. No radiation of pain down the arm or up the neck. No nausea, vomiting, abdominal pain. No lower extremity edema. - Related Data Home Medications Medication Instructions Recorded Confirmed Fluticasone Propion/Salmeterol 2 puff INHALATION RT-BID PRN 03/17/17 11/03/22 [Advair Hfa 115-21 Mcg Inhaler] Montelukast Sodium [Singulair] 10 mg PO HS 03/17/17 11/03/22 Vitamin B Complex 1 cap PO DAILY 03/17/17 11/03/22 Rosuvastatin Calcium 10 mg PO DAILY 08/05/22 11/03/22 Cholecalciferol [Vitamin D3 (25 25 mcg PO DAILY 10/23/22 11/03/22 Mcg = 1000 Iu)] Furosemide [Lasix] 40 mg PO DAILY 10/23/22 11/03/22 Multivit-Min/FA/Lycopen/Lutein 1 tab PO DAILY 10/23/22 11/03/22 [Centrum Silver Tablet] Valsartan 80 mg PO BID 10/25/22 11/03/22 Previous Rx's Medication Instructions Recorded Clopidogrel [Plavix] 75 mg PO DAILY 30 Days #30 tab 08/07/22 Rivaroxaban [Xarelto] 20 mg PO W/SUPPER 30 Days #30 tab 08/07/22 Dapagliflozin Propanediol [Farxiga] 10 mg PO DAILY #30 tab 09/23/22 hydrALAZINE HCL [Apresoline] 25 mg PO BID #60 tab 09/23/22 Amiodarone [Cordarone] 200 mg PO DAILY #0 10/30/22 Metoprolol Succinate (ER) [Toprol 50 mg PO BID #0 07/12/23 XL] amLODIPine [Norvasc] 5 mg PO DAILY #30 tab 10/30/22 Allergies Allergy/AdvReac Type Severity Reaction Status Date / Time No Known Allergies Allergy Verified 11/03/22 12:08 Review of Systems ROS Statement: Those systems with pertinent positive or pertinent negative responses have been documented in the HPI. ROS Other: All systems not noted in ROS Statement are negative. EKG Findings - EKG Comments: EKG Findings:: Sinus rhythm ventricular rate 73. [place] interval 197. QRS 109. QT 420. QTC 445. No ST deviation or T wave inversion. Past Medical History Past Medical History: Atrial Fibrillation, Asthma, Hyperlipidemia, Hypertension, Osteoarthritis (OA), Sleep Apnea/CPAP/BIPAP Additional Past Medical History / Comment(s): "borderline diabetic" History of Any Multi-Drug Resistant Organisms: None Reported Past Surgical History: Ablation, Orthopedic Surgery, Tonsillectomy Additional Past Surgical History / Comment(s): polyp removed from throat, nasal surgery, rt knee arthroscopy, COLONOSCOPY, foot surgery to have something removed-not sure which foot, Stent Past Anesthesia/Blood Transfusion Reactions: No Reported Reaction Date of Last Stent Placement:: 07/2022 Past Psychological History: No Psychological Hx Reported Smoking Status: Former smoker Past Alcohol Use History: None Reported Past Drug Use History: None Reported - Past Family History Mother Family Medical History: Hypertension Additional Family Medical History / Comment(s): Passed when pt was 13 with a "heart problem or a stroke" Father Family Medical History: Myocardial Infarction (CO) Additional Family Medical History / Comment(s): from a heart attack. Sister(s) Additional Family Medical History / Comment(s): "Heart problems", one sister with a heart transplant Brother(s) Additional Family Medical History / Comment(s): "Heart problems" General Exam Limitations: no limitations General appearance: alert, in no apparent distress Head exam: Present: atraumatic, normocephalic, normal inspection Eye exam: Present: normal appearance Neck exam: Present: normal inspection, full ROM Respiratory exam: Present: normal lung sounds bilaterally. Absent: respiratory distress, wheezes, rales, rhonchi, stridor Cardiovascular Exam: Present: regular rate, normal rhythm, normal heart sounds. Absent: systolic murmur, diastolic murmur, rubs, gallop, clicks Neurological exam: Present: alert, oriented X3, CN II-XII intact Psychiatric exam: Present: normal affect, normal mood Skin exam: Present: warm, dry, intact, normal color. Absent: rash Course Vital Signs 11/03/22 11/03/22 11/03/22 01:57 02:40 02:53 Temperature 99 F Pulse Rate 72 67 65 Respiratory 18 20 20 Rate Blood Pressure 127/77 184/94 168/85 O2 Sat by Pulse 95 Oximetry 11/03/22 11/03/22 03:20 05:27 Temperature Pulse Rate 64 65 Respiratory 20 18 Rate Blood Pressure 169/85 171/81 O2 Sat by Pulse 92 L Oximetry Chest Pain [facility] 72-year-old male presenting with chief complaint of chest pain. Pain started about 30 minutes prior to arrival. Patient had a heart ablation for atrial fibrillation 5 days ago. Pain is a pressure sensation, "it feels like someone is sitting on my chest". Patient is given aspirin 3 doses of nitroglycerin. EKG shows no acute findings. Troponin is 0.840. Patient is given nitro paste and states that his pain has significantly improved. He is currently taking Xarelto at home, does not require heparin at this time. Patient will be admitted for observation and evaluation by cardiology. Patient is agreeable with this plan. I discussed this case my attending Dr. Prajapati. Was pt. sent in by a medical professional or institution (, [facility], [employer], urgent care, hospital, or retirement...) When possible be specific @ -No Did you speak to anyone other than the patient for history (EMS, parent, family, police, friend...)? What history was obtained from this source @ -No Did you review nursing and triage notes (agree or disagree)? Why? @ -I reviewed and agree with nursing and triage notes Were old charts reviewed (outside hosp., previous admission, EMS record, old EKG, old radiological studies, urgent care reports/EKG's, retirement records)? Report findings @ -No old charts were reviewed Differential Diagnosis (chest pain, altered mental status, abdominal pain women, abdominal pain men, vaginal bleeding, weakness, fever, dyspnea, syncope, headache, dizziness, GI bleed, back pain, seizure, CVA, palpatations, mental health, musculoskeletal)? @ -[facility] Differential Chest Pain: Stable Angina, Unstable Angina, STEMI, NSTEMI Aortic Dissection, Pneumothorax, Musculoskeletal, Esophageal Spasm GERD, Cholecystitis, Pancreatitis, Zoster This is not meant to be an all-inclusive list. EKG interpreted by me (3pts min.). @ -As above X-rays interpreted by me (1pt min.). @ -None done CT interpreted by me (1pt min.). @ -None done U/S interpreted by me (1pt. min.). @ -None done What testing was considered but not performed or refused? (CT, X-rays, U/S, labs)? Why? @ -None What meds were considered but not given or refused? Why? @ -None Did you discuss the management of the patient with other professionals (professionals i.e. , PA, [employer], lab, RT, psych nurse, oncology social worker, boat rental clerk, teacher, staff combat information center officer, manager case management)? Give summary @ -My attending spoke with sound physician group who accepted admission Was smoking cessation discussed for >3mins.? @ -No Was critical care preformed (if so, how long)? @ -No Were there social determinants of health that impacted care today? How? (Homelessness, low income, unemployed, alcoholism, drug addiction, transportation, low edu. Level, literacy, decrease access to med. care, [facility], rehab)? @ -No Was there de-escalation of care discussed even if they declined (Discuss DNR or withdrawal of care, Hospice)? DNR status @ -No What co-morbidities impacted this encounter? (DM, HTN, Smoking, COPD, CAD, Cancer, CVA, ARF, Chemo, Hep., AIDS, mental health diagnosis, sleep apnea, morbid obesity)? @ -atrial fibrillation, hypertension, hyperlipidemia Was patient admitted / discharged? Hospital course, mention meds given and route, prescriptions, significant lab abnormalities, going to OR and other pertinent info. @ -See above for hospital course Undiagnosed new problem with uncertain prognosis? @ -No Drug Therapy requiring intensive monitoring for toxicity (Heparin, Nitro, Insulin, Cardizem)? @ -No Were any procedures done? @ -No Diagnosis/symptom? @ -chest pain, elevated troponin status post ablation Acute, or Chronic, or Acute on Chronic? @ -Acute Uncomplicated (without systemic symptoms) or Complicated (systemic symptoms)? @ -Complicated Side effects of treatment? @ -No Exacerbation, Progression, or Severe Exacerbation? @ -No Poses a threat to life or bodily function? How? (Chest pain, [place], CO, pneumonia, PE, COPD, DKA, ARF, appy, cholecystitis, CVA, Diverticulitis, Homicidal, Suicidal, threat to staff... and all critical care pts) @ -Yes Disposition Clinical Impression: Chest pain, Elevated troponin Disposition: ADMITTED IP TO THIS HOSP Condition: Fair Time of Disposition: 04:13
[2022-11-03 03:01] LABS: Anisocytosis Slight; Basophils % (A) 0 %; Eosinophils # (A) 0.2 k/uL (0-0.7); Eosinophils % (A) 2 %; HCT 38.7 % (39.0-53.0); HGB 12.7 gm/dL (13.0-17.5); Hypochromasia Moderate; Lymphocytes # (A) 1.4 k/uL (1.0-4.8); Lymphocytes % (A) 17 %; MCH 26.2 pg (25.0-35.0); MCHC 32.9 g/dL (31.0-37.0); MCV 79.7 fL (80.0-100.0); Mean Platelet Volume 7.7; Microcytosis Slight; Monocytes # (A) 0.5 k/uL (0-1.0); Monocytes % (A) 6 %; Neutrophils # (A) 6.3 k/uL (1.3-7.7); Neutrophils % (A) 74 %; Platelet Count 171 k/uL (150-450); RBC 4.86 m/uL (4.30-5.90); RDW 17.9 % (11.5-15.5); WBC 8.6 k/uL (3.8-10.6)
[2022-11-03 03:17] LABS: INR 1.2 (<1.2); Partial Thromboplastin Time 29.7 sec (22.0-30.0); Prothrombin Time 12.6 sec (9.0-12.0)
[2022-11-03] MEDS ORDERED: NITROGLYCERIN OINT 1 INCH/GM PACKET TOPICAL STA (03:17)
[2022-11-03] MEDS ORDERED: ONDANSETRON 4 MG/2 ML VIAL IVP STA (03:17)
[2022-11-03 03:24] LABS: ALT 60 U/L (4-49); AST 42 U/L (17-59); African American GFR (CKD) 35 (>60 ml/min/1.73 sqM); Albumin 4.6 g/dL (3.5-5.0); Alkaline Phosphatase 134 U/L (38-126); Anion Gap 14 mmol/L; Blood Urea Nitrogen 30 mg/dL (9-20); Calcium 9.2 mg/dL (8.4-10.2); Carbon Dioxide 22 mmol/L (22-30); Chloride 104 mmol/L (98-107); Glucose 175 mg/dL (74-99); Magnesium 2.1 mg/dL (1.6-2.3); Non-African American GFR(CKD) 31 (>60 ml/min/1.73 sqM); Sodium 140 mmol/L (137-145); Total Bilirubin 0.6 mg/dL (0.2-1.3); Total Protein 7.9 g/dL (6.3-8.2)
[2022-11-03] MEDS ORDERED: NALOXONE 0.4 MG/ML 1 ML VIAL IV PRN (04:11)
--- NOTE | 2022-11-03 05:47 | P.HPIM ---
History of Present Illness H&P Date: 11/03/22 Patient is a 72-year-old male with a PMH of A. fib on Xarelto, CAD status post stenting, hypertension, hyperlipidemia, CKD, and COPD who presents to the emergency room with complaints of chest discomfort. Of note, the patient underwent cardiac ablation on 10/29. The patient reports that his pain started around 1:30 AM, it is achy and sharp in nature, substernal and left-sided, initially 9 out of 10 on maximal intensity, constant, somewhat pleuritic in nature, now improved to 4 out of 10 at the time of interview, without associated shortness of breath, nausea, diaphoresis, or dizziness. He denied experiencing lower extremity swelling or pain. Reports the pain is different from when he had his prior MIs. He denies experiencing fever, chills, cough, abdominal pain or diarrhea. In the emergency room, EKG revealed sinus rhythm at [address]/T-wave changes. Chest x-ray as reviewed by me revealed pulmonary congestion with bilateral mild pulmonary edema and cardiomegaly, similar to prior. Laboratory evaluation was remarkable for troponin of 0.840, hemoglobin 12.7, creatinine 2.1 (previously 1.9), glucose 175. ED documentation reviewed and case discussed with ED provider. Review of systems: Pertinent positives and negatives as discussed in HPI, a complete review of systems was performed and all other systems are negative. Physical examination: Vital signs reviewed General: non toxic, no distress, appears at stated age, normal weight Derm: no unusual rashes/lesions, warm Head: atraumatic, normocephalic, symmetric Eyes: EOMI, no lid lag, anicteric sclera, pupils equal round reactive to light ENT: Nose and ears atraumatic Neck: No cervical lymphadenopathy, trachea midline, supple Mouth: no lip lesion, mucus membranes moist Cardiovascular: S1S2 reg, no murmur, positive dorsalis pedis pulse bilateral, no edema, substernal and left chest mild tenderness on palpation Lungs: CTA bilateral, no rhonchi, no rales, no accessory muscle use Abdominal: soft, nontender to palpation, no guarding Ext: muscle strength 5 out of 5 in all 4 extremities grossly, no gross muscle atrophy, no contractures, Neuro: CN II-XI grossly intact, no gross focal neuro deficits Psych: Alert, oriented, appropriate affect Assessment: Chest pain with atypical features with elevated troponin, unclear if due to ACS versus post ablation ROMELIA on chronic kidney disease Chronic conditions: Hypertension, hyperlipidemia Imaging: In the emergency room, EKG revealed sinus rhythm at [address]/T-wave changes. Chest x-ray as reviewed by me revealed pulmonary congestion with bilateral mild pulmonary edema and cardiomegaly. Data Review: Laboratory evaluation was remarkable for troponin of 0.840, hemoglobin 12.7, creatinine 2.1 (previously 1.9), glucose 175. Plan: Cardiology consulted Patient reports taking his last Xarelto dose this evening Cardiac monitoring Trend troponin Status post aspirin Monitor BMP DVT prophylaxis: Xarelto The patient is admitted with an anticipated greater than 2 midnight stay for evaluation of chest pain CODE STATUS: Full Code Discussed with: Patient Anticipated discharge date: Anticipated discharge place: Home Past Medical History Past Medical History: Atrial Fibrillation, Asthma, Hyperlipidemia, Hypertension, Osteoarthritis (OA), Sleep Apnea/CPAP/BIPAP Additional Past Medical History / Comment(s): "borderline diabetic" History of Any Multi-Drug Resistant Organisms: None Reported Past Surgical History: Ablation, Orthopedic Surgery, Tonsillectomy Additional Past Surgical History / Comment(s): polyp removed from throat, nasal surgery, rt knee arthroscopy, COLONOSCOPY, foot surgery to have something removed-not sure which foot, Stent Past Anesthesia/Blood Transfusion Reactions: No Reported Reaction Date of Last Stent Placement:: 07/2022 Past Psychological History: No Psychological Hx Reported Smoking Status: Former smoker Past Alcohol Use History: None Reported Past Drug Use History: None Reported - Past Family History Mother Family Medical History: Hypertension Additional Family Medical History / Comment(s): Passed when pt was 13 with a "heart problem or a stroke" Father Family Medical History: Myocardial Infarction ([place]) Additional Family Medical History / Comment(s): from a heart attack. Sister(s) Additional Family Medical History / Comment(s): "Heart problems", one sister with a heart transplant Brother(s) Additional Family Medical History / Comment(s): "Heart problems" Medications and Allergies Home Medications Medication Instructions Recorded Confirmed Type Fluticasone Propion/Salmeterol 2 puff INHALATION RT-BID PRN 03/17/17 10/25/22 History [Advair Hfa 115-21 Mcg Inhaler] Montelukast Sodium [Singulair] 10 mg PO HS 03/17/17 10/25/22 History Vitamin B Complex 1 cap PO DAILY 03/17/17 10/25/22 History Rosuvastatin Calcium 10 mg PO DAILY 08/05/22 10/25/22 History Clopidogrel [Plavix] 75 mg PO DAILY 30 Days #30 tab 08/07/22 10/25/22 Rx Rivaroxaban [Xarelto] 20 mg PO W/SUPPER 30 Days #30 tab 08/07/22 10/25/22 Rx Dapagliflozin Propanediol [Farxiga] 10 mg PO DAILY #30 tab 09/23/22 10/25/22 Rx hydrALAZINE HCL [Apresoline] 25 mg PO BID #60 tab 09/23/22 10/25/22 Rx Cholecalciferol [Vitamin D3 (25 25 mcg PO DAILY 10/23/22 10/25/22 History Mcg = 1000 Iu)] Furosemide [Lasix] 40 mg PO DAILY 10/23/22 10/25/22 History Multivit-Min/FA/Lycopen/Lutein 1 tab PO DAILY 10/23/22 10/25/22 History [Centrum Silver Tablet] Valsartan 80 mg PO BID 10/25/22 10/25/22 History Amiodarone [Cordarone] 200 mg PO DAILY #0 10/30/22 10/25/22 Rx Metoprolol Succinate (ER) [Toprol 50 mg PO BID #0 10/30/22 10/25/22 Rx XL] amLODIPine [Norvasc] 5 mg PO DAILY #30 tab 10/30/22 Rx Allergies Allergy/AdvReac Type Severity Reaction Status Date / Time No Known Allergies Allergy Verified 11/03/22 02:00 Physical Exam Vitals: Vital Signs Temp Pulse Resp BP Pulse Ox 11/03/22 03:20 64 20 169/85 11/03/22 02:53 65 20 168/85 11/03/22 02:40 67 20 184/94 11/03/22 01:57 99 F 72 18 127/77 95 Intake and Output 11/02/22 11/02/22 11/03/22 14:59 22:59 06:59 Other: Weight 90.718 kg Results CBC & Chem 7: 11/03/22 02:07 11/03/22 02:07 Labs: Abnormal Lab Results - Last 24 Hours (Table) 11/03/22 11/03/22 11/03/22 Range/Units 02:07 02:07 02:07 Hgb 12.7 L (13.0-17.5) gm/dL Hct 38.7 L (39.0-53.0) % MCV 79.7 L (80.0-100.0) fL RDW 17.9 H (11.5-15.5) % PT 12.6 H (9.0-12.0) sec INR 1.2 H (<1.2) BUN 30 H (9-20) mg/dL Creatinine 2.10 H (0.66-1.25) mg/dL Glucose 175 H (74-99) mg/dL ALT 60 H (4-49) U/L Alkaline Phosphatase 134 H (38-126) U/L Troponin I (0.000-0.034) ng/mL 11/03/22 Range/Units 02:07 Hgb (13.0-17.5) gm/dL Hct (39.0-53.0) % MCV (80.0-100.0) fL RDW (11.5-15.5) % PT (9.0-12.0) sec INR (<1.2) BUN (9-20) mg/dL Creatinine (0.66-1.25) mg/dL Glucose (74-99) mg/dL ALT (4-49) U/L Alkaline Phosphatase (38-126) U/L Troponin I 0.840 H* (0.000-0.034) ng/mL
--- NOTE | 2022-11-03 05:52 | XR ---
EXAM: XR Chest, 2 Views CLINICAL HISTORY: ITS.REASON XR Reason: Chest Pain TECHNIQUE: Frontal and lateral views of the chest. COMPARISON: Radiograph dated 10/25/2022 FINDINGS: Lungs: Patchy multifocal airspace disease is seen within the right mid to lower lung. The left lung is clear. No pleural effusion. Pleural space: See above. Heart: Moderate enlargement of the cardiac silhouette. Mediastinum: Unremarkable. Bones/joints: Degenerative changes are seen within the spine and shoulders. IMPRESSION: Multifocal right-sided pneumonia.
[2022-11-03 07:43] LABS: African American GFR (CKD) 40 (>60 ml/min/1.73 sqM); Anion Gap 10 mmol/L; Blood Urea Nitrogen 29 mg/dL (9-20); Calcium 8.6 mg/dL (8.4-10.2); Carbon Dioxide 24 mmol/L (22-30); Chloride 107 mmol/L (98-107); Glucose 142 mg/dL (74-99); Non-African American GFR(CKD) 35 (>60 ml/min/1.73 sqM); Sodium 141 mmol/L (137-145)
[2022-11-03] MEDS ORDERED: MORPHINE SULFATE 2 MG/ML SYRINGE IVP PRN (08:30)
[2022-11-03] MEDS ORDERED: HYDROcodone/APAP 7.5-325MG 1 EACH TAB PO PRN (08:30)
[2022-11-03] MEDS ORDERED: SYMBICORT 160-4.5 MCG INHALER INHALATION PRN (09:54)
[2022-11-03] MEDS ORDERED: NON FORMULARY DRUG (Vitamin B Complex [Vitamin B Complex] 1 EACH Capsule) PO SCH (10:00)
[2022-11-03] MEDS ORDERED: FUROSEMIDE 40 MG TAB PO SCH (10:00)
[2022-11-03] MEDS ORDERED: amLODIPine 5 MG TAB PO SCH (10:00)
--- NOTE | 2022-11-03 10:05 | P.CRDCN ---
History of Present Illness Consult date: 11/03/22 History of present illness: History of Present Illness: The patient is a 72-year-old male with a known history of CAD, post PCI, history of atrial fibrillation status post ablation performed last week who presents with symptoms of chest discomfort, respirophasic, left sided. He's feeling better breathing-anderson since his stenting. He denies any dizziness or palpitatio ns. He denies any nausea. Post-ablation he underwent electrocardioversion. He has been in sinus mechanism since his admission. He had minimal elevation of his troponin. He underwent cardiac catheterization in July [id number] and was found to have significant obstructive disease in the RCA and underwent stenting of that vessel. He had evidence of cardiomyopathy with moderate severe mitral regurgitation. He underwent cardioversion in August with mormon of sinus mechanism and because of recurrent atrial fibrillation he underwent repeat cardioversion in September with mormon of sinus mechanism that recurrent shortly after, symptomatic with symptoms of dyspnea and fatigue in addition to palpitations. His coronary risk factors are positive for hypertension and hyperlipidemia Medications: Amiodarone 200 mg daily, Plavix 75 g daily, Toprol-XL 50 mg twice a day, Lasix 40 mg daily, valsartan 80 mg twice a, hydralazine 25 mg twice a day, amlodipine 5 mg daily, Xarelto 20 mg daily, Farxiga 10 mg daily, Singulair. Review of Systems: Respiratory: He has dyspnea on exertion but no recent wheezing, cough GI: No nausea or vomiting . No history of peptic ulcer disease. No recent GI bleed. : No hematuria or dysuria. Nervous System: No stroke or seizure. Physical Examination: 72-year-old male, alert and oriented no open distress ,Blood pressure 165/70, Heart rate 60 Head: Normocephalic. Eyes: Sclerae nonicteric. Neck: Good carotid upstroke, no bruit, no jugular venous distention. Lungs: Clear to auscultation. Heart: Regular rate and rhythm, S1-S2, no S3, no rub. Systolic ejection murmur. Abdomen: Soft nontender, positive bowel sounds no organomegaly. Extremities: No edema, intact distal pulses. Bilateral ecchymosis in the groin with small hematoma on the left side Labs: Hemoglobin 12.7, BUN 29, creatinine 1.89. His creatinine on admission was 2.10. Troponin 0.84 and 0.746 EKG: Sinus mechanism with minor nonspecific ST-T wave changes Impression: 1. Chest discomfort, respirophasic, secondary to the ablation 2. Mild troponin elevation secondary to the ablation 3. Atrial fibrillation, status post ablation and cardioversion, maintaining sinus mechanism 4. History of CAD stable status post stenting of the RCA 5. History of hypertension 6. History of cardiomyopathy 7. History of hyperlipidemia Plan: 1. Resume beta liborio and losartan 2. Resume statin and hydralazine 3. Add colchicine 4. Obtain an echocardiogram with Doppler 5. Increase physical activity 6. Depending on his progress further recommendations will be made, thank you for this consult we will follow with you. Past Medical History Past Medical History: Atrial Fibrillation, Asthma, Hyperlipidemia, Hypertension, Osteoarthritis (OA), Sleep Apnea/CPAP/BIPAP Additional Past Medical History / Comment(s): "borderline diabetic" History of Any Multi-Drug Resistant Organisms: None Reported Past Surgical History: Ablation, Orthopedic Surgery, Tonsillectomy Additional Past Surgical History / Comment(s): polyp removed from throat, nasal surgery, rt knee arthroscopy, COLONOSCOPY, foot surgery to have something removed-not sure which foot, Stent Past Anesthesia/Blood Transfusion Reactions: No Reported Reaction Date of Last Stent Placement:: 07/2022 Past Psychological History: No Psychological Hx Reported Smoking Status: Former smoker Past Alcohol Use History: None Reported Past Drug Use History: None Reported - Past Family History Mother Family Medical History: Hypertension Additional Family Medical History / Comment(s): Passed when pt was 13 with a "heart problem or a stroke" Father Family Medical History: Myocardial Infarction ([place]) Additional Family Medical History / Comment(s): from a heart attack. Sister(s) Additional Family Medical History / Comment(s): "Heart problems", one sister with a heart transplant Brother(s) Additional Family Medical History / Comment(s): "Heart problems" Medications and Allergies Home Medications Medication Instructions Recorded Confirmed Type Fluticasone Propion/Salmeterol 2 puff INHALATION RT-BID PRN 03/17/17 11/03/22 History [Advair Hfa 115-21 Mcg Inhaler] Montelukast Sodium [Singulair] 10 mg PO HS 03/17/17 11/03/22 History Vitamin B Complex 1 cap PO DAILY 03/17/17 11/03/22 History Rosuvastatin Calcium 10 mg PO DAILY 08/05/22 11/03/22 History Clopidogrel [Plavix] 75 mg PO DAILY 30 Days #30 tab 08/07/22 11/03/22 Rx Rivaroxaban [Xarelto] 20 mg PO W/SUPPER 30 Days #30 tab 08/07/22 11/03/22 Rx Dapagliflozin Propanediol [Farxiga] 10 mg PO DAILY #30 tab 09/23/22 11/03/22 Rx hydrALAZINE HCL [Apresoline] 25 mg PO BID #60 tab 09/23/22 11/03/22 Rx Cholecalciferol [Vitamin D3 (25 25 mcg PO DAILY 10/23/22 11/03/22 History Mcg = 1000 Iu)] Furosemide [Lasix] 40 mg PO DAILY 10/23/22 11/03/22 History Multivit-Min/FA/Lycopen/Lutein 1 tab PO DAILY 10/23/22 11/03/22 History [Centrum Silver Tablet] Valsartan 80 mg PO BID 10/25/22 11/03/22 History Amiodarone [Cordarone] 200 mg PO DAILY #0 10/30/22 11/03/22 Rx Metoprolol Succinate (ER) [Toprol 50 mg PO BID #0 10/30/22 11/03/22 Rx XL] amLODIPine [Norvasc] 5 mg PO DAILY #30 tab 10/30/22 11/03/22 Rx Allergies Allergy/AdvReac Type Severity Reaction Status Date / Time No Known Allergies Allergy Verified 11/03/22 02:00 Physical Exam Vitals: Vital Signs Temp Pulse Pulse Resp BP BP Pulse Ox 11/03/22 08:22 99.2 F 64 18 165/72 93 L 11/03/22 05:34 97.9 F 65 18 146/78 96 11/03/22 05:27 65 18 171/81 92 L 11/03/22 03:20 64 20 169/85 11/03/22 02:53 65 20 168/85 11/03/22 02:40 67 20 184/94 11/03/22 01:57 99 F 72 18 127/77 95 Intake and Output 11/02/22 11/03/22 11/03/22 22:59 06:59 14:59 Other: Weight 90.718 kg Results 11/03/22 02:07 11/03/22 06:55 Cardiac Enzymes 11/03/22 11/03/22 11/03/22 Range/Units 02:07 02:07 06:55 AST 42 (17-59) U/L Troponin I 0.840 H* 0.746 H* (0.000-0.034) ng/mL Coagulation 11/03/22 Range/Units 02:07 PT 12.6 H (9.0-12.0) sec APTT 29.7 (22.0-30.0) sec CBC 11/03/22 Range/Units 02:07 WBC 8.6 (3.8-10.6) k/uL RBC 4.86 (4.30-5.90) m/uL Hgb 12.7 L (13.0-17.5) gm/dL Hct 38.7 L (39.0-53.0) % Plt Count 171 (150-450) k/uL Comprehensive Metabolic Panel 11/03/22 11/03/22 Range/Units 02:07 06:55 Sodium 140 141 (137-145) mmol/L Potassium 4.0 4.0 (3.5-5.1) mmol/L Chloride 104 107 (98-107) mmol/L Carbon Dioxide 22 24 (22-30) mmol/L BUN 30 H 29 H (9-20) mg/dL Creatinine 2.10 H 1.89 H (0.66-1.25) mg/dL Glucose 175 H 142 H (74-99) mg/dL Calcium 9.2 8.6 (8.4-10.2) mg/dL AST 42 (17-59) U/L ALT 60 H (4-49) U/L Alkaline Phosphatase 134 H (38-126) U/L Total Protein 7.9 (6.3-8.2) g/dL Albumin 4.6 (3.5-5.0) g/dL Current Medications Generic Name Dose Route Start Last Admin Trade Name Freq PRN Reason Stop Dose Admin Hydrocodone Bitart/Acetaminophen 1 each 11/03/22 08:30 Hydrocodone/Apap 7.5-325mg 1 Each Tab PO Q6HR PRN Pain Morphine Sulfate 2 mg 11/03/22 08:30 11/03/22 09:13 Morphine Sulfate 2 Mg/Ml Syringe IVP 2 mg Q4HR PRN Administration Pain/Discomfort Naloxone HCl 0.2 mg 11/03/22 04:11 Naloxone 0.4 Mg/Ml 1 Ml Vial IV Q2M PRN Opioid Reversal Intake and Output 11/02/22 11/03/22 11/03/22 22:59 06:59 14:59 Other: Weight 90.718 kg 11/03/22 02:07 11/03/22 06:55
[2022-11-03] MEDS: DOXYCYCLINE 100 MG CAP PO SCH ×2 (10:35→20:27)
[2022-11-03] MEDS: ISOSORBIDE MONONITRATE ER 30 MG TAB.ER.24H PO SCH (10:36)
[2022-11-03] MEDS: AMIODARONE 200 MG TAB PO SCH (10:36)
[2022-11-03] MEDS: METOPROLOL SUCCINATE (ER) 50 MG TAB.ER.24H PO SCH ×2 (10:36→20:27)
[2022-11-03] MEDS: DAPAGLIFLOZIN PROPANEDIOL 10 MG TABLET PO SCH (10:36)
[2022-11-03] MEDS: CHOLECALCIFEROL 25 MCG (1000 IU) TABLET PO SCH (10:36)
[2022-11-03] MEDS: CLOPIDOGREL 75 MG TAB PO SCH (10:37)
--- NOTE | 2022-11-03 11:52 | P.PN ---
Progress Note - Text Progress Note Date: 11/03/22 Patient was seen today. He states that his pain is on the left side. He states it is sharp and worse with deep breaths. Patient denies cough or fevers. Hospital course Patient is a 72-year-old male with a PMH of A. alfa on Xarelto, CAD status post stenting, hypertension, hyperlipidemia, CKD, and COPD who presents to the emergency room with complaints of chest discomfort. Of note, the patient underwent cardiac ablation on 10/29. Patient states that his pain is left-sided sharp and pleuritic in nature. In the emergency room, EKG revealed sinus rhythm at [address]/T-wave changes. Chest x-ray showing multifocal right-sided pneumonia. Laboratory evaluation was remarkable for troponin of 0.840, hemoglobin 12.7, creatinine 2.1 (previously 1.9), glucose 175. Patient had low- grade fever but denied cough or and leukocytosis. Patient started on antibiotics for early developing community-acquired pneumonia. His chest pain is on the left side likely due to the cardiac ablation. Cardiology started the patient on colchicine. 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 93% on room air, blood pressure 165/72, heart rate 64, respiratory rate 18 Cardiology on board. I reviewed cardiology note we will start the patient colchicine 0.6 mg by mouth twice a day and Imdur 30 mg by mouth daily Patient also and IV morphine 2 mg every 4 hours when necessary for pain. Patient will have echocardiogram tomorrow Resume IV Rocephin 2 g every 24 hours and doxycycline 1 mg by mouth twice a day Follow up on blood cultures Resume home meds Amiodarone 200 mg by mouth daily Atorvastatin 40 mg daily Symbicort Plavix 75 mg by mouth daily First he got 10 mg by mouth daily Hydralazine 50 mg by mouth twice a day Metoprolol 50 mg by mouth twice a day Singulair 10 mg by mouth at bedtime Xarelto 20 mg with supper
[2022-11-03] MEDS: COLCHICINE 0.6 MG EACH PO SCH ×2 (12:13→20:27)
[2022-11-03] MEDS: RIVAROXABAN 20 MG TAB PO SCH (16:43)
[2022-11-03] MEDS: hydrALAZINE HCL 50 MG TAB PO SCH (20:27)
[2022-11-03] MEDS: MONTELUKAST 10 MG TAB PO SCH (20:27)
[2022-11-03] MEDS ORDERED: hydrALAZINE HCL 25 MG TAB PO SCH (21:00)
[2022-11-04] MEDS: METOPROLOL SUCCINATE (ER) 50 MG TAB.ER.24H PO SCH ×2 (08:34→20:28)
[2022-11-04] MEDS: hydrALAZINE HCL 50 MG TAB PO SCH ×2 (08:34→20:28)
[2022-11-04] MEDS: CHOLECALCIFEROL 25 MCG (1000 IU) TABLET PO SCH (08:34)
[2022-11-04] MEDS: CLOPIDOGREL 75 MG TAB PO SCH (08:34)
[2022-11-04] MEDS: DAPAGLIFLOZIN PROPANEDIOL 10 MG TABLET PO SCH (08:34)
[2022-11-04] MEDS: DOXYCYCLINE 100 MG CAP PO SCH ×2 (08:34→20:28)
[2022-11-04] MEDS: ATORVASTATIN 40 MG TAB PO SCH (08:34)
[2022-11-04] MEDS: COLCHICINE 0.6 MG EACH PO SCH ×2 (08:34→20:28)
[2022-11-04] MEDS: MULTIVITAMINS, THERA 1 EACH TAB PO SCH (08:34)
[2022-11-04] MEDS: AMIODARONE 200 MG TAB PO SCH (08:34)
[2022-11-04] MEDS: ISOSORBIDE MONONITRATE ER 30 MG TAB.ER.24H PO SCH (08:34)
[2022-11-04 08:56] LABS: Anisocytosis Slight; Basophils % (A) 0 %; Eosinophils # (A) 0.2 k/uL (0-0.7); Eosinophils % (A) 5 %; HCT 30.7 % (39.0-53.0); Hypochromasia Moderate; Lymphocytes # (A) 1.4 k/uL (1.0-4.8); Lymphocytes % (A) 29 %; MCH 25.3 pg (25.0-35.0); MCHC 31.7 g/dL (31.0-37.0); MCV 79.9 fL (80.0-100.0); Mean Platelet Volume 8.7; Microcytosis Slight; Monocytes # (A) 0.2 k/uL (0-1.0); Monocytes % (A) 5 %; Neutrophils # (A) 2.7 k/uL (1.3-7.7); Neutrophils % (A) 57 %; Platelet Count 137 k/uL (150-450); RBC 3.85 m/uL (4.30-5.90); RDW 17.9 % (11.5-15.5); WBC 4.7 k/uL (3.8-10.6)
[2022-11-04] MEDS ORDERED: ATORVASTATIN 20 MG TAB PO SCH (09:00)
[2022-11-04 09:01] LABS: HGB 9.7 gm/dL (13.0-17.5)
[2022-11-04 09:10] LABS: African American GFR (CKD) 51 (>60 ml/min/1.73 sqM); Anion Gap 9 mmol/L; Blood Urea Nitrogen 22 mg/dL (9-20); Calcium 8.4 mg/dL (8.4-10.2); Carbon Dioxide 23 mmol/L (22-30); Chloride 107 mmol/L (98-107); Glucose 143 mg/dL (74-99); Non-African American GFR(CKD) 44 (>60 ml/min/1.73 sqM); Potassium 3.7 mmol/L (3.5-5.1); Sodium 139 mmol/L (137-145)
[2022-11-04 11:19] LABS: Anisocytosis Slight; HCT 30.9 % (39.0-53.0); HGB 9.9 gm/dL (13.0-17.5); Hypochromasia Moderate; MCH 25.4 pg (25.0-35.0); MCV 79.5 fL (80.0-100.0); Mean Platelet Volume 8.7; Microcytosis Slight; Platelet Count 141 k/uL (150-450); RBC 3.89 m/uL (4.30-5.90); RDW 17.8 % (11.5-15.5); WBC 5.7 k/uL (3.8-10.6)
--- NOTE | 2022-11-04 11:27 | P.PN ---
Subjective Progress Note Date: 11/04/22 Patient was seen today. He states that his pain is on the left side. He states it is sharp and worse with deep breaths. Patient denies cough or fevers. Hospital course Patient is a 72-year-old male with a PMH of A. alfa on Xarelto, CAD status post stenting, hypertension, hyperlipidemia, CKD, and COPD who presents to the emergency room with complaints of chest discomfort. Of note, the patient underwent cardiac ablation on 10/29. Patient states that his pain is left-sided sharp and pleuritic in nature. In the emergency room, EKG revealed sinus rhythm at [address]/T-wave changes. Chest x-ray showing multifocal right-sided pneumonia. Laboratory evaluation was remarkable for troponin of 0.840, hemoglobin 12.7, creatinine 2.1 (previously 1.9), glucose 175. Patient had low-grade fever but denied cough or and leukocytosis. Patient started on antibiotics for early developing community-acquired pneumonia. His chest pain is on the left side likely due to the cardiac ablation. Cardiology started the patient on colchicine. Patient's chest pain is improving. On 11/04/2022 patient did have a hemoglobin drop 12.7 to 9.7. Patient denying any overt signs of bleeding. However he does have a large hematoma in his left groin area from the cardiac ablation procedure. Repeat hemoglobin this morning was 9.9. I discussed with cardiology. Cardiology would prefer to resume his anticoagulation since he is high risk for thrombosis with the cardiac ablation. 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 Resume colchicine 0.6 mg by mouth twice a day and Imdur 30 mg by mouth daily Patient also and IV morphine 2 mg every 4 hours when necessary for pain. Echocardiogram pending Patient states that his chest pain is improving Hemoglobin dropped from 12.7 to 9.7. Suspect acute blood loss anemia due to hematoma and left thigh area from cardiac ablation procedure. Repeat hemoglobin this morning was 9.9. I discussed with cardiology who said they would prefer him to resume his anticoagulation. Resume IV Rocephin 2 g every 24 hours and doxycycline 1 mg by mouth twice a day 2 of 5 Follow up on blood cultures Patient's renal function is better than his baseline. Creatinine is 1.5. We will resume his home dose Lasix 40 mg daily. I'll resume volsartan at a lower dose of 80 mg daily. Resume home meds Amiodarone 200 mg by mouth daily Atorvastatin 40 mg daily Symbicort Plavix 75 mg by mouth daily First he got 10 mg by mouth daily Hydralazine 50 mg by mouth twice a day Metoprolol 50 mg by mouth twice a day Singulair 10 mg by mouth at bedtime Xarelto 20 mg with supper If hemoglobin remains stable in the next 24 hours and patient cleared by cardiology he can be discharged home. Objective - Vital Signs Vital signs: Vital Signs Temp 98.1 F 11/04/22 08:00 Pulse 61 11/04/22 08:00 Resp 18 11/04/22 08:00 BP 155/70 11/04/22 08:00 Pulse Ox 97 11/04/22 08:00 FiO2 Intake & Output 11/03/22 11/04/22 11/04/22 18:59 06:59 18:59 Intake Total 358 240 125 Output Total 750 650 350 Balance -392 -410 -225 Intake: Oral 358 240 125 Output: Urine 750 650 350 Other: Voiding Method Urinal Urinal - Labs CBC & Chem 7: 11/04/22 10:43 11/04/22 08:17 Labs: Abnormal Lab Results - Last 24 Hours (Table) 11/04/22 11/04/22 11/04/22 Range/Units 08:17 08:17 10:43 RBC 3.85 L 3.89 L (4.30-5.90) m/uL Hgb 9.7 L D 9.9 L (13.0-17.5) gm/dL Hct 30.7 L 30.9 L (39.0-53.0) % MCV 79.9 L 79.5 L (80.0-100.0) fL RDW 17.9 H 17.8 H (11.5-15.5) % Plt Count 137 L 141 L (150-450) k/uL BUN 22 H (9-20) mg/dL Creatinine 1.55 H (0.66-1.25) mg/dL Glucose 143 H (74-99) mg/dL
[2022-11-04] MEDS: VALSARTAN 80 MG TAB PO SCH (11:58)
[2022-11-04] MEDS: FUROSEMIDE 40 MG TAB PO SCH (11:58)
--- NOTE | 2022-11-04 14:02 | CA ---
Transthoracic Echo Report Name: Aaron Chakraborty Age: 72 Gender: M : 1950 Exam Date: 11/04/2022 09:12 Exam Location: [facility] Ht (in): 71 Wt (lb): 200 Ordering Physician: Kathy Bay MD ([id number]) Attending/Referring Phys: Background Investigator Alissa Elder [facility] Procedure CPT: Indications: CP Cardiac Hx: Technical Quality: Contrast 1: Total Dose (mL): Contrast 2: Total Dose (mL): MEASUREMENTS (Male / Female) Normal Values 2D ECHO LV Diastolic Diameter PLAX 5.3 cm 4.2 - 5.9 / 3.9 - 5.3 cm LV Systolic Diameter PLAX 4.3 cm IVS Diastolic Thickness 0.8 cm 0.6 - 1.0 / 0.6 - 0.9 cm LVPW Diastolic Thickness 1.0 cm 0.6 - 1.0 / 0.6 - 0.9 cm LV Relative Wall Thickness 0.3 LV Diastolic Volume MOD BP 156.9 cm??? 67 - 155 / 56 - 104 cm??? LV Systolic Volume MOD BP 82.4 cm??? 22 - 58 / 19 - 49 cm??? LV Ejection Fraction MOD BP 47.5 % >= 55 % LV Diastolic Volume MOD 4C 137.5 cm??? LV Systolic Volume MOD 4C 75.9 cm??? LV Ejection Fraction MOD 4C 44.8 % LV Diastolic Length 4C 9.0 cm LV Systolic Length 4C 7.6 cm LV Diastolic Volume MOD 2C 166.2 cm??? LV Systolic Volume MOD 2C 88.5 cm??? LV Ejection Fraction MOD 2C 46.8 % LV Diastolic Length 2C 9.7 cm LV Systolic Length 2C 7.7 cm DOPPLER Mitral E Point Velocity 104.1 cm/s Mitral A Point Velocity 42.8 cm/s Mitral E to A Ratio 2.4 MV Deceleration Time 198.6 ms LV E' Lateral Velocity 7.2 cm/s Mitral E to LV E' Lateral Ratio 14.5 LV E' Septal Velocity 5.4 cm/s Mitral E to LV E' Septal Ratio 19.4 TR Peak Velocity 246.8 cm/s TR Peak Gradient 24.4 mmHg Right Atrial Pressure 8.0 mmHg Pulmonary Artery Systolic Pressu 32.4 mmHg Right Ventricular Systolic Press 32.4 mmHg FINDINGS Left Ventricle Limited echo. Mildly increased left ventricular diastolic volume. Moderately increased left ventricular systolic volume. Mildly decreased left ventricular ejection fraction. Left ventricular ejection fraction is estimated at 45-50%. Mildly reduced global left ventricular systolic function. Right Ventricle Normal right ventricular size and function. Mild pulmonary hypertension. Right Atrium RA pressure estimated at 10 mmHg. Left Atrium Patent foramen ovale present with a [id number] shunt. Mild LA dilatation Mitral Valve Mild mitral regurgitation Aortic Valve Tricuspid Valve Structurally normal tricuspid valve. Mild tricuspid regurgitation. Pulmonic Valve Pericardium No pericardial effusion. Aorta CONCLUSIONS Limited Echo study Mildly reduced LV systolic function, with estimated LVEF is 45-50% No obvious regional wall motion abnormality Patent foramen ovale with left to right shunt on color doppler Mild LA dilatation Mild mitral regurgitation No significant difference when compared to prior limited echo from 08/26/22 other than visualization of PFO on current study. Previewed by: Dr Evans Morgan (Electronically Signed) Final Date: 04 November 2022 14:01
[2022-11-04] MEDS: RIVAROXABAN 20 MG TAB PO SCH (15:26)
[2022-11-04 16:25] LABS: % Iron Saturation 7.85 (15.00-50.00)
[2022-11-04] MEDS: MONTELUKAST 10 MG TAB PO SCH (20:28)
[2022-11-05 07:59] LABS: Anisocytosis Slight; Basophils % (A) 0 %; Eosinophils # (A) 0.3 k/uL (0-0.7); Eosinophils % (A) 6 %; HCT 31.2 % (39.0-53.0); HGB 9.9 gm/dL (13.0-17.5); Hypochromasia Slight; Lymphocytes # (A) 1.5 k/uL (1.0-4.8); Lymphocytes % (A) 29 %; MCHC 31.6 g/dL (31.0-37.0); Mean Platelet Volume 8.2; Microcytosis Slight; Monocytes # (A) 0.2 k/uL (0-1.0); Monocytes % (A) 5 %; Neutrophils # (A) 2.9 k/uL (1.3-7.7); Neutrophils % (A) 57 %; Platelet Count 166 k/uL (150-450); RBC 3.95 m/uL (4.30-5.90); RDW 17.8 % (11.5-15.5); WBC 5.1 k/uL (3.8-10.6)
[2022-11-05 09:10] VITALS: BP 155/83; PULSE 57; RESP 16; TEMP 98.3
[2022-11-05] MEDS: DAPAGLIFLOZIN PROPANEDIOL 10 MG TABLET PO SCH (09:12)
[2022-11-05] MEDS: ATORVASTATIN 40 MG TAB PO SCH (09:12)
[2022-11-05] MEDS: METOPROLOL SUCCINATE (ER) 50 MG TAB.ER.24H PO SCH (09:12)
[2022-11-05] MEDS: CHOLECALCIFEROL 25 MCG (1000 IU) TABLET PO SCH (09:12)
[2022-11-05] MEDS: AMIODARONE 200 MG TAB PO SCH (09:12)
[2022-11-05] MEDS: hydrALAZINE HCL 50 MG TAB PO SCH (09:12)
[2022-11-05] MEDS: CLOPIDOGREL 75 MG TAB PO SCH (09:12)
[2022-11-05] MEDS: MULTIVITAMINS, THERA 1 EACH TAB PO SCH (09:12)
[2022-11-05] MEDS: FUROSEMIDE 40 MG TAB PO SCH (09:12)
[2022-11-05] MEDS: VALSARTAN 80 MG TAB PO SCH (09:12)
[2022-11-05] MEDS: DOXYCYCLINE 100 MG CAP PO SCH (09:12)
[2022-11-05] MEDS: COLCHICINE 0.6 MG EACH PO SCH (09:13)
[2022-11-05] MEDS: ISOSORBIDE MONONITRATE ER 30 MG TAB.ER.24H PO SCH (09:13)
[2022-11-05 10:33] LABS: African American GFR (CKD) 54 (>60 ml/min/1.73 sqM); Anion Gap 7 mmol/L; Blood Urea Nitrogen 22 mg/dL (9-20); Calcium 8.3 mg/dL (8.4-10.2); Carbon Dioxide 23 mmol/L (22-30); Chloride 108 mmol/L (98-107); Glucose 106 mg/dL (74-99); Non-African American GFR(CKD) 46 (>60 ml/min/1.73 sqM); Potassium 3.6 mmol/L (3.5-5.1); Sodium 138 mmol/L (137-145)
--- NOTE | 2022-11-05 10:35 | P.DS ---
Providers Date of admission: 11/04/22 12:12 Expected date of discharge: 11/05/22 Attending physician: Lizet Patterson MD Consults: 11/03/22 04:11 Consult Physician Urgent Consulting Provider: [facility] Consult Reason/Comments: chest pain, elevated troponin Do you want consulting provider notified?: Yes, Notify in am [facility] Course: Discharge Diagnosis: Chest pain likely due to recent cardiac ablation Acute blood loss anemia, stable Hematoma left groin area secondary to cardiac ablation procedure, resolving Community-acquired pneumonia Acute kidney injury on CK D stage III Hypertension Hyperlipidemia Atrial fibrillation status post recent cardiac ablation and cardioversion History of cardiomyopathy Hospital Course: Patient is a 72-year-old male with a PMH of A. fib on Xarelto, CAD status post stenting, hypertension, hyperlipidemia, CKD, and COPD who presented to the emergency room with complaints of chest discomfort. The patient underwent cardiac ablation on 10/29. Chest pain is sharp and pleuritic in nature. EKG revealed sinus rhythm at [address]/T-wave changes. Chest x-ray showing multifocal right-sided pneumonia. Laboratory evaluation was remarkable for troponin of 0.840, hemoglobin 12.7, creatinine 2.1 (previously 1.9), glucose 175. No leukocytosis. Patient had low-grade fever but denied cough. Patient started on antibiotics for early developing community-acquired pneumonia. His chest pain is on the left side likely due to the cardiac ablation. Cardiology started the patient on colchicine. Patient's chest pain is resolved at the time of discharge. Patient did have a drop in his hemoglobin. No other overt signs of bleeding other than hematoma from recent cardiac ablation. Hemoglobin stable at the time of discharge. Patient has been restarted on his anticoagulation. Renal function also improved. Iron studies show iron deficiency anemia, patient started on oral iron and and vitamin C. Patient seen and examined at bedside. Vital signs reviewed and stable. General: nontoxic, no distress, appears at stated age Derm: warm, dry, left groin hematoma is resolving Head: atraumatic, normocephalic, symmetric Eyes: EOMI, no lid lag, anicteric sclera Mouth: no lip lesion, mucus membranes moist Cardiovascular: S1S2 reg, no murmur Lungs: CTA bilateral, no rhonchi, no rales , no accessory muscle use Abdominal: soft, nontender to palpation, no guarding, no appreciable organomegaly Ext: no gross muscle atrophy, no edema, no contractures Neuro: CN II-XI grossly intact, no focal neuro deficits Psych: Alert, oriented, appropriate affect A total of 33 minutes of time were spent preparing this complex discharge summary. Patient was discharged on . Patient Condition at Discharge: Stable Plan - Discharge Summary Discharge Rx Participant: No New Discharge Prescriptions: No Action Montelukast Sodium [Singulair] 10 mg PO HS Vitamin B Complex 1 cap PO DAILY Fluticasone Propion/Salmeterol [Advair Hfa 115-21 Mcg Inhaler] 2 puff INHALATION RT-BID PRN PRN Reason: Shortness Of Breath Clopidogrel [Plavix] 75 mg PO DAILY 30 Days #30 tab Rivaroxaban [Xarelto] 20 mg PO W/SUPPER 30 Days #30 tab hydrALAZINE HCL [Apresoline] 25 mg PO BID #60 tab Valsartan 80 mg PO BID amLODIPine [Norvasc] 5 mg PO DAILY #30 tab Metoprolol Succinate (ER) [Toprol XL] 50 mg PO BID #0 Rosuvastatin Calcium 10 mg PO DAILY Dapagliflozin Propanediol [Farxiga] 10 mg PO DAILY #30 tab Cholecalciferol [Vitamin D3 (25 Mcg = 1000 Iu)] 25 mcg PO DAILY Furosemide [Lasix] 40 mg PO DAILY Multivit-Min/FA/Lycopen/Lutein [Centrum Silver Tablet] 1 tab PO DAILY Amiodarone [Cordarone] 200 mg PO DAILY #0 Discharge Medication List Fluticasone Propion/Salmeterol [Advair Hfa 115-21 Mcg Inhaler] 2 puff INHALATION RT-BID PRN 03/17/17 [History] Montelukast Sodium [Singulair] 10 mg PO HS 03/17/17 [History] Vitamin B Complex 1 cap PO DAILY 03/17/17 [History] Rosuvastatin Calcium 10 mg PO DAILY 08/05/22 [History] Clopidogrel [Plavix] 75 mg PO DAILY 30 Days #30 tab 08/07/22 [Rx] Rivaroxaban [Xarelto] 20 mg PO W/SUPPER 30 Days #30 tab 08/07/22 [Rx] Dapagliflozin Propanediol [Farxiga] 10 mg PO DAILY #30 tab 09/23/22 [Rx] hydrALAZINE HCL [Apresoline] 25 mg PO BID #60 tab 09/23/22 [Rx] Cholecalciferol [Vitamin D3 (25 Mcg = 1000 Iu)] 25 mcg PO DAILY 10/23/22 [History] Furosemide [Lasix] 40 mg PO DAILY 10/23/22 [History] Multivit-Min/FA/Lycopen/Lutein [Centrum Silver Tablet] 1 tab PO DAILY 10/23/22 [History] Valsartan 80 mg PO BID 10/25/22 [History] Amiodarone [Cordarone] 200 mg PO DAILY #0 10/30/22 [Rx] Metoprolol Succinate (ER) [Toprol XL] 50 mg PO BID #0 10/30/22 [Rx] amLODIPine [Norvasc] 5 mg PO DAILY #30 tab 10/30/22 [Rx] Follow up Appointment(s)/Referral(s): Jesu Nguyen MD [Primary Care Provider] - 1-2 days
[2022-11-05] MEDS ORDERED: FERROUS SULFATE 325 MG TAB PO SCH (12:30)
--- NOTE | 2022-11-05 13:25 | P.DS ---
Providers Date of admission: 11/04/22 12:12 Expected date of discharge: 11/05/22 Attending physician: Lizet Patterson MD Consults: 11/03/22 04:11 Consult Physician Urgent Consulting Provider: [facility] Consult Reason/Comments: chest pain, elevated troponin Do you want consulting provider notified?: Yes, Notify in am [facility] Hospital Course: Discharge Diagnosis: Chest pain likely due to recent cardiac ablation Acute blood loss anemia, stable Hematoma left groin area secondary to cardiac ablation procedure, resolving Community-acquired pneumonia Acute kidney injury on CK D stage III Hypertension Hyperlipidemia Atrial fibrillation status post recent cardiac ablation and cardioversion History of cardiomyopathy Hospital Course: Patient is a 72-year-old male with a PMH of A. fib on Xarelto, CAD status post stenting, hypertension, hyperlipidemia, CKD, and COPD who presented to the emergency room with complaints of chest discomfort. The patient underwent cardiac ablation on 10/29. Chest pain is sharp and pleuritic in nature. EKG revealed sinus rhythm at [address]/T-wave changes. Chest x-ray showing multifocal right-sided pneumonia. Laboratory evaluation was remarkable for troponin of 0.840, hemoglobin 12.7, creatinine 2.1 (previously 1.9), glucose 175. No leukocytosis. Patient had low-grade fever but denied cough. Patient started on antibiotics for early developing community-acquired pneumonia. His chest pain is on the left side likely due to the cardiac ablation. Cardiology started the patient on colchicine. Patient's chest pain is resolved at the time of discharge. Patient did have a drop in his hemoglobin. No other overt signs of bleeding other than hematoma from recent cardiac ablation. Hemoglobin stable at the time of discharge. Patient has been restarted on his anticoagulation. Renal function also improved. Iron studies show iron deficiency anemia, patient started on oral iron and and vitamin C. Patient seen and examined at bedside. Vital signs reviewed and stable. General: nontoxic, no distress, appears at stated age Derm: warm, dry, left groin hematoma is resolving Head: atraumatic, normocephalic, symmetric Eyes: EOMI, no lid lag, anicteric sclera Mouth: no lip lesion, mucus membranes moist Cardiovascular: S1S2 reg, no murmur Lungs: CTA bilateral, no rhonchi, no rales , no accessory muscle use Abdominal: soft, nontender to palpation, no guarding, no appreciable organomegaly Ext: no gross muscle atrophy, no edema, no contractures Neuro: CN II-XI grossly intact, no focal neuro deficits Psych: Alert, oriented, appropriate affect A total of 33 minutes of time were spent preparing this complex discharge summary. Patient was discharged on . 11/05/22 at 1324 Patient Condition at Discharge: Stable Plan - Discharge Summary Discharge Rx Participant: No New Discharge Prescriptions: New hydrALAZINE HCL [Apresoline] 50 mg PO BID #60 tab Valsartan [Diovan] 80 mg PO DAILY #30 tab Ferrous Sulfate [Iron (65 MG Elemental)] 325 mg PO W/LUNCH #30 tab Doxycycline [Vibramycin] 100 mg PO BID #4 cap Cefdinir 300 mg PO Q12HR #4 cap Colchicine [Colcrys] 0.6 mg PO DAILY #30 each Isosorbide Mononitrate ER [Imdur] 30 mg PO DAILY #30 tab Ascorbic Acid [Vitamin C] 500 mg PO DAILY #30 tab Continue Montelukast Sodium [Singulair] 10 mg PO HS Vitamin B Complex 1 cap PO DAILY Fluticasone Propion/Salmeterol [Advair Hfa 115-21 Mcg Inhaler] 2 puff INHALATION RT-BID PRN PRN Reason: Shortness Of Breath Clopidogrel [Plavix] 75 mg PO DAILY 30 Days #30 tab Rivaroxaban [Xarelto] 20 mg PO W/SUPPER 30 Days #30 tab Metoprolol Succinate (ER) [Toprol XL] 50 mg PO BID #0 Rosuvastatin Calcium 10 mg PO DAILY Dapagliflozin Propanediol [Farxiga] 10 mg PO DAILY #30 tab Cholecalciferol [Vitamin D3 (25 Mcg = 1000 Iu)] 25 mcg PO DAILY Furosemide [Lasix] 40 mg PO DAILY Multivit-Min/FA/Lycopen/Lutein [Centrum Silver Tablet] 1 tab PO DAILY Amiodarone [Cordarone] 200 mg PO DAILY #0 Discontinued hydrALAZINE HCL [Apresoline] 25 mg PO BID #60 tab Valsartan 80 mg PO BID amLODIPine [Norvasc] 5 mg PO DAILY #30 tab Discharge Medication List Fluticasone Propion/Salmeterol [Advair Hfa 115-21 Mcg Inhaler] 2 puff INHALATION RT-BID PRN 03/17/17 [History] Montelukast Sodium [Singulair] 10 mg PO HS 03/17/17 [History] Vitamin B Complex 1 cap PO DAILY 03/17/17 [History] Rosuvastatin Calcium 10 mg PO DAILY 08/05/22 [History] Clopidogrel [Plavix] 75 mg PO DAILY 30 Days #30 tab 08/07/22 [Rx] Rivaroxaban [Xarelto] 20 mg PO W/SUPPER 30 Days #30 tab 08/07/22 [Rx] Dapagliflozin Propanediol [Farxiga] 10 mg PO DAILY #30 tab 09/23/22 [Rx] Cholecalciferol [Vitamin D3 (25 Mcg = 1000 Iu)] 25 mcg PO DAILY 10/23/22 [History] Furosemide [Lasix] 40 mg PO DAILY 10/23/22 [History] Multivit-Min/FA/Lycopen/Lutein [Centrum Silver Tablet] 1 tab PO DAILY 10/23/22 [History] Amiodarone [Cordarone] 200 mg PO DAILY #0 10/30/22 [Rx] Metoprolol Succinate (ER) [Toprol XL] 50 mg PO BID #0 10/30/22 [Rx] Ascorbic Acid [Vitamin C] 500 mg PO DAILY #30 tab 11/05/22 [Rx] Cefdinir 300 mg PO Q12HR #4 cap 11/05/22 [Rx] Colchicine [Colcrys] 0.6 mg PO DAILY #30 each 11/05/22 [Rx] Doxycycline [Vibramycin] 100 mg PO BID #4 cap 11/05/22 [Rx] Ferrous Sulfate [Iron (65 MG Elemental)] 325 mg PO W/LUNCH #30 tab 11/05/22 [Rx] Isosorbide Mononitrate ER [Imdur] 30 mg PO DAILY #30 tab 11/05/22 [Rx] Valsartan [Diovan] 80 mg PO DAILY #30 tab 11/05/22 [Rx] hydrALAZINE HCL [Apresoline] 50 mg PO BID #60 tab 11/05/22 [Rx] Follow up Appointment(s)/Referral(s): Jesu Nguyen MD [Primary Care Provider] - 1-2 days Kathy Bay MD [STAFF PHYSICIAN] - 1 Week Patient Instructions/Handouts: Chest Pain (DC) Activity/Diet/Wound Care/Special Instructions: Please see cardiology. Discharge Disposition: HOME SELF-CARE
--- NOTE | 2022-11-05 15:04 | P.PN ---
Subjective Progress Note Date: 11/04/22 History of Present Illness: The patient is a 72-year-old male with a known history of CAD, post PCI, history of atrial fibrillation status post ablation performed last week who presents with symptoms of chest discomfort, respirophasic, left sided. He's feeling better breathing-anderson since his stenting. He denies any dizziness or palpitations. He denies any nausea. Post-ablation he underwent electroca rdioversion. He has been in sinus mechanism since his admission. He had minimal elevation of his troponin. He underwent cardiac catheterization in July [id number] and was found to have significant obstructive disease in the RCA and underwent stenting of that vessel. He had evidence of cardiomyopathy with moderate severe mitral regurgitation. He underwent cardioversion in August with sikhism of sinus mechanism and because of recurrent atrial fibrillation he underwent repeat cardioversion in September with sikhism of sinus mechanism that recurrent shortly after, symptomatic with symptoms of dyspnea and fatigue in addition to palpitations. His coronary risk factors are positive for hypert ension and hyperlipidemia Medications: Amiodarone 200 mg daily, Plavix 75 g daily, Toprol-XL 50 mg twice a day, Lasix 40 mg daily, valsartan 80 mg twice a, hydralazine 25 mg twice a day, amlodipine 5 mg daily, Xarelto 20 mg daily, Farxiga 10 mg daily, Singulair. 11/04 There was concern regarding hematoma in the left groin but this seems to be stable without concern. Patient is on Xarelto and would recommend continuing this. Blood pressure 156/73, heart rate in the 50s and 60s. Repeat blood work reveals WBC 5.7, hemoglobin 9.9, platelet count 141. Echocardiogram reveals EF 45-50%, mild mitral regurgitation, PFO. Physical Examination: 72-year-old male, alert and oriented no distress Head: Normocephalic. Eyes: Sclerae nonicteric. Neck: Good carotid upstroke, no bruit, no jugular venous distention. Lungs: Clear to auscultation. Heart: Regular rate and rhythm, S1-S2, no S3, no rub. Systolic ejection murmur. Abdomen: Soft nontender, positive bowel sounds no organomegaly. Extremities: No edema, intact distal pulses. Bilateral ecchymosis in the groin with small hematoma on the left side EKG: Sinus mechanism with minor nonspecific ST-T wave changes Impression: 1. Chest discomfort, respirophasic, secondary to the ablation 2. Mild troponin elevation secondary to the ablation 3. Atrial fibrillation, status post ablation and cardioversion, maintaining sinus mechanism 4. History of CAD stable status post stenting of the RCA 5. History of hypertension 6. History of cardiomyopathy 7. History of hyperlipidemia Plan: continue patient's cardiac medications Continue colchicine Increase physical activity Depending on his progress further recommendations will be made, thank you for this consult we will follow with you. Nurse practitioner note has been reviewed, I agree with the documented findings and plan of care. Patient was seen and examined. Objective - Vital Signs Vital signs: Vital Signs Temp 98.1 F 11/04/22 08:00 Pulse 61 11/04/22 08:00 Resp 18 11/04/22 08:00 BP 155/70 11/04/22 08:00 Pulse Ox 97 11/04/22 08:00 FiO2 Intake & Output 11/03/22 11/04/22 11/04/22 18:59 06:59 18:59 Intake Total 358 240 125 Output Total 750 650 350 Balance -392 -410 -225 Intake: Oral 358 240 125 Output: Urine 750 650 350 Other: Voiding Method Urinal Urinal - Labs CBC & Chem 7: 11/05/22 07:19 11/05/22 07:19 Labs: Abnormal Lab Results - Last 24 Hours (Table) 11/04/22 11/04/22 11/04/22 Range/Units 08:17 08:17 10:43 RBC 3.85 L 3.89 L (4.30-5.90) m/uL Hgb 9.7 L D 9.9 L (13.0-17.5) gm/dL Hct 30.7 L 30.9 L (39.0-53.0) % MCV 79.9 L 79.5 L (80.0-100.0) fL RDW 17.9 H 17.8 H (11.5-15.5) % Plt Count 137 L 141 L (150-450) k/uL BUN 22 H (9-20) mg/dL Creatinine 1.55 H (0.66-1.25) mg/dL Glucose 143 H (74-99) mg/dL
--- NOTE | 2022-11-05 15:06 | P.PN ---
Subjective Progress Note Date: 11/05/22 History of Present Illness: The patient is a 72-year-old male with a known history of CAD, post PCI, history of atrial fibrillation status post ablation performed last week who presents with symptoms of chest discomfort, respirophasic, left sided. He's feeling better breathing-anderson since his stenting. He denies any dizziness or palpitations. He denies any nausea. Post-ablation he underwent electroca rdioversion. He has been in sinus mechanism since his admission. He had minimal elevation of his troponin. He underwent cardiac catheterization in July [id number] and was found to have significant obstructive disease in the RCA and underwent stenting of that vessel. He had evidence of cardiomyopathy with moderate severe mitral regurgitation. He underwent cardioversion in August with episcopalian of sinus mechanism and because of recurrent atrial fibrillation he underwent repeat cardioversion in September with episcopalian of sinus mechanism that recurrent shortly after, symptomatic with symptoms of dyspnea and fatigue in addition to palpitations. His coronary risk factors are positive for hypert ension and hyperlipidemia Medications: Amiodarone 200 mg daily, Plavix 75 g daily, Toprol-XL 50 mg twice a day, Lasix 40 mg daily, valsartan 80 mg twice a, hydralazine 25 mg twice a day, amlodipine 5 mg daily, Xarelto 20 mg daily, Farxiga 10 mg daily, Singulair. 11/04 There was concern regarding hematoma in the left groin but this seems to be stable without concern. Patient is on Xarelto and would recommend continuing this. Blood pressure 156/73, heart rate in the 50s and 60s. Repeat blood work reveals WBC 5.7, hemoglobin 9.9, platelet count 141. Echocardiogram reveals EF 45-50%, mild mitral regurgitation, PFO. 11/05 No new concerns from the patient today. He states he has had a little bit of diarrhea since he started colchicine. We will discrease this dosing to 1 time per day. Blood pressure 155/83, heart rate in the 50s. Repeat blood work reveals WBC 5.1, hemoglobin 9.9, platelet count 166. BUN 22 and creatinine 1.49. Physical Examination: 72-year-old male, alert and oriented no distress Head: Normocephalic. Eyes: Sclerae nonicteric. Neck: Good carotid upstroke, no bruit, no jugular venous distention. Lungs: Clear to auscultation. Heart: Regular rate and rhythm, S1-S2, no S3, no rub. Systolic ejection murmur. Abdomen: Soft nontender, positive bowel sounds no organomegaly. Extremities: No edema, intact distal pulses. Bilateral ecchymosis in the groin with small hematoma on the left side EKG: Sinus mechanism with minor nonspecific ST-T wave changes Impression: 1. Chest discomfort, respirophasic, secondary to the ablation 2. Mild troponin elevation secondary to the ablation 3. Atrial fibrillation, status post ablation and cardioversion, maintaining sinus mechanism 4. History of CAD stable status post stenting of the RCA 5. History of hypertension 6. History of cardiomyopathy 7. History of hyperlipidemia Plan: continue patient's cardiac medications Continue colchicine Patient is cleared from Cardiology for discharge home and may follow up in the office in 1-2 weeks. Nurse practitioner note has been reviewed, I agree with the documented findings and plan of care. Patient was seen and examined. Objective - Vital Signs Vital signs: Vital Signs Temp 98.3 F 11/05/22 08:00 Pulse 57 L 11/05/22 08:00 Resp 16 11/05/22 08:00 BP 155/83 11/05/22 08:00 Pulse Ox 97 11/05/22 08:00 FiO2 Intake & Output 11/04/22 11/05/22 11/05/22 18:59 06:59 18:59 Intake Total 483 230 898 Output Total 1850 950 500 Balance -1367 -720 398 Weight 99 kg Intake: Oral 483 230 898 Output: Urine 1850 950 500 Other: Voiding Method Urinal # Voids 2 # Bowel Movements 1 - Labs CBC & Chem 7: 11/05/22 07:19 11/05/22 07:19 Labs: Abnormal Lab Results - Last 24 Hours (Table) 11/04/22 11/05/22 11/05/22 Range/Units 10:43 07:19 07:19 RBC 3.95 L (4.30-5.90) m/uL Hgb 9.9 L (13.0-17.5) gm/dL Hct 31.2 L (39.0-53.0) % MCV 79.0 L (80.0-100.0) fL RDW 17.8 H (11.5-15.5) % Chloride 108 H (98-107) mmol/L BUN 22 H (9-20) mg/dL Creatinine 1.49 H (0.66-1.25) mg/dL Glucose 106 H (74-99) mg/dL Calcium 8.3 L (8.4-10.2) mg/dL Iron 19 L (65-175) UG/DL % Saturation 7.85 L (15.00-50.00) Transferrin 173.0 L (204.0-354.0) mg/dL Microbiology - Last 24 Hours (Table) 11/03/22 10:11 Blood Culture - Preliminary Blood 11/03/22 10:20 Blood Culture - Preliminary Blood
[2022-11-06] MEDS ORDERED: COLCHICINE 0.6 MG EACH PO SCH (09:00)
[2022-11-06] MEDS ORDERED: ASCORBIC ACID 500 MG TAB PO SCH (09:00)
== END 2022-11-05 15:32 | disposition home or self-care (01) | DRG 947 ==
LOC: EC 01:54 → 3SCARD 04:34 → OBSVTOIN 11-04 12:12
PROVIDERS: ADMIT Internal Medicine; ATTEND Internal Medicine
DX: G89.18 Other acute postprocedural pain (principal); J18.9 Pneumonia, unspecified organism; I97.638 Postprocedural hematoma of a circulatory system organ or structure following other circulatory system procedure; D62 Acute posthemorrhagic anemia; I42.9 Cardiomyopathy, unspecified; J44.0 Chronic obstructive pulmonary disease with (acute) lower respiratory infection; J81.1 Chronic pulmonary edema; N17.9 Acute kidney failure, unspecified; R07.89 Other chest pain; Y84.8 Other medical procedures as the cause of abnormal reaction of the patient, or of later complication, without mention of misadventure at the time of the procedure; Y71.1 Therapeutic (nonsurgical) and rehabilitative cardiovascular devices associated with adverse incidents; D50.9 Iron deficiency anemia, unspecified; E78.5 Hyperlipidemia, unspecified; R73.03 Prediabetes; I12.9 Hypertensive chronic kidney disease with stage 1 through stage 4 chronic kidney disease, or unspecified chronic kidney disease; R77.8 Other specified abnormalities of plasma proteins; I25.10 Atherosclerotic heart disease of native coronary artery without angina pectoris; I34.0 Nonrheumatic mitral (valve) insufficiency; I48.91 Unspecified atrial fibrillation; N18.30 Chronic kidney disease, stage 3 unspecified; Z79.01 Long term (current) use of anticoagulants; Z79.02 Long term (current) use of antithrombotics/antiplatelets; Z79.84 Long term (current) use of oral hypoglycemic drugs; Z79.899 Other long term (current) drug therapy; Z82.49 Family history of ischemic heart disease and other diseases of the circulatory system; Z95.5 Presence of coronary angioplasty implant and graft
CPT/HCPCS: 36415; 71046; 80048; 80053; 82728; 83540; 83550; 83735; 84484; 85025; 85027; 85610; 85730; 86850; 86900; 86901; 87040; 93005; 93308; 94760; 96361; 96374; 99285

== ENCOUNTER → 2022-11-13 | Outpatient (CLI) | payer MEDICARE ==
[2022-11-13 09:21] LABS: ALT 40 U/L (4-49); AST 32 U/L (17-59); African American GFR (CKD) 53 (>60 ml/min/1.73 sqM); Albumin 3.5 g/dL (3.5-5.0); Albumin/Globulin Ratio 1.3; Alkaline Phosphatase 87 U/L (38-126); Anion Gap 6 mmol/L; Blood Urea Nitrogen 19 mg/dL (9-20); Calcium 8.4 mg/dL (8.4-10.2); Carbon Dioxide 29 mmol/L (22-30); Chloride 106 mmol/L (98-107); Globulin 2.7 g/dL; Glucose 104 mg/dL (74-99); Non-African American GFR(CKD) 46 (>60 ml/min/1.73 sqM); Potassium 3.8 mmol/L (3.5-5.1); Sodium 141 mmol/L (137-145); Total Bilirubin 0.5 mg/dL (0.2-1.3); Total Protein 6.2 g/dL (6.3-8.2)
[2022-11-13 10:12] LABS: NT-Pro-B-Type Natriuretic Pept 4240 pg/mL
[2022-11-13 10:20] LABS: T4, Free (Free Thyroxine) 1.01 ng/dL (0.78-2.19)
[2022-11-13 10:58] LABS: Basophils # (A) 0.04 X 10*3/uL (0.00-0.10); Basophils % (A) 0.8 %; Eosinophils # (A) 0.26 X 10*3/uL (0.04-0.35); Eosinophils % (A) 4.9 %; HCT 35.3 % (39.6-50.0); HGB 10.7 d/dL (13.0-17.0); Lymphocytes # (A) 1.75 X 10*3/uL (0.90-5.00); Lymphocytes % (A) 33.1 %; MCH 24.8 pg (27.0-32.0); MCHC 30.3 d/dL (32.0-37.0); MCV 81.7 FL (80.0-97.0); Monocytes # (A) 0.44 X 10*3/uL (0.20-1.00); Monocytes % (A) 8.3 %; NRBC Per 100 WBC 0 X 10*3/uL (0.00-0.01); Neutrophils # (A) 2.79 X 10*3/uL (1.80-7.70); Neutrophils % (A) 52.7 %; Platelet Count 197 X 10*3/uL (140-440); RBC 4.32 X 10*6/uL (4.40-5.60); RDW 18.4 % (11.5-14.5); WBC 5.29 X 10*3/uL (4.50-10.00)
[2022-11-13 18:00] LABS: % Iron Saturation 16.21 (15.00-50.00); Chol/HDL Ratio 3.79 Ratio; Iron 41 UG/DL (65-175); LDL Cholesterol,Calculated 64.6 mg/dL (0.0-131.0); Total Iron Binding Capacity 253 UG/DL (228-460)
== END | disposition home or self-care (01) ==
LOC: LABWHC1 07:35
PROVIDERS: ATTEND Family Medicine
DX: Z00.01 Encounter for general adult medical examination with abnormal findings (principal); Z12.5 Encounter for screening for malignant neoplasm of prostate; E78.5 Hyperlipidemia, unspecified; D50.9 Iron deficiency anemia, unspecified; I50.9 Heart failure, unspecified; I48.11 Longstanding persistent atrial fibrillation; E78.2 Mixed hyperlipidemia
CPT/HCPCS: 36415; 80053; 80061; 82728; 83036; 83540; 83550; 83880; 84153; 84439; 84443; 85025

== ENCOUNTER → 2022-12-11 | Outpatient (CLI) | payer MEDICARE ==
--- NOTE | 2022-12-11 16:28 | US ---
EXAMINATION TYPE: US kidneys/renal and bladder DATE OF EXAM: 12/11/2022 COMPARISON: CLINICAL INDICATION: Male, 72 years old with history of N18.30 CKD; abn labs EXAM MEASUREMENTS: Right Kidney: 10.0 x 5.3 x 5.7 cm Left Kidney: 9.0 x 3.4 x 3.2 cm Right Kidney: lower pole lateral cortical cystic appearing lesion x 0.9 x 0.9 x 0.9 cm Left Kidney: Asymmetric appearance of left kidney as noted on previous exam with cortical thinning of the upper and mid pole. Medial anechoic lesion at hilum = 1.1 x 1.2 cm. Lower mid hypoechoic cortica l nonvascular lesion - 0.9 x 1.1 x 1.1 cm. Bladder: distended, anechoic Bilateral Jets seen There is no evidence for hydronephrosis at this point in time. No nephrolithiasis is seen. No solid masses are identified. The urinary bladder is anechoic. Bilateral ureteral jets are seen. IMPRESSION: Renal cystic lesions and renal parenchymal thinning.
== END | disposition home or self-care (01) ==
LOC: RADUSWWP 15:41
PROVIDERS: ATTEND Family Medicine
DX: N18.30 Chronic kidney disease, stage 3 unspecified (principal); N28.1 Cyst of kidney, acquired
CPT/HCPCS: 76770

== ENCOUNTER → 2023-01-01 | Outpatient (CLI) | payer MEDICARE ==
[2023-01-01 16:37] LABS: Basophils # (A) 0.04 X 10*3/uL (0.00-0.10); Basophils % (A) 0.6 %; Eosinophils # (A) 0.14 X 10*3/uL (0.04-0.35); Eosinophils % (A) 2.1 %; HCT 39.1 % (39.6-50.0); HGB 12.2 d/dL (13.0-17.0); Lymphocytes # (A) 1.95 X 10*3/uL (0.90-5.00); Lymphocytes % (A) 29.8 %; MCH 25.8 pg (27.0-32.0); MCHC 31.2 d/dL (32.0-37.0); MCV 82.8 FL (80.0-97.0); Mean Platelet Volume 9.2 FL (9.5-12.2); Monocytes # (A) 0.64 X 10*3/uL (0.20-1.00); Monocytes % (A) 9.8 %; NRBC Per 100 WBC 0 X 10*3/uL (0.00-0.01); Neutrophils # (A) 3.76 X 10*3/uL (1.80-7.70); Neutrophils % (A) 57.5 %; Platelet Count 165 X 10*3/uL (140-440); RBC 4.72 X 10*6/uL (4.40-5.60); WBC 6.54 X 10*3/uL (4.50-10.00)
[2023-01-01 17:01] LABS: % Iron Saturation 13.99 (15.00-50.00); ALT 27 U/L (10-49); AST 20 U/L (14-35); Albumin 4.5 d/dL (3.8-4.9); Albumin/Globulin Ratio 1.88 Ratio (1.60-3.17); Alkaline Phosphatase 93 U/L (41-126); BUN/Creat Ratio 15.55 Ratio (12.00-20.00); Blood Urea Nitrogen 34.2 mg/dL (9.0-27.0); Calcium 9.3 mg/dL (8.7-10.3); Carbon Dioxide 23.8 mmol/L (21.6-31.8); Chloride 104 mmol/L (96-109); Globulin 2.4 d/dL (1.6-3.3); Glucose 100 mg/dL (70-110); Iron 41 UG/DL (65-175); Potassium 4.6 mmol/L (3.5-5.5); Sodium 141 mmol/L (135-145); Total Bilirubin 0.5 mg/dL (0.3-1.2); Total Iron Binding Capacity 293 UG/DL (228-460); Total Protein 6.9 d/dL (6.2-8.2)
== END | disposition home or self-care (01) ==
LOC: LABWHC1 08:28
PROVIDERS: ATTEND Family Medicine
DX: N18.30 Chronic kidney disease, stage 3 unspecified (principal); D63.1 Anemia in chronic kidney disease
CPT/HCPCS: 36415; 80053; 82728; 83540; 83550; 85025

== ENCOUNTER → 2023-04-11 | Outpatient (CLI) | payer MEDICARE ==
[2023-04-11 15:53] LABS: Basophils # (A) 0.04 X 10*3/uL (0.00-0.10); Basophils % (A) 0.5 %; Eosinophils # (A) 0.25 X 10*3/uL (0.04-0.35); Eosinophils % (A) 3.4 %; HCT 46.6 % (39.6-50.0); HGB 14.6 g/dL (13.0-17.0); Lymphocytes # (A) 2.35 X 10*3/uL (0.90-5.00); Lymphocytes % (A) 31.7 %; MCH 27.2 pg (27.0-32.0); MCHC 31.3 g/dL (32.0-37.0); MCV 86.9 FL (80.0-97.0); Mean Platelet Volume 9.8 FL (9.5-12.2); Monocytes # (A) 0.65 X 10*3/uL (0.20-1.00); Monocytes % (A) 8.8 %; NRBC Per 100 WBC 0 X 10*3/uL (0.00-0.01); Neutrophils # (A) 4.12 X 10*3/uL (1.80-7.70); Neutrophils % (A) 55.5 %; Platelet Count 167 X 10*3/uL (140-440); RBC 5.36 X 10*6/uL (4.40-5.60); RDW 15.7 % (11.5-14.5); WBC 7.42 X 10*3/uL (4.50-10.00)
[2023-04-11 16:25] LABS: % Iron Saturation 16.19 (15.00-50.00); ALT 63 U/L (10-49); AST 31 U/L (14-35); Albumin 4.3 g/dL (3.8-4.9); Albumin/Globulin Ratio 1.79 Ratio (1.60-3.17); Alkaline Phosphatase 106 U/L (41-126); BUN/Creat Ratio 11.84 Ratio (12.00-20.00); Blood Urea Nitrogen 29.6 mg/dL (9.0-27.0); Calcium 9.5 mg/dL (8.7-10.3); Carbon Dioxide 28.7 mmol/L (21.6-31.8); Chloride 102 mmol/L (96-109); Chol/HDL Ratio 4.84 Ratio; Globulin 2.4 g/dL (1.6-3.3); Glucose 109 mg/dL (70-110); Iron 51 UG/DL (65-175); LDL Cholesterol,Calculated 94.9 mg/dL (0.0-131.0); Potassium 4.7 mmol/L (3.5-5.5); Prostate Specific Antigen 0.38 ng/mL (0.000-6.500); Sodium 143 mmol/L (135-145); T4, Free (Free Thyroxine) 0.53 ng/dL (0.80-1.80); Total Bilirubin 0.5 mg/dL (0.3-1.2); Total Iron Binding Capacity 315 UG/DL (228-460); Total Protein 6.7 g/dL (6.2-8.2)
== END | disposition home or self-care (01) ==
LOC: LABWHC1 09:26
PROVIDERS: ATTEND Family Medicine
DX: Z00.01 Encounter for general adult medical examination with abnormal findings (principal); Z12.5 Encounter for screening for malignant neoplasm of prostate; E78.5 Hyperlipidemia, unspecified; D64.9 Anemia, unspecified; E11.21 Type 2 diabetes mellitus with diabetic nephropathy
CPT/HCPCS: 36415; 80053; 80061; 82728; 83036; 83540; 83550; 84153; 84439; 84443; 85025

== ENCOUNTER → 2023-05-01 | Outpatient (CLI) | payer MEDICARE ==
[2023-05-01 14:30] LABS: Hepatitis A Antibody IgM Nonreactive; Hepatitis B Core IgM Nonreactive; Hepatitis B Surface Antigen Nonreactive; Hepatitis C IgG Antibody Nonreactive
[2023-05-01 15:10] LABS: % Iron Saturation 20.76 (15.00-50.00); Iron 71 UG/DL (65-175); Magnesium 2.3 mg/dL (1.5-2.4); Phosphorus 2.8 mg/dL (2.4-5.1); Total Iron Binding Capacity 342 UG/DL (228-460); Uric Acid 8.7 mg/dL (3.7-8.7)
[2023-05-01 15:11] LABS: ALT 65 U/L (10-49); AST 49 U/L (14-35); Albumin 4.5 g/dL (3.8-4.9); Albumin/Globulin Ratio 1.67 Ratio (1.60-3.17); Alkaline Phosphatase 106 U/L (41-126); BUN/Creat Ratio 11.28 Ratio (12.00-20.00); Blood Urea Nitrogen 28.2 mg/dL (9.0-27.0); Calcium 9.5 mg/dL (8.7-10.3); Carbon Dioxide 25.2 mmol/L (21.6-31.8); Chloride 103 mmol/L (96-109); Globulin 2.7 g/dL (1.6-3.3); Glucose 115 mg/dL (70-110); Potassium 3.7 mmol/L (3.5-5.5); Sodium 144 mmol/L (135-145); Total Bilirubin 0.7 mg/dL (0.3-1.2); Total Protein 7.2 g/dL (6.2-8.2)
[2023-05-01 15:53] LABS: Appearance,Urine Clear (Clear); Bilirubin,Urine Negative (Negative); Blood,Urine Negative (Negative); Color,Urine Yellow (Yellow); Ketones,Urine Negative (Negative); Nitrite,Urine Negative (Negative); PH, Urine 5.5; Specific Gravity,Urine 1.017 (1.001-1.030); Urobilinogen,Urine 0.2 E.U./DL
[2023-05-02 00:17] LABS: DNA Double-Stranded Negative (Negative)
[2023-05-02 12:17] LABS: C-ANCA <1:20 Titer (<1:20)
--- NOTE | 2023-05-02 12:52 | US ---
EXAMINATION TYPE: US kidneys/renal and bladder DATE OF EXAM: 05/01/2023 COMPARISON: US CLINICAL INDICATION: Male, 73 years old with history of [id number] KID DISEASE; Kidney disease EXAM MEASUREMENTS: Right Kidney: 10.2 x 4.7 x 4.8 cm Left Kidney: 7.9 x 2.8 x 2.9 cm Right Kidney: Upper pole anechoic lesion appears a simple cortical renal cyst measuring 0.9 x 0.7 x 0 .9 cm, lower pole anechoic lesion appears a simple cortical renal cyst measuring 1.1 x 1.0 x 1.0 cm. No evidence of hydronephrosis Left Kidney: upper and mid poles appear atrophic as visualized on priors, kidney measuring smaller wh en compared to prior. Hypoechoic cystlike lesion mid= 1.3 x 1.1 x 1.3 cm Bladder: wnl Bilateral Jets seen: No IMPRESSION: 1. Bilateral renal cysts. 2. Suggestion of some renal atrophy left kidney
== END | disposition home or self-care (01) ==
LOC: LABWHC1 10:03
PROVIDERS: ATTEND Internal Medicine
DX: N28.1 Cyst of kidney, acquired (principal); N18.32 Chronic kidney disease, stage 3b; N25.81 Secondary hyperparathyroidism of renal origin; D64.9 Anemia, unspecified; N39.0 Urinary tract infection, site not specified; E55.9 Vitamin D deficiency, unspecified; M10.9 Gout, unspecified; R53.83 Other fatigue
CPT/HCPCS: 76770; 80053; 80074; 81003; 82043; 82306; 82570; 82728; 83516; 83540; 83550; 83735; 83883; 83970; 84100; 84550; 86160; 86162; 86225; 86255; 86334

== ENCOUNTER → 2023-05-28 | Outpatient (CLI) | payer MEDICARE ==
[2023-05-28 16:14] LABS: ALT 66 U/L (10-49); AST 41 U/L (14-35); Albumin 4.3 g/dL (3.8-4.9); Albumin/Globulin Ratio 1.79 Ratio (1.60-3.17); Alkaline Phosphatase 91 U/L (41-126); BUN/Creat Ratio 12.09 Ratio (12.00-20.00); Blood Urea Nitrogen 26.6 mg/dL (9.0-27.0); Calcium 8.9 mg/dL (8.7-10.3); Carbon Dioxide 28.2 mmol/L (21.6-31.8); Chloride 104 mmol/L (96-109); Chol/HDL Ratio 4.47 Ratio; Globulin 2.4 g/dL (1.6-3.3); Glucose 92 mg/dL (70-110); LDL Cholesterol,Calculated 66.6 mg/dL (0.0-131.0); Potassium 4.4 mmol/L (3.5-5.5); Sodium 142 mmol/L (135-145); Total Bilirubin 0.5 mg/dL (0.3-1.2); Total Protein 6.7 g/dL (6.2-8.2)
== END | disposition home or self-care (01) ==
LOC: LABWHC1 09:40
PROVIDERS: ATTEND Internal Medicine Interventional Cardiology
DX: E78.2 Mixed hyperlipidemia (principal)
CPT/HCPCS: 36415; 80053; 80061

== ENCOUNTER → 2023-06-26 | Outpatient (CLI) | payer MEDICARE ==
[2023-06-27 02:05] LABS: Basophils # (A) 0.03 X 10*3/uL (0.00-0.10); Basophils % (A) 0.5 %; Eosinophils # (A) 0.18 X 10*3/uL (0.04-0.35); Eosinophils % (A) 2.9 %; HCT 39.4 % (39.6-50.0); HGB 12.7 g/dL (13.0-17.0); Lymphocytes # (A) 2.16 X 10*3/uL (0.90-5.00); Lymphocytes % (A) 34.7 %; MCH 28.1 pg (27.0-32.0); MCHC 32.2 g/dL (32.0-37.0); MCV 87.2 FL (80.0-97.0); Mean Platelet Volume 9.5 FL (9.5-12.2); Monocytes # (A) 0.58 X 10*3/uL (0.20-1.00); Monocytes % (A) 9.3 %; NRBC Per 100 WBC 0 X 10*3/uL (0.00-0.01); Neutrophils # (A) 3.26 X 10*3/uL (1.80-7.70); Neutrophils % (A) 52.3 %; Platelet Count 153 X 10*3/uL (140-440); RBC 4.52 X 10*6/uL (4.40-5.60); RDW 15.7 % (11.5-14.5); WBC 6.23 X 10*3/uL (4.50-10.00)
== END | disposition home or self-care (01) ==
LOC: LABPAT 15:54
PROVIDERS: ATTEND Orthopaedic Surgery Hand Surgery
DX: Z01.812 Encounter for preprocedural laboratory examination (principal)
CPT/HCPCS: 36415; 85025

== ENCOUNTER 2023-07-23 07:32 | Day surgery (SDC) | payer MEDICARE ==
--- NOTE | 2023-07-22 11:05 | P.HPOR ---
History of Present Illness H&P Date: 07/22/23 Subjective: This is a 73 year old male that presents today for initial evaluation regarding a several year history of an increasing in size lump on the left middle finger. He states 15 to 20 years ago he had a soft tissue mass excision and over the last several years it has recurred. He states it is often painful and irritating especially when it rubs on the neighboring digit or if he bumps the mass. Physical Examination: LUE: AIN/PIN/Radial/Ulnar/Median motor intact. Radial/Ulnar/Median SILT. 2+/4 Radial/Ulnar pulses palpated. 5/5 APB, 5/5 FDI. Negative Finkelsteins, negative CMC grind, negative Durkan's compression. 1cm prominent pump at base of middle phalanx. Previous surgical scar appreciated. Imaging: X-Rays of the left middle finger 2V taken in office today demonstrate 7mm osteophyte/bone tumor present at radial base of middle phalanx with soft tissue swelling present. 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 He would like to proceed with exicison of recurrent left middle finger mass with alem osteophyte excision. Risks and benefits of surgery including bleeding, infection, damage to surrounding tissue, need for further surgery, residual numbness were discussed and the patient wished to go forward with surgery.The patient was agreeable with this plan. CC: Tatianna Nguyen MD -Eyal Mathias DO Orthopedic Hand/Upper Extremity Surgeon Past Medical History Past Medical History: Atrial Fibrillation, Asthma, Diabetes Mellitus, Hyperlipidemia, Hypertension, Osteoarthritis (OA), Renal Disease, Sleep Apnea/CPAP/BIPAP Additional Past Medical History / Comment(s): "borderline diabetic", does not use CPAP, stage 3 kidney disease History of Any Multi-Drug Resistant Organisms: None Reported Past Surgical History: Ablation, Heart Catheterization With Stent, Orthopedic Surgery, Tonsillectomy Additional Past Surgical History / Comment(s): polyp removed from throat, nasal surgery, rt knee arthroscopy, COLONOSCOPY, foot surgery to have something removed-not sure which foot. left middle finger surgery Past Anesthesia/Blood Transfusion Reactions: No Reported Reaction Date of Last Stent Placement:: 2022 Smoking Status: Former smoker - Past Family History Mother Family Medical History: Hypertension Additional Family Medical History / Comment(s): Passed when pt was 13 with a "heart problem or a stroke" Father Family Medical History: Myocardial Infarction (SC) Additional Family Medical History / Comment(s): from a heart attack. Sister(s) Additional Family Medical History / Comment(s): "Heart problems", one sister with a heart transplant Brother(s) Additional Family Medical History / Comment(s): "Heart problems" Medications and Allergies Home Medications Medication Instructions Recorded Confirmed Type Fluticasone Propion/Salmeterol 2 puff INHALATION RT-BID PRN 03/17/17 07/16/23 History [Advair Hfa 115-21 Mcg Inhaler] Montelukast Sodium [Singulair] 10 mg PO HS 03/17/17 07/16/23 History Vitamin B Complex 1 cap PO DAILY 03/17/17 07/16/23 History Rosuvastatin Calcium 20 mg PO DAILY 08/05/22 07/16/23 History Clopidogrel [Plavix] 75 mg PO DAILY 30 Days #30 tab 08/07/22 07/16/23 Rx Rivaroxaban [Xarelto] 20 mg PO W/SUPPER 30 Days #30 tab 08/07/22 07/16/23 Rx Dapagliflozin Propanediol [Farxiga] 10 mg PO DAILY #30 tab 09/23/22 07/16/23 Rx Cholecalciferol [Vitamin D3 (25 25 mcg PO DAILY 10/23/22 07/16/23 History Mcg = 1000 Iu)] Multivit-Min/FA/Lycopen/Lutein 1 tab PO DAILY 10/23/22 07/16/23 History [Centrum Silver Tablet] Amiodarone [Cordarone] 200 mg PO DAILY #0 10/30/22 07/16/23 Rx Ascorbic Acid [Vitamin C] 500 mg PO DAILY #30 tab 11/05/22 07/16/23 Rx Ferrous Sulfate [Iron (65 MG 325 mg PO W/LUNCH #30 tab 11/05/22 07/16/23 Rx Elemental)] Isosorbide Mononitrate ER [Imdur] 30 mg PO DAILY #30 tab 11/05/22 07/16/23 Rx Valsartan [Diovan] 80 mg PO DAILY #30 tab 11/05/22 07/16/23 Rx hydrALAZINE HCL [Apresoline] 50 mg PO BID #60 tab 11/05/22 07/16/23 Rx Metoprolol Succinate (ER) [Toprol 100 mg PO DAILY 07/16/23 07/16/23 History XL] Allergies Allergy/AdvReac Type Severity Reaction Status Date / Time No Known Allergies Allergy Verified 07/15/23 16:24 Physical Examination Osteopathic Statement: *. No significant issues noted on an osteopathic structural exam other than those noted in the History and Physical/Consult.
[~2023-07-23 07:32] MED LIST changes: -DEXAMETHASONE SOD PHOSPHATE 4 MG/ML 1 ML VIAL IV ONE; -LACTATED RINGERS 1,000 ML IV SCH; +MIDAZOLAM 2 MG/2 ML VIAL IV PRN; -ONDANSETRON 4 MG/2 ML VIAL IVP ONE; -ONDANSETRON 4 MG/2 ML VIAL IVP PRN; +Pre Op ABX Message 1 EACH MISC MISCELLANE ONE
[2023-07-23 08:34] VITALS: TEMP 96.9
[2023-07-23 08:43] LABS: Glucose,Whole Blood 120 mg/dL (70-110)
[2023-07-23] MEDS: LACTATED RINGERS 1,000 ML IV SCH (08:44)
[2023-07-23] MEDS: ONDANSETRON 4 MG/2 ML VIAL IVP ONE (08:45)
[2023-07-23] MEDS: DEXAMETHASONE SOD PHOSPHATE 4 MG/ML 1 ML VIAL IV ONE (08:45)
[2023-07-23] MEDS: LIDOCAINE 2% INJ 20 MG/ML SQ ONE ×2 (09:07→09:15)
[2023-07-23] MEDS: BUPIVACAINE (PF) 0.5% 30 ML VIAL SQ ONE ×2 (09:08→09:15)
[2023-07-23] MEDS ORDERED: fentaNYL (PF) 50 MCG/ML 2 ML AMP ONE (09:09)
[2023-07-23] MEDS ORDERED: MIDAZOLAM 2 MG/2 ML VIAL ONE (09:09)
[2023-07-23] MEDS ORDERED: LIDOCAINE 1% INJ 10MG/ML (20 ML MDV) ONE (09:09)
[2023-07-23] MEDS ORDERED: PROPOFOL 10 MG/ML 20 ML VIAL IV ONE (09:09)
--- NOTE | 2023-07-23 10:04 | P.OP ---
Date of Procedure: 07/23/23 Preoperative Diagnosis: Recurrent left middle finger alem mass Postoperative Diagnosis: Recurrent left middle finger bone tumor Procedure(s) Performed: Left middle finger revision alem tumor excision Anesthesia: MAC Surgeon: Eyal Mathias Pony Roll Finisher #1: Rl Cuellar Estimated Blood Loss (ml): 0 Pathology: other (Right middle finger mass) Condition: stable Disposition: PACU Description of Procedure: This is a 73 year old male who presents today for a left middle finger recurrent mass excision. Risks and benefits of surgery were discussed with the patient including bleeding, damage to surrounding tissue, infection, need for further surgery as well as risks of anesthesia including pulmonary embolism and even and the patient wished to proceed with surgical intervention. The patient was seen in the pre-operative area by myself. Consent and H&P were completed and updated. The correct extremity was marked in the pre-operative area by myself and all other questions were answered. Operative Narrative: The patient was brought to the operating room by the department of anesthesia. They remained on the portable stretcher and a rolling hand table was brought to the side of the operative extremity. Pre-operative time out was performed indicating the correct patient, procedure and laterality. All in the room agreed. Pre-operative antibiotics were given prior to skin incision. The patient was then drifted off to sleep by the department of anesthesia. Digital block was performed with 7cc's of 0.5% Lidocaine and 1% lidocaine in a 50:50 mixture. A nonsterile tourniquet was then applied to the operative extremity and the left upper extremity was then prepped and draped in normal sterile fashion. The operative extremity was the exsanguinated with an esmarch bandage and the tourniquet was inflated to 250mmHg. Previous scar for primary resection was utilized and incision was made with a 15 blade scalpel on the lateral portion of the digit. Blunt dissection was taken down through subcutaneous tissues. The mass was dissected out from surrounding soft tissue attachments and was collected. Rongeur was utilized to remove the alem prominence at the base of the condyle while preserving the attachment of t he collateral ligaments. The 2x2cm mass was then collected and sent for pathology. It appeared to be connected to the radial base of the proximal phalanx with a cartilaginous cap. The wound was the irrigated with sterile saline and bovie cautery was utilized for hemostasis. The incision was then closed with 4-0 nylon suture and a soft dressing was applied. Tourniquet was let down and the hand had immediate perfusion. Rl ANDERSON was present for the case to assist in protection of neurovascular structures. The patient was then woken by the department of anesthesia and transferred to PACU in stable condition. Eyal Mathias D.O. Orthopedic Hand/Upper Extremity Surgeon
[2023-07-23 10:17] LABS: Glucose,Whole Blood 120 mg/dL (70-110)
[2023-07-23 10:36] VITALS: BP 158/73; PULSE 50
[2023-07-23 10:37] VITALS: RESP 16
== END 2023-07-23 10:35 | disposition home or self-care (01) ==
LOC: OR 07:32
PROVIDERS: ATTEND Orthopaedic Surgery Hand Surgery
DX: D16.12 Benign neoplasm of short bones of left upper limb (principal); I48.91 Unspecified atrial fibrillation; J45.909 Unspecified asthma, uncomplicated; E11.9 Type 2 diabetes mellitus without complications; I10 Essential (primary) hypertension; E78.5 Hyperlipidemia, unspecified; G47.33 Obstructive sleep apnea (adult) (pediatric); M19.90 Unspecified osteoarthritis, unspecified site; Z95.5 Presence of coronary angioplasty implant and graft; Z87.891 Personal history of nicotine dependence; Z90.89 Acquired absence of other organs; Z98.890 Other specified postprocedural states; Z82.3 Family history of stroke; Z82.49 Family history of ischemic heart disease and other diseases of the circulatory system; Z79.51 Long term (current) use of inhaled steroids; Z79.02 Long term (current) use of antithrombotics/antiplatelets; Z79.84 Long term (current) use of oral hypoglycemic drugs; Z79.899 Other long term (current) drug therapy; Z79.01 Long term (current) use of anticoagulants
CPT/HCPCS: 26111; 88305; 88311; J2001 ×2; J2250; J1100; J2405; J3010; J2704; J0665

== ENCOUNTER → 2023-08-13 | Outpatient (CLI) | payer MEDICARE ==
[2023-08-13 14:49] LABS: Creatinine,Urine Random 133.8 mg/dL; Protein/Creatinine Ratio,Urine 0.135
[2023-08-13 15:03] LABS: Basophils # (A) 0.03 X 10*3/uL (0.00-0.10); Basophils % (A) 0.6 %; Eosinophils # (A) 0.32 X 10*3/uL (0.04-0.35); Eosinophils % (A) 5.9 %; HCT 37.7 % (39.6-50.0); HGB 11.9 g/dL (13.0-17.0); Lymphocytes # (A) 1.88 X 10*3/uL (0.90-5.00); Lymphocytes % (A) 34.8 %; MCH 28.7 pg (27.0-32.0); MCHC 31.6 g/dL (32.0-37.0); MCV 91.1 FL (80.0-97.0); Monocytes # (A) 0.41 X 10*3/uL (0.20-1.00); Monocytes % (A) 7.6 %; NRBC Per 100 WBC 0 X 10*3/uL (0.00-0.01); Neutrophils # (A) 2.76 X 10*3/uL (1.80-7.70); Neutrophils % (A) 50.9 %; Platelet Count 139 X 10*3/uL (140-440); RBC 4.14 X 10*6/uL (4.40-5.60); RDW 15.5 % (11.5-14.5); WBC 5.41 X 10*3/uL (4.50-10.00)
[2023-08-13 15:22] LABS: ALT 32 U/L (10-49); AST 30 U/L (14-35); Albumin 4.5 g/dL (3.8-4.9); Albumin/Globulin Ratio 1.96 Ratio (1.60-3.17); Alkaline Phosphatase 80 U/L (41-126); BUN/Creat Ratio 13.38 Ratio (12.00-20.00); Blood Urea Nitrogen 38.8 mg/dL (9.0-27.0); Calcium 9.4 mg/dL (8.7-10.3); Carbon Dioxide 23.9 mmol/L (21.6-31.8); Chloride 104 mmol/L (96-109); Chol/HDL Ratio 4.15 Ratio; Globulin 2.3 g/dL (1.6-3.3); Glucose 95 mg/dL (70-110); LDL Cholesterol,Calculated 69.4 mg/dL (0.0-131.0); Magnesium 2.1 mg/dL (1.5-2.4); Phosphorus 3.4 mg/dL (2.4-5.1); Potassium 4.1 mmol/L (3.5-5.5); Sodium 142 mmol/L (135-145); T4, Free (Free Thyroxine) 0.49 ng/dL (0.80-1.80); Total Bilirubin 0.5 mg/dL (0.3-1.2); Total Protein 6.8 g/dL (6.2-8.2)
[2023-08-13 18:41] LABS: Appearance,Urine Clear (Clear); Bilirubin,Urine Negative (Negative); Blood,Urine Negative (Negative); Color,Urine Yellow (Yellow); Ketones,Urine Negative (Negative); Nitrite,Urine Negative (Negative); PH, Urine 5.5; Urobilinogen,Urine 0.2 E.U./DL
== END | disposition home or self-care (01) ==
LOC: LABWHC1 10:34
PROVIDERS: ATTEND Family Medicine
DX: E11.21 Type 2 diabetes mellitus with diabetic nephropathy (principal); E11.22 Type 2 diabetes mellitus with diabetic chronic kidney disease; N18.32 Chronic kidney disease, stage 3b; D63.1 Anemia in chronic kidney disease; I25.10 Atherosclerotic heart disease of native coronary artery without angina pectoris; E03.9 Hypothyroidism, unspecified; N39.0 Urinary tract infection, site not specified; R80.9 Proteinuria, unspecified
CPT/HCPCS: 36415; 80053; 80061; 81003; 82043; 82570; 83036; 83735; 84100; 84156; 84439; 84443; 84481; 85025

== ENCOUNTER → 2023-09-09 | Outpatient (CLI) | payer MEDICARE ==
[2023-09-09 16:02] LABS: BUN/Creat Ratio 14.46 Ratio (12.00-20.00); Blood Urea Nitrogen 37.6 mg/dL (9.0-27.0); Calcium 8.7 mg/dL (8.7-10.3); Carbon Dioxide 25.1 mmol/L (21.6-31.8); Chloride 107 mmol/L (96-109); Glucose 107 mg/dL (70-110); Potassium 4.4 mmol/L (3.5-5.5); Sodium 142 mmol/L (135-145)
== END | disposition home or self-care (01) ==
LOC: LABWHC1 08:56
PROVIDERS: ATTEND Internal Medicine
DX: N18.32 Chronic kidney disease, stage 3b (principal)
CPT/HCPCS: 36415; 80048

== ENCOUNTER → 2023-10-27 | Outpatient (CLI) | payer MEDICARE ==
[2023-10-27 12:13] LABS: Creatinine,Urine Random 110.9 mg/dL; Protein/Creatinine Ratio,Urine 0.207
[2023-10-27 15:24] LABS: Basophils # (A) 0.03 X 10*3/uL (0.00-0.10); Basophils % (A) 0.6 %; Eosinophils # (A) 0.23 X 10*3/uL (0.04-0.35); Eosinophils % (A) 4.6 %; HCT 38.3 % (39.6-50.0); HGB 11.9 g/dL (13.0-17.0); Lymphocytes # (A) 1.57 X 10*3/uL (0.90-5.00); Lymphocytes % (A) 31.2 %; MCH 27.1 pg (27.0-32.0); MCHC 31.1 g/dL (32.0-37.0); MCV 87.2 FL (80.0-97.0); Monocytes # (A) 0.42 X 10*3/uL (0.20-1.00); Monocytes % (A) 8.3 %; NRBC Per 100 WBC 0.02 X 10*3/uL (0.00-0.01); Neutrophils # (A) 2.77 X 10*3/uL (1.80-7.70); Neutrophils % (A) 55.1 %; Platelet Count 140 X 10*3/uL (140-440); RBC 4.39 X 10*6/uL (4.40-5.60); RDW 14.7 % (11.5-14.5); WBC 5.03 X 10*3/uL (4.50-10.00)
[2023-10-27 15:38] LABS: Appearance,Urine Clear (Clear); Bilirubin,Urine Negative (Negative); Blood,Urine Negative (Negative); Color,Urine Yellow (Yellow); Ketones,Urine Negative (Negative); Nitrite,Urine Negative (Negative); Specific Gravity,Urine 1.022 (1.001-1.030); Urobilinogen,Urine 0.2 E.U./DL
[2023-10-27 16:02] LABS: Chol/HDL Ratio 4.03 Ratio; Magnesium 2.3 mg/dL (1.5-2.4)
[2023-10-27 16:03] LABS: ALT 17 U/L (10-49); AST 21 U/L (14-35); Albumin 4.2 g/dL (3.8-4.9); Alkaline Phosphatase 85 U/L (41-126); BUN/Creat Ratio 13.55 Ratio (12.00-20.00); Blood Urea Nitrogen 27.1 mg/dL (9.0-27.0); Calcium 8.8 mg/dL (8.7-10.3); Chloride 106 mmol/L (96-109); Ferritin 40.5 ng/mL (22.0-322.0); Globulin 2.1 g/dL (1.6-3.3); Glucose 91 mg/dL (70-110); Iron 35 UG/DL (65-175); LDL Cholesterol,Calculated 55.2 mg/dL (0.0-131.0); Phosphorus 2.7 mg/dL (2.4-5.1); Potassium 4.1 mmol/L (3.5-5.5); Sodium 140 mmol/L (135-145); T4, Free (Free Thyroxine) 0.89 ng/dL (0.80-1.80); Total Bilirubin 0.4 mg/dL (0.3-1.2); Total Iron Binding Capacity 321 UG/DL (228-460); Total Protein 6.3 g/dL (6.2-8.2)
== END | disposition home or self-care (01) ==
LOC: LABWHC1 10:42
PROVIDERS: ATTEND Nurse Practitioner Acute Care
DX: E03.9 Hypothyroidism, unspecified (principal); E78.5 Hyperlipidemia, unspecified; D63.8 Anemia in other chronic diseases classified elsewhere; N18.32 Chronic kidney disease, stage 3b; N39.0 Urinary tract infection, site not specified; D63.1 Anemia in chronic kidney disease; R80.9 Proteinuria, unspecified
CPT/HCPCS: 36415; 80053; 80061; 81003; 82043; 82570; 82728; 83540; 83550; 83735; 84100; 84156; 84439; 84443; 84481; 85025

== ENCOUNTER → 2024-01-01 | Outpatient (CLI) | payer MEDICARE ==
[2024-01-01 15:17] LABS: Basophils # (A) 0.02 X 10*3/uL (0.00-0.10); Basophils % (A) 0.4 %; Eosinophils % (A) 4.5 %; HCT 37.9 % (39.6-50.0); HGB 11.7 g/dL (13.0-17.0); Lymphocytes % (A) 33.5 %; MCH 26.1 pg (27.0-32.0); MCHC 30.9 g/dL (32.0-37.0); MCV 84.6 FL (80.0-97.0); Mean Platelet Volume 9.7 FL (9.5-12.2); Monocytes # (A) 0.44 X 10*3/uL (0.20-1.00); Monocytes % (A) 9.8 %; NRBC Per 100 WBC 0 X 10*3/uL (0.00-0.01); Neutrophils # (A) 2.31 X 10*3/uL (1.80-7.70); Neutrophils % (A) 51.6 %; Platelet Count 139 X 10*3/uL (140-440); RBC 4.48 X 10*6/uL (4.40-5.60); RDW 15.4 % (11.5-14.5); WBC 4.48 X 10*3/uL (4.50-10.00)
[2024-01-01 15:48] LABS: % Iron Saturation 9.55 (15.00-50.00); ALT 16 U/L (10-49); AST 14 U/L (14-35); Albumin 4.2 g/dL (3.8-4.9); Alkaline Phosphatase 93 U/L (41-126); BUN/Creat Ratio 13.65 Ratio (12.00-20.00); Blood Urea Nitrogen 27.3 mg/dL (9.0-27.0); Chloride 106 mmol/L (96-109); Chol/HDL Ratio 4.37 Ratio; Ferritin 40.3 ng/mL (22.0-322.0); Globulin 2.1 g/dL (1.6-3.3); Glucose 91 mg/dL (70-110); Iron 30 UG/DL (65-175); LDL Cholesterol,Calculated 66.4 mg/dL (0.0-131.0); Potassium 4.3 mmol/L (3.5-5.5); Prostate Specific Antigen 0.42 ng/mL (0.000-6.500); Sodium 142 mmol/L (135-145); T4, Free (Free Thyroxine) 0.92 ng/dL (0.80-1.80); Total Bilirubin 0.4 mg/dL (0.3-1.2); Total Iron Binding Capacity 314 UG/DL (228-460); Total Protein 6.3 g/dL (6.2-8.2)
== END | disposition home or self-care (01) ==
LOC: LABWHC1 11:03
PROVIDERS: ATTEND Family Medicine
DX: Z12.5 Encounter for screening for malignant neoplasm of prostate (principal); E03.9 Hypothyroidism, unspecified; D50.9 Iron deficiency anemia, unspecified; I10 Essential (primary) hypertension; E78.2 Mixed hyperlipidemia
CPT/HCPCS: 36415; 80053; 80061; 82728; 83540; 83550; 84153; 84439; 84443; 84481; 85025

== ENCOUNTER → 2024-04-29 | Outpatient (CLI) | payer MEDICARE ==
[2024-04-29 10:28] LABS: Appearance,Urine Clear (Clear); Bilirubin,Urine Negative (Negative); Blood,Urine Negative (Negative); Color,Urine Yellow; Glucose,Urine (UA) 4+ (Negative); Ketones,Urine Negative (Negative); Leukocyte Esterase,Urine Negative (Negative); Nitrite,Urine Negative (Negative); PH, Urine 5.5 (5.0-8.0); Protein,Urine Negative (Negative); Specific Gravity,Urine 1.012 (1.001-1.035); Urobilinogen,Urine <2.0 mg/dL (<2.0)
[2024-04-29 15:06] LABS: Basophils # (A) 0.03 X 10*3/uL (0.00-0.10); Basophils % (A) 0.6 %; Eosinophils # (A) 0.27 X 10*3/uL (0.04-0.35); Eosinophils % (A) 5.1 %; HCT 40.6 % (39.6-50.0); HGB 12.5 g/dL (13.0-17.0); Lymphocytes # (A) 1.67 X 10*3/uL (0.90-5.00); Lymphocytes % (A) 31.4 %; MCH 26.3 pg (27.0-32.0); MCHC 30.8 g/dL (32.0-37.0); MCV 85.3 FL (80.0-97.0); Mean Platelet Volume 9.8 FL (9.5-12.2); Monocytes % (A) 9.4 %; NRBC Per 100 WBC 0 X 10*3/uL (0.00-0.01); Neutrophils # (A) 2.84 X 10*3/uL (1.80-7.70); Neutrophils % (A) 53.3 %; Platelet Count 146 X 10*3/uL (140-440); RBC 4.76 X 10*6/uL (4.40-5.60); RDW 15.2 % (11.5-14.5); WBC 5.32 X 10*3/uL (4.50-10.00)
[2024-04-29 15:46] LABS: % Iron Saturation 16.96 (15.00-50.00); ALT 16 U/L (10-49); AST 16 U/L (14-35); Albumin 4.4 g/dL (3.8-4.9); Albumin/Globulin Ratio 1.76 Ratio (1.60-3.17); Alkaline Phosphatase 96 U/L (41-126); BUN/Creat Ratio 18.35 Ratio (12.00-20.00); Blood Urea Nitrogen 47.7 mg/dL (9.0-27.0); Calcium 9.6 mg/dL (8.7-10.3); Carbon Dioxide 27.3 mmol/L (21.6-31.8); Chloride 104 mmol/L (96-109); Chol/HDL Ratio 4.91 Ratio; Ferritin 67.9 ng/mL (22.0-322.0); Globulin 2.5 g/dL (1.6-3.3); Glucose 102 mg/dL (70-110); Iron 58 UG/DL (65-175); LDL Cholesterol,Calculated 72.5 mg/dL (0.0-131.0); Magnesium 2.6 mg/dL (1.5-2.4); Phosphorus 4.5 mg/dL (2.4-5.1); Potassium 4.2 mmol/L (3.5-5.5); Sodium 144 mmol/L (135-145); T4, Free (Free Thyroxine) 1.05 ng/dL (0.80-1.80); Total Bilirubin 0.5 mg/dL (0.3-1.2); Total Iron Binding Capacity 342 UG/DL (228-460); Total Protein 6.9 g/dL (6.2-8.2); Uric Acid 11.3 mg/dL (3.7-8.7)
[2024-04-29 16:11] LABS: NT-Pro-B-Type Natriuretic Pept 402 pg/mL (0-125)
[2024-04-29 21:18] LABS: Microalbumin Creatinine Ratio <11 mg/g Cr (0-30)
== END | disposition home or self-care (01) ==
LOC: LABWHC1 09:33
PROVIDERS: ATTEND Internal Medicine
DX: I50.9 Heart failure, unspecified (principal); E78.5 Hyperlipidemia, unspecified; E11.21 Type 2 diabetes mellitus with diabetic nephropathy; E03.9 Hypothyroidism, unspecified; E55.9 Vitamin D deficiency, unspecified; N18.32 Chronic kidney disease, stage 3b; D50.9 Iron deficiency anemia, unspecified; M10.9 Gout, unspecified; D64.9 Anemia, unspecified; N39.0 Urinary tract infection, site not specified; N25.81 Secondary hyperparathyroidism of renal origin; R80.9 Proteinuria, unspecified
CPT/HCPCS: 36415; 80053; 80061; 81003; 82043; 82306; 82570; 82728; 83036; 83540; 83550; 83735; 83880; 83970; 84100; 84439; 84443; 84550; 85025

== ENCOUNTER → 2024-05-05 | Outpatient (CLI) | payer MEDICARE ==
--- NOTE | 2024-05-05 10:17 | US ---
EXAMINATION TYPE: US renal artery duplex complete DATE OF EXAM: 05/05/2024 COMPARISON: NONE CLINICAL INDICATION: Male, 74 years old with history of N18.32 STAGE 3 CHR KIDNEY DISEASE; CKD. HTN f or 20 years, controlled with medication, no changes TECHNIQUE: Grayscale, color Doppler and spectral Doppler imaging of the bilateral renal arteries and kidneys. FINDINGS: MEASUREMENTS: RENAL SIZE: Right Kidney: 10.3 x 5.4 x 4.1cm Left Kidney: 7.6 x 3.2 x 3.6cm Right Kidney: anechoic lesions, largest =1.2 x 1.0 x 1.2cm Left Kidney: atrophic as on prior exam. anechoic lesion mid= 1.3 x 1.3 x 1.5cm Abd Aorta: no evidence of AAA at this time RESISTANCE INDEX Right: 0.65 Left: 0.69 RA/AO RATIO (< 3.5 ) Right: 0.8 Left: n/a RENAL ARTERY VELOCITY ( < 180 cm/s) Right: 102.7cm/s Left: unable to visualize Pre Sales Technical Engineer Notes: Unable to accurately visualize/access left renal artery and vascularity due to re nal size and cortical thinning. Appropriate color Doppler flow and spectral waveforms to the kidneys bilaterally. IMPRESSION: No evidence for right renal artery stenosis Unable to accurately evaluate renal artery stenosis on the left. Consider MRA if additional evaluatio n be of benefit. Bilateral cortical renal cysts [facility], , 05/05/2024 10:15 AM
== END | disposition home or self-care (01) ==
LOC: RADUSWWP 08:33
PROVIDERS: ATTEND Internal Medicine
DX: N18.32 Chronic kidney disease, stage 3b (principal); N28.1 Cyst of kidney, acquired; I12.9 Hypertensive chronic kidney disease with stage 1 through stage 4 chronic kidney disease, or unspecified chronic kidney disease
CPT/HCPCS: 93975

== ENCOUNTER → 2024-07-30 | Outpatient (CLI) | payer MEDICARE ==
[2024-07-30 15:18] LABS: Basophils # (A) 0.02 X 10*3/uL (0.00-0.10); Basophils % (A) 0.5 %; Eosinophils # (A) 0.24 X 10*3/uL (0.04-0.35); Eosinophils % (A) 5.5 %; HCT 37.3 % (39.6-50.0); HGB 11.2 g/dL (13.0-17.0); Lymphocytes % (A) 34.2 %; MCH 25.4 pg (27.0-32.0); MCV 84.6 FL (80.0-97.0); Mean Platelet Volume 9.6 FL (9.5-12.2); Monocytes % (A) 9.1 %; NRBC Per 100 WBC 0 X 10*3/uL (0.00-0.01); Neutrophils # (A) 2.21 X 10*3/uL (1.80-7.70); Neutrophils % (A) 50.5 %; Platelet Count 150 X 10*3/uL (140-440); RBC 4.41 X 10*6/uL (4.40-5.60); RDW 15.7 % (11.5-14.5); WBC 4.38 X 10*3/uL (4.50-10.00)
[2024-07-30 15:45] LABS: % Iron Saturation 15.56 (15.00-50.00); ALT 17 U/L (10-49); AST 21 U/L (14-35); Albumin 3.7 g/dL (3.8-4.9); Albumin/Globulin Ratio 1.61 Ratio (1.60-3.17); Alkaline Phosphatase 95 U/L (41-126); BUN/Creat Ratio 14.14 Ratio (12.00-20.00); Blood Urea Nitrogen 31.1 mg/dL (9.0-27.0); Carbon Dioxide 22.2 mmol/L (21.6-31.8); Chloride 109 mmol/L (96-109); Chol/HDL Ratio 4.05 Ratio; Ferritin 47.3 ng/mL (22.0-322.0); Globulin 2.3 g/dL (1.6-3.3); Glucose 100 mg/dL (70-110); Iron 49 UG/DL (65-175); LDL Cholesterol,Calculated 54.9 mg/dL (0.0-131.0); Magnesium 2.2 mg/dL (1.5-2.4); Phosphorus 4.4 mg/dL (2.4-5.1); Potassium 4.9 mmol/L (3.5-5.5); Sodium 142 mmol/L (135-145); T4, Free (Free Thyroxine) 1.07 ng/dL (0.80-1.80); Total Bilirubin 0.3 mg/dL (0.3-1.2); Total Iron Binding Capacity 315 UG/DL (228-460)
[2024-07-30 21:16] LABS: Microalbumin Creatinine Ratio <12 mg/g Cr (0-30)
== END | disposition home or self-care (01) ==
LOC: LABWHC1 08:05
PROVIDERS: ATTEND Family Medicine
DX: I25.10 Atherosclerotic heart disease of native coronary artery without angina pectoris (principal); E03.9 Hypothyroidism, unspecified; E11.21 Type 2 diabetes mellitus with diabetic nephropathy; N18.32 Chronic kidney disease, stage 3b; D63.1 Anemia in chronic kidney disease; D63.8 Anemia in other chronic diseases classified elsewhere; R80.9 Proteinuria, unspecified
CPT/HCPCS: 36415; 80053; 80061; 82043; 82570; 82728; 83036; 83540; 83550; 83735; 84100; 84439; 84443; 85025

== ENCOUNTER → 2024-10-27 | Outpatient (CLI) | payer MEDICARE ==
[2024-10-27 15:16] LABS: Basophils # (A) 0.03 X 10*3/uL (0.00-0.10); Basophils % (A) 0.8 %; Eosinophils # (A) 0.26 X 10*3/uL (0.04-0.35); Eosinophils % (A) 6.9 %; HCT 37.2 % (39.6-50.0); HGB 11.4 g/dL (13.0-17.0); Immature Grans, Automated 0.30 %; Lymphocytes # (A) 1.39 X 10*3/uL (0.90-5.00); Lymphocytes % (A) 36.7 %; MCH 25.4 pg (27.0-32.0); MCHC 30.6 g/dL (32.0-37.0); MCV 83.0 FL (80.0-97.0); Monocytes # (A) 0.40 X 10*3/uL (0.20-1.00); Monocytes % (A) 10.6 %; NRBC Per 100 WBC 0 X 10*3/uL (0.00-0.01); Neutrophils # (A) 1.70 X 10*3/uL (1.80-7.70); Neutrophils % (A) 44.7 %; Platelet Count 144 X 10*3/uL (140-440); RBC 4.48 X 10*6/uL (4.40-5.60); RDW 16.8 % (11.5-14.5); WBC 3.79 X 10*3/uL (4.50-10.00)
[2024-10-27 17:16] LABS: ALT 17 U/L (10-49); AST 20 U/L (14-35); Albumin 4.0 g/dL (3.8-4.9); Albumin/Globulin Ratio 2.11 Ratio (1.60-3.17); Alkaline Phosphatase 99 U/L (41-126); Anion Gap 11.40 mmol/L (4.00-12.00); BUN/Creat Ratio 11.68 Ratio (12.00-20.00); Blood Urea Nitrogen 25.7 mg/dL (9.0-27.0); Calcium 8.4 mg/dL (8.7-10.3); Carbon Dioxide 21.6 mmol/L (21.6-31.8); Chloride 107 mmol/L (96-109); Cholesterol 116.00 mg/dL (0.00-200.00); Ferritin 65.8 ng/mL (22.0-322.0); Globulin 1.9 g/dL (1.6-3.3); Glucose 93 mg/dL (70-110); HDL Cholesterol 26.00 mg/dL (40.00-60.00); Iron 48 UG/DL (65-175); LDL Cholesterol,Calculated 61.4 mg/dL (0.0-131.0); Potassium 4.6 mmol/L (3.5-5.5); Sodium 140 mmol/L (135-145); T4, Free (Free Thyroxine) 1.35 ng/dL (0.80-1.80); Total Iron Binding Capacity 288 UG/DL (228-460); Total Protein 5.9 g/dL (6.2-8.2); Triglycerides 143.00 mg/dL (0.00-149.00); Uric Acid 5.9 mg/dL (3.7-8.7); VLDL Calculation 28.60 mg/dL (5.00-40.00)
[2024-10-27 17:52] LABS: NT-Pro-B-Type Natriuretic Pept 956 pg/mL (0-125)
== END | disposition home or self-care (01) ==
LOC: LABWHC1 08:28
PROVIDERS: ATTEND Family Medicine
DX: D63.8 Anemia in other chronic diseases classified elsewhere (principal); I50.9 Heart failure, unspecified; I25.10 Atherosclerotic heart disease of native coronary artery without angina pectoris; E11.21 Type 2 diabetes mellitus with diabetic nephropathy; E03.9 Hypothyroidism, unspecified; M1A.3790 Chronic gout due to renal impairment, unspecified ankle and foot, without tophus (tophi)
CPT/HCPCS: 36415; 80053; 80061; 82728; 83036; 83540; 83550; 83880; 84439; 84443; 84550; 85025